=== PATIENT | female | born 1945 | race Caucasian/White ===

== ENCOUNTER → 2016-10-08 | Outpatient (CLI) | payer OTHER ==
[~2016-10-08] MED LIST: ACET-1311 PO; ALBU18002 INH; ASPCH81X PO; CALC500C70 PO; CETI10TA99 PO; CHOL1TAB42 PO; CYAN10004 PO; FOLI800T; HYDR25TA4 PO; HYOS1TAB PO; LOSA1TAB38 PO; MISCCAP80 PO; PSEU60TA80 PO; ROSU5TAB PO; TRAM-10 PO; ZNTT/150 PO
--- NOTE | 2016-10-11 13:32 | MAMMOGRAPHY REPORT ---
BILATERAL DIGITAL SCREENING MAMMOGRAM WITH CAD: 10/08/2016 CLINICAL HISTORY: Routine screening. Patient has no complaints. TECHNIQUE: Current study was also evaluated with a Computer Aided Detection (CAD) system. Bilatera l CC and MLO views were obtained. COMPARISON: Comparison is made to exams dated: 10/07/2015 mammogram, 07/15/2014 mammogram, 03/30/2012 mammogram - [facility], 10/14/2010 mammogram, and 09/17/2009 mammogram. BREAST COMPOSITION: The tissue of both breasts is heterogeneously dense, which may obscure small ma sses. FINDINGS: There is a questionable area of architectural distortion seen within the left superior br east middle depth on the MLO view, possibly projecting laterally on the cc view. Recommend spot com pression tomosynthesis views and possible breast ultrasound for further evaluation. The remainder of both breasts are stable compared to prior exams, without suspicious masses, calcifi cations, or areas of architectural distortion noted. Scattered bilateral benign-appearing calcifica tions are stable. IMPRESSION: ACR BI-RADS CATEGORY 0: INCOMPLETE EVALUATION: NEED ADDITIONAL IMAGING EVALUATION Possible left breast architectural distortion, for which additional imaging evaluation is recommende d. The patient will be called to schedule an appointment. Approximately 10% of breast cancers are not detected with mammography. A negative mammographic repor t should not delay biopsy if a clinically suggestive mass is present. Tosha Cannon M.D. /:10/08/2016 16:08:52 Religious Activities Director: Alka Hernandez, [facility] letter sent: Addl Imaging 0 BI-RADS Code: ACR BI-RADS Category 0: Incomplete Evaluation: Need Additional Imaging Evaluation
== END | disposition home or self-care (01) ==
LOC: C.MAMM 11:14
PROVIDERS: ATTEND Internal Medicine
DX: Z12.31 Encounter for screening mammogram for malignant neoplasm of breast (principal); N64.89 Other specified disorders of breast

== ENCOUNTER → 2016-10-26 | Outpatient (CLI) | payer OTHER ==
--- NOTE | 2016-10-26 13:02 | MAMMOGRAPHY REPORT ---
UNILATERAL LEFT DIGITAL DIAGNOSTIC MAMMOGRAM TOMOSYNTHESIS AND TARGETED LEFT ULTRASOUND: 10/26/2016 CLINICAL HISTORY: 71-year-old woman with no family history of breast cancer called back from screeni ng mammography for possible architectural distortion in the upper outer middle one third of the left breast. TECHNIQUE: Spot compression left CC and MLO 2-D digital and tomosynthesis images were obtained. COMPARISON: Comparison is made to exams dated: 10/08/2016 mammogram, 10/07/2015 mammogram, 03/30/2012 ma mmogram - [facility], 09/17/2009 mammogram, 10/14/2010 mammogram, and 07/15/2014 mamm ogram - [facility]. BREAST COMPOSITION: The tissue of the left breast is heterogeneously dense, which may obscure small masses. FINDINGS: The additional spot compression views including to this is images demonstrate complete eff acement of the possible distortion in the upper outer middle one third of the left breast. There is no focal area of architectural distortion, a suspicious mass or suspicious clustered microcalcifica tions. Real-time high-resolution ultrasound was performed throughout the left breast throughout the 4:00, 8 :00, retroareolar and superior breast. Normal fibroglandular tissue is seen without a discrete ruthie d or cystic mass. IMPRESSION: ACR BI-RADS CATEGORY 2: BENIGN, TARGETED ULTRASOUND ACR BI-RADS CATEGORY 2: BENIGN There is complete effacement of the possible architectural distortion in the upper outer middle one third of the left breast, and no suspicious sonographic correlate. This most likely represented nor mal overlapping fibroglandular tissue. There is no mammographic or targeted sonographic evidence of malignancy. Return to annual mammogram screening schedule is recommended. The patient and her husb and have been verbally notified of the results. Approximately 10% of breast cancers are not detected with mammography. A negative mammographic repor t should not delay biopsy if a clinically suggestive mass is present. Savita Marques M.D. ay/:10/26/2016 11:49:14 Veneer Drier Feeder: Gela SANTANA (R)(Mel), [facility] letter sent: Normal 1/2 BI-RADS Code: ACR BI-RADS Category 2: Benign Ultrasound BI-RADS: ACR BI-RADS Category 2: Benign
== END | disposition home or self-care (01) ==
LOC: C.MAMM 10:38
PROVIDERS: ATTEND Internal Medicine
DX: N64.89 Other specified disorders of breast (principal)

== ENCOUNTER → 2016-11-09 | Outpatient (CLI) | payer OTHER | END | disposition home or self-care (01) | LOC: C.LAB1850 14:05 | PROVIDERS: ATTEND Internal Medicine Rheumatology | DX: E55.9 Vitamin D deficiency, unspecified (principal); M81.0 Age-related osteoporosis without current pathological fracture ==

== ENCOUNTER → 2016-12-06 | Outpatient (CLI) | payer OTHER ==
[2016-12-06 14:59] LABS: BASO % 0.4 %; BASO ABS # 0.03 K/uL (0-0.2); COMPLETE YES; EOS % 2.8 %; HEMATOCRIT 39.4 % (37-47); IG% 0.1 %; LYMPH % 29.4 %; LYMPH ABS # 2.24 K/uL (1.2-3.4); MEAN CELL VOLUME 88.7 fL (80-100); MEAN CORPUSCULAR HEMOGLOBIN 29.5 pg (25-34); MEAN CORPUSCULAR HGB CONC 33.2 g/dl (32-36); MEAN PLATELET VOLUME 10.1 fL (7.4-10.4); MONO % 7.8 %; NEUT % 59.5 %; PLATELET COUNT 266 K/uL (130-400); RED BLOOD COUNT 4.44 M/uL (4.2-5.4); WHITE BLOOD COUNT 7.61 K/uL (4.8-10.8)
[2016-12-06 15:33] LABS: ALT/SGPT 21 U/L (12-78); AST/SGOT 12 U/L (15-37); BLOOD UREA NITROGEN 21 mg/dl (7-18); BUN/CREATININE RATIO 17.9 (10-20); CALCIUM 9.6 mg/dl (8.5-10.1); CARBON DIOXIDE 33 mmol/L (21-32); CHLORIDE 102 mmol/L (98-107); GLUCOSE 87 mg/dl (70-99); POTASSIUM 3.8 mmol/L (3.5-5.1); SODIUM 141 mmol/L (136-145)
[2016-12-06 15:43] LABS: ALB/GLOB RATIO 1.1 (0.9-2); ALKALINE PHOSPHATASE 66 U/L (45-117); THYROID STIMULATING HORMONE 0.927 uIu/ml (0.300-4.500)
== END | disposition home or self-care (01) ==
LOC: C.LAB 14:04
PROVIDERS: ATTEND Internal Medicine
DX: R11.0 Nausea (principal)

== ENCOUNTER → 2017-02-16 | Outpatient (CLI) | payer OTHER ==
[2017-02-16 10:42] LABS: BLOOD UREA NITROGEN 10 mg/dl (7-18); BUN/CREATININE RATIO 13.2 (10-20); CALCIUM 8.9 mg/dl (8.5-10.1); CARBON DIOXIDE 28 mmol/L (21-32); CHLORIDE 96 mmol/L (98-107); CHOLESTEROL 207 mg/dl (0-200); CREATININE 0.77 mg/dl (0.60-1.20); GLUCOSE 85 mg/dl (70-99); SODIUM 133 mmol/L (136-145); TRIGLYCERIDES 120 mg/dl (0-150); VERY LOW DENSITY LIPOPROT CALC 24 mg/dl
[2017-02-16 10:45] LABS: CHOLESTEROL/HDL RATIO 2.6; HDL CHOLESTEROL 79 mg/dl; LDL CHOLESTEROL CALCULATED 104 mg/dl
== END | disposition home or self-care (01) ==
LOC: C.LAB 09:34
PROVIDERS: ATTEND Internal Medicine
DX: E78.00 Pure hypercholesterolemia, unspecified (principal); I10 Essential (primary) hypertension

== ENCOUNTER → 2017-09-08 | Outpatient (CLI) | payer OTHER ==
[~2017-09-08] MED LIST changes: +ELDE1SYP PO; +GUAI1SOL5 PO; +PRED10PA3; +RANI150T85 PO; +UMEC1AER INH; -ZNTT/150 PO; +ZOLE5INJ3 IV; +[UNRECOGNIZED DRUG - OTHER] PO
--- NOTE | 2017-09-08 09:50 | DIAGNOSTIC IMAGING REPORT ---
CHEST 2 VIEWS ROUTINE CLINICAL HISTORY: R05 [id number] dyspnea COMPARISON STUDY: 325 2 and 16 FINDINGS: Mild stable emphysematous change. No acute infiltrate. Mild chronic apical fibrotic and pleural thickening-type change. No new or interval finding. Moderate degenerative changes thoracic spine. IMPRESSION: Chronic change. No acute process. The above report was generated using voice recognition software. It may contain grammatical, syntax or spelling errors. Electronically signed by: Rashad Garcia M.D. 09/08/2017 9:49 AM Dictated Date/Time: 09/08/2017 9:47 AM
== END | disposition home or self-care (01) ==
LOC: C.RAD1850 09:35
PROVIDERS: ATTEND Physician Assistant
DX: R05 Cough (principal)

== ENCOUNTER → 2017-10-11 | Outpatient (CLI) | payer OTHER ==
[~2017-10-11] MED LIST changes: -ELDE1SYP PO; -GUAI1SOL5 PO; -PRED10PA3; -UMEC1AER INH; -ZOLE5INJ3 IV; -[UNRECOGNIZED DRUG - OTHER] PO
--- NOTE | 2017-10-12 14:02 | MAMMOGRAPHY REPORT ---
BILATERAL DIGITAL SCREENING MAMMOGRAM TOMOSYNTHESIS WITH CAD: 10/11/2017 CLINICAL HISTORY: Routine screening. Patient has no complaints. TECHNIQUE: Breast tomosynthesis in addition to standard 2D mammography was performed. Current study was also evaluated with a Computer Aided Detection (CAD) system. COMPARISON: Comparison is made to exams dated: 10/26/2016 mammogram, 10/08/2016 mammogram, 10/07/2015 yue mogram, 07/15/2014 mammogram, 03/30/2012 mammogram - [facility], and 10/14/2010 mammog sarika. BREAST COMPOSITION: The tissue of both breasts is heterogeneously dense, which may obscure small mas ses. FINDINGS: There is a possible small grouping of microcalcifications in the upper outer middle one th ird of the right breast, for which additional spot magnification views are recommended. There are a few scattered benign rim calcifications bilaterally. No other suspicious mass, architectu ral distortion or cluster of microcalcifications is seen. IMPRESSION: ACR BI-RADS CATEGORY 0: INCOMPLETE EVALUATION: NEED ADDITIONAL IMAGING EVALUATION The possible small grouping of microcalcifications in the right upper outer breast needs additional e valuation. The patient will be called to schedule an appointment. Approximately 10% of breast cancers are not detected with mammography. A negative mammographic report should not delay biopsy if a clinically suggestive mass is present. Savita Marques M.D. ay/:10/11/2017 16:22:23 Parcel Wrapper: Katja SANTANA(Carlton)(Mel)(BD), [facility] letter sent: Addl Imaging 0 BI-RADS Code: ACR BI-RADS Category 0: Incomplete Evaluation: Need Additional Imaging Evaluation
== END | disposition home or self-care (01) ==
LOC: C.MAMM 10:36
PROVIDERS: ATTEND Internal Medicine
DX: Z12.31 Encounter for screening mammogram for malignant neoplasm of breast (principal); R92.8 Other abnormal and inconclusive findings on diagnostic imaging of breast

== ENCOUNTER → 2017-10-29 | Outpatient (CLI) | payer OTHER ==
[2017-10-29 11:15] LABS: HEMATOCRIT 41.8 % (37-47); HEMOGLOBIN 14.1 g/dL (12.0-16.0); MEAN CELL VOLUME 90.1 fL (80-100); MEAN CORPUSCULAR HEMOGLOBIN 30.4 pg (25-34); MEAN CORPUSCULAR HGB CONC 33.7 g/dl (32-36); MEAN PLATELET VOLUME 9.6 fL (7.4-10.4); PLATELET COUNT 278 K/uL (130-400); RED CELL DISTRIBUTION WIDTH SD 42.6 fL (36.4-46.3); WHITE BLOOD COUNT 6.92 K/uL (4.8-10.8)
[2017-10-29 11:51] LABS: BLOOD UREA NITROGEN 11 mg/dl (7-18); CREATININE 0.84 mg/dl (0.60-1.20); GLUCOSE 91 mg/dl (70-99)
[2017-10-29 11:52] LABS: ALT/SGPT 18 U/L (12-78); AST/SGOT 15 U/L (15-37); CALCIUM 8.9 mg/dl (8.5-10.1); CARBON DIOXIDE 30 mmol/L (21-32); POTASSIUM 3.8 mmol/L (3.5-5.1); SODIUM 135 mmol/L (136-145)
[2017-10-29 11:54] LABS: CHOLESTEROL 172 mg/dl (0-200); LDL CHOLESTEROL CALCULATED 81 mg/dl
== END | disposition home or self-care (01) ==
LOC: C.LAB 10:19
PROVIDERS: ATTEND Internal Medicine
DX: E78.00 Pure hypercholesterolemia, unspecified (principal); I10 Essential (primary) hypertension; E55.9 Vitamin D deficiency, unspecified; M81.0 Age-related osteoporosis without current pathological fracture

== ENCOUNTER → 2017-11-21 | Outpatient (CLI) | payer OTHER | END | disposition home or self-care (01) | LOC: C.MAMM 14:51 | PROVIDERS: ATTEND Internal Medicine Rheumatology | DX: M85.89 Other specified disorders of bone density and structure, multiple sites (principal); M81.0 Age-related osteoporosis without current pathological fracture; M84.469A Pathological fracture, unspecified tibia and fibula, initial encounter for fracture ==

== ENCOUNTER → 2017-12-12 | Outpatient (CLI) | payer OTHER ==
--- NOTE | 2017-12-13 07:42 | MAMMOGRAPHY REPORT ---
UNILATERAL RIGHT DIGITAL DIAGNOSTIC MAMMOGRAM: 12/12/2017 CLINICAL HISTORY: 72-year-old woman called back from screening mammography for right breast microcalc ifications. TECHNIQUE: Spot magnification right CC and ML views were obtained. COMPARISON: Comparison is made to exams dated: 10/11/2017 mammogram, 10/08/2016 mammogram, 10/07/2015 mamm ogram, 07/15/2014 mammogram, 03/30/2012 mammogram - [facility], and 10/14/2010 mammogr am. BREAST COMPOSITION: The tissue of the right breast is heterogeneously dense, which may obscure small masses. FINDINGS: There is a loose grouping of punctate microcalcifications in the upper outer middle one th ird of the right breast measuring 3.5 mm on the ML the spot magnification CC view. Demonstrates the micro calcifications may extend over 7 mm although it is difficult to differentiate between the punct ate microcalcifications and possible vascular calcification seen posterior. No obvious associated ar chitectural distortion, mass or asymmetry. These calcifications were not clearly seen on prior mammo grams and are therefore indeterminate. Definitive characterization with a right breast stereotactic guided biopsy is recommended. IMPRESSION: ACR BI-RADS CATEGORY 4: SUSPICIOUS Right breast stereotactic guided biopsy is recommended for newly visualized grouped punctate microcal cifications in the upper outer middle one third of the breast. These results and recommendations were discussed with the patient and her at the time of the exam. She tentatively scheduled the right breast biopsy prior to leaving the department. Approximately 10% of breast cancers are not detected with mammography. A negative mammographic report should not delay biopsy if a clinically suggestive mass is present. Savita Marques M.D. ay/:12/12/2017 12:04:11 Tare Worker: Whitney PHILLIPS)(Mel), [facility] letter sent: Abnormal 4/5 BI-RADS Code: ACR BI-RADS Category 4: Suspicious
== END | disposition home or self-care (01) ==
LOC: C.MAMM 10:51
PROVIDERS: ATTEND Internal Medicine
DX: R92.0 Mammographic microcalcification found on diagnostic imaging of breast (principal)

== ENCOUNTER → 2017-12-26 | Outpatient (CLI) | payer OTHER ==
--- NOTE | 2017-12-26 13:25 | Discharge Instructions ---
Discharge Instructions Procedure Procedure Date: Dec 26, 2017. Reason for visit: Right Calcifications. Discharge Discharge Date: Dec 26, 2017. Discharge Diagnosis: post right breast stereotactic guided biopsy Medications Restart Stopped Medication(s): May restart Aspirin tomorrow as long as not bleeding through the bandages. Instructions Activity Recommendations: Additional Limitations (see below) Return to School/Work: no limitations Recommended Home Diet: No Limitations Provider Instructions: ACTIVITY RECOMMENDATIONS: * No lifting, pushing, pulling or exercising the affected side for three days. RETURN TO SCHOOL/WORK: * You may return to work/school after the procedure, but do not perform any strenuous activities for 24 to 48 hours. MEDICATIONS: * Tylenol (two 325 mg) every four to six hours if needed for mild pain (if not allergic to Tylenol). DIET: * Resume previous diet. SPECIAL CARE INSTRUCTIONS: * Keep biopsy site dry for 24 hours. May shower after 24 hours, but do not soak (bathe) incision. * May remove Tegaderm (plastic patch) tomorrow AFTER showering. * Leave the steri-strips on for one week. Allow the steri-strips to fall off by themselves. If not off after one week, you may remove them. You may place a Bandaid crosswise over the strips, if desired. * Apply ice 10 minutes on and 10 minutes off as needed. * Wear a bra at bedtime to sleep more comfortably for 2-3 days. * Your referring physician should have the results after approximately 5 to 7 business days. * Call for unusual bleeding, fever, drainage, etc or if you have any questions call [phone] during normal business hours or after hours call Dr Marques, . FOLLOW UP VISIT: Follow-up with Referring Physician as scheduled. Allergies Coded Allergies: Penicillins (Verified Allergy, Unknown, Hives, 07/14/16) Sulfa Antibiotics (Verified Allergy, Unknown, SWELLING, 07/14/16) [place] Recommendations: Call your doctor if: * Temperature above 101 degrees * Pain not relieved by pain medicine ordered * There is increased drainage or redness from any incision * You have any unanswered questions or concerns. Your Doctors Instructions noted above were prepared by provider Savita Marques. Patient Signature Section: Patient Instructions Signature Page Nellie Mercedes Patient (or Guardian) Signature/Date: I have read and understand the instructions given to me by my caregivers. Caregiver/RN/Doctor Signature/Date: The above-named patient and/or guardian has received patient instructions on this date. + Original Patient Signature Page (only) stays with chart. Please make copy for patient.
--- NOTE | 2017-12-27 07:37 | MAMMOGRAPHY REPORT ---
STEREOTACTIC GUIDED BIOPSY RIGHT BREAST: 12/26/2017 CLINICAL HISTORY: Indeterminate grouping of punctate microcalcifications in the right upper outer luis ast. Patient presents for stereotactic guided biopsy. COMPARISON: Comparison is made to exams dated: 10/11/2017 mammogram, 12/12/2017 mammogram, 10/26/2016 yue mogram, 10/08/2016 mammogram, 10/07/2015 mammogram, and 07/15/2014 mammogram - [facility] [address]. PATIENT CONSENT: After explaining the risks, benefits and alternatives of the procedure to the patien t, informed consent was obtained both verbally and in writing. Specific risks include: Bleeding, inf ection, puncture of adjacent structure, pain, nontarget biopsy, sampling error, metal allergy and med ication reaction. PROCEDURE DESCRIPTION: A time-out was performed and the right breast was confirmed as the site of bio psy. The patient was placed prone on the stereotactic biopsy table and the breast was placed in later almedial compression. A psychological science professor tomosynthesis view was obtained that redemonstrates the clustered micr ocalcifications in question. They are amenable to sterotactic biopsy, and the calcifications were caballero bsequently targeted utilizing the coordinates obtained by the computer. The skin was prepped with Be tadine. 1% Lidocaine with and without epinipherine was administered as local anesthesia. A small skin incision was made. Through the incision, the needle was inserted to the depth determined by the com puter. 5 samples were obtained using a Kanocoiva 9-gauge vacuum-assisted biopsy device. The specime n radiograph demonstrated to larger and a few faint smaller inside sales account representative microcalcifications, there fore, 3 additional core biopsy samples were obtained. A T-shaped biopsy marker clip was placed at th e site of biopsy. There was no immediate complication. Hemostasis was achieved after several minutes of manual compression. The samples were sent to pathology in two appropriately labeled containers, "with calcifications" and "without calcifications". All of the samples were obtained from the same si ngle biopsy site. Postprocedure CC and ML views of the right breast were obtained. There is a new T-shaped biopsy rajni er clip, at least 2 residual microcalcifications and no significant hematoma in the upper outer quadr ant of the right breast, at the site of the biopsied calcifications seen mammographically. IMPRESSION: STEREOTACTIC GUIDED BIOPSY Status post stereotactic guided biopsy of a grouping of punctate microcalcifications in the right upp er outer breast, with T-shaped metallic biopsy marker placed at the site. The patient will receive notification of the pathology results from her referring physician. Savita Marques M.D. ay/:12/26/2017 15:05:16 School Director: Gela PHILLIPS)Kim), [facility]
--- NOTE | 2017-12-27 07:40 | MAMMOGRAPHY REPORT ---
UNILATERAL RIGHT DIGITAL DIAGNOSTIC MAMMOGRAM TOMOSYNTHESIS: 12/26/2017 CLINICAL HISTORY: Grouped punctate microcalcifications in the right upper outer quadrant. Patient pr esents for stereotactic biopsy. Please refer to the report from right breast stereotactic guided biopsy performed at the same time fo r full detail. IMPRESSION: POST PROCEDURE IMAGING FOR MARKER PLACEMENT Please refer to the report from right breast stereotactic guided biopsy performed at the same time fo r full detail. Approximately 10% of breast cancers are not detected with mammography. A negative mammographic report should not delay biopsy if a clinically suggestive mass is present. Savita Marques M.D. ay/:12/26/2017 13:23:58 Entry Level Recruiter: Gela SANTANA(Carlton)(Mel), [facility] BI-RADS Code: Post Procedure Imaging For Marker Placement
== END | disposition home or self-care (01) ==
LOC: C.MAMM 12:42
PROVIDERS: ATTEND Internal Medicine
DX: R92.0 Mammographic microcalcification found on diagnostic imaging of breast (principal)

== ENCOUNTER → 2017-12-28 | Outpatient (CLI) | payer OTHER ==
[~2017-12-28] MED LIST changes: +ELDE1SYP PO; +GUAI1SOL5 PO; +PRED10PA3; +UMEC1AER INH; +ZOLE5INJ3 IV; +[UNRECOGNIZED DRUG - OTHER] PO
--- NOTE | 2017-12-28 13:46 | DIAGNOSTIC IMAGING REPORT ---
CT LUNG SCREENING, LOW DOSE WITH COMPUTER-AIDED DETECTION (CAD) CLINICAL HISTORY: Tobacco use. Low dose screening study. COMPARISON STUDY: No previous studies for comparison. CT DOSE: 75.95 mGycm TECHNIQUE: Low-dose helical CT was acquired without intravenous contrast from lung apices to bases and reconstructed at 2.5 mm every 2 mm. CAD was utilized for this study. A dose lowering technique was utilized adhering to the principles of ALARA. FINDINGS: Thyroid: Imaged portions of the thyroid gland are normal in appearance. Thoracic aorta: The thoracic aorta is normal in course and caliber, noting standard 3 vessel arch anatomy. Heart: There are mild coronary artery calcifications present. Lungs and pleural spaces: There are no pleural effusions. There is an 8 mm groundglass left lower lobe pulmonary nodule as visualized on image #24/311. There is a 6.2 mm right upper lobe groundglass pulmonary nodule as visualized in image #99/311. There is a 4.3 mm solid left upper lobe pulmonary nodule as visualized in image #42/311. There is 3.5 mm solid left upper lobe pulmonary nodule as visualized in image #118/311. There is right upper lobe tree-in-bud nodularity best visualized in image #104/311. This is likely postinflammatory. Mediastinum: There is no mediastinal lymphadenopathy. Micik: There is no evidence of pathologic hilar adenopathy given the limitations of a noncontrast study Axilla: Clear. Upper abdomen: Partially visualized upper abdominal viscera is within normal limits. Skeletal structures: There are no lytic or blastic osseous lesions. IMPRESSION: 1. Bilateral pulmonary nodules, the largest of which is an 8 mm groundglass left lower lobe pulmonary nodule. 12 month follow-up is recommended. CAD FINDINGS: Nodule 1 Category: 2 Nodule 1 Status: Baseline Nodule 1 Description: Non-solid Nodule 1 Lesion ID: 6 Nodule 1 Slice Number: 55 Nodule 1 Volume (mm3): 273 Nodule 1 Major [place] mm: 11.3 Nodule 1 Minor [place] mm: 5.7 Nodule 2 Category: 2 Nodule 2 Status: Baseline Nodule 2 Description: Non-solid Nodule 2 Lesion ID: 5 Nodule 2 Slice Number: 106 Nodule 2 Volume (mm3): 123 Nodule 2 Major [place] mm: 9.7 Nodule 2 Minor [place] mm: 1.6 Nodule 3 Category: 2 Nodule 3 Status: Baseline Nodule 3 Description: Solid Nodule 3 Lesion ID: 2 Nodule 3 Slice Number: 136 Nodule 3 Volume (mm3): 43 Nodule 3 Major [place] mm: 6.5 Nodule 3 Minor [place] mm: 3.5 Nodule 4 Category: 2 Nodule 4 Status: Baseline Nodule 4 Description: Non-solid Nodule 4 Lesion ID: 6 Nodule 4 Slice Number: 55 Nodule 4 Volume (mm3): 273 Nodule 4 Major [place] mm: 11.3 Nodule 4 Minor [place]ar[place] mm: 5.7 Overall Lung RADS Category: 2 Lung RADS Management Recommendation: Continue annual lung cancer screening. Lung RADS Follow Up Date: 2018-12-28 Lung RADS Nodule ID: 6 Electronically signed by: Kentrell Luong M.D. 12/28/2017 1:45 PM Dictated Date/Time: 12/28/2017 1:31 PM
== END | disposition home or self-care (01) ==
LOC: C.CTS 12:47
PROVIDERS: ATTEND Internal Medicine
DX: Z87.891 Personal history of nicotine dependence (principal)

== ENCOUNTER 2021-11-11 09:25 | Inpatient (IN) ==
[2021-11-11] MEDS ORDERED: ACETAMINOPHEN 1,000 MG/100 ML VIAL IV STA (09:48)
--- NOTE | 2021-11-11 09:54 | Emergency Department Note ---
History of Present Illness General Chief complaint: Fall Stated complaint: R WRIST PAIN, RIB PAIN, FALL Time Seen by Provider: 11/11/21 09:35 Source: patient Mode of arrival: ambulatory Limitations: no limitations History of Present Illness Provider complaint: dizziness, fall Onset (ago): hour(s) 7 Maximum Pain Intensity: 8 Associated symptoms: no chest pain, no fever/chills, no headaches, no nausea/vomiting or no shortness of breath Treatments prior to arrival: none This is a 76-year-old female presents emergency department following a fall in the middle the night. Patient with a long history of dizziness, states it has been chronic and almost daily for about a year now. She states she did recently see her PCP as she felt that the 12.5 mg of meclizine she had previously been taking was no longer working and she was increased to 25 mg. Patient states she got up in the middle the night as she needed to urinate, did not wake up her to ask for help, and while attempting to walk to the bathroom became dizzy and off balance and fell landing on a carpeted floor. Patient states she did strike her head on a wooden chest on the way down. She believes she struck the posterior aspect of her head. Patient states she also felt pain in her right hand and wrist. Patient states her got up and helped her to the restroom and she did not wish to come in for evaluation at that time so she got back into bed. She took some Tylenol and was able to fall back to sleep. She states this morning when she awoke, her wrist and arm hurt worse. Denies any other recent illness or other medication changes. Pt seen during a time of high acuity and national emergency pandemic while wearing PPE. Home Medications Medication Instructions Recorded Confirmed Type calcium carb,cit ER 600 mg-vit D3 2 tab PO DAILY tab 04/17/19 11/11/21 History 12.5 mcg (500 unit) tablet,ext.rel (Citracal-D3 Slow Release) folic acid 1 mg tablet 1 mg PO DAILY #1 tab 04/17/19 11/11/21 History zoledronic acid 5 mg/100 mL in 5 mg IV YEARLY #0 04/17/19 11/11/21 History mannitol 5 %-water intravenous piggybck (Reclast) acetaminophen 650 mg 650 mg PO Q12H PRN 08/14/19 11/11/21 History tablet,extended release cholecalciferol (vitamin D3) 125 5,000 unit PO .COMPLEX #0 09/10/20 11/11/21 History mcg (5,000 unit) tablet (Vitamin D3) cetirizine 10 mg capsule (Zyrtec) 10 mg PO QAM PRN #0 09/15/20 11/11/21 History cyclobenzaprine 5 mg tablet 5 mg PO HS PRN #30 tab 05/29/21 11/11/21 Rx rosuvastatin 5 mg tablet (Crestor) 5 mg PO .COMPLEX 09/10/21 11/11/21 History fluticasone fur. 100 mcg-umeclid 1 inh INH Q24H #60 ea 09/14/21 11/11/21 Rx 62.5 mcg-vilant 25 mcg inhalat.powder (Trelegy Ellipta) albuterol sulfate 90 mcg/actuation 1 - 2 puff INHALATION Q4H PRN #18 10/30/21 11/11/21 Rx aerosol inhaler (Ventolin HFA) gm hydrochlorothiazide 25 mg tablet 25 mg PO QAM #90 tab 10/30/21 11/11/21 Rx losartan 100 mg tablet (Cozaar) 100 mg PO QAM #90 tab 10/30/21 11/11/21 Rx meclizine 25 mg tablet 25 mg PO QID #30 tab 11/09/21 11/11/21 Rx Allergies Allergy/AdvReac Type Severity Reaction Status Date / Time Penicillins Allergy Unknown Hives Verified 11/10/21 10:19 Sulfa (Sulfonamide Allergy Unknown SWELLING Verified 11/10/21 10:19 Antibiotics) Past Med/Surg History Medical History (Updated 11/11/21 @ 16:33 by Julio César Dunaway MD) 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 Chronic obstructive pulmonary disease Deviated nasal septum Family history of diabetes mellitus MATERNAL GRANDMOTHER Family history of reaction to anesthesia MOTHER HAD "A HARD TIME COMING OUT OF IT" GERD (gastroesophageal reflux disease) History of smoking for more than 10 years Hyperlipidemia Hypertension Multiple pulmonary nodules determined by computed tomography of lung Osteoarthritis Surgical History History of appendectomy History of cataract surgery RT/LT History of section History of colonoscopy History of esophagogastroduodenoscopy (EGD) History of hysterectomy R OOPHERECTOMY History of open reduction and internal fixation (ORIF) procedure L ANKLE/TIBIA History of tonsillectomy History of tooth extraction WISDOM TEETH S/p bilateral blepharoplasty Family History Mother Coronary heart disease Hypertension Father Coronary heart disease Hypertension Myocardial infarction Grandmother Diabetes Breast cancer Denies family history of Ovarian cancer Prostate cancer Colorectal cancer Social History Smoking Status: Current every day smoker Second Hand Exposure: No; Hx Alcohol Use: Yes Alcohol type: wine Hx Substance Use: No Preferred Language: Indonesian Communication Ability: Effective Visual Impairment: No Limitations Hearing Ability: Normal Perinatal Educator Required: No Beliefs That Will Affect Care: None marital status: Current Living Situation: Spouse current occupational status: retired Feels Safe at Home: Yes Childhood Exposure to Second-Hand Smoke: Yes Dental Care, Regularly: Yes Physical Activity Frequency: Daily Seatbelt Use: always Sunscreen Use: No Assistive Devices: Glasses Review of Systems A total of 10 systems reviewed and were otherwise negative All systems reviewed & are unremarkable except as noted in HPI & below Physical Exam Vital Signs Vital Signs - 24 hr 11/11/21 09:29 11/11/21 09:49 11/11/21 11:48 Temperature 36 C L Temperature Source Temporal Artery Scan Pulse Rate 73 Pulse Rate [Finger] 68 70 Pulse Rhythm [Finger] Regular Regular Pulse Strength [Finger] Normal Normal Respiratory Rate 18 20 18 Respiratory Effort / Characteristics Non-Labored Non-Labored Non-Labored Respiratory Depth Normal Normal Normal Blood Pressure 201/79 H Blood Pressure [Left Arm] 180/80 H 167/63 H Blood Pressure Mean 119 Blood Pressure Mean [Left Arm] 113 97 Blood Pressure Position [Left Arm] Lying Sitting Pulse Oximetry 97 98 96 Oxygen Delivery Method Room Air Room Air Room Air Sepsis Recent Fever Within 48 Hours No Sepsis New/Unexplained Change in Mental Status No Sepsis Action Taken by Nursing No Action Required GENERAL: alert, well appearing, well nourished, no distress, non-toxic HEAD: nc/at, signs, no raccoon eyes, no evidence of facial trauma EYE EXAM: normal conjunctiva, PERRL and EOM's grossly intact OROPHARYNX: no exudate, no erythema, lips, buccal mucosa, and tongue normal and mucous membranes are dry NECK: supple, no nuchal rigidity, no adenopathy, non-tender, FROM LUNGS: Clear to auscultation. Normal chest wall mechanics, no w/r/r HEART: no murmurs, S1 normal and S2 normal ABDOMEN: abdomen soft, non-tender, normo-active bowel sounds, no masses, no rebound or guarding. BACK: Back is symmetrical on inspection and there is no deformity, no midline tenderness, no CVA tenderness. SKIN: no rashes and no bruising UPPER EXTREMITIES: FROM upper extremity, right upper extremity with obvious edema and evolving ecchymosis noted to the distal forearm and wrist, wrist range of motion secondary to pain and pain with palpation along the right wrist, patient is able to wiggle fingers and oppose fingers and thumb, sensation intact, nml pulses b/l. LOWER EXTREMITIES: No pitting edema. FROM, nml pulses b/l. Evidence of trauma or deformity. No pain with palpation. NEURO EXAM: Normal sensorium, cranial nerves II-XII grossly intact, normal speech, no gross weakness of arms, no gross weakness of legs. Gross sensation intact. Course Course 1150: Time spent at bedside answering questions from both the patient and her regarding her care. I did discuss with them the significant hyponatremia, markedly worse compared to any prior levels. I also discussed the fracture in the right wrist and my concern for patient's ability to ambulate safely due to the new injury and history of dizziness with subsequent fall. 1240: Patient, , and daughter now discussing at bedside. 1305: Patient now agreeable with additional inpatient evaluation. Administered Medications Discontinued Medications Sodium Chloride (Nss) 500 mls @ 125 mls/hr IV .Q4H NAVA Stop: 12/11/21 09:59 Last Admin: 11/11/21 14:10 Dose: 125 mls/hr Documented by: [id number] Infusion: 11/11/21 14:10 Dose: 125 mls/hr Documented by: [id number] Infusion: 11/11/21 14:07 Dose: 125 mls/hr Documented by: [id number] Admin: 11/11/21 10:11 Dose: 125 mls/hr Documented by: [id number] Acetaminophen (Ofirmev) 1,000 mg in 100 mls @ 400 mls/hr IV NOW STA Stop: 11/11/21 10:02 Last Infusion: 11/11/21 10:26 Dose: 400 mls/hr Documented by: [id number] Admin: 11/11/21 10:11 Dose: 400 mls/hr Documented by: [id number] Medical Decision Making Differential Diagnosis Differential diagnoses include major intracranial, cervical, spinal, thoracic, abdominal, pelvic and neurologic injury. Fracture, contusion, sprain, strain, laceration, abrasions included as well. Medical Records Attestation: I reviewed the patient's medical records. Home Medications Current Medication List: was personally reviewed by me Laboratory Data Attestation: I reviewed the patient's lab results. Result diagrams: 11/11/21 10:00 11/11/21 10:00 Lab Results 11/11/21 11/11/21 11/11/21 Range/Units 10:00 10:00 10:00 WBC 11.46 H (4.8-10.8) K/uL RBC 4.63 (4.2-5.4) M/uL Hgb 14.0 (12.0-16.0) g/dL Hct 38.7 (37-47) % MCV 83.6 (80-100) fL MCH 30.2 (25-34) pg MCHC 36.2 H (32-36) g/dL RDW Std Deviation 39.3 (36.4-46.3) fL RDW Coeff of Edwin 13.0 (11.5-14.5) % Plt Count 415 H (130-400) K/uL MPV 8.9 (7.4-10.4) fL Sodium 120 L (136-145) mmol/L Potassium 3.4 L (3.5-5.1) mmol/L Chloride 85 L (98-107) mmol/L Carbon Dioxide 28 (21-32) mmol/L Anion Gap 7 (3-11) BUN 9 (6-23) mg/dl Creatinine 0.52 L (0.6-1.2) mg/dl Est Cr Clr Drug Dosing Not Reportable Est GFR ( Amer) 106.1 ml/min Est GFR (Non-Af Amer) 91.5 ml/min BUN/Creatinine Ratio 17.3 (10-20) Glucose 89 (70-99(Fasting)) mg/dl Calcium 9.5 (8.5-10.1) mg/dl Magnesium 1.9 (1.7-2.4) mg/dl Total Bilirubin 0.6 (0.2-1.0) mg/dl AST 17 (13-39) U/L ALT 13 (7-52) U/L Alkaline Phosphatase 60 (34-104) U/L Troponin I < 0.03 (0-0.04) ng/ml Total Protein 6.9 (6.0-8.3) gm/dl Albumin 4.3 (3.4-5.0) gm/dl Globulin 2.6 (2.5-4.0) gm/dl Albumin/Globulin Ratio 1.7 (0.9-2) TSH 1.169 (0.300-4.500) uIu/ml SARS-CoV-2, RNA, NAAT (NEGATIVE) 11/11/21 Range/Units 13:30 WBC (4.8-10.8) K/uL RBC (4.2-5.4) M/uL Hgb (12.0-16.0) g/dL Hct (37-47) % MCV (80-100) fL MCH (25-34) pg MCHC (32-36) g/dL RDW Std Deviation (36.4-46.3) fL RDW Coeff of Edwin (11.5-14.5) % Plt Count (130-400) K/uL MPV (7.4-10.4) fL Sodium (136-145) mmol/L Potassium (3.5-5.1) mmol/L Chloride (98-107) mmol/L Carbon Dioxide (21-32) mmol/L Anion Gap (3-11) BUN (6-23) mg/dl Creatinine (0.6-1.2) mg/dl Est Cr Clr Drug Dosing Est GFR ( Amer) ml/min Est GFR (Non-Af Amer) ml/min BUN/Creatinine Ratio (10-20) Glucose (70-99(Fasting)) mg/dl Calcium (8.5-10.1) mg/dl Magnesium (1.7-2.4) mg/dl Total Bilirubin (0.2-1.0) mg/dl AST (13-39) U/L ALT (7-52) U/L Alkaline Phosphatase (34-104) U/L Troponin I (0-0.04) ng/ml Total Protein (6.0-8.3) gm/dl Albumin (3.4-5.0) gm/dl Globulin (2.5-4.0) gm/dl Albumin/Globulin Ratio (0.9-2) TSH (0.300-4.500) uIu/ml SARS-CoV-2, RNA, NAAT NEGATIVE (NEGATIVE) Imaging Data Radiologist's Impression: Cervical Spine CT 11/11/21 09:48 CT cervical spine wo con CLINICAL HISTORY: Status post fall with trauma to the head. Neck pain. COMPARISON STUDY: No previous studies for comparison. CT DOSE: 1035.20 mGy.cm TECHNIQUE: Standard CT of the Cervical Spine was performed without IV contrast. A dose lowering technique was utilized adhering to the principles of ALARA. FINDINGS: Bones: The bones are osteopenic. There is no evidence for an acute fracture or malalignment. The heights of the vertebral bodies are maintained. The vertebral bodies are in anatomic alignment. The odontoid is intact and the atlantoaxial articulation is within normal limits. Disc spaces: There is marked disc space narrowing from C4 through C7 with endplate sclerosis and osteophyte formation. Apophyseal joints: Degenerative apophyseal joint disease is also seen throughout the cervical spine bilaterally. Soft tissues: The prevertebral soft tissues are within normal limits. There is carotid artery calcification bilaterally. Lung apices: There is asymmetric apical pleural thickening on the right. Centrilobular emphysematous changes are present as well. IMPRESSION: 1. Osteopenia with no acute osseous pathology. 2. Marked degenerative disc and degenerative joint disease. ACT 112: Negative or not required by law. Electronically signed by: Jamshid Gee M.D. 11/11/2021 10:38 AM Chest X-Ray 11/11/21 09:48 XR chest 1V portable CLINICAL HISTORY: Status post fall with right-sided pain. COMPARISON STUDY: 07/24/2019 TECHNIQUE: 1 view of the chest FINDINGS: Single frontal view of the chest demonstrates the cardiomediastinal silhouette to be within normal limits. The lungs are clear of alveolar opacities. There is no evidence for pleural effusion. There is no evidence for vascular congestion. There is no acute osseous pathology. IMPRESSION: 1. No acute cardiopulmonary disease. ACT 112: Negative or not required by law. Electronically signed by: Jamshid Gee M.D. 11/11/2021 11:[address] 11/11/21 09:[address] DOSE: HISTORY: trauma, fall TECHNIQUE: Multiaxial CT images of the head were performed without the use of intravenous contrast. Automated exposure control was utilized for this study. A dose lowering technique was utilized adhering to the principles of ALARA. Comparison: Head CT 02/26/2013. Findings: The paranasal sinuses and mastoid air cells are clear. The calvarium and skull base are intact. There is no mass, hematoma, midline shift, acute infarct. White matter hypodensity is nonspecific but suggestive of microvascular ischemic change. The ventricles and sulci demonstrate mild age-related involutional changes. Bilateral basal ganglia calcifications are again noted. Impression: No acute intracranial abnormality. ACT 112: Negative or not required by law. Electronically signed by: Robi Burns M.D. 11/11/2021 10:49 AM Humerus X-Ray 11/11/21 09:48 XR humerus RT 2V CLINICAL HISTORY: trauma, right humerus pain proximal COMPARISON STUDY: None. FINDINGS: No fracture or dislocation within the right humerus. Soft tissues are unremarkable. IMPRESSION: No fracture or dislocation within the right humerus. ACT 112: Negative or not required by law. Electronically signed by: Robi Burns M.D. 11/11/2021 11:11 AM Pelvis X-Ray 11/11/21 09:48 XR pelvis 1-2V routine CLINICAL HISTORY: Status post fall with right-sided hip and pelvis pain. COMPARISON STUDY: 07/05/2017 TECHNIQUE: [A single AP radiograph was obtained. FINDINGS: There is no evidence for an acute fracture. The bones are osteopenic. There is mild narrowing hip joint spaces superiorly, bilaterally with mild secondary degenerative changes present. The SI joints are intact bilaterally. The remaining visualized bones of the pelvis are intact. No focal soft tissue abnormalities identified. IMPRESSION: 1. No acute abnormality. 2. Osteopenia and osteoarthritis. ACT 112: Negative or not required by law. Electronically signed by: Jamshid Gee M.D. 11/11/2021 11:10 AM Wrist X-Ray 11/11/21 09:48 XR wrist RT min 3V routine HISTORY: 76 years-old Female trauma acute posttraumatic right wrist pain COMPARISON: None TECHNIQUE: 4 views of the right wrist FINDINGS: Demineralized appearance of the bones. Limited study secondary to positioning. The patient is rotated on the AP view. Chondrocalcinosis of the radiocarpal joint and TFCC. Vertically oriented lucency with cortical irregularity is noted involving the ulnar aspect radius extending into the distal radial ulnar joint. Mild cortical regularity is also noted involving the distal dorsal cortex of the radius. Mild to moderate circumferential soft tissue swelling of the wrist. Moderate multifocal osteoarthritis. IMPRESSION: 1. Limited exam secondary to positioning. 2. Suspected acute nondisplaced intra-articular distal radial fracture with soft tissue swelling. Correlate with point tenderness. 3. Moderate osteoarthritis with chondrocalcinosis. ACT 112: Negative or not required by law. The above report was generated using voice recognition software. It may contain grammatical, syntax or spelling errors. Electronically signed by: Aj Melgar M.D. 11/11/2021 11:10 AM MDM Narrative This is a 76-year-old female who presents following a fall at home from dizziness overnight. Patient concerned with right wrist pain in addition as well as head injury. Patient with longstanding history of dizziness and recent increased meclizine. Patient found to have significant hyponatremia at 120, worse than priors although she does have a history of mild hyponatremia. No evidence of renal etiology. I do not suspect other occult traumatic injury. Significant time spent at bedside answering questions from the patient, her , and additional family who eventually arrived. Patient initially wanted to leave and follow-up as an outpatient, or however family eventually convinced her to stay for additional evaluation and testing. Case discussed with the hospitalist. An order was placed for continuous cardiac monitoring. The monitor shows a rate of _76_ with _normal sinus_ rhythm. Impression & Plan Dizziness, Hyponatremia, Fall, CHI (closed head injury), Distal radius fracture Discharge Plan Visit Data Chief Complaint: Fall Stated Complaint: R WRIST PAIN, RIB PAIN, FALL ED Provider: Dora Mobley Discharge Problem: Dizziness, Hyponatremia, Fall, CHI (closed head injury), Distal radius fracture Patient Disposition: Admitted As Inpatient Discharge Instructions Interventions: ED Discharge Assessment Last Done: 11/11/21 15:58
[2021-11-11] MEDS: SODIUM CHLORIDE 0.9% 500 ML IV SCH ×2 (10:11→14:10)
[2021-11-11 10:32] LABS: Hematocrit (blood only) 38.7 % (37-47); Mean Corpuscular Hemoglobin 30.2 pg (25-34); Mean Corpuscular Hgb Conc 36.2 g/dL (32-36); Mean Corpuscular Volume 83.6 fL (80-100); Mean Platelet Volume 8.9 fL (7.4-10.4); Platelet Count 415 K/uL (130-400); RDW Standard Deviation 39.3 fL (36.4-46.3); Red Blood Count 4.63 M/uL (4.2-5.4); White Blood Count 11.46 K/uL (4.8-10.8)
--- NOTE | 2021-11-11 10:39 | CT Scan Report ---
CT cervical spine wo con CLINICAL HISTORY: Status post fall with trauma to the head. Neck pain. COMPARISON STUDY: No previous studies for comparison. CT DOSE: 1035.20 mGy.cm TECHNIQUE: Standard CT of the Cervical Spine was performed without IV contrast. A dose lowering brayan hnique was utilized adhering to the principles of ALARA. FINDINGS: Bones: The bones are osteopenic. There is no evidence for an acute fracture or malalignment. The heig hts of the vertebral bodies are maintained. The vertebral bodies are in anatomic alignment. The odont oid is intact and the atlantoaxial articulation is within normal limits. Disc spaces: There is marked disc space narrowing from C4 through C7 with endplate sclerosis and oste ophyte formation. Apophyseal joints: Degenerative apophyseal joint disease is also seen throughout the cervical spine b ilaterally. Soft tissues: The prevertebral soft tissues are within normal limits. There is carotid artery calcifi cation bilaterally. Lung apices: There is asymmetric apical pleural thickening on the right. Centrilobular emphysematous changes are present as well. IMPRESSION: 1. Osteopenia with no acute osseous pathology. 2. Marked degenerative disc and degenerative joint disease. ACT 112: Negative or not required by law. Electronically signed by: Jamshid Gee M.D. 11/11/2021 10:38 AM
--- NOTE | 2021-11-11 10:51 | CT Scan Report ---
HEAD CT NONCONTRAST CT DOSE: HISTORY: trauma, fall TECHNIQUE: Multiaxial CT images of the head were performed without the use of intravenous contrast. A utomated exposure control was utilized for this study. A dose lowering technique was utilized adheri ng to the principles of ALARA. Comparison: Head CT 02/26/2013. Findings: The paranasal sinuses and mastoid air cells are clear. The calvarium and skull base are int act. There is no mass, hematoma, midline shift, acute infarct. White matter hypodensity is nonspecifi c but suggestive of microvascular ischemic change. The ventricles and sulci demonstrate mild age-rela case involutional changes. Bilateral basal ganglia calcifications are again noted. Impression: No acute intracranial abnormality. ACT 112: Negative or not required by law. Electronically signed by: Robi Burns M.D. 11/11/2021 10:49 AM
[2021-11-11 10:52] LABS: Alanine Aminotransferase 13 U/L (7-52); Albumin Globulin Ratio 1.7 (0.9-2); Albumin Level 4.3 gm/dl (3.4-5.0); Alkaline Phosphatase 60 U/L (34-104); Anion Gap 7 (3-11); Aspartate Aminotransferase 17 U/L (13-39); BUN Creatinine Ratio 17.3 (10-20); Bilirubin,Total 0.6 mg/dl (0.2-1.0); Blood Urea Nitrogen 9 mg/dl (6-23); Calcium 9.5 mg/dl (8.5-10.1); Carbon Dioxide 28 mmol/L (21-32); Chloride 85 mmol/L (98-107); Est GFR (African American) 106.1 ml/min; Est GFR (Non-African American) 91.5 ml/min; Globulin 2.6 gm/dl (2.5-4.0); Glucose 89 mg/dl (70-99(Fasting)); Magnesium 1.9 mg/dl (1.7-2.4); Potassium 3.4 mmol/L (3.5-5.1); Sodium 120 mmol/L (136-145); Total Protein 6.9 gm/dl (6.0-8.3)
[2021-11-11 10:53] LABS: Troponin I < 0.03 ng/ml (0-0.04)
--- NOTE | 2021-11-11 11:11 | XRay Report ---
XR wrist RT min 3V routine HISTORY: 76 years-old Female trauma acute posttraumatic right wrist pain COMPARISON: None TECHNIQUE: 4 views of the right wrist FINDINGS: Demineralized appearance of the bones. Limited study secondary to positioning. The patient is rotated on the AP view. Chondrocalcinosis of the radiocarpal joint and TFCC. Vertically oriented lucency wit h cortical irregularity is noted involving the ulnar aspect radius extending into the distal radial u lnar joint. Mild cortical regularity is also noted involving the distal dorsal cortex of the radius. Mild to moderate circumferential soft tissue swelling of the wrist. Moderate multifocal osteoarthriti s. IMPRESSION: 1. Limited exam secondary to positioning. 2. Suspected acute nondisplaced intra-articular distal radial fracture with soft tissue swelling. Cor relate with point tenderness. 3. Moderate osteoarthritis with chondrocalcinosis. ACT 112: Negative or not required by law. The above report was generated using voice recognition software. It may contain grammatical, syntax o r spelling errors. Electronically signed by: Aj Melgar M.D. 11/11/2021 11:10 AM
--- NOTE | 2021-11-11 11:11 | XRay Report ---
XR pelvis 1-2V routine CLINICAL HISTORY: Status post fall with right-sided hip and pelvis pain. COMPARISON STUDY: 07/05/2017 TECHNIQUE: [A single AP radiograph was obtained. FINDINGS: There is no evidence for an acute fracture. The bones are osteopenic. There is mild narrowing hip violetta nt spaces superiorly, bilaterally with mild secondary degenerative changes present. The SI joints are intact bilaterally. The remaining visualized bones of the pelvis are intact. No focal soft tissue ab normalities identified. IMPRESSION: 1. No acute abnormality. 2. Osteopenia and osteoarthritis. ACT 112: Negative or not required by law. Electronically signed by: Jamshid Gee M.D. 11/11/2021 11:10 AM
--- NOTE | 2021-11-11 11:12 | XRay Report ---
XR humerus RT 2V CLINICAL HISTORY: trauma, right humerus pain proximal COMPARISON STUDY: None. FINDINGS: No fracture or dislocation within the right humerus. Soft tissues are unremarkable. IMPRESSION: No fracture or dislocation within the right humerus. ACT 112: Negative or not required by law. Electronically signed by: Robi Burns M.D. 11/11/2021 11:11 AM
--- NOTE | 2021-11-11 11:12 | XRay Report ---
XR chest 1V portable CLINICAL HISTORY: Status post fall with right-sided pain. COMPARISON STUDY: 07/24/2019 TECHNIQUE: 1 view of the chest FINDINGS: Single frontal view of the chest demonstrates the cardiomediastinal silhouette to be within normal li mits. The lungs are clear of alveolar opacities. There is no evidence for pleural effusion. There is no evidence for vascular congestion. There is no acute osseous pathology. IMPRESSION: 1. No acute cardiopulmonary disease. ACT 112: Negative or not required by law. Electronically signed by: Jamshid Gee M.D. 11/11/2021 11:10 AM
[2021-11-11] MEDS ORDERED: ALBUTEROL HFA 8 GM INHALER INH PRN (16:21)
[2021-11-11] MEDS ORDERED: ONDANSETRON INJ 2 MG/ML 2 ML VIAL IV PRN (16:21)
[2021-11-11] MEDS ORDERED: CYCLOBENZAPRINE HCL 5 MG TAB PO PRN (16:21)
--- NOTE | 2021-11-11 16:27 | History & Physical Report ---
Date of Service November 11, 2021 Assessment & Plan (1) Hyponatremia: Plan: Na down to 120. Usually in the high 120 to low 130 range. Likely from HCTZ and significant free water intake. - Urine osms pending - Hold HCTZ - Encouraged fluid restriction and exchanging Boost/Ensure for some free water - Monitor BMP tonight and tomorrow AM. -> Of note, patient is pretty adamant that she will not stay more than 1 night. (2) Vertigo: Plan: Long-standing issue with some worsening in the last few weeks. Possibly from BPPV (reports worst when looking [id number]) vs. symptomatic hyponatremia. - Hyponatremia as above - PT/OT for possible vestibular testing/training - Continue home meclizine standing (patient reports she never misses a dose) (3) Radial fracture: Plan: Wrist x-ray on admission showed suspected acute nondisplaced intra-articular distal radial fracture with soft tissue swelling. - Presently splinted with finger NV intact - Orthopedics consulted (4) Fall: Plan: Mechanical in nature from her vertigo. - PT/OT consulted (5) HTN (hypertension): Plan: BP presently 160/65. - Continue home losartan - Hold HCTZ - Will add agent as needed (6) Chronic obstructive pulmonary disease: Plan: No present shortness of breath or wheezing. - Continue home Trelegy or formulary equivalent (7) Hypercholesterolemia: Plan: - Continue home rosuvastatin (8) DVT prophylaxis: Plan: SCDs - Patient reports she will go home tomorrow, so will encourage SCDs and early ambulation. History of Present Illness Primary Care Provider: Ivan Castro MD 76yo F w/ hx of HTN who presents with hyponatremia, dizziness, and a right radial fracture after a fall at home. Per the patient, several weeks ago, she started to have vertigo at home. It predominantly occurs when she looks to the left or right (more right than left). PCP notes indicate it is much longer standing. I see notes as long ago as 01/2021 indicating it is a long-standing problem. In any event, the vertigo seems to have gotten worse over the last few weeks, and she was recently increased from meclizine 12.5 mg to 25 mg PO QID which she reports taking faithfully. Despite that, her vertigo has remained, though possibly some better on the higher dose of meclizine. However, overnight at 2am, she got up to use the restroom. She was walking to the restroom, when she looked to the right to look at her clock. This set off significant vertigo, and she became acutely wobbly, and ended up falling forward and to the right. She re ports she did strike her head, but did not lose consciousness. She had no other associated symptoms such as chest pain, shortness of breath, palpitations, or weakness. Allergies Allergy/AdvReac Type Severity Reaction Status Date / Time Penicillins Allergy Unknown Hives Verified 11/10/21 10:19 Sulfa (Sulfonamide Allergy Unknown SWELLING Verified 11/10/21 10:19 Antibiotics) Home Medications Medication Instructions Recorded Confirmed Type calcium carb,cit ER 600 mg-vit D3 2 tab PO DAILY tab 04/17/19 11/11/21 History 12.5 mcg (500 unit) tablet,ext.rel (Citracal-D3 Slow Release) folic acid 1 mg tablet 1 mg PO DAILY #1 tab 04/17/19 11/11/21 History zoledronic acid 5 mg/100 mL in 5 mg IV YEARLY #0 04/17/19 11/11/21 History mannitol 5 %-water intravenous piggybck (Reclast) acetaminophen 650 mg 650 mg PO Q12H PRN 08/14/19 11/11/21 History tablet,extended release cholecalciferol (vitamin D3) 125 5,000 unit PO .COMPLEX #0 09/10/20 11/11/21 History mcg (5,000 unit) tablet (Vitamin D3) cetirizine 10 mg capsule (Zyrtec) 10 mg PO QAM PRN #0 09/15/20 11/11/21 History cyclobenzaprine 5 mg tablet 5 mg PO HS PRN #30 tab 05/29/21 11/11/21 Rx rosuvastatin 5 mg tablet (Crestor) 5 mg PO .COMPLEX 09/10/21 11/11/21 History fluticasone fur. 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 Chronic obstructive pulmonary disease Deviated nasal septum Family history of diabetes mellitus MATERNAL GRANDMOTHER Family history of reaction to anesthesia MOTHER HAD "A HARD TIME COMING OUT OF IT" GERD (gastroesophageal reflux disease) History of smoking for more than 10 years Hyperlipidemia Hypertension Multiple pulmonary nodules determined by computed tomography of lung Osteoarthritis Surgical History History of appendectomy History of cataract surgery RT/LT History of section History of colonoscopy History of esophagogastroduodenoscopy (EGD) History of hysterectomy R OOPHERECTOMY History of open reduction and internal fixation (ORIF) procedure L ANKLE/TIBIA History of tonsillectomy History of tooth extraction WISDOM TEETH S/p bilateral blepharoplasty Family History Mother Coronary heart disease Hypertension Father Coronary heart disease Hypertension Myocardial infarction Grandmother Diabetes Breast cancer Denies family history of Ovarian cancer Prostate cancer Colorectal cancer Social History Smoking Status: Current every day smoker Second Hand Exposure: No; Hx Alcohol Use: Yes Alcohol type: wine Hx Substance Use: No Preferred Language: Vietnamese Communication Ability: Effective Visual Impairment: No Limitations Hearing Ability: Normal Store Custodian Required: No Beliefs That Will Affect Care: None marital status: Current Living Situation: Spouse current occupational status: retired Feels Safe at Home: Yes Childhood Exposure to Second-Hand Smoke: Yes Dental Care, Regularly: Yes Physical Activity Frequency: Daily Seatbelt Use: always Sunscreen Use: No Assistive Devices: Glasses Review of Systems Review of Systems: All systems reviewed & are unremarkable except as noted in HPI & below Physical Exam Constitutional: WD/WN, vitals as above Eyes: EOM intact bilaterally; no conjunctival abnormality ENMT: external ear and nose normal, oropharynx normal Neck: trachea midline, no thyromegaly normal visual inspection Respiratory: normal respiratory effort, lungs clear to auscultation no respiratory distress Cardiovascular: RRR, no murmur, no edema Gastrointestinal (Abdomen): Inspection/Auscultation: abdomen normal to inspection; abdomen not distended Musculoskeletal: Extremities: + hand abnormality Right (Right wrist in bandage. Fingers are neurovascularly intact.) Skin: no rashes, warm and dry Neurologic: moves all extremities and awake Psychiatric: Orientation: alert, oriented to person and cooperative Results & Data Results & Data ([facility]) Vital Signs (Past 12 Hours) Vital Signs Temp Pulse Pulse Resp BP BP Pulse Ox 11/11/21 15:00 74 18 162/64 H 11/11/21 11:48 70 18 167/63 H 96 11/11/21 09:49 68 20 180/80 H 98 11/11/21 09:29 36 C L 73 18 201/79 H 97 PG Care Time/CCT Total # of Minutes Spent Total Time Spent with Patient: Total time spent is greater than 50% in coordination of care (as documented) at patient's floor/unit and/or counseling patient: Coding Level of Care Code INT OBSERVATION CARE 70M LVL 3 Diagnoses Hyponatremia E87.1 Fall W19.XXXA Vertigo R42 Radial fracture S52.90XA HTN (hypertension) I10 Hypercholesterolemia E78.00 DVT prophylaxis Z29.9 Chronic obstructive pulmonary disease J44.9
[2021-11-11] MEDS ORDERED: CETIRIZINE HCL 10 MG TABLET PO PRN (16:28)
[2021-11-11] MEDS: ACETAMINOPHEN 325 MG TAB PO PRN (16:43)
[2021-11-11] MEDS: MECLIZINE HCL 25 MG TAB PO SCH ×2 (17:19→20:05)
[2021-11-11] MEDS: MoRPHine SULFATE 2 MG/ML CARP IV PRN ×2 (18:07→22:11)
--- NOTE | 2021-11-11 19:47 | Orthopedic Consultation ---
Date of Service November 11, 2021 Assessment & Plan (1) Closed fracture of distal end of radius: Chart reviewed and radiographs evaluated. Agree with provisional diagnosis. Please keep in the volar wrist splint. Full consult tomorrow. No surgical indications. Expect follow-up in 10-14 days for repeat x-rays and casting or bracing History of Present Illness Reason for Consultation: . Requesting Physician: . Attending Physician: Julio César Dunaway MD . Allergies Allergy/AdvReac Type Severity Reaction Status Date / Time Penicillins Allergy Unknown Hives Verified 11/10/21 10:19 Sulfa (Sulfonamide Allergy Unknown SWELLING Verified 11/10/21 10:19 Antibiotics) Home Medications Medication Instructions Recorded Confirmed Type calcium carb,cit ER 600 mg-vit D3 2 tab PO DAILY tab 04/17/19 11/11/21 History 12.5 mcg (500 unit) tablet,ext.rel (Citracal-D3 Slow Release) folic acid 1 mg tablet 1 mg PO DAILY #1 tab 04/17/19 11/11/21 History zoledronic acid 5 mg/100 mL in 5 mg IV YEARLY #0 04/17/19 11/11/21 History mannitol 5 %-water intravenous piggybck (Reclast) acetaminophen 650 mg 650 mg PO Q12H PRN 08/14/19 11/11/21 History tablet,extended release cholecalciferol (vitamin D3) 125 5,000 unit PO .COMPLEX #0 09/10/20 11/11/21 History mcg (5,000 unit) tablet (Vitamin D3) cetirizine 10 mg capsule (Zyrtec) 10 mg PO QAM PRN #0 09/15/20 11/11/21 History cyclobenzaprine 5 mg tablet 5 mg PO HS PRN #30 tab 05/29/21 11/11/21 Rx rosuvastatin 5 mg tablet (Crestor) 5 mg PO .COMPLEX 09/10/21 11/11/21 History fluticasone fur. 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 Chronic obstructive pulmonary disease Deviated nasal septum Family history of diabetes mellitus MATERNAL GRANDMOTHER Family history of reaction to anesthesia MOTHER HAD "A HARD TIME COMING OUT OF IT" GERD (gastroesophageal reflux disease) History of smoking for more than 10 years Hyperlipidemia Hypertension Multiple pulmonary nodules determined by computed tomography of lung Osteoarthritis Surgical History History of appendectomy History of cataract surgery RT/LT History of section History of colonoscopy History of esophagogastroduodenoscopy (EGD) History of hysterectomy R OOPHERECTOMY History of open reduction and internal fixation (ORIF) procedure L ANKLE/TIBIA History of tonsillectomy History of tooth extraction WISDOM TEETH S/p bilateral blepharoplasty Family History Mother Coronary heart disease Hypertension Father Coronary heart disease Hypertension Myocardial infarction Grandmother Diabetes Breast cancer Denies family history of Ovarian cancer Prostate cancer Colorectal cancer Social History Smoking Status: Current every day smoker Cigarettes Per Day: 15; Second Hand Exposure: No; Do You Dip or Chew Tobacco: No; Tobacco Cessation Education Requested by Patient: No Hx Alcohol Use: No Hx Substance Use: No Preferred Language: Malian Communication Ability: Effective Visual Impairment: No Limitations Hearing Ability: Normal Sample Prep Technician Required: No Beliefs That Will Affect Care: None marital status: Current Living Situation: Spouse Current Living Situation Comment: Lives at home with her current occupational status: retired Other Information That Helps Us Care for You: No Feels Safe at Home: Yes Safety Concerns: Feels Safe At This Time Childhood Exposure to Second-Hand Smoke: Yes Dental Care, Regularly: Yes Physical Activity Frequency: Daily Seatbelt Use: always Sunscreen Use: No Assistive Devices: Cane, Glasses and Walker Review of Systems All systems reviewed & are unremarkable except as noted in HPI & below. Physical Exam . Results & Data Results & Data Laboratory Results . Diagnostic Findings . PG Care Time/CCT Total # of Minutes Spent Total Time Spent with Patient: Total time spent is greater than 50% in coordination of care (as documented) at patient's floor/unit and/or counseling patient: Coding Level of Care Code 87557 Inpt Consult Level 4 Diagnoses Closed fracture of distal end of radius S52.509A Additional Codes Fx Wrist - Distal radius: Distal radius ([id number])
[2021-11-11 20:42] LABS: Calcium 8.9 mg/dl (8.5-10.1); Est GFR (African American) 109.7 ml/min; Est GFR (Non-African American) 94.6 ml/min; Potassium 3.4 mmol/L (3.5-5.1)
[2021-11-11] MEDS ORDERED: SODIUM CHLORIDE 0.9% 250 ML IV SCH (23:00)
[2021-11-12] MEDS: MoRPHine SULFATE 2 MG/ML CARP IV PRN (06:44)
[2021-11-12] MEDS: UMECLIDINIUM/VILANTEROL 62.5/25MCG 7 PUFFS/INHALER INH SCH (07:45)
[2021-11-12] MEDS: FLUTICASONE FUROATE 100MCG 14 PUFFS/INHALER INH SCH (07:45)
[2021-11-12] MEDS: FOLIC ACID 1 MG TAB PO SCH (07:47)
[2021-11-12] MEDS: CALCIUM 600MG + VIT D 400 IU TAB PO SCH (07:47)
[2021-11-12] MEDS: LOSARTAN POTASSIUM 50 MG TAB PO SCH (07:47)
[2021-11-12] MEDS: MECLIZINE HCL 25 MG TAB PO SCH ×3 (07:47→17:57)
[2021-11-12 08:12] LABS: Hematocrit (blood only) 36.1 % (37-47); Hemoglobin 12.7 g/dL (12.0-16.0); Mean Corpuscular Hgb Conc 35.2 g/dL (32-36); Mean Corpuscular Volume 85.1 fL (80-100); Platelet Count 389 K/uL (130-400); RDW Coefficient of Variation 13.4 % (11.5-14.5); RDW Standard Deviation 41.6 fL (36.4-46.3); Red Blood Count 4.24 M/uL (4.2-5.4)
[2021-11-12 08:47] LABS: BUN Creatinine Ratio 14.9 (10-20); Calcium 7.9 mg/dl (8.5-10.1); Est GFR (African American) 109.7 ml/min; Est GFR (Non-African American) 94.6 ml/min; Magnesium 1.8 mg/dl (1.7-2.4); Potassium 3.4 mmol/L (3.5-5.1)
[2021-11-12] MEDS: ACETAMINOPHEN 325 MG TAB PO PRN (08:48)
[2021-11-12] MEDS: CYANOCOBALAMIN (B-12) 500 MCG TABLET PO SCH (08:59)
[2021-11-12] MEDS ORDERED: CHOLECALCIFEROL 5,000 UNITS 125 MCG TAB PO SCH (09:00)
[2021-11-12] MEDS: POTASSIUM CHLORIDE CRTAB 20 MEQ TABCR PO SCH ×3 (09:47→20:17)
[2021-11-12] MEDS: ACETAMINOPHEN 500 MG TAB PO SCH ×2 (09:50→20:17)
--- NOTE | 2021-11-12 16:29 | Orthopedic Consultation ---
Date of Service November 12, 2021 Assessment & Plan (1) Closed fracture of distal end of radius: -No acute surgical intervention -Splint was taken down, placed in wrist extension brace, she should remain in brace until clinic follow up -NWB RUE -Pain control w/ tylenol or anti-inflammatories Disposition: Per medicine. She should follow up in Ortho clinic in 2 weeks for repeat wrist XRs. History of Present Illness Reason for Consultation: Possible R distal radius fracture . Requesting Physician: Leonard Capps . Attending Physician: Leonard Capps Pt is a 76 y/o/f with a history of vertigo as well as multiple other comorbidities who was admitted to [facility] after a mechanical fall after experiencing vertigo symptoms. She fell on an outstretched right hand and had immediate wrist pain afterwards. XRs in ED showed a possible nondisplaced R distal radius fracture. She was placed in a volar wrist splint while in ED. She was also found to be hyponatremic and admitted to Medicine. Orthopedics consulted for evaluation and treatment of possible fracture. Seen at bedside today. Feels a little sleepy but well otherwise. Wrist feels sore but pain has drastically improved. Splint feels tight/uncomfortable. Denies any numbness in RUE. Allergies Allergy/AdvReac Type Severity Reaction Status Date / Time Penicillins Allergy Unknown Hives Verified 11/10/21 10:19 Sulfa (Sulfonamide Allergy Unknown SWELLING Verified 11/10/21 10:19 Antibiotics) Home Medications Medication Instructions Recorded Confirmed Type calcium carb,cit ER 600 mg-vit D3 2 tab PO DAILY tab 04/17/19 11/11/21 History 12.5 mcg (500 unit) tablet,ext.rel (Citracal-D3 Slow Release) folic acid 1 mg tablet 1 mg PO DAILY #1 tab 04/17/19 11/11/21 History zoledronic acid 5 mg/100 mL in 5 mg IV YEARLY #0 04/17/19 11/11/21 History mannitol 5 %-water intravenous piggybck (Reclast) acetaminophen 650 mg 650 mg PO Q12H PRN 08/14/19 11/11/21 History tablet,extended release cholecalciferol (vitamin D3) 125 5,000 unit PO .COMPLEX #0 09/10/20 11/11/21 History mcg (5,000 unit) tablet (Vitamin D3) cetirizine 10 mg capsule (Zyrtec) 10 mg PO QAM PRN #0 09/15/20 11/11/21 History cyclobenzaprine 5 mg tablet 5 mg PO HS PRN #30 tab 05/29/21 11/11/21 Rx rosuvastatin 5 mg tablet (Crestor) 5 mg PO .COMPLEX 09/10/21 11/11/21 History fluticasone fur. 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 Chronic obstructive pulmonary disease Deviated nasal septum Family history of diabetes mellitus MATERNAL GRANDMOTHER Family history of reaction to anesthesia MOTHER HAD "A HARD TIME COMING OUT OF IT" GERD (gastroesophageal reflux disease) History of smoking for more than 10 years Hyperlipidemia Hypertension Multiple pulmonary nodules determined by computed tomography of lung Osteoarthritis Surgical History History of appendectomy History of cataract surgery RT/LT History of section History of colonoscopy History of esophagogastroduodenoscopy (EGD) History of hysterectomy R OOPHERECTOMY History of open reduction and internal fixation (ORIF) procedure L ANKLE/TIBIA History of tonsillectomy History of tooth extraction WISDOM TEETH S/p bilateral blepharoplasty Family History Mother Coronary heart disease Hypertension Father Coronary heart disease Hypertension Myocardial infarction Grandmother Diabetes Breast cancer Denies family history of Ovarian cancer Prostate cancer Colorectal cancer Social History Smoking Status: Current every day smoker Cigarettes Per Day: 15; Second Hand Exposure: No; Do You Dip or Chew Tobacco: No; Tobacco Cessation Education Requested by Patient: No Hx Alcohol Use: No Hx Substance Use: No Preferred Language: Romanian Communication Ability: Effective Visual Impairment: No Limitations Hearing Ability: Normal Tractor Trailer Technician Required: No Beliefs That Will Affect Care: None marital status: Current Living Situation: Spouse Current Living Situation Comment: Lives at home with her current occupational status: retired Other Information That Helps Us Care for You: No Feels Safe at Home: Yes Safety Concerns: Feels Safe At This Time Childhood Exposure to Second-Hand Smoke: Yes Dental Care, Regularly: Yes Physical Activity Frequency: Daily Seatbelt Use: always Sunscreen Use: No Assistive Devices: None Review of Systems All systems reviewed & are unremarkable except as noted in HPI & below. Physical Exam General: Pleasant 76 y/o/f resting in bed. Somnolent but answers questions appropriately RUE: Splint taken down for examination. There is minimal soft tissue swelling w/o ecchymosis on volar and dorsal aspects of right wrist. She has mild tenderness over the dorsal aspect of the distal radius. No pain with PROM of the wrist. She has some pain with active wrist flexion and extension. She can make a fist and raise her thumb without pain. Scow Hand strength weaker than left hand. . Results & Data Results & Data Laboratory Results Reviewed . Diagnostic Findings Reviewed, agree with radiologist interpretation. Possible non-displaced R distal radius fracture. . PG Care Time/CCT Total # of Minutes Spent Total Time Spent with Patient: Total time spent is greater than 50% in coordination of care (as documented) at patient's floor/unit and/or counseling patient: Supervising Physician Co-Signing Physician Notes Agree with above note. Will treat as nondisplaced fracture. Followup xray is needed in 10-14 days. Use the brace consistently until followup. Coding Level of Care Code 99234 Inpt Consult Level 3 Diagnoses Closed fracture of distal end of radius S52.509A
[2021-11-12] MEDS ORDERED: LORazepam 0.5 MG TAB PO PRN (17:37)
[2021-11-12] MEDS: SODIUM CHLORIDE 1 GM TABLET PO SCH ×2 (17:57→20:16)
[2021-11-12] MEDS ORDERED: LORazepam 0.5 MG TAB PO SCH (18:00)
--- NOTE | 2021-11-12 19:07 | Hospitalist Progress Note ---
Date of Service November 12, 2021 Assessment & Plan (1) Hyponatremia: Plan: 2nd HCTZ use. Improving s/p gentle hydration overnight. Now 124. Suspect much of her lethargy/fatigue is due to low Na. Urine Na 10 c/w solute deficiency - again likely from HCTZ use. HCTZ has been stopped. Place on NaCl 1gm BID. Repeat Na level tonight, then again in am. (2) Vertigo: Plan: To ensure no central cause will obtain MRI brain. However, this is a chronic issue with acute flare ups - thus, BPV most likely. Can't rule out Meniere's but she denies any tinnitus/hearing loss. PT eval for vestibular assessment. She is currently on 25mg QID of meclizine - this may be contributing to her sleepiness. Will cut back to 12.5mg TID scheduled. Could try prn ativan or scop patch if symptoms are refractory to the meclizine. (3) Acute metabolic encephalopathy: Plan: likely 2nd to #1 Rx the low Na serial exams can't rule out morphine and/or meclizine contributing to sleepiness/altered MS but less likely (4) Radial fracture: Plan: Right acute nondisplaced intra-articular distal radial fracture. Appreciate ortho consult and recs. Splint for now. 25-OH Vit D level in 09/2021 was wnl. Pain control - schedule tylenol 1gm BID. Stop morphine IV. [place] 5's prn. (5) Fall: Plan: Mechanical in nature from her vertigo. PT/OT evals (6) HTN (hypertension): Plan: Controlled with losartan Holding HCTZ (7) Chronic obstructive pulmonary disease: Plan: No flare at this time Continue home meds (8) Hypercholesterolemia: Plan: Statin (9) DVT prophylaxis: Plan: add chemical DVT proph tomorrow if she does not d/c home Plan: left message for on voicemail this evening Admission and Anticipated Discharge Date Admission Date: November 11, 2021 Subjective patient remains sleepy/tired denies pain in any location she remembers orthopedics coming to see her but thinks "there's no fracture" (?) she continues with intermittent vertigo brought on by head movements episodes last 30 seconds or thereabouts she has had episodic vertigo for several years denies hearing loss denies tinnitus Review of Systems Review of Systems: gen - appetite fair; no fever cv - no chest pain pulm - no cough or congestion GI - no nausea or emesis neuro - no headache, no visual changes or field cuts Physical Exam Physical Exam: gen - sleepy but able to answer questions; NAD eyes - mild nystagmus with gaze to right (2 beats); EOMI mouth - MMM neck - no JVD heart - RRR, s1 s2 lungs - CTA b/l abd - soft NT ND ext - right distal arm in splint (thumb-spica); pulses in feet 2+ b/l neuro - no ataxia finger/nose/finger maneuver; gait not tested Results & Data Results & Data ([facility]) Vital Signs (Past 12 Hours) Vital Signs Temp Pulse Pulse Resp BP Pulse Ox 11/12/21 16:00 36.6 C 91 H 18 116/74 92 11/12/21 15:36 68 11/12/21 12:00 36.6 C 81 18 120/76 91 11/12/21 07:57 36.7 C 77 16 128/77 93 Laboratory Results Laboratory Results - last 24 hr 11/11/21 11/11/21 11/12/21 18:13 20:01 07:25 WBC 9.00 RBC 4.24 Hgb 12.7 Hct 36.1 L MCV 85.1 MCH 30.0 MCHC 35.2 RDW Std Deviation 41.6 RDW Coeff of Edwin 13.4 Plt Count 389 MPV 9.0 Sodium 122 L Potassium 3.4 L Chloride 89 L Carbon Dioxide 27 Anion Gap 6 BUN 8 Creatinine 0.47 L Est Cr Clr Drug Dosing 76.0 Est GFR ( Amer) 109.7 Est GFR (Non-Af Amer) 94.6 BUN/Creatinine Ratio 17.0 Glucose 102 H Calcium 8.9 Magnesium Urine Osmolality 287 L Ur Random Sodium 11/12/21 11/12/21 07:28 13:16 WBC RBC Hgb Hct MCV MCH MCHC RDW Std Deviation RDW Coeff of Edwin Plt Count MPV Sodium 124 L Potassium 3.4 L Chloride 91 L Carbon Dioxide 25 Anion Gap 8 BUN 7 Creatinine 0.47 L Est Cr Clr Drug Dosing 76.0 Est GFR ( Amer) 109.7 Est GFR (Non-Af Amer) 94.6 BUN/Creatinine Ratio 14.9 Glucose 87 Calcium 7.9 L Magnesium 1.8 Urine Osmolality Ur Random Sodium 10 PG Care Time/CCT Total # of Minutes Spent Total Time Spent with Patient: Total time spent is greater than 50% in coordination of care (as documented) at patient's floor/unit and/or counseling patient: Coding Level of Care Code 38049 Subseq Hosp Care Lvl 3 Diagnoses Hyponatremia E87.1 Vertigo R42 Radial fracture S52.90XA Fall W19.XXXA HTN (hypertension) I10 Chronic obstructive pulmonary disease J44.9 Hypercholesterolemia E78.00 DVT prophylaxis Z29.9 Acute metabolic encephalopathy G93.41
--- NOTE | 2021-11-12 19:43 | Magnetic Resonance Report ---
Brain MRI WITHOUT CONTRAST HISTORY: severe, episodic vertigo; eval CVA, etc TECHNIQUE: Multiplanar multisequence MRI of the brain was performed without the use of contrast. COMPARISON STUDY: Head CT 11/11/2021. Brain MRI 12/29/2012. FINDINGS: There is no mass, hematoma, midline shift, or acute infarct. The paranasal sinuses are taylor r. The mastoid air cells are clear. The ventricles and sulci demonstrate mild age-related involutiona l changes. Mild periventricular T2 hyperintensity is nonspecific but suggestive of mild microvascular ischemic changes. The major vascular flow voids at the skull base are well-maintained. IMPRESSION: No acute intracranial abnormality. ACT 112: Negative or not required by law. Electronically signed by: Robi Burns M.D. 11/12/2021 7:42 PM
[2021-11-12] MEDS: MECLIZINE 12.5 MG TAB PO SCH (20:17)
[2021-11-13 07:41] LABS: BUN Creatinine Ratio 14.5 (10-20); Calcium 9.4 mg/dl (8.5-10.1); Creatinine Clr Calc Pharmacy 64.4 ml/min; Est GFR (African American) 104.1 ml/min; Est GFR (Non-African American) 89.8 ml/min; Potassium 4.6 mmol/L (3.5-5.1)
[2021-11-13] MEDS: LOSARTAN POTASSIUM 50 MG TAB PO SCH (08:33)
[2021-11-13] MEDS: POTASSIUM CHLORIDE CRTAB 20 MEQ TABCR PO SCH ×2 (08:33→13:38)
[2021-11-13] MEDS: MECLIZINE 12.5 MG TAB PO SCH ×2 (08:33→13:38)
[2021-11-13] MEDS: ACETAMINOPHEN 500 MG TAB PO SCH ×2 (08:33→20:03)
[2021-11-13] MEDS: CYANOCOBALAMIN (B-12) 500 MCG TABLET PO SCH (08:34)
[2021-11-13] MEDS: FLUTICASONE FUROATE 100MCG 14 PUFFS/INHALER INH SCH (08:34)
[2021-11-13] MEDS: UMECLIDINIUM/VILANTEROL 62.5/25MCG 7 PUFFS/INHALER INH SCH (08:34)
[2021-11-13] MEDS: FOLIC ACID 1 MG TAB PO SCH (08:34)
[2021-11-13] MEDS: CALCIUM 600MG + VIT D 400 IU TAB PO SCH (08:34)
[2021-11-13] MEDS: SODIUM CHLORIDE 1 GM TABLET PO SCH ×2 (08:34→20:04)
[2021-11-13] MEDS ORDERED: ROSUVASTATIN CALCIUM 5 MG TAB PO SCH (09:00)
[2021-11-13] MEDS ORDERED: NURSING DECISION MEDICATION ONE (18:05)
--- NOTE | 2021-11-13 18:06 | Hospitalist Progress Note ---
Date of Service November 13, 2021 Assessment & Plan (1) Hyponatremia: Plan: 2nd HCTZ use. Continues to correct nicely. 120 at admission; now 129 today. Cont salt tabs - NaCL 1gm BID. BMP am. Suspect much of her lethargy/fatigue and confusion was due to low Na. Urine Na 10 c/w solute deficiency - again likely from HCTZ use. HCTZ has been stopped. Would not resume at discharge. (2) Vertigo: Plan: No response to meclizine. MRI brain without pathology. Vestibular eval - [place]-Hallpike Maneuver, other provocative testing fully negative. I believe her "vertigo" was simply disequilibrium/dizziness from #1 above. She has NO orthostasis and NO complaints of dizziness today s/p correction of the hyponatremia. Continue to monitor. (3) Acute metabolic encephalopathy: Plan: likely 2nd to #1 IMPROVING can't rule out morphine and/or meclizine contributing to sleepiness/altered MS but less likely morphine and meclizine have both been stopped (4) Radial fracture: Plan: Right acute nondisplaced intra-articular distal radial fracture. Appreciate ortho consult and recs. Splint for now. 25-OH Vit D level in 09/2021 was wnl. Pain control - schedule tylenol 1gm BID. [place] 5's prn. Left message for orthopedics regarding her splint and complaints surrounding such. (5) Fall: Plan: Mechanical in nature - likely due to dizziness from #1. PT/OT evals (6) HTN (hypertension): Plan: Controlled with losartan STOPPED HCTZ Would not resume HCTZ moving forward (7) Chronic obstructive pulmonary disease: Plan: No flare at this time although has focal lung findings on exam today obtain cxr, 2 view; r/o developing pneumonia, etc Continue home meds (8) Hypercholesterolemia: Plan: Statin (9) DVT prophylaxis: Plan: add heparin SC Plan: updated pt's and daughter extensively at bedside today anticipate d/c home once Na is 135 or higher (Tuesday?) Admission and Anticipated Discharge Date Admission Date: November 11, 2021 Subjective patient feeling better today mentally more clear less fatigue eating better dizziness is resolved; no vertigo in fact, during PT session today/vestibular evaluation, she had NO vertigo denies lightheadedness main complaint is that of right hand/arm swelling and discomfort from her splint because "it is too tight" she took the splint off last evening and slept all night without it because of the pain from the splint telemetry wnl overnight Review of Systems Review of Systems: gen - less fatigue, better eating today cv - no cp, no orthopnea pulm - mild cough GI - no pain Physical Exam Physical Exam: gen - much more awake, alert today eyes - EOMI, no nystagmus today skin - normal turgor mouth - MMM neck - no JVD heart - RRR, s1 s2, no murmur lungs - mild b/l basilar rales/focal wheezes abd - soft NT ND BS+ ext - right distal arm in splint (thumb-spica); mild-moderate edema of right hand; scattered ecchymoses b/l arms; infiltrated IV site left arm without signs of phlebitis; pulses in feet 2+ b/l neuro - no ataxia finger/nose/finger maneuver b/l Results & Data Results & Data ([facility]) Vital Signs (Past 12 Hours) Vital Signs Temp Pulse Resp BP BP Pulse Ox 11/13/21 15:33 36.7 C 78 20 156/64 H 92 11/13/21 13:14 115/72 11/13/21 11:00 36.6 C 76 16 124/72 94 11/13/21 07:36 36.4 C L 72 16 130/68 92 Laboratory Results Laboratory Results - last 24 hr 11/12/21 11/13/21 19:38 06:49 Sodium 127 L 129 L Potassium 4.6 D Chloride 99 Carbon Dioxide 25 Anion Gap 5 BUN 8 Creatinine 0.55 L Est Cr Clr Drug Dosing 64.4 Est GFR ( Amer) 104.1 Est GFR (Non-Af Amer) 89.8 BUN/Creatinine Ratio 14.5 Glucose 83 Calcium 9.4 PG Care Time/CCT Total # of Minutes Spent Total Time Spent with Patient: Total time spent is greater than 50% in coordination of care (as documented) at patient's floor/unit and/or counseling patient: Coding Level of Care Code 82689 Subseq Hosp Care Lvl 3 Diagnoses Hyponatremia E87.1 Vertigo R42 Acute metabolic encephalopathy G93.41 Radial fracture S52.90XA Fall W19.XXXA HTN (hypertension) I10 Chronic obstructive pulmonary disease J44.9 Hypercholesterolemia E78.00 DVT prophylaxis Z29.9
[2021-11-13] MEDS ORDERED: SODIUM CHLORIDE 0.65% NA SOLN 45 ML (OCEAN) PRN (18:08)
[2021-11-13] MEDS: HYDROCODONE/ACETAMOPHEN 5/325MG TAB PO PRN (20:02)
[2021-11-13] MEDS ORDERED: DOCUSATE SODIUM 100 MG CAP PO ONE (20:17)
--- NOTE | 2021-11-13 21:52 | XRay Report ---
XR chest 2V PA/lateral HISTORY: 76 years-old Female b/l basilar rales acute shortness of breath COMPARISON: Chest radiograph 11/11/2021 TECHNIQUE: PA and lateral views of the chest FINDINGS: Mild blunting of the costophrenic angles is similar to prior. Lungs are hyperinflated. The cardiomedi astinal and hilar silhouettes are within normal limits. Atherosclerosis of the thoracic aorta. Unchan ged mild pleural thickening of the lung apices. No pneumothorax, large pleural effusion, overt pulmon scott edema or lobar airspace consolidation. Degenerative changes of the shoulders and spine. IMPRESSION: No acute process. ACT 112: Negative or not required by law. The above report was generated using voice recognition software. It may contain grammatical, syntax o r spelling errors. Electronically signed by: Aj Melgar M.D. 11/13/2021 9:51 PM
[2021-11-14 06:41] LABS: BUN Creatinine Ratio 14.6 (10-20); Calcium 9.1 mg/dl (8.5-10.1); Creatinine Clr Calc Pharmacy 73.7 ml/min; Est GFR (African American) 108.9 ml/min; Potassium 4.2 mmol/L (3.5-5.1)
[2021-11-14] MEDS: FLUTICASONE FUROATE 100MCG 14 PUFFS/INHALER INH SCH (08:17)
[2021-11-14] MEDS: UMECLIDINIUM/VILANTEROL 62.5/25MCG 7 PUFFS/INHALER INH SCH (08:17)
[2021-11-14] MEDS: ACETAMINOPHEN 500 MG TAB PO SCH ×2 (08:17→20:00)
[2021-11-14] MEDS: SODIUM CHLORIDE 1 GM TABLET PO SCH ×2 (08:17→20:00)
[2021-11-14] MEDS: FOLIC ACID 1 MG TAB PO SCH (08:18)
[2021-11-14] MEDS: CALCIUM 600MG + VIT D 400 IU TAB PO SCH (08:18)
[2021-11-14] MEDS: CYANOCOBALAMIN (B-12) 500 MCG TABLET PO SCH (08:19)
[2021-11-14] MEDS: LOSARTAN POTASSIUM 50 MG TAB PO SCH (08:19)
[2021-11-14] MEDS: HYDROCODONE/ACETAMOPHEN 5/325MG TAB PO PRN (10:06)
--- NOTE | 2021-11-14 12:02 | Orthopedic Progress Note ---
Date of Service November 14, 2021 Assessment & Plan (1) Closed fracture of distal end of radius: -Nonoperative treatment with removable brace, elevation, range of motion of her digits, and pain management. Ice recommended. -NWB RUE. May use as an assist for ADLs, as tolerated with brace in place. Disposition: Per medicine. She has a scheduled follow-up for knee injections with Dr. Andrade on November 18. She can maintain this appointment for follow-up. She should have x-rays in 10-14 days from her injury if she does not keep the November 18 appointment. Subjective Reports some continued discomfort around the wrist. The brace is uncomfortable at times and she needs help putting it on. Swelling improving. Review of Systems All systems reviewed & are unremarkable except as noted in HPI & below. Physical Exam Right upper extremity: There is mild diffuse swelling of the dorsal hand, digits, and dorsal wrist. She demonstrates active range of motion wrist flexion extension and finger flexion extension. 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 She is minimally tender over the dorsum of the wrists extensor compartments. No significant tenderness over the hand. No snuffbox tenderness. She has a wedding band on her finger that does not appear able to be removed at this time. I told her to consistently elevate or we may have to remove the ring. Demonstrated finger range of motion that she can perform multiple times per day. I repositioned her ice in her extremity in a better elevated position. Results & Data Results & Data Laboratory Results . Diagnostic Findings Questionable dorsal ulnar corner distal radial fracture. Stable pattern. PG Care Time/CCT Total # of Minutes Spent Total Time Spent with Patient: Total time spent is greater than 50% in coordination of care (as documented) at patient's floor/unit and/or counseling patient: Coding Level of Care Code 44828 Subseq Obs Care Lvl 3 Diagnoses Closed fracture of distal end of radius S52.509A
--- NOTE | 2021-11-14 18:15 | Hospitalist Progress Note ---
Date of Service November 14, 2021 Assessment & Plan (1) Hyponatremia: Plan: 2nd HCTZ use. Continues to correct nicely. 120 at admission; now 131 today. Cont salt tabs - NaCL 1gm BID. Repeat Na in am. Suspect she might need salt tabs for 2-3 days at discharge then stop such. Suspect much of her lethargy/fatigue and confusion was due to low Na. Urine Na 10 c/w solute deficiency - again likely from HCTZ use. HCTZ has been stopped. Would not resume at discharge. (2) Vertigo: Plan: ruled out. No response to meclizine. MRI brain without pathology. Vestibular eval - [place]-Hallpike Maneuver, other provocative testing fully negative. I believe her "vertigo" was simply disequilibrium/dizziness from #1 above. Dizziness is fully resolved. She has NO orthostasis and NO complaints of dizziness today s/p correction of the hyponatremia. Continue to monitor. (3) Acute metabolic encephalopathy: Plan: 2nd to #1 resolved can't rule out morphine and/or meclizine having contributed to sleepiness/altered MS morphine and meclizine have both been stopped (4) Radial fracture: Plan: Right acute nondisplaced intra-articular distal radial fracture. Appreciate ortho consult and recs. Splint for now. f/u ortho 1 week post-d/c. 25-OH Vit D level in 09/2021 was wnl. Pain control - scheduled tylenol 1gm BID. [place] 5's prn. (5) Fall: Plan: Mechanical in nature - likely due to dizziness from #1. PT/OT evals appreciated (6) HTN (hypertension): Plan: Controlled with losartan STOPPED HCTZ Would not resume HCTZ moving forward (7) Chronic obstructive pulmonary disease: Plan: No flare at this time cxr without pneumonia or other pathology Continue home meds (8) Hypercholesterolemia: Plan: Statin (9) DVT prophylaxis: Plan: heparin SC (10) Vitamin B12 deficiency: Plan: b12 level about 250 in 09/2021 this is low for an elderly female supplement 1000mcg daily x 1 year continue folate (was previously taking such at home) Plan: updated pt's by phone today anticipate d/c home on Tuesday if Na is stable Admission and Anticipated Discharge Date Admission Date: November 11, 2021 Subjective overnight no issues slept well eating well right hand swelling improved she reports orthopedics saw her today - they reassured her that the current splint is optimal no pain left forearm (had infiltrated IV yesterday) she is anxious to go home requests to go in hallway to take walks today no dizziness no vertigo no lightheadedness Review of Systems Review of Systems: gen - feels good, no fatigue, good appetite cv - no cp, no orthopnea pulm - no dyspnea GI - no pain, nausea, emesis Physical Exam Physical Exam: gen - sitting in chair, awake, alert, oriented x 3 eyes - EOMI, no nystagmus skin - normal turgor mouth - MMM neck - no JVD heart - RRR, s1 s2, no murmur lungs - scant dry rales bases, no wheeze, no increased work of breathing abd - soft NT ND BS+ ext - right distal arm in splint (thumb-spica); mild edema of right hand; scattered ecchymoses b/l arms; infiltrated IV site left arm without overlying cellulitis; <1 inch of firmness over vein c/w tiny amount of phlebitis Results & Data Results & Data ([facility]) Vital Signs (Past 12 Hours) Vital Signs Temp Pulse Resp BP Pulse Ox 11/14/21 14:55 36.8 C 69 20 154/77 H 94 11/14/21 06:45 36.6 C 71 18 159/77 H 93 Laboratory Results Laboratory Results - last 24 hr 11/14/21 05:40 Sodium 131 L Potassium 4.2 Chloride 100 Carbon Dioxide 27 Anion Gap 4 BUN 7 Creatinine 0.48 L Est Cr Clr Drug Dosing 73.7 Est GFR ( Amer) 108.9 Est GFR (Non-Af Amer) 94.0 BUN/Creatinine Ratio 14.6 Glucose 74 Calcium 9.1 PG Care Time/CCT Total # of Minutes Spent Total Time Spent with Patient: Total time spent is greater than 50% in coordination of care (as documented) at patient's floor/unit and/or counseling patient: Coding Level of Care Code 53649 Subseq Hosp Care Lvl 2 Diagnoses Hyponatremia E87.1 Vertigo R42 Acute metabolic encephalopathy G93.41 Radial fracture S52.90XA Fall W19.XXXA HTN (hypertension) I10 Chronic obstructive pulmonary disease J44.9 Hypercholesterolemia E78.00 DVT prophylaxis Z29.9 Vitamin B12 deficiency E53.8
[2021-11-15] MEDS: UMECLIDINIUM/VILANTEROL 62.5/25MCG 7 PUFFS/INHALER INH SCH (07:58)
[2021-11-15] MEDS: FLUTICASONE FUROATE 100MCG 14 PUFFS/INHALER INH SCH (07:59)
[2021-11-15] MEDS: ACETAMINOPHEN 500 MG TAB PO SCH (08:00)
[2021-11-15] MEDS: CALCIUM 600MG + VIT D 400 IU TAB PO SCH (08:00)
[2021-11-15] MEDS: LOSARTAN POTASSIUM 50 MG TAB PO SCH (08:01)
[2021-11-15] MEDS: SODIUM CHLORIDE 1 GM TABLET PO SCH (08:01)
[2021-11-15] MEDS: FOLIC ACID 1 MG TAB PO SCH (08:01)
[2021-11-15] MEDS: CYANOCOBALAMIN (B-12) 500 MCG TABLET PO SCH (08:01)
[2021-11-15] MEDS ORDERED: HEPARIN SOD 5,000 UNIT/0.5 ML VIAL SQ SCH (09:00)
--- NOTE | 2021-11-16 16:52 | Discharge Summary ---
Date of Service November 15, 2021 Admission HPI Per Admitting Provider 76yo F w/ hx of HTN who presents with hyponatremia, dizziness, and a right radial fracture after a fall at home. Per the patient, several weeks ago, she started to have vertigo at home. It predominantly occurs when she looks to the left or right (more right than left). PCP notes indicate it is much longer standing. I see notes as long ago as 01/2021 indicating it is a long-standing problem. In any event, the vertigo seems to have gotten worse over the last few weeks, and she was recently increased from meclizine 12.5 mg to 25 mg PO QID which she reports taking faithfully. Despite that, her vertigo has remained, though possibly some better on the higher dose of meclizine. However, overnight at 2am, she got up to use the restroom. She was walking to the restroom, when she looked to the right to look at her clock. This set off significant vertigo, and she became acutely wobbly, and ended up falling forward and to the right. She reports she did strike her head, but did not lose consciousness. She had no ot her associated symptoms such as chest pain, shortness of breath, palpitations, or weakness. Principal Diagnosis hyponatremia from medication right radial fracture Discharge Exam The patient appeared well Vital signs as documented. Lungs are clear to auscultation and appear unlabored Cardiac exam, Rhythm is regular.. No murmurs, rubs or gallops. Abdominal exam reveals normal bowel sounds, soft non tender, no masses Extremities right wrist has a removable brace Neurologic exam is alert and oriented, no focal loss of strength or sensation Skin is without bruises or rashes Psychologically is without concerns for anxiety or depression. 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 Continues to correct nicely. 120 at admission; now 131 today. Cont salt tabs - NaCL 1gm BID. Repeat Na as an outpatient Follow-up with Dr. Castro will get labs before he sees her Suspect much of her encephalopathy was due to low Na. Urine Na 10 c/w solute deficiency - again likely from HCTZ use. HCTZ has been stopped. (2) Vertigo: ruled out. No response to meclizine. MRI brain without pathology. Vestibular eval - [place]-Hallpike Maneuver, other provocative testing fully negative. I believe her "vertigo" was simply disequilibrium/dizziness from #1 above. Dizziness is fully resolved. She has NO orthostasis and NO complaints of dizziness today s/p correction of the hyponatremia. Continue to monitor. (3) Acute metabolic encephalopathy: 2nd to #1 resolved can't rule out morphine and/or meclizine having contributed to sleepiness/altered MS morphine and meclizine have both been stopped (4) Radial fracture: Right acute nondisplaced intra-articular distal radial fracture. Appreciate ortho consult and recs. Splint for now. f/u ortho 1 week post-d/c. 25-OH Vit D level in 09/2021 was wnl. Pain control - scheduled tylenol 1gm BID. [place] 5's prn. (5) Fall: Mechanical in nature - likely due to dizziness from #1. PT/OT evals appreciated (6) HTN (hypertension): Controlled with losartan STOPPED HCTZ Would not resume HCTZ moving forward (7) Chronic obstructive pulmonary disease: No flare at this time cxr without pneumonia or other pathology Continue home meds (8) Hypercholesterolemia: Statin Total Time Total Time Spent Total Time Spent (In Minutes): It required greater than 30 minutes to prepare this patient for discharge Discharge Plan Discharge Items Patient Disposition: Home - Self-Care Reason For Visit: HYPONATREMIA Discharge Diagnosis: low sodium fracture of right radius weakness Activity: Per Instructions section Activity Comment: wear removable wrist splint until you are cleared by orthopedics Non-emergency contact: Primary Care Provider and Specialist Call non-emergency contact if: you have any medication questions and your pain is concerning for you Follow-up/Referrals: ,Ivan Carlos MD [Primary Care Provider] - Héctor Andrade MD [Physician] - Diet: Regular Ambulatory Orders: Basic Metabolic Panel (Routine) Timeframe: 1 Week Location: Determined by Patient Ordered By: Shaq Luna Attending Provider Instructions: please take a salt tablet as directed and follow up with Dr Castro this week, please have some blood work checked the day before your appointment so that Dr Castro can review your sodium level with you at the time of the appointment. Please avoid drinking water unless you are thirsty, we are stoppping your Hydrochlorothiazide at the time of discharge as this likely had an affect on your low Sodium Pleae continue to follow-up for knee injections with Dr. Andrade on November 18. This will also serve as the follow up for your wrist fracture. rest and elevate you wrist as much as possible, you may remove the splint to wash up or bath but wear it at all times otherwise and especially to sleep Kenya Dunaway in Case management will be contacted to help make your Dr Castro follow up appointment, if you do not hear from her by tuesday please call the case management office [phone] extension [phone] Pending Studies at Discharge: No Stand-Alone Forms: My [facility] [employer], Smoking Cessation Medications and DC Order Prescriptions: New hydrocodone-acetaminophen 5-325 mg Tablet 1 tab PO Q6H PRN (Reason: pain) Qty: 10 RF: 0 sodium chloride 1 gram Tablet 1 g PO BID Qty: 30 RF: 0 Continued zoledronic nxlm-lpdxlkvg-scwab [Reclast] 5 mg/100 mL piggyback 5 mg IV YEARLY Qty: 0 RF: 0 cholecalciferol (vitamin D3) [Vitamin D3] 125 mcg (5,000 unit) tablet 5,000 unit PO .COMPLEX Qty: 0 RF: 0 Zyrtec 10 mg capsule 10 mg PO QAM PRN (Reason: Allergy Symptoms) Qty: 0 RF: 0 cyclobenzaprine 5 mg tablet 5 mg PO HS PRN (Reason: muscle spasm) Qty: 30 RF: 0 Trelegy Ellipta 100-62.5-25 mcg blister with device 1 inh INH Q24H Qty: 60 RF: 5 albuterol sulfate [Ventolin HFA] 90 mcg/actuation HFA aerosol inhaler 1 - 2 puff inhalation Q4H PRN (Reason: shortness of breath or wheezing) Qty: 18 RF: 5 losartan [Cozaar] 100 mg tablet 100 mg PO QAM Qty: 90 RF: 3 meclizine 25 mg tablet 25 mg PO QID Qty: 30 RF: 1 acetaminophen 650 mg tablet extended release 650 mg PO Q12H PRN (Reason: Pain) RF: 0 calcium carb and citrate-vitD3 [Citracal-D3 Slow Release] 600 mg calcium- 500 unit tablet extended release 2 tab PO DAILY RF: 0 folic acid 1 mg tablet 1 mg PO DAILY Qty: 1 RF: 0 rosuvastatin [Crestor] 5 mg tablet 5 mg PO .COMPLEX RF: 0 Discontinued hydrochlorothiazide 25 mg tablet 25 mg PO QAM Qty: 90 RF: 3 Discharge Orders: Discharge Order (Routine); Ordered 11/15/21 Ordered By: Shaq Mcdonald Admission Data Admit Date/Time: 11/11/21 13:40 Attending Provider: Shaq Mcdonald Admit Provider: Julio César Dunaway Primary Care Provider: Ivan Castro Other Providers: Julio César Dunaway ; Héctor Andrade Other Interventions: Discharge Summary Assessment (RN) Last Done: 11/15/21 11:04 Coding Level of Care Code D/C DAY MANAGEMENT >30 MINS Diagnoses Hyponatremia E87.1 Vertigo R42 Acute metabolic encephalopathy G93.41 Radial fracture S52.90XA Fall W19.XXXA HTN (hypertension) I10 Chronic obstructive pulmonary disease J44.9 Hypercholesterolemia E78.00
== END 2021-11-15 14:11 | disposition home or self-care (01) | DRG 640 ==
LOC: ED 09:25 → 2N 13:40 → SUATTDRO 13:40 → 2N 15:58

== ENCOUNTER 2023-02-06 13:51 | Inpatient (IN) ==
--- NOTE | 2023-02-06 14:15 | ED Triage Note ---
Date of Service February 06, 2023 History of Present Illness This patient was briefly evaluated while in triage. An abbreviated physical exam was performed. This patient is a 77-year-old Female who presents to the ED for evaluation of "I kylah lost my balance and fell and hit my head and have a big bump." Fall occurred 30 minutes CONTINUOUS [employer]. No LOC. Pt. does not take blood thinners. Pt. reports has been sleepy for a few days. Reports history of falls and sleepiness with low sodium last year. Is on ABX due to leg injury last week. Physical Exam VITALS: Vitals are noted on the nurse's note and reviewed by myself. GENERAL: This is a 77 year old female, in no acute distress, nondiaphoretic, well-developed well-nourished. SKIN: No obvious rashes, edema, erythema HEAD: Normocephalic atraumatic. EYES: Conjunctivae without injection, sclerae without icterus. NECK: No JVD. LUNGS: No retractions or accessory muscle use. MUSCULOSKELETAL: Pt. presents in a wheelchair. NEURO: Patient was alert and oriented to person place and time. No focal neurological deficits. Initial orders for labs and / or imaging were placed and patient was placed in the waiting area until a bed is available. Please see further documentation for the full ED course.
[2023-02-06 15:56] LABS: Basophils # (auto) 0.06 K/uL (0-0.2); Basophils % (auto) 0.7 %; Eosinophils # (auto) 0.13 K/uL (0-0.50); Eosinophils % (auto) 1.4 %; Hemoglobin 12.8 g/dl (12.0-16.0); Immature Granulocytes # (auto) 0.06 K/uL (0.01-0.20); Immature Granulocytes % (auto) 0.7 %; Lymphocytes # (auto) 1.35 K/uL (1.2-3.4); Lymphocytes % (auto) 14.9 %; Mean Corpuscular Hgb Conc 33.7 g/dL (32.0-36.0); Mean Platelet Volume 9.3 fL (9.4-12.4); Monocytes # (auto) 0.98 K/uL (0.11-0.59); Monocytes % (auto) 10.8 %; Neutrophils # (auto) 6.49 K/uL (1.40-6.50); Neutrophils % (auto) 71.5 %; Platelet Count 369 K/uL (130-400); RDW Coefficient of Variation 13.3 % (11.5-14.5); Red Blood Count 4.42 M/uL (4.20-5.40); White Blood Count 9.07 K/ul (4.8-10.8)
--- NOTE | 2023-02-06 15:57 | Emergency Department Note ---
Impression & Plan Weakness, Fall, Acute hyponatremia, Acute head trauma, Scalp hematoma ED Provider Note NAME: SAM DOE AGE: 77 SEX: F : 1945 ARRIVES VIA: Walk-In INFORMANT: [Patient][family] ED PROVIDER(S): [Keyur Bernabe MD] CHIEF COMPLAINT: Fall, head injury HISTORY OF PRESENT ILLNESS: The patient is a 77-year-old female who states for the last few months, she has just been slower and not quite as able to do her normal daily activity. She saw her doctor 3 days ago for some pedal edema. She had an ultrasound that did not show any clot. She was placed on antibiotics for the possibility of cellulitis. Today, she stood and felt dizzy and lightheaded, lost her balance and fell backwards striking the posterior head on the tile floor. No loss of consciousness. There is a hematoma to the back of the head where she struck the head. She is not on blood thinning agents. She denies any chest pain. She is short of breath but this is baseline because of COPD. She has not had urinary burning. No vomiting or diarrhea. No fever or respiratory complaints. PMHx/PSHx: See Below SOCIAL HISTORY: See Below. PHYSICAL EXAM: GENERAL: Patient is in no acute distress. HEENT: There is a 5 to 6 cm hematoma to the right posterior scalp. No laceration requiring repair. This area is tender. Mucous membranes seems slightly dry. NECK: No stridor, no adenopathy, nontender cervical spine, trachea is midline. LUNGS: Clear to auscultation bilaterally, no wheeze, no rhonchi, breath sounds equal. Breath sounds somewhat diminished bilaterally. HEART: Without murmurs gallops or rubs, regular rate and rhythm. Heart tones are distant. ABDOMEN: Soft, nontender, bowel sounds positive, no peritonitis. EXTREMITIES: No cyanosis. Mild bilateral pedal edema with some erythema to both lower extremities, no warmth or drainage. NEUROLOGIC: Oriented x 3, no acute motor or sensory deficits, no focal weakness. SKIN: No rash, no jaundice, no diaphoresis. DIFFERENTIAL DIAGNOSIS: Dehydration, electrolyte imbalance, anemia, UTI, cardiac injury or dysrhythmia, intracranial bleeding or skull fracture, cervical spine injury, among others. EMERGENCY DEPARTMENT COURSE/PROCEDURES: Prior/Outside records reviewed: Recent family doctor outpatient note. ECG per my interpretation: Indication was weakness and fall. The ECG shows a normal sinus rhythm with a rate of 68. There is no ST elevation, no PVCs. The QTc is 457. Continuous Cardiac Monitoring per my interpretation: An order was placed for continuous cardiac monitoring. The monitor shows a rate of 85 with normal sinus rhythm. MEDICAL DECISION MAKING: There is no leukocytosis or worrisome anemia. There is a normal platelet count. No coagulopathy. Sodium is low at 127. No renal failure. No concerning liver enzyme elevation. Patient appeared to be in a euthyroid state. ECG showed a normal sinus rhythm, no ischemia or dysrhythmia. Cardiac enzyme testing x2 is slightly elevated but appears stable. This elevation could be secondary to potentially mismatch, cardiac ischemia seems unlikely. Urinalysis does not show infection. COVID test returned negative. Chest x-ray per my review did not show mediastinal widening, pneumonia or pneumothorax. Brain CT showed no skull fracture or acute intracranial bleeding. A scalp hematoma was seen. Cervical spine CT did not show any acute fracture. The patient received IV saline, 1 L. The patient presents with increasing weakness, lightheadedness and a fall today. She has a large scalp hematoma. She was found to be hyponatremic. Given her low sodium, given the weakness, given the fall and head trauma, I do think a hospital stay is warranted. I did speak with the patient and case management, the on-call hospitalist was consulted. DISPOSITION: Patient's presentation and findings warrant a hospital stay. 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 Chronic obstructive pulmonary disease Deviated nasal septum Encounter for pre-operative examination Encounter for screening colonoscopy Family history of diabetes mellitus MATERNAL GRANDMOTHER Family history of reaction to anesthesia MOTHER HAD "A HARD TIME COMING OUT OF IT" GERD (gastroesophageal reflux disease) History of smoking for more than 10 years Hyperlipidemia Hypertension Multiple pulmonary nodules determined by computed tomography of lung Osteoarthritis Surgical History History of appendectomy History of cataract surgery History of section History of colonoscopy History of esophagogastroduodenoscopy (EGD) History of hysterectomy History of open reduction and internal fixation (ORIF) procedure History of tonsillectomy History of tooth extraction S/p bilateral blepharoplasty Family History Mother Coronary heart disease Hypertension Father Coronary heart disease Hypertension Myocardial infarction Grandmother Diabetes Breast cancer Grandmother (Maternal) Stroke Denies family history of Ovarian cancer Prostate cancer Lung cancer Colorectal cancer Social History Smoking Status: Current every day smoker Tobacco Type: Cigarettes Cigarettes Per Day: 15; Second Hand Exposure: No; Do You Dip or Chew Tobacco: No; Hx Alcohol Use: No Hx Substance Use: No Preferred Language: [place] Communication Ability: Effective Visual Impairment: Limited Hearing Ability: Normal Underwater Trapper Required: No Beliefs That Will Affect Care: None marital status: Current Living Situation: Spouse Current Living Situation Comment: Lives at home with her current occupational status: retired How many Children do You have: 3 Feels Safe at Home: Yes Childhood Exposure to Second-Hand Smoke: Yes caffeine: Yes Dental Care, Regularly: Yes Physical Activity Frequency: Daily Seatbelt Use: always Sunscreen Use: No Assistive Devices: Glasses Allergies Allergies Allergy/AdvReac Type Severity Reaction Status Date / Time Penicillins Allergy Unknown Hives Verified 02/02/23 14:43 Sulfa (Sulfonamide Allergy Unknown SWELLING Verified 02/02/23 14:43 Antibiotics) Home Meds Home Medications Medication Instructions Recorded Confirmed calcium carb,cit ER 600 mg-vit D3 2 tab PO DAILY 04/17/19 02/06/23 12.5 mcg (500 unit) tablet,ext.rel (Citracal-D3 Slow Release) folic acid 1 mg tablet 1 mg PO DAILY #1 tab 04/17/19 02/06/23 zoledronic acid 5 mg/100 mL in 5 mg IV YEARLY ##0 04/17/19 02/06/23 mannitol 5 %-water intravenous piggybck (Reclast) acetaminophen 650 mg 650 mg PO Q12H PRN Pain 08/14/19 02/06/23 tablet,extended release cholecalciferol (vitamin D3) 125 5,000 unit PO .COMPLEX ##0 09/10/20 02/06/23 mcg (5,000 unit) tablet (Vitamin D3) ascorbic acid (vitamin C) 500 mg 500 mg PO DAILY 02/02/23 02/06/23 capsule mecobalamin (vitamin B12) 1,000 1,000 mcg PO DAILY 02/02/23 02/06/23 mcg chewable tablet metoprolol succinate 25 mg 25 mg PO BID 02/02/23 02/06/23 tablet,extended release 24 hr zinc acetate 1 dose PO UD 02/02/23 02/06/23 fluticasone fur. 100 mcg-umeclid 1 inh inhalation DAILY 02/06/23 02/06/23 62.5 mcg-vilant 25 mcg inhalat.powder (Trelegy Ellipta) latanoprost 0.005 % eye drops 1 drp OPB HS 02/06/23 02/06/23 meclizine 25 mg tablet 25 mg PO QID PRN Dizziness 02/06/23 02/06/23 Previous Rx's Medication Instructions Recorded cyclobenzaprine 5 mg tablet 5 mg PO HS PRN muscle spasm #30 05/29/21 tabs rosuvastatin 5 mg tablet (Crestor) 5 mg PO DAILY #90 tabs 02/10/22 losartan 100 mg tablet (Cozaar) 100 mg PO QAM #90 tabs 08/03/22 fluticasone fur. 100 mcg-umeclid 1 inh inhalation Q24H #60 ea 12/27/22 62.5 mcg-vilant 25 mcg inhalat.powder (Trelegy Ellipta) albuterol sulfate 90 mcg/actuation 1 - 2 puff inhalation Q4H PRN 01/11/23 aerosol inhaler (Ventolin HFA) shortness of breath or wheezing #18 grams clindamycin HCl 150 mg capsule 150 mg PO TID 7 days #21 caps 02/02/23 clindamycin HCl 300 mg capsule 300 mg PO TID 7 days #21 caps 02/02/23 Results & Data (ED) Vital Signs Vital Signs - 24 hr 02/06/23 14:13 02/06/23 15:34 02/06/23 17:39 Temperature 36.0 C L Temperature Source Temporal Artery Scan Pulse Rate 72 67 Pulse Rate [Left Finger] 85 Respiratory Rate 20 24 Respiratory Effort / Characteristics Non-Labored Respiratory Depth Normal Blood Pressure 172/72 H Blood Pressure [Right Arm] 197/96 H Blood Pressure Mean 105 Blood Pressure Mean [Right Arm] 129 Pulse Oximetry 99 94 Oxygen Delivery Method Room Air Room Air Sepsis Recent Fever Within 48 Hours No Sepsis New/Unexplained Change in Mental Status N/A Sepsis Action Taken by Nursing No Action Required Home Medications Current Medication List: was personally reviewed by me Laboratory Data Attestation: I reviewed the patient's lab results. 02/06/23 15:22 02/06/23 15:22 Lab Results 02/06/23 02/06/23 02/06/23 Range/Units 15:22 15:22 15:22 WBC 9.07 (4.8-10.8) K/ul RBC 4.42 (4.20-5.40) M/uL Hgb 12.8 (12.0-16.0) g/dl Hct 38.0 (37.0-47.0) % MCV 86.0 (80.0-100.0) fL MCH 29.0 (25.0-34.0) pg MCHC 33.7 (32.0-36.0) g/dL RDW Std Deviation 42.0 (36.4-46.3) fL RDW Coeff of Edwin 13.3 (11.5-14.5) % Plt Count 369 (130-400) K/uL MPV 9.3 L (9.4-12.4) fL Immature Gran % (Auto) 0.7 % Neut % (Auto) 71.5 % Lymph % (Auto) 14.9 % [place] % (Auto) 10.8 % Eos % (Auto) 1.4 % Baso % (Auto) 0.7 % Neut # (Auto) 6.49 (1.40-6.50) K/uL Lymph # (Auto) 1.35 (1.2-3.4) K/uL [place] # (Auto) 0.98 H (0.11-0.59) K/uL Eos # (Auto) 0.13 (0-0.50) K/uL Baso # (Auto) 0.06 (0-0.2) K/uL Immature Gran # (Auto) 0.06 (0.01-0.20) K/uL PT 10.7 (9.0-12.0) Seconds INR 1.0 (0.9-1.1) APTT 30.4 (21.0-31.0) Seconds PTT Ratio 1.1 Sodium 127 L (136-145) mmol/L Potassium 3.9 (3.5-5.1) mmol/L Chloride 92 L (98-107) mmol/L Carbon Dioxide 29 (21-32) mmol/L Anion Gap 6 (3-11) BUN 11 (6-23) mg/dl Creatinine 0.64 (0.6-1.2) mg/dl Est Cr Clr Drug Dosing Not Reportable Est GFR ( Amer) 98.4 ml/min Est GFR (Non-Af Amer) 84.9 ml/min BUN/Creatinine Ratio 17.2 (10-20) Glucose 100 H (70-99(Fasting)) mg/dl Calcium 9.5 (8.6-10.3) mg/dl Magnesium 1.9 (1.7-2.4) mg/dl Total Bilirubin 0.7 (0.2-1.0) mg/dl AST 15 (13-39) U/L ALT 11 (7-52) U/L Alkaline Phosphatase 66 (34-104) U/L Troponin I High Sens 15.5 H (0-14) pg/ml Total Protein 7.1 (6.0-8.3) gm/dl Albumin 4.3 (3.4-5.0) gm/dl Globulin 2.8 (2.5-4.0) gm/dl Albumin/Globulin Ratio 1.5 (0.9-2) TSH (0.300-4.500) uIu/ml Urine Color Urine Appearance (Clear) Urine pH (4.5-7.5) Ur Specific [place] (1.000-1.030) Urine Protein (Negative) Urine Glucose (UA) (Negative) Urine Ketones (Negative) Urine Blood (Negative) Urine Nitrite (Negative) Urine Bilirubin (Negative) Urine Urobilinogen (Negative) Ur Leukocyte Esterase (Negative) Urine WBC (Auto) (0-5) /hpf Urine RBC (Auto) (0-4) /hpf U Hyaline Cast (Auto) (0-5) /lpf U Epithel Cells (Auto) (0-5) /lpf Urine Bacteria (Auto) (Negative) Urine Osmolality (500-800) mOsm/kg Ur Random Sodium mmol/L SARS-CoV-2, RNA, NAAT (NEGATIVE) 02/06/23 02/06/23 02/06/23 Range/Units 15:22 16:55 17:15 WBC (4.8-10.8) K/ul RBC (4.20-5.40) M/uL Hgb (12.0-16.0) g/dl Hct (37.0-47.0) % MCV (80.0-100.0) fL MCH (25.0-34.0) pg MCHC (32.0-36.0) g/dL RDW Std Deviation (36.4-46.3) fL RDW Coeff of Edwin (11.5-14.5) % Plt Count (130-400) K/uL MPV (9.4-12.4) fL Immature Gran % (Auto) % Neut % (Auto) % Lymph % (Auto) % [place] % (Auto) % Eos % (Auto) % Baso % (Auto) % Neut # (Auto) (1.40-6.50) K/uL Lymph # (Auto) (1.2-3.4) K/uL [place] # (Auto) (0.11-0.59) K/uL Eos # (Auto) (0-0.50) K/uL Baso # (Auto) (0-0.2) K/uL Immature Gran # (Auto) (0.01-0.20) K/uL PT (9.0-12.0) Seconds INR (0.9-1.1) APTT (21.0-31.0) Seconds PTT Ratio Sodium (136-145) mmol/L Potassium (3.5-5.1) mmol/L Chloride (98-107) mmol/L Carbon Dioxide (21-32) mmol/L Anion Gap (3-11) BUN (6-23) mg/dl Creatinine (0.6-1.2) mg/dl Est Cr Clr Drug Dosing Est GFR ( Amer) ml/min Est GFR (Non-Af Amer) ml/min BUN/Creatinine Ratio (10-20) Glucose (70-99(Fasting)) mg/dl Calcium (8.6-10.3) mg/dl Magnesium (1.7-2.4) mg/dl Total Bilirubin (0.2-1.0) mg/dl AST (13-39) U/L ALT (7-52) U/L Alkaline Phosphatase (34-104) U/L Troponin I High Sens 16.8 H (0-14) pg/ml Total Protein (6.0-8.3) gm/dl Albumin (3.4-5.0) gm/dl Globulin (2.5-4.0) gm/dl Albumin/Globulin Ratio (0.9-2) TSH 0.880 (0.300-4.500) uIu/ml Urine Color Urine Appearance (Clear) Urine pH (4.5-7.5) Ur Specific [place] (1.000-1.030) Urine Protein (Negative) Urine Glucose (UA) (Negative) Urine Ketones (Negative) Urine Blood (Negative) Urine Nitrite (Negative) Urine Bilirubin (Negative) Urine Urobilinogen (Negative) Ur Leukocyte Esterase (Negative) Urine WBC (Auto) (0-5) /hpf Urine RBC (Auto) (0-4) /hpf U Hyaline Cast (Auto) (0-5) /lpf U Epithel Cells (Auto) (0-5) /lpf Urine Bacteria (Auto) (Negative) Urine Osmolality (500-800) mOsm/kg Ur Random Sodium mmol/L SARS-CoV-2, RNA, NAAT NEGATIVE (NEGATIVE) 02/06/23 02/06/23 02/06/23 Range/Units 17:15 17:20 17:20 WBC (4.8-10.8) K/ul RBC (4.20-5.40) M/uL Hgb (12.0-16.0) g/dl Hct (37.0-47.0) % MCV (80.0-100.0) fL MCH (25.0-34.0) pg MCHC (32.0-36.0) g/dL RDW Std Deviation (36.4-46.3) fL RDW Coeff of Edwin (11.5-14.5) % Plt Count (130-400) K/uL MPV (9.4-12.4) fL Immature Gran % (Auto) % Neut % (Auto) % Lymph % (Auto) % [place] % (Auto) % Eos % (Auto) % Baso % (Auto) % Neut # (Auto) (1.40-6.50) K/uL Lymph # (Auto) (1.2-3.4) K/uL [place] # (Auto) (0.11-0.59) K/uL Eos # (Auto) (0-0.50) K/uL Baso # (Auto) (0-0.2) K/uL Immature Gran # (Auto) (0.01-0.20) K/uL PT (9.0-12.0) Seconds INR (0.9-1.1) APTT (21.0-31.0) Seconds PTT Ratio Sodium (136-145) mmol/L Potassium (3.5-5.1) mmol/L Chloride (98-107) mmol/L Carbon Dioxide (21-32) mmol/L Anion Gap (3-11) BUN (6-23) mg/dl Creatinine (0.6-1.2) mg/dl Est Cr Clr Drug Dosing Est GFR ( Amer) ml/min Est GFR (Non-Af Amer) ml/min BUN/Creatinine Ratio (10-20) Glucose (70-99(Fasting)) mg/dl Calcium (8.6-10.3) mg/dl Magnesium (1.7-2.4) mg/dl Total Bilirubin (0.2-1.0) mg/dl AST (13-39) U/L ALT (7-52) U/L Alkaline Phosphatase (34-104) U/L Troponin I High Sens (0-14) pg/ml Total Protein (6.0-8.3) gm/dl Albumin (3.4-5.0) gm/dl Globulin (2.5-4.0) gm/dl Albumin/Globulin Ratio (0.9-2) TSH (0.300-4.500) uIu/ml Urine Color Yellow Urine Appearance Cloudy A (Clear) Urine pH 7.5 (4.5-7.5) Ur Specific [place] 1.011 (1.000-1.030) Urine Protein Negative (Negative) Urine Glucose (UA) Negative (Negative) Urine Ketones Negative (Negative) Urine Blood Negative (Negative) Urine Nitrite Negative (Negative) Urine Bilirubin Negative (Negative) Urine Urobilinogen Negative (Negative) Ur Leukocyte Esterase Negative (Negative) Urine WBC (Auto) 0 (0-5) /hpf Urine RBC (Auto) 0-4 (0-4) /hpf U Hyaline Cast (Auto) 0 (0-5) /lpf U Epithel Cells (Auto) 10-20 H (0-5) /lpf Urine Bacteria (Auto) Negative (Negative) Urine Osmolality 381 L (500-800) mOsm/kg Ur Random Sodium 100 mmol/L SARS-CoV-2, RNA, NAAT (NEGATIVE) Administered Medications Albuterol (Albut/Ipratrop 3mg/0.5mg Neb 3 Ml Vial) 3 ml NEB QIDR PRN; Protocol PRN Reason: Wheezing Stop: 03/08/23 20:42 Last Admin: 02/06/23 21:03 Dose: 3 ml Documented By: CHAUNCEY Discontinued Medications Acetaminophen (Acetaminophen 325 Mg Tab) 650 mg PO NOW STA Stop: 02/06/23 18:59 Last Admin: 02/06/23 19:14 Dose: Not Given Documented By: SEKOU Acetaminophen (Acetaminophen 325 Mg Tab) Confirm Administered Dose 650 mg .ROUTE .STK-MED ONE Stop: 02/06/23 19:00 Last Admin: 02/06/23 19:01 Dose: 650 mg Documented By: SEKOU Sodium Chloride (Nss 1000ml) 500 mls @ 999 mls/hr IV .Q31M ONE Stop: 02/06/23 16:34 Last Infusion: 02/06/23 17:28 Dose: 0 mls/hr Documented By: Admin: 02/06/23 16:04 Dose: 999 mls/hr Documented By: SEKOU Sodium Chloride (Nss 1000ml) 500 mls @ 999 mls/hr IV .Q31M ONE Stop: 02/06/23 17:22 Last Infusion: 02/06/23 19:33 Dose: 0 mls/hr Documented By: Admin: 02/06/23 17:28 Dose: 999 mls/hr Documented By: SEKOU Lactobacillus Acidophilus (Advanced Probiotic 1250 Mg Capsule) 2 cap PO NOW STA Stop: 02/06/23 18:33 Last Admin: 02/06/23 18:52 Dose: 2 cap Documented By: SEKOU Imaging Data Radiologist's Impression: Cervical Spine CT 02/06/23 14:16 CT cervical spine wo con CLINICAL HISTORY: 77 years-old Female with Fall, head injury. Acute head and neck injury status post fall COMPARISON: CT cervical spine 11/11/2021, chest CT 09/09/2020. TECHNIQUE: Multiple axial CT images of the cervical spine were obtained without contrast. A dose lowering technique was utilized adhering to the principles of ALARA. FINDINGS: Multilevel degenerative changes. No acute fracture or subluxation identified. The cervical soft tissues appear unremarkable. Emphysema without pneumothorax. Mild pleural parenchymal scarring in the lingula apices. 10 mm nodular density of the apical posterior segment left upper lobe on image 59, new from 11/11/2021 IMPRESSION: 1. No acute cervical spine fracture or subluxation identified. 2. Emphysema with biapical pleural-parenchymal scarring. There is a new 10 mm irregular nodule within the apical posterior segment of the left upper lobe. Three-month follow-up chest CT recommended. ACT 112: Negative or not required by law. The above report was generated using voice recognition software. It may contain grammatical, syntax or spelling errors. Electronically signed by: Aj Melgar M.D. 02/06/2023 4:48 PM Chest X-Ray 02/06/23 14:16 XR chest 1V portable HISTORY: 77 years-old Female Frequent falls, fatigue acute chest trauma status post fall COMPARISON: 11/13/2021 TECHNIQUE: AP view of the chest FINDINGS: Cardiomediastinal and hilar silhouettes are within normal limits. Emphysema with chronic interstitial coarsening. Mild chronic biapical pleural-parenchymal scarring. The thorax, pleural effusion or overt pulmonary edema. Degenerative changes of the shoulders and spine. IMPRESSION: Emphysema without acute process. ACT 112: Negative or not required by law. The above report was generated using voice recognition software. It may contain grammatical, syntax or spelling errors. Electronically signed by: Aj Melgar M.D. 02/06/2023 4:[address] 02/06/23 14:16 CT head/brain wo con CLINICAL HISTORY: 77 years-old Female with Fall, head injury. Acute head injury status post fall TECHNIQUE: Multiple axial CT images of the head were obtained without contrast. A dose lowering technique was utilized adhering to the principles of ALARA. CT DOSE: 929.30 mGy.cm COMPARISON: 11/11/2021. FINDINGS: No acute intracranial hemorrhage, midline shift, intracranial mass, hydrocephalus, territorial ischemia or abnormal extra-axial collection. Involutional changes with chronic microvascular ischemic disease. Cerebral vascular and senescent basal ganglia calcifications. The calvarium is intact. Prior bilateral lens repair. Moderate size right parietal scalp trauma. The paranasal sinuses, mastoid air cells, and middle ear cavities are clear. IMPRESSION: 1. No acute intracranial abnormality or calvarial fracture. 2. Right parietal scalp hematoma. ACT 112: Negative or not required by law. The above report was generated using voice recognition software. It may contain grammatical, syntax or spelling errors. Electronically signed by: Aj Melgar M.D. 02/06/2023 4:44 PM Discharge Plan Visit Data Chief Complaint: Head Injury, Minor Stated Complaint: FALL, HEAD INJURY ED Provider: Keyur Bernabe Discharge Problem: Weakness, Fall, Acute hyponatremia, Acute head trauma, Scalp hematoma Patient Disposition: Admitted As Inpatient Condition: Fair Discharge Instructions Interventions: ED Discharge Assessment Last Done: 02/06/23 20:01
[2023-02-06] MEDS ORDERED: SODIUM CHLORIDE 0.9% 1000ML 500 ML IV ONE ×2 (16:04→16:52)
[2023-02-06 16:13] LABS: Alanine Aminotransferase 11 U/L (7-52); Albumin Globulin Ratio 1.5 (0.9-2); Albumin Level 4.3 gm/dl (3.4-5.0); Alkaline Phosphatase 66 U/L (34-104); Anion Gap 6 (3-11); Aspartate Aminotransferase 15 U/L (13-39); BUN Creatinine Ratio 17.2 (10-20); Bilirubin,Total 0.7 mg/dl (0.2-1.0); Blood Urea Nitrogen 11 mg/dl (6-23); Calcium 9.5 mg/dl (8.6-10.3); Carbon Dioxide 29 mmol/L (21-32); Chloride 92 mmol/L (98-107); Est GFR (African American) 98.4 ml/min; Est GFR (Non-African American) 84.9 ml/min; Globulin 2.8 gm/dl (2.5-4.0); Glucose 100 mg/dl (70-99(Fasting)); Magnesium 1.9 mg/dl (1.7-2.4); Potassium 3.9 mmol/L (3.5-5.1); Sodium 127 mmol/L (136-145); Total Protein 7.1 gm/dl (6.0-8.3)
[2023-02-06 16:19] LABS: Troponin I High Sensitivity 15.5 pg/ml (0-14)
--- NOTE | 2023-02-06 16:22 | XRay Report ---
XR chest 1V portable HISTORY: 77 years-old Female Frequent falls, fatigue acute chest trauma status post fall COMPARISON: 11/13/2021 TECHNIQUE: AP view of the chest FINDINGS: Cardiomediastinal and hilar silhouettes are within normal limits. Emphysema with chronic interstitial coarsening. Mild chronic biapical pleural-parenchymal scarring. The thorax, pleural effusion or over t pulmonary edema. Degenerative changes of the shoulders and spine. IMPRESSION: Emphysema without acute process. ACT 112: Negative or not required by law. The above report was generated using voice recognition software. It may contain grammatical, syntax o r spelling errors. Electronically signed by: Aj Melgar M.D. 02/06/2023 4:19 PM
[2023-02-06 16:28] LABS: Partial Thromboplastin Ratio 1.1; Partial Thromboplastin Time 30.4 Seconds (21.0-31.0); Prothrombin Time 10.7 Seconds (9.0-12.0)
--- NOTE | 2023-02-06 16:45 | CT Scan Report ---
CT head/brain wo con CLINICAL HISTORY: 77 years-old Female with Fall, head injury. Acute head injury status post fall TECHNIQUE: Multiple axial CT images of the head were obtained without contrast. A dose lowering tech nique was utilized adhering to the principles of ALARA. CT DOSE: 929.30 mGy.cm COMPARISON: 11/11/2021. FINDINGS: No acute intracranial hemorrhage, midline shift, intracranial mass, hydrocephalus, territorial ischem ia or abnormal extra-axial collection. Involutional changes with chronic microvascular ischemic disea se. Cerebral vascular and senescent basal ganglia calcifications. The calvarium is intact. Prior bilateral lens repair. Moderate size right parietal scalp trauma. The paranasal sinuses, mastoid air cells, and middle ear cavities are clear. IMPRESSION: 1. No acute intracranial abnormality or calvarial fracture. 2. Right parietal scalp hematoma. ACT 112: Negative or not required by law. The above report was generated using voice recognition software. It may contain grammatical, syntax o r spelling errors. Electronically signed by: Aj Melgar M.D. 02/06/2023 4:44 PM
--- NOTE | 2023-02-06 16:50 | CT Scan Report ---
CT cervical spine wo con CLINICAL HISTORY: 77 years-old Female with Fall, head injury. Acute head and neck injury status post fall COMPARISON: CT cervical spine 11/11/2021, chest CT 09/09/2020. TECHNIQUE: Multiple axial CT images of the cervical spine were obtained without contrast. A dose low ering technique was utilized adhering to the principles of ALARA. FINDINGS: Multilevel degenerative changes. No acute fracture or subluxation identified. The cervical soft tissues appear unremarkable. Emphysema without pneumothorax. Mild pleural parenchy mal scarring in the lingula apices. 10 mm nodular density of the apical posterior segment left upper lobe on image 59, new from 11/11/2021 IMPRESSION: 1. No acute cervical spine fracture or subluxation identified. 2. Emphysema with biapical pleural-parenchymal scarring. There is a new 10 mm irregular nodule within the apical posterior segment of the left upper lobe. Three-month follow-up chest CT recommended. ACT 112: Negative or not required by law. The above report was generated using voice recognition software. It may contain grammatical, syntax o r spelling errors. Electronically signed by: Aj Melgar M.D. 02/06/2023 4:48 PM
[2023-02-06 17:28] LABS: Appearance Urine Cloudy (Clear); Bacteria Urine Automated Negative (Negative); Bilirubin Urine Negative (Negative); Blood Urine Negative (Negative); Cast Urine Automated 0 /lpf (0-5); Color Urine Yellow; Glucose Urine UA Negative (Negative); Ketones Urine Negative (Negative); Leukocyte Esterase Urine Negative (Negative); Nitrite Urine Negative (Negative); Protein Urine Negative (Negative); RBC Urine Automated 0-4 /hpf (0-4); Specific Gravity Urine 1.011 (1.000-1.030); Urobilinogen Urine Negative (Negative); WBC Urine Automated 0 /hpf (0-5); pH Urine 7.5 (4.5-7.5)
--- NOTE | 2023-02-06 17:52 | History & Physical Report ---
Date of Service February 06, 2023 Assessment & Plan (1) Generalized weakness: Plan: -Admit to med/tele -Currently stable -Likely due to acute hyponatremia and poor oral intake -Lost her balance this am while standing, denies lightheadedness/dizziness/vertigo, no pulmonary or cardiac symptoms -Sodium at 129 -Alert and oriented, no focal neruo defects -CT head negative for acute intracranial findings -ECG WNL -No sings of infection -Fall precautions, monitor sodium level, PT/OT tomorrow -BL MG stockings for DVT PPX, hold chemical PPX overnight with recent trauma -AM CBC, BMP, mag (2) Hyponatremia: Plan: -Noted to be 127 today, recent baseline has been WNL -Was admitted to [facility] last year for hyponatremia, her HCTZ was discontinued on admission -Not on a diuretic at this time, glucose WNL -Will obtain serum osmolality, urine osmolality, and urine sodium for further evaluation -S/P 1L NSS in the ED, hold further IV fluids at this time -Repeat BMP in process, will follow -Cannot rule out SIADH, especially with her smoking history and enlarging left upper lobe pulmonary nodule >Will obtain CT of the chest with con for further evaluation -Free water restriction ordered -Monitor am renal function and electrolytes (3) Lower extremity edema: Plan: -Appears consistent with venous stasis with symmetrical pitting edema and mild BL erythema -No signs of cellulitis, patient does not notice a difference since starting clindamycin -Likely has progressive venous stasis since stopping her HCTZ on last admission -Outpatient LLE venous doppler on 02/02 was negative -Will place BL MG stockings -Continue to monitor (4) Nodule of left lung: Plan: -Left upper lobe nodule noted on CT of the cervical spine today -Follow CT of the chest ordered on admission -Continue to stress smoking cessation (5) Current smoker: Plan: -Smoking 1/2 PPD -Willing to start nicotine patches to try and quit -Nicotine patches ordered (6) Chronic obstructive pulmonary disease: Plan: -Stable on RA -Without significant wheezing today -Continue home breathing treatments (7) HTN (hypertension): Plan: -Stable -Continue losartan Plan The patient was discussed with Dr. Cunha at the time of the admisssion History of Present Illness Chief Complaint: Generalized weakness, fall Primary Care Provider: Ivan Castro MD Nellie is a 77 year old female with a PMH significant for COPD, HTN, PAD, and GERD who presented to the [facility] ED on 02/06/23 with a chief complaint of generalized weakness and fall at home today. In the ED vitals were stable. Labs were significant for a sodium of 127 and initial high sen trop of 15. CT of the head was read as "1. No acute intracranial abnormality or calvarial fracture. 2. Right parietal scalp hematoma.". CT of the cervical spine was read as "1. No acute cervical spine fracture or subluxation identified. 2. Emphysema with biapical pleural-parenchymal scarring. There is a new 10 mm irregular nodule within the apical posterior segment of the left upper lobe. Three-month follow- up chest CT recommended.". Chest xray was read as "Emphysema without acute process.". Prior to admission the patient was given 1L NSS. At the time of the exam the patient was sitting in the bedside chair in no acute distress with her and son sitting bedside, history was obtained from all. The patient started to feel generally weak approximately 4 days ago. She was started on clindamycin on 02/02 due to concerns of possible LLE cellulitis. She has been having some nausea but no vomiting or diarrhea. This am she was sitting at the kitchen table when she stood up to go to the bathroom. She lost her balance and fell backwards, hitting the back of her head on the floor. She denies losing consciousness and is not on anticoagulation. She denies feeling SOB, having chest pain, or heart palpitations before or after the fall. She also denies the room spinning. She states that she has had swelling in the BL LE's, worsening over the past month. Approximately one week ago she hit the left ibrahim on furniture in her home. She was seen at her PCP's office and was ordered a LLE xray and venous doppler of the LLE, both were negative. She does not believe that the BL erythema in the LE's has changed since starting the clin damycin. I discussed the left upper lobe pulmonary nodule finding and the need for follow up CT within 3 months. She is still smoking approximately 1/2 PPD. I stressed the importance of cessation with her COPD and pulmonary nodule, she would like to try and quit with the assistance of nicotine patches. I had a long discussion with the patient and her family regarding code status and my concern for a poor quality of life if we were to do CPR in the event of cardiac arrest. She would like more time to think about her choice, for now she would like to be a full code. Please refer to Dr. Cunha's attestation for any changes to the treatment plan Allergies Allergy/AdvReac Type Severity Reaction Status Date / Time Penicillins Allergy Unknown Hives Verified 02/02/23 14:43 Sulfa (Sulfonamide Allergy Unknown SWELLING Verified 02/02/23 14:43 Antibiotics) Home Medications Medication Instructions Recorded Confirmed Type calcium carb,cit ER 600 mg-vit D3 2 tab PO DAILY 04/17/19 02/06/23 History 12.5 mcg (500 unit) tablet,ext.rel (Citracal-D3 Slow Release) folic acid 1 mg tablet 1 mg PO DAILY #1 tab 04/17/19 02/06/23 History zoledronic acid 5 mg/100 mL in 5 mg IV YEARLY ##0 04/17/19 02/06/23 History mannitol 5 %-water intravenous piggybck (Reclast) acetaminophen 650 mg 650 mg PO Q12H PRN Pain 08/14/19 02/06/23 History tablet,extended release cholecalciferol (vitamin D3) 125 5,000 unit PO .COMPLEX ##0 09/10/20 02/06/23 History mcg (5,000 unit) tablet (Vitamin D3) cyclobenzaprine 5 mg tablet 5 mg PO HS PRN muscle spasm #30 05/29/21 02/06/23 Rx tabs rosuvastatin 5 mg tablet (Crestor) 5 mg PO DAILY #90 tabs 02/10/22 02/06/23 Rx losartan 100 mg tablet (Cozaar) 100 mg PO QAM #90 tabs 08/03/22 02/06/23 Rx fluticasone fur. 100 mcg-umeclid 1 inh inhalation Q24H #60 ea 12/27/22 02/06/23 Rx 62.5 mcg-vilant 25 mcg inhalat.powder (Trelegy Ellipta) albuterol sulfate 90 mcg/actuation 1 - 2 puff inhalation Q4H PRN 01/11/23 02/06/23 Rx aerosol inhaler (Ventolin HFA) shortness of breath or wheezing #18 grams ascorbic acid (vitamin C) 500 mg 500 mg PO DAILY 02/02/23 02/06/23 History capsule clindamycin HCl 150 mg capsule 150 mg PO TID 7 days #21 caps 02/02/23 02/06/23 Rx clindamycin HCl 300 mg capsule 300 mg PO TID 7 days #21 caps 02/02/23 02/06/23 Rx mecobalamin (vitamin B12) 1,000 1,000 mcg PO DAILY 02/02/23 02/06/23 History mcg chewable tablet metoprolol succinate 25 mg 25 mg PO BID 02/02/23 02/06/23 History tablet,extended release 24 hr zinc acetate 1 dose PO UD 02/02/23 02/06/23 History fluticasone fur. 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 Chronic obstructive pulmonary disease Deviated nasal septum Encounter for pre-operative examination Encounter for screening colonoscopy Family history of diabetes mellitus MATERNAL GRANDMOTHER Family history of reaction to anesthesia MOTHER HAD "A HARD TIME COMING OUT OF IT" GERD (gastroesophageal reflux disease) History of smoking for more than 10 years Hyperlipidemia Hypertension Multiple pulmonary nodules determined by computed tomography of lung Osteoarthritis Surgical History History of appendectomy History of cataract surgery History of section History of colonoscopy History of esophagogastroduodenoscopy (EGD) History of hysterectomy History of open reduction and internal fixation (ORIF) procedure History of tonsillectomy History of tooth extraction S/p bilateral blepharoplasty Family History Mother Coronary heart disease Hypertension Father Coronary heart disease Hypertension Myocardial infarction Grandmother Diabetes Breast cancer Grandmother (Maternal) Stroke Denies family history of Ovarian cancer Prostate cancer Lung cancer Colorectal cancer Social History Smoking Status: Current every day smoker Tobacco Type: Cigarettes Cigarettes Per Day: 10; Second Hand Exposure: Yes; Do You Dip or Chew Tobacco: No; Tobacco Cessation Education Requested by Patient: Yes Hx Alcohol Use: No Hx Substance Use: No Preferred Language: Upper Sorbian Communication Ability: Effective Visual Impairment: Limited Hearing Ability: Normal Manager [employer] Planning Required: No Beliefs That Will Affect Care: None marital status: Current Living Situation: Spouse Current Living Situation Comment: Lives at home with her current occupational status: retired How many Children do You have: 3 Feels Safe at Home: Yes Safety Concerns: Feels Safe At This Time Childhood Exposure to Second-Hand Smoke: Yes caffeine: Yes Dental Care, Regularly: Yes Physical Activity Frequency: Daily Seatbelt Use: always Sunscreen Use: No Assistive Devices: Glasses Physical Exam Physical Exam: Physical Exam: General: In no acute distress, stated age, chronically ill appearing HEENT: Normocephalic, large hematoma on the right posterior scalp which is tender to palpation, no scleral icterus, pupils around round, symmetrical, and reactive to light, moist mucus membranes, trachea midline, no thyromegaly Chest/Pulm: No respiratory distress, symmetrical chest expansion, expiratory wheezing Cardiac: RRR, no murmurs noted Abdomen: Negative for ascites and bruising, normoactive bowel sounds, soft, non-tender to palpation throughout Musculoskeletal: Head exam as above, no trauma or tenderness to palpation of the cervical, thoracic, or lumbar spine, upper and lower extremities with full ROM, no atrophy, spasticity, or flaccidity Extremities: Radial, dorsalis pedis, and posterior tibial pulses are intact and symmetrical, 2+ edema noted in the BL LE's Skin: Old hematomas noted on the BL hands and forearms, erythema on the BL LE's consistent with venous stasis, no sign of cellulitis or infection Neuro: Alert and oriented to person, place, month, year, and president, no focal defects, CN II-XII tested and intact, finger to nose test negative, no tremors noted Psych: No acute distress, calm and cooperative during the exam Results & Data Results & Data Vital Signs (Past 12 Hours) Vital Signs Temp Pulse Pulse Resp BP BP Pulse Ox 02/06/23 17:39 67 02/06/23 15:34 85 24 197/96 H 94 02/06/23 14:13 36.0 C L 72 20 172/72 H 99 O2 Del Method 02/06/23 17:39 02/06/23 15:34 Room Air 02/06/23 14:13 Room Air Laboratory Results Abnormal lab results 02/06/23 02/06/23 02/06/23 Range/Units 15:22 15:22 17:15 MPV 9.3 L (9.4-12.4) fL [place] # (Auto) 0.98 H (0.11-0.59) K/uL Sodium 127 L (136-145) mmol/L Chloride 92 L (98-107) mmol/L Glucose 100 H (70-99(Fasting)) mg/dl Troponin I High Sens 15.5 H 16.8 H (0-14) pg/ml Urine Appearance (Clear) U Epithel Cells (Auto) (0-5) /lpf 02/06/23 Range/Units 17:15 MPV (9.4-12.4) fL [place] # (Auto) (0.11-0.59) K/uL Sodium (136-145) mmol/L Chloride (98-107) mmol/L Glucose (70-99(Fasting)) mg/dl Troponin I High Sens (0-14) pg/ml Urine Appearance Cloudy A (Clear) U Epithel Cells (Auto) 10-20 H (0-5) /lpf Diagnostic Findings Cervical Spine CT 02/06/23 14:16 CT cervical spine wo con CLINICAL HISTORY: 77 years-old Female with Fall, head injury. Acute head and neck injury status post fall COMPARISON: CT cervical spine 11/11/2021, chest CT 09/09/2020. TECHNIQUE: Multiple axial CT images of the cervical spine were obtained without contrast. A dose lowering technique was utilized adhering to the principles of ALARA. FINDINGS: Multilevel degenerative changes. No acute fracture or subluxation identified. The cervical soft tissues appear unremarkable. Emphysema without pneumothorax. Mild pleural parenchymal scarring in the lingula apices. 10 mm nodular density of the apical posterior segment left upper lobe on image 59, new from 11/11/2021 IMPRESSION: 1. No acute cervical spine fracture or subluxation identified. 2. Emphysema with biapical pleural-parenchymal scarring. There is a new 10 mm i rregular nodule within the apical posterior segment of the left upper lobe. Three-month follow-up chest CT recommended. ACT 112: Negative or not required by law. The above report was generated using voice recognition software. It may contain grammatical, syntax or spelling errors. Electronically signed by: Aj Melgar M.D. 02/06/2023 4:48 PM Chest X-Ray 02/06/23 14:16 XR chest 1V portable HISTORY: 77 years-old Female Frequent falls, fatigue acute chest trauma status post fall COMPARISON: 11/13/2021 TECHNIQUE: AP view of the chest FINDINGS: Cardiomediastinal and hilar silhouettes are within normal limits. Emphysema with chronic interstitial coarsening. Mild chronic biapical pleural-parenchymal scarring. The thorax, pleural effusion or overt pulmonary edema. Degenerative changes of the shoulders and spine. IMPRESSION: Emphysema without acute process. ACT 112: Negative or not required by law. The above report was generated using voice recognition software. It may contain grammatical, syntax or spelling errors. Electronically signed by: Aj Melgar M.D. 02/06/2023 4:[address] 02/06/23 14:16 CT head/brain wo con CLINICAL HISTORY: 77 years-old Female with Fall, head injury. Acute head injury status post fall TECHNIQUE: Multiple axial CT images of the head were obtained without contrast. A dose lowering technique was utilized adhering to the principles of ALARA. CT DOSE: 929.30 mGy.cm COMPARISON: 11/11/2021. FINDINGS: No acute intracranial hemorrhage, midline shift, intracranial mass, hydrocephalus, territorial ischemia or abnormal extra-axial collection. Involutional changes with chronic microvascular ischemic disease. Cerebral vascular and senescent basal ganglia calcifications. The calvarium is intact. Prior bilateral lens repair. Moderate size right parietal scalp trauma. The paranasal sinuses, mastoid air cells, and middle ear cavities are clear. IMPRESSION: 1. No acute intracranial abnormality or calvarial fracture. 2. Right parietal scalp hematoma. ACT 112: Negative or not required by law. The above report was generated using voice recognition software. It may contain grammatical, syntax or spelling errors. Electronically signed by: Aj Melgar M.D. 02/06/2023 4:44 PM ECG Additional Comments: Normal sinus rhythm Normal ECG When compared with ECG of 27-FEB-2013 07:01, Nonspecific T wave abnormality, improved in Anterolateral leads QT has shortened Code Status & VTE Plan Code Status Full code Supervising Physician Co-Signing Physician Notes I personally saw and examined the patient. I verified all pimentel points and agree with Dieter Bearden PA-C with the following exceptions and/or additions: 77 year old female presents to the ER with generalized weakness and pedal edema. No improvement with clindamycin for possible cellulitis as outpatient. Lung nodules seen on CT in November - larger one seen on CT cervical spine today. O/E A&Ox3, HS RRR, no murmurs, Chest mild expiratory wheezing, no crackles, Abdo SNT, 2+ pitting edema to knees equal b/l, no areas of cellulitis noted, abdo SNT A/P Hyponatremia - appears euvolemic/hypervolemic on exam, suspect SIADH given high Na in urine, free fluid restrict, start NaCl tabs 1g BID, Lasix to start in AM, lung nodules and SIADH concerning for lung cancer and will get CT chest with IV contrast in AM. Bilateral leg swelling - no cellulitic appearing area, concerning for right sided heart failure (?due to COPD), Lasix should help with this. No proteinuria or elevated LFTs. TTE in AM. PG Care Time/CCT Total # of Minutes Spent Total Time Spent with Patient: Total time spent is greater than 50% in coordination of care (as documented) at patient's floor/unit and/or counseling patient: Coding [place] [address] INT INP/OBS CARE 3/75MIN Patient Type Established Medical Decision Making High Complexity Diagnoses Generalized weakness R53.1 Hyponatremia E87.1 Lower extremity edema R60.0 Nodule of left lung R91.1 Current smoker F17.200 Chronic obstructive pulmonary disease J44.9 HTN (hypertension) I10
[2023-02-06] MEDS ORDERED: ADVANCED PROBIOTIC 1250 MG CAPSULE PO STA (18:32)
[2023-02-06] MEDS ORDERED: ACETAMINOPHEN 325 MG TAB PO STA (18:58)
[2023-02-06] MEDS ORDERED: ACETAMINOPHEN 325 MG TAB ONE (18:59)
[2023-02-06 19:04] LABS: Anion Gap 6 (3-11); BUN Creatinine Ratio 19.6 (10-20); Blood Urea Nitrogen 10 mg/dl (6-23); Calcium 8.5 mg/dl (8.6-10.3); Carbon Dioxide 26 mmol/L (21-32); Chloride 95 mmol/L (98-107); Est GFR (Non-African American) 91.5 ml/min; Glucose 92 mg/dl (70-99(Fasting)); Potassium 3.9 mmol/L (3.5-5.1); Sodium 127 mmol/L (136-145)
[2023-02-06] MEDS: ALBUT/IPRATROP 3MG/0.5MG NEB 3 ML VIAL NEB PRN (21:03)
[2023-02-06] MEDS: METOPROLOL SUCC 25MG EXT REL TAB PO SCH (22:19)
[2023-02-06] MEDS: SODIUM CHLORIDE 1 GM TABLET PO SCH (22:19)
[2023-02-07] MEDS: ALBUT/IPRATROP 3MG/0.5MG NEB 3 ML VIAL NEB PRN (02:01)
[2023-02-07] MEDS: ACETAMINOPHEN 325 MG TAB PO PRN ×2 (04:17→21:02)
[2023-02-07 05:55] LABS: Hematocrit (blood only) 34.5 % (37.0-47.0); Hemoglobin 11.8 g/dl (12.0-16.0); Mean Corpuscular Hemoglobin 28.9 pg (25.0-34.0); Mean Corpuscular Hgb Conc 34.2 g/dL (32.0-36.0); Mean Corpuscular Volume 84.6 fL (80.0-100.0); Mean Platelet Volume 8.8 fL (9.4-12.4); Platelet Count 329 K/uL (130-400); Red Blood Count 4.08 M/uL (4.20-5.40); White Blood Count 15.46 K/ul (4.8-10.8)
[2023-02-07 06:07] LABS: BUN Creatinine Ratio 15.2 (10-20); Calcium 8.6 mg/dl (8.6-10.3); Creatinine Clr Calc Pharmacy 73.3 ml/min; Est GFR (African American) 109.7 ml/min; Est GFR (Non-African American) 94.6 ml/min; Magnesium 1.7 mg/dl (1.7-2.4); Potassium 3.5 mmol/L (3.5-5.1)
[2023-02-07] MEDS ORDERED: NON-FORMULARY MEDICATION (Fluticasone-Umeclidin-Vilanter [Trelegy Ellipta] 100-62.5-25 mcg INH SCH (09:00)
[2023-02-07] MEDS: SODIUM CHLORIDE 1 GM TABLET PO SCH ×2 (09:20→21:03)
[2023-02-07] MEDS: FUROSEMIDE INJ 20 MG/2 ML VIAL IV SCH (09:20)
[2023-02-07] MEDS: METOPROLOL SUCC 25MG EXT REL TAB PO SCH ×2 (09:20→21:03)
[2023-02-07] MEDS: ADVANCED PROBIOTIC 1250 MG CAPSULE PO SCH (09:22)
[2023-02-07] MEDS: LOSARTAN POTASSIUM 50 MG TAB PO SCH (09:23)
[2023-02-07] MEDS: ROSUVASTATIN CALCIUM 5 MG TAB PO SCH (09:23)
[2023-02-07] MEDS: FLUTICASONE FUROATE 100MCG 14 PUFFS/INHALER INH SCH (09:24)
[2023-02-07] MEDS: NICOTINE 14 MG/24 HR PATCH TD SCH (09:24)
[2023-02-07] MEDS: UMECLIDINIUM/VILANTEROL 62.5/25MCG 7 PUFFS/INHALER INH SCH (09:24)
[2023-02-07] MEDS ORDERED: OPTIRAY 320 100ml IV ONE (10:23)
--- NOTE | 2023-02-07 11:07 | CT Scan Report ---
CHEST CT WITH CONTRAST CT DOSE: 437.47 mGy.cm HISTORY: Follow-up study in a patient with history of lung nodules lung nodule, new onset SIADH TECHNIQUE: Multiaxial CT images of the chest were performed following the IV administration of 94 cc of Optiray. A dose lowering technique was utilized adhering to the principles of ALARA. COMPARISON: 11/18/2022. FINDINGS: Unremarkable thyroid. Subcentimeter mediastinal and hilar lymph nodes. Heart is normal in s ize with extensive coronary artery calcifications. No pericardial effusion. Atherosclerosis of the th oracic aorta and great vessels. Calcified plaque results in high-grade stenosis at the origin of the right subclavian artery, image 65. Definitive left vertebral artery. Unremarkable pulmonary artery. Trace right pleural effusion. Moderate pulmonary emphysema. Mild biapical pleural parenchymal scarrin g. Bronchial wall thickening with mild mucous plugging. Mild dependent subsegmental bibasilar atelect asis.r 7 mm irregular nodular focus of the basal left lower lobe, on image 162 is stable. 4 mm nodule in the superior segment left lower lobe, previously 5 mm. The remainder of the scattered bilateral s olid pulmonary nodules are generally stable. There is a new 4 mm nodule left upper lobe on image 115. A few new nodules within the right middle lobe measure up to 5 mm on image 104. Several new ill-defi tonya subcentimeter nodular foci within the lung bases measure up to proximally 4-5 mm. No acute process of the imaged upper abdomen. No acute fracture. Changes of the shoulders and spine. IMPRESSION: 1. Emphysema with numerous subcentimeter pulmonary nodules measuring up to 7 mm. There are several ne w nodules measuring up to approximately 4-5 mm which are favored to be infectious or inflammatory how ever an additional 3 month follow-up chest CT is recommended. 2. No lymphadenopathy. 3. Trace right pleural effusion. ACT 112: Negative or not required by law. Electronically signed by: Aj Melgar M.D. 02/07/2023 11:06 AM
--- NOTE | 2023-02-07 13:36 | Hospitalist Progress Note ---
Date of Service February 07, 2023 Assessment & Plan (1) Generalized weakness: Plan: Suspect due to hyponatremia,? Underlying atypical pneumonia Follow on med/telemetry Sodium treatment as below -CT head negative for acute intracranial findings -ECG WNL -Fall precautions -AM CBC, BMP, mag (2) Hyponatremia: Plan: Patient has with history of intermittent episodes of hyponatremia in the past CT-C: 1. Emphysema with numerous subcentimeter pulmonary nodules measuring up to 7 mm. There are several new nodules measuring up to approximately 4-5 mm which are favored to be infectious or inflammatory however an additional 3 month follow-up chest CT is recommended. 2. No lymphadenopathy. 3. Trace right pleural effusion. Sodium down trended from 1 27-1 44 following 1 L of fluid in the ER, subsequently placed on fluid restriction and salt tablets Urine sodium 100, urine osmolality 381. Continue Lasix/salt tablet, tube promote net free water loss Fluid restrict, 1300 cc daily Unclear cause, No SSRIs/tramadol. Prior HCTZ discontinued. CT nodules suspected infectious/infla but differential does include malignant lung disease. Patient will need repeat CT in 3 months. Biofire/Legionella pending. -Monitor am renal function and electrolytes (3) Lower extremity edema: Plan: -Appears consistent with venous stasis with symmetrical pitting edema and mild BL erythema -No signs of cellulitis, patient does not notice a difference since starting clindamycin -Likely has progressive venous stasis since stopping her HCTZ on last admission -Outpatient LLE venous doppler on 02/02 was negative -Will place BL MG stockings -Continue to monitor Continued on Lasix (4) Nodule of left lung: Plan: -Infectious/inflammatory noted, will need additional repeat in 3 months as noted -Continue to stress smoking cessation (5) Current smoker: Plan: -Smoking 1/2 PPD -Willing to start nicotine patches to try and quit -Nicotine patches available (6) Chronic obstructive pulmonary disease: Plan: -Stable on RA -No wheezing on exam -Continue home breathing treatments (7) HTN (hypertension): Plan: -Stable -Continue losartan Admission and Anticipated Discharge Date Admission Date: February 06, 2023 Kate Ballard is seen at the bedside with her and son present. She reports she is felt weak for several days, and she feels about the same today as when she came in. She reports she has been voiding much more than normal after taking the Lasix. She reports she does not have any shortness of breath when laying flat, but does fatigue easily and in general just feels more weak and tired. She has had chronic leg swelling which continues to be present, this has not changed recently. She denies fever, chills, chest pain, chest pressure. She does endorse some lightheadedness or dizziness. No nausea/vomit. Denies abdominal pain Review of Systems Review of Systems: All systems reviewed & are unremarkable except as noted in HPI & below Physical Exam Physical Exam: General: A&Ox3. NAD. Cooperative. HEENT: Atraumatic, normocephalic. Pulm: diminished, Crackles in the right base. No wheezing at time of assessment.symmetrical chest rise. No increased work of breathing. No respiratory distress. Cardiac: RRR, -mrg. Radial pulses intact and symmetrical. Abdominal: Nontender, nondistended, soft. BS present. Results & Data Results & Data Vital Signs (Past 12 Hours) Vital Signs Temp Pulse Pulse Resp BP BP Pulse Ox 02/07/23 13:10 36.6 C 66 18 151/68 H 93 02/07/23 07:51 36.4 C L 73 18 170/90 H 91 02/07/23 07:50 68 02/07/23 04:56 154/77 H 02/07/23 04:00 37.0 C 78 22 185/70 H 94 02/07/23 02:44 90 26 H 97 02/07/23 02:01 74 20 90 O2 Del Method O2 Flow Rate 02/07/23 13:10 Room Air 02/07/23 07:51 Room Air 02/07/23 07:50 02/07/23 04:56 02/07/23 04:00 Room Air 02/07/23 02:44 2 02/07/23 02:01 Room Air PG Care Time/CCT Total # of Minutes Spent Total Time Spent with Patient: Total time spent is greater than 50% in coordination of care (as documented) at patient's floor/unit and/or counseling patient: Coding Level of Care Code 56984 SUB INP/OBS CARE 3/50MIN Diagnoses Generalized weakness R53.1 Hyponatremia E87.1 Lower extremity edema R60.0 Nodule of left lung R91.1 Current smoker F17.200 Chronic obstructive pulmonary disease J44.9 HTN (hypertension) I10
[2023-02-07] MEDS ORDERED: AZITHROMYCIN 500 MG in DEXTROSE 5% 250 ML IV ONE (13:45)
[2023-02-07 15:18] LABS: BUN Creatinine Ratio 16.7 (10-20); Calcium 9.3 mg/dl (8.6-10.3); Creatinine Clr Calc Pharmacy 70.5 ml/min; Est GFR (African American) 108.1 ml/min; Est GFR (Non-African American) 93.3 ml/min; Potassium 3.3 mmol/L (3.5-5.1)
[2023-02-07 15:37] LABS: Adenovirus PCR Not Detected (NotDetected); Bordetella parapertussis PCR Not Detected (NotDetected); Bordetella pertussis PCR Not Detected (NotDetected); Chlamydia pneumoniae PCR Not Detected (NotDetected); Coronavirus 229E PCR Not Detected (NotDetected); Coronavirus CoV-2 (COVID19)PCR Not Detected (NotDetected); Coronavirus HKU1 PCR Not Detected (NotDetected); Coronavirus NL63 PCR Not Detected (NotDetected); Coronavirus OC43PCR Not Detected (NotDetected); Human Metapneumovirus PCR Not Detected (NotDetected); Influenza A PCR Not Detected (NotDetected); Influenza B PCR Not Detected (NotDetected); Mycoplasma pneumoniae PCR Not Detected (NotDetected); Parainfluenza Virus 1 PCR Not Detected (NotDetected); Parainfluenza Virus 2 PCR Not Detected (NotDetected); Parainfluenza Virus 3 PCR Not Detected (NotDetected); Parainfluenza Virus 4 PCR Not Detected (NotDetected); Respiratory Syncytial VirusPCR Not Detected (NotDetected); Rhinovirus/Enterovirus PCR Not Detected (NotDetected)
[2023-02-07] MEDS ORDERED: ONDANSETRON INJ 2 MG/ML 2 ML VIAL IV PRN (15:58)
--- NOTE | 2023-02-07 16:49 | XCELERA ---
[id number]
[2023-02-07 18:39] LABS: Calcium 9.2 mg/dl (8.6-10.3); Potassium 3.8 mmol/L (3.5-5.1)
[2023-02-07 18:45] LABS: Creatinine Clr Calc Pharmacy 67.6 ml/min; Est GFR (African American) 106.7 ml/min; Est GFR (Non-African American) 92.1 ml/min
[2023-02-07 23:24] LABS: BUN Creatinine Ratio 16.3 (10-20); Calcium 8.7 mg/dl (8.6-10.3); Est GFR (African American) 107.4 ml/min; Est GFR (Non-African American) 92.7 ml/min; Potassium 3.1 mmol/L (3.5-5.1)
--- NOTE | 2023-02-08 06:17 | Electrocardiogram Report ---
Test Reason : Blood Pressure : / mmHG Vent. Rate : 068 BPM Atrial Rate : 068 BPM P-R Int : 156 ms QRS Dur : 076 ms QT Int : 430 ms P-R-T Axes : 069 016 013 degrees QTc Int : 457 ms Normal sinus rhythm Normal ECG When compared with ECG of 27-FEB-2013 07:01, Nonspecific T wave abnormality, improved in Anterolateral leads QT has shortened Confirmed by Ritchie Rosenthal ([id number]) on 02/08/2023 6:17:19 AM Referred By: REFERRED SELF Confirmed By:Ritchie Rosenthal
[2023-02-08 07:31] LABS: Hematocrit (blood only) 35.1 % (37.0-47.0); Hemoglobin 12.2 g/dl (12.0-16.0); Mean Corpuscular Hemoglobin 29.3 pg (25.0-34.0); Mean Corpuscular Hgb Conc 34.8 g/dL (32.0-36.0); Mean Corpuscular Volume 84.2 fL (80.0-100.0); Mean Platelet Volume 9.1 fL (9.4-12.4); Platelet Count 352 K/uL (130-400); RDW Standard Deviation 39.6 fL (36.4-46.3); Red Blood Count 4.17 M/uL (4.20-5.40); White Blood Count 8.17 K/ul (4.8-10.8)
[2023-02-08 07:44] LABS: BUN Creatinine Ratio 16.3 (10-20); Calcium 8.9 mg/dl (8.6-10.3); Creatinine Clr Calc Pharmacy 63.5 ml/min; Est GFR (African American) 107.4 ml/min; Est GFR (Non-African American) 92.7 ml/min; Magnesium 1.9 mg/dl (1.7-2.4); Potassium 3.3 mmol/L (3.5-5.1)
[2023-02-08] MEDS: SODIUM CHLORIDE 1 GM TABLET PO SCH ×2 (08:04→20:13)
[2023-02-08] MEDS: ROSUVASTATIN CALCIUM 5 MG TAB PO SCH (08:04)
[2023-02-08] MEDS: METOPROLOL SUCC 25MG EXT REL TAB PO SCH ×2 (08:04→20:14)
[2023-02-08] MEDS: FUROSEMIDE INJ 20 MG/2 ML VIAL IV SCH (08:04)
[2023-02-08] MEDS: ADVANCED PROBIOTIC 1250 MG CAPSULE PO SCH (08:05)
[2023-02-08] MEDS: UMECLIDINIUM/VILANTEROL 62.5/25MCG 7 PUFFS/INHALER INH SCH (08:12)
[2023-02-08] MEDS: FLUTICASONE FUROATE 100MCG 14 PUFFS/INHALER INH SCH (08:12)
[2023-02-08] MEDS: NICOTINE 14 MG/24 HR PATCH TD SCH (08:13)
[2023-02-08] MEDS: LOSARTAN POTASSIUM 50 MG TAB PO SCH (08:13)
[2023-02-08] MEDS: POTASSIUM CHLORIDE CRTAB 20 MEQ TABCR PO SCH ×3 (08:16→20:12)
[2023-02-08] MEDS ORDERED: AZITHROMYCIN 250 MG in DEXTROSE 5% 250 ML IV SCH (09:00)
[2023-02-08] MEDS: HEPARIN SOD 5,000 UNIT/0.5 ML VIAL SQ SCH ×2 (09:53→20:12)
--- NOTE | 2023-02-08 12:47 | Hospitalist Progress Note ---
Date of Service February 08, 2023 Assessment & Plan (1) Generalized weakness: Plan: ongoing suspect 2nd to #2 Na this afternoon without improvement CT chest indeed has pulmonary nodules and sed rate/crp are high - is on zithromax to cover for atypical pneumonia change zithromax to doxy see #2 for additional work-up (2) Hyponatremia: Plan: has had severe hyponatremia in the past urine osm today 248 urine Na 34 low urine osm would suggest "ADH" has been turned off; previous urine osm 381 remains on NaCl 1gm BID did receive lasix this am but examines euvolemic today recent cortisol level was <5 need to r/o adrenal insufficiency as cause of hyponatremia plan cosyntropin stim test in am tomorrow recent TSH 0.880 BMP in am (3) Lower extremity edema: Plan: Outpatient LLE venous doppler on 02/02 was negative edema improved with TEDS and lasix IV hold further lasix cont TEDS no evidence of CHF as cause of edema echo findings noted (4) Nodule of left lung: Plan: numerous nodules on CT etiology? infectious? sed rate/crp elevated cont abx for now (5) Current smoker: Plan: nicoderm (6) Chronic obstructive pulmonary disease: Plan: cont chronic inhalers no flare at this time (7) HTN (hypertension): Plan: Continue losartan Continue metoprolol succinate (8) Hypokalemia: Plan: replace repeat BMP am mag level noted to be wnl (9) Cellulitis of leg: Plan: by report had b/l ibrahim cellulitis started Rx w/ clindamycin on 02/02 has completed 7 days of Rx - stop all abx cellulitis resolved Plan DVT proph - heparin BID left message for Geo, her , on his voicemail this evening Admission and Anticipated Discharge Date Admission Date: February 06, 2023 Subjective main complaint is that of weakness she feels weak in both legs - points to the thighs as the site of her weakness she has chronic rotator cuff issues of the right shoulder denies left arm weakness denies achiness of shoulders but does have such with hip regions this is worst when she wakes in the morning denies arthralgias appetite is fair tele overnight wnl continues with cough but it is very mild and intermittent denies dyspnea at rest Review of Systems Review of Systems: gen - weak, fatigue; no fevers cv - no chest pain or orthopnea pulm - no wheezing GI - no abd pain, no nausea/emesis Physical Exam Physical Exam: gen - thin, NAD, looks tired; sitting in chair neck - no JVD mouth - MMM heart - RRR, s1 s2 lungs - CTA b/l, no rales, no wheeze abd - soft NT ND BS+ ext - no edema, pulses 2+ b/l skin - normal turgor; NO evidence of cellulitis of either ibrahim of b/l LEs Results & Data Results & Data Vital Signs (Past 12 Hours) Vital Signs Temp Pulse Pulse Resp BP BP Pulse Ox 02/08/23 11:22 95 H 18 133/69 95 02/08/23 08:00 02/08/23 07:30 73 02/08/23 08:07 36.9 C 70 17 162/66 H 91 02/08/23 04:09 36.8 C 71 18 148/73 H 92 O2 Del Method 02/08/23 11:22 Room Air 02/08/23 08:00 Room Air 02/08/23 07:30 02/08/23 08:07 Room Air 02/08/23 04:09 Room Air Laboratory Results Laboratory Results - last 24 hr 02/08/23 02/08/23 02/08/23 07:05 07:05 12:51 WBC 8.17 RBC 4.17 L Hgb 12.2 Hct 35.1 L MCV 84.2 MCH 29.3 MCHC 34.8 RDW Std Deviation 39.6 RDW Coeff of Edwin 13.0 Plt Count 352 MPV 9.1 L ESR 53 H Sodium 127 L Potassium 3.3 L Chloride 93 L Carbon Dioxide 28 Anion Gap 6 BUN 8 Creatinine 0.49 L Est Cr Clr Drug Dosing 63.5 Est GFR ( Amer) 107.4 Est GFR (Non-Af Amer) 92.7 BUN/Creatinine Ratio 16.3 Glucose 91 Calcium 8.9 Magnesium 1.9 Total Creatine Kinase C-Reactive Protein Vitamin B12 Urine Osmolality Ur Random Sodium Urine Legionella Ag 02/08/23 02/08/23 02/08/23 12:51 12:51 16:45 WBC RBC Hgb Hct MCV MCH MCHC RDW Std Deviation RDW Coeff of Edwin Plt Count MPV ESR Sodium 126 L Potassium Chloride Carbon Dioxide Anion Gap BUN Creatinine Est Cr Clr Drug Dosing Est GFR ( Amer) Est GFR (Non-Af Amer) BUN/Creatinine Ratio Glucose Calcium Magnesium Total Creatine Kinase 90 C-Reactive Protein 10.61 H Vitamin B12 427 Urine Osmolality 248 L Ur Random Sodium Urine Legionella Ag 02/08/23 02/08/23 16:45 16:45 WBC RBC Hgb Hct MCV MCH MCHC RDW Std Deviation RDW Coeff of Edwin Plt Count MPV ESR Sodium Potassium Chloride Carbon Dioxide Anion Gap BUN Creatinine Est Cr Clr Drug Dosing Est GFR ( Amer) Est GFR (Non-Af Amer) BUN/Creatinine Ratio Glucose Calcium Magnesium Total Creatine Kinase C-Reactive Protein Vitamin B12 Urine Osmolality Ur Random Sodium 34 Urine Legionella Ag Pending PG Care Time/CCT Total # of Minutes Spent Total Time Spent with Patient: Total time spent is greater than 50% in coordination of care (as documented) at patient's floor/unit and/or counseling patient: Coding Level of Care Code 03926 SUB INP/OBS CARE 3/50MIN Diagnoses Generalized weakness R53.1 Hyponatremia E87.1 Lower extremity edema R60.0 Nodule of left lung R91.1 Current smoker F17.200 Chronic obstructive pulmonary disease J44.9 HTN (hypertension) I10 Hypokalemia E87.6 Cellulitis of leg L03.119
[2023-02-08 13:36] LABS: C Reactive Protein 10.61 mg/dl (0-0.5)
[2023-02-08] MEDS: ALBUT/IPRATROP 3MG/0.5MG NEB 3 ML VIAL NEB PRN (17:16)
[2023-02-09] MEDS ORDERED: COSYNTROPIN 250 MCG in SYRINGE 4 ML IV ONE (08:00)
[2023-02-09] MEDS ORDERED: Cosyntropin 250mcg IVP **Standard-Dose Cortrosyn Stim Test IV ONE (08:00)
[2023-02-09 08:44] LABS: BUN Creatinine Ratio 19.6 (10-20); Calcium 9.3 mg/dl (8.6-10.3); Creatinine Clr Calc Pharmacy 55.6 ml/min; Est GFR (African American) 102.8 ml/min; Est GFR (Non-African American) 88.7 ml/min; Magnesium 2.1 mg/dl (1.7-2.4); Potassium 4.2 mmol/L (3.5-5.1)
[2023-02-09] MEDS: ACETAMINOPHEN 325 MG TAB PO PRN (08:46)
[2023-02-09] MEDS: ADVANCED PROBIOTIC 1250 MG CAPSULE PO SCH (08:47)
[2023-02-09] MEDS: LOSARTAN POTASSIUM 50 MG TAB PO SCH (08:47)
[2023-02-09] MEDS: SODIUM CHLORIDE 1 GM TABLET PO SCH ×2 (08:47→20:02)
[2023-02-09] MEDS: ROSUVASTATIN CALCIUM 5 MG TAB PO SCH (08:47)
[2023-02-09] MEDS: HEPARIN SOD 5,000 UNIT/0.5 ML VIAL SQ SCH ×2 (08:47→20:03)
[2023-02-09] MEDS: METOPROLOL SUCC 25MG EXT REL TAB PO SCH ×2 (08:47→20:03)
[2023-02-09] MEDS: FLUTICASONE FUROATE 100MCG 14 PUFFS/INHALER INH SCH (08:47)
[2023-02-09] MEDS: POTASSIUM CHLORIDE CRTAB 20 MEQ TABCR PO SCH ×3 (08:47→20:02)
[2023-02-09] MEDS: UMECLIDINIUM/VILANTEROL 62.5/25MCG 7 PUFFS/INHALER INH SCH (08:48)
[2023-02-09] MEDS: NICOTINE 14 MG/24 HR PATCH TD SCH (08:48)
[2023-02-09] MEDS ORDERED: DOXYCYCLINE HYCLATE 100 MG CAP PO STA (10:54)
[2023-02-09] MEDS: DOXYCYCLINE HYCLATE 100 MG CAP PO SCH (20:02)
--- NOTE | 2023-02-09 21:34 | Hospitalist Progress Note ---
Date of Service February 09, 2023 Assessment & Plan (1) Generalized weakness: Plan: IMPROVED likely 2nd to #2 Na today > 130 CT chest indeed has pulmonary nodules and sed rate/crp are high - had received zithromax to cover for atypical pneumonia changed zithromax to doxy finish abx course see #2 for additional work-up (2) Hyponatremia: Plan: has had severe hyponatremia in the past (2021, 2nd to HCTZ) Na levels much improved -- today 132-135 remains on NaCl 1gm BID did receive lasix earlier in admission but examines euvolemic today and defer on additional doses suspected SIADH .... cause? perhaps 2nd to pulmonary nodules? recent cortisol level was <5 cosyntropin stim test normal today recent TSH 0.880 BMP in am repeat urine osm, urine Na in am check uric acid - should be low if this is SIADH (3) Lower extremity edema: Plan: Outpatient LLE venous doppler on 02/02 was negative edema improved with TEDS and lasix IV hold further lasix no evidence of CHF as cause of edema echo findings noted (4) Nodule of left lung: Plan: numerous nodules on CT chest this admission etiology? infectious? inflammatory? 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 (6) Chronic obstructive pulmonary disease: Plan: cont chronic inhalers no flare at this time (7) HTN (hypertension): Plan: Continue losartan Continue metoprolol succinate Mildly elevated BPs but follow for now (8) Hypokalemia: Plan: replaced resolved mag level noted to be wnl (9) Cellulitis of leg: Plan: by report had b/l ibrahim cellulitis as outpatient started Rx w/ clindamycin on 02/02 completed 7 days of Rx - stop all abx cellulitis resolved Plan DVT proph - heparin BID spoke with Goe - her - this evening along with her son by phone extensive update given if Na level is stable in am can likely d/c home on with home PT/OT will need close f/u for Na levels & pulmonary nodules Admission and Anticipated Discharge Date Admission Date: February 06, 2023 Subjective patient feeling well energy & weakness improved able to ambulate better today mild cough but no dyspnea or NOWAK no new complaints tele overnight wnl Review of Systems Review of Systems: gen - no fevers or chills cv - no chest pain pulm - no sputum GI - no abd pain/nausea/emesis Physical Exam Physical Exam: gen - thin, NAD, looks better today mouth - MMM neck - no JVD heart - RRR, s1 s2 lungs - CTA b/l, no rales, no wheeze abd - soft NT ND BS+ ext - no edema, pulses 2+ b/l skin - normal turgor; no cellulitis either ibrahim psych - a/o x 3 - at times stumbles on her words Results & Data Results & Data Vital Signs (Past 12 Hours) Vital Signs Temp Pulse Pulse Resp BP BP Pulse Ox 02/09/23 20:00 02/09/23 19:50 36.4 C L 77 20 156/72 H 95 02/09/23 16:07 71 02/09/23 15:38 36.4 C L 72 16 140/76 96 02/09/23 11:26 37.5 C 72 16 146/79 H 93 O2 Del Method 02/09/23 20:00 Room Air 02/09/23 19:50 Room Air 02/09/23 16:07 02/09/23 15:38 Room Air 02/09/23 11:26 Room Air Laboratory Results Laboratory Results - last 24 hr 02/09/23 02/09/23 02/09/23 08:05 08:05 16:44 Sodium 135 L D 132 L Potassium 4.2 D Chloride 101 Carbon Dioxide 28 Anion Gap 6 BUN 11 Creatinine 0.56 L Est Cr Clr Drug Dosing 55.6 Est GFR ( Amer) 102.8 Est GFR (Non-Af Amer) 88.7 BUN/Creatinine Ratio 19.6 Glucose 94 Calcium 9.3 Magnesium 2.1 Cortisol Response PG Care Time/CCT Total # of Minutes Spent Total Time Spent with Patient: Total time spent is greater than 50% in coordination of care (as documented) at patient's floor/unit and/or counseling patient: Coding Level of Care Code 07535 SUB INP/OBS CARE 2/35MIN Diagnoses Generalized weakness R53.1 Hyponatremia E87.1 Lower extremity edema R60.0 Nodule of left lung R91.1 Current smoker F17.200 Chronic obstructive pulmonary disease J44.9 HTN (hypertension) I10 Hypokalemia E87.6 Cellulitis of leg L03.119
[2023-02-10] MEDS: METOPROLOL SUCC 25MG EXT REL TAB PO SCH (09:15)
[2023-02-10] MEDS: HEPARIN SOD 5,000 UNIT/0.5 ML VIAL SQ SCH (09:15)
[2023-02-10] MEDS: ROSUVASTATIN CALCIUM 5 MG TAB PO SCH (09:15)
[2023-02-10] MEDS: SODIUM CHLORIDE 1 GM TABLET PO SCH (09:16)
[2023-02-10] MEDS: UMECLIDINIUM/VILANTEROL 62.5/25MCG 7 PUFFS/INHALER INH SCH (09:16)
[2023-02-10] MEDS: LOSARTAN POTASSIUM 50 MG TAB PO SCH (09:16)
[2023-02-10] MEDS: FLUTICASONE FUROATE 100MCG 14 PUFFS/INHALER INH SCH (09:16)
[2023-02-10] MEDS: DOXYCYCLINE HYCLATE 100 MG CAP PO SCH (09:16)
[2023-02-10] MEDS: ADVANCED PROBIOTIC 1250 MG CAPSULE PO SCH (09:16)
[2023-02-10] MEDS: NICOTINE 14 MG/24 HR PATCH TD SCH (09:17)
[2023-02-10 16:29] LABS: Calcium 9.2 mg/dl (8.6-10.3); Potassium 4.6 mmol/L (3.5-5.1)
[2023-02-10 16:35] LABS: BUN Creatinine Ratio 22.2 (10-20); Creatinine Clr Calc Pharmacy 49.4 ml/min; Est GFR (African American) 98.9 ml/min; Est GFR (Non-African American) 85.3 ml/min; Uric Acid 2.8 mg/dl (2.6-7.2)
--- NOTE | 2023-02-10 17:47 | Discharge Summary ---
Date of Service February 10, 2023 Admission HPI Per Admitting Provider Nellie is a 77 year old female with a PMH significant for COPD, HTN, PAD, and GERD who presented to the [facility] on 02/06/23 with a chief complaint of generalized weakness and fall at home today. In the ED vitals were stable. Labs were significant for a sodium of 127 and initial high sen trop of 15. CT of the head was read as "1. No acute intracranial abnormality or calvarial fracture. 2. Right parietal scalp hematoma.". CT of the cervical spine was read as "1. No acute cervical spine fracture or subluxation identified. 2. Emphysema with biapical pleural-parenchymal scarring. There is a new 10 mm irregular nodule wit hin the apical posterior segment of the left upper lobe. Three-month follow-up chest CT recommended.". Chest xray was read as "Emphysema without acute process.". Prior to admission the patient was given 1L NSS. At the time of the exam the patient was sitting in the bedside chair in no acute distress with her and son sitting bedside, history was obtained from all. The patient started to feel generally weak approximately 4 days ago. She was started on clindamycin on 02/02 due to concerns of possible LLE cellulitis. She has been having some nausea but no vomiting or diarrhea. This am she was sitting at the kitchen table when she stood up to go to the bathroom. She lost her balance and fell backwards, hitting the back of her head on the floor. She denies losing consciousness and is not on anticoagulation. She denies feeling SOB, having chest pain, or heart palpitations before or after the fall. She also denies the room spinning. She states that she has had swelling in the BL LE's, worsening over the past month. Approximately one week ago she hit the left ibrahim on furniture in her home. She was seen at her PCP's office and was ordered a LLE xray and venous doppler of the LLE, both were negative. She does not believe that the BL erythema in the LE's has changed since starting the clindamycin. I discussed the left upper lobe pulmonary nodule finding and the need for follow up CT within 3 months. She is still smoking approximately 1/2 PPD. I stressed the importance of cessation with her COPD and pulmonary nodule, she would like to try and quit with the assistance of nicotine patches. I had a long discussion with the patient and her family regarding code status and my concern for a poor quality of life if we were to do CPR in the event of cardiac arrest. She would like more time to think about her choice, for now she would like to be a full code. Please refer to Dr. Cunha's attestation for any changes to the treatment plan Discharge Exam gen - thin, NAD, looks better today mouth - MMM neck - no JVD heart - RRR, s1 s2 lungs - CTA b/l, no rales, no wheeze abd - soft NT ND BS+ ext - no edema, pulses 2+ b/l skin - normal turgor; no cellulitis either ibrahim psych - a/o x 3 - at times stumbles on her words Discharge Data Allergies Allergy/AdvReac Type Severity Reaction Status Date / Time Penicillins Allergy Unknown Hives Verified 02/02/23 14:43 Sulfa (Sulfonamide Allergy Unknown SWELLING Verified 02/02/23 14:43 Antibiotics) Consultations 02/06/23 17:30 ED Decision to Admit Stat Ordered Studies 02/06/23 14:16 CT cervical spine wo con Stat CT head/brain wo con Stat 02/07/23 07:00 CT chest diagnostic w con Routine Hospital Course (1) Generalized weakness: IMPROVED likely 2nd to #2 Na today > 130 CT chest indeed has pulmonary nodules and sed rate/crp are high - had received zithromax to cover for atypical pneumonia changed zithromax to doxy finish abx course see #2 for additional work-up (2) Hyponatremia: has had severe hyponatremia in the past (2021, 2nd to HCTZ) Na levels much improved -- today 132-135 remains on NaCl 1gm BID did receive lasix earlier in admission but examines euvolemic today and defer on additional doses suspected SIADH .... cause? perhaps 2nd to pulmonary nodules? recent cortisol level was <5 cosyntropin stim test normal today recent TSH 0.880 BMP in am repeat urine osm, urine Na in am check uric acid - should be low if this is SIADH (3) Lower extremity edema: Outpatient LLE venous doppler on 02/02 was negative edema improved with TEDS and lasix IV hold further lasix no evidence of CHF as cause of edema echo findings noted (4) Nodule of left lung: numerous nodules on CT chest this admission etiology? infectious? inflammatory? 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 (6) Chronic obstructive pulmonary disease: cont chronic inhalers no flare at this time (7) HTN (hypertension): Continue losartan Continue metoprolol succinate Mildly elevated BPs but follow for now (8) Hypokalemia: replaced resolved mag level noted to be wnl (9) Cellulitis of leg: by report had b/l ibrahim cellulitis as outpatient started Rx w/ clindamycin on 02/02 completed 7 days of Rx - stop all abx cellulitis resolved Plan DVT proph - heparin BID spoke with Geo - her - this evening along with her son by phone extensive update given if Na level is stable in am can likely d/c home on with home PT/OT will need close f/u for Na levels & pulmonary nodules Home Health Attestation I certify that this patient is under my care and that I, or a physicians marketing communications assistant working with me, had a face to-face encounter that meets the home health [id number] encounter requirements with this patient. The encounter with the patient was in whole, or in part, for the following medical condition, which is the primary reason for home health care (list medical condition): Hyponatremia, COPD I certify that, based on my findings, the following services are medically necessary home health services: My clinical findings support the need for the above services because: Caregiver Instruct Med Mgmt, Safety, Disease Process, Signs to Report Home Safety Assessment OT Assess ADL Status and Restore Function w ADLs PT Assessment for Endurance / Balance / Strength PT Eval for Safety and Mobility PT Eval for Safety, Gait Training, Assistive Devices PT Gait and Balance Training, Strengthening and Safety Skilled Nsg Assess Pt Illness, Disease and Sx Monitoring Teach on Disease Management and Interventions Further, I certify that my clinical findings support that this patient is homebound (i.e. absences from home require considerable and taxing effort and are for medical reasons or yarsani services or infrequently or of short duration when for other reasons) because: Transportation Assistance/Unable to Leave Home Unassisted Certification for Home Health Services: Based on the above findings, I certify that this patient is confined to the home and needs intermittent long term care, physical therapy and/or speech therapy or continues to need occupational therapy. The patient is under my care, and I have initiated the establishment of the plan of care. This patient will be followed by a physician who will periodically review the plan of care. Discharge Plan Discharge Items Patient Disposition: Home - Home Health Services Reason For Visit: GENERALIZED WEAKNESS, FALL Discharge Diagnosis: 1. generalized weakness likely due to low sodium levels ("Hyponatremia") 2. 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 fall with resulting head injury with small hematoma on scalp 4. numerous pulmonary nodules - exact etiology uncertain - pulmonary follow-up needed 5. tobacco use 6. COPD 7. recent cellulitis (skin infection) of left leg - resolved Activity: Resume your previous activity Non-emergency contact: Primary Care Provider and Computer Aided Design Technician Call non-emergency contact if: you have any medication questions, your symptoms worsen and you have a fever Follow-up/Referrals: PFTs, [facility] [Other] - 02/17/23 1:00 pm (this is your appointment for a breathing test called "PFTs" that had been previously scheduled ) Ivan Castro MD [Primary Care Provider] - 02/16/23 2:00 pm (APPT. WITH Pao BUENROSTRO PA-C) Gayatri Joshi MD, [facility] [Physician] - 03/15/23 9:40 am Diet: Heart Healthy Fluids: 1500ml (6 cups) Ambulatory Orders: Basic Metabolic Panel (Routine) Timeframe: [id number] Location: Determined by Patient Ordered By: Leonard Mercado Attending Provider Instructions: Mrs Mercedes, Pipo were hospitalized due to weakness and a fall. At time of admission we found that your sodium level was low. This is called "hyponatremia." Your sodium level at time of presentation was 127. It fell to as low as 123, and ultimately it normalized later in the stay. In the 24 hours leading up to discharge your sodium level was 132 or higher (normal is 135-145 for most individuals). It is suspected that a hormonal problem called "SIADH" (syndrome of inappropriate ADH secretion) may have contributed to the low sodium. In this condition the hormone ADH gets "activated" (levels are turned up) which in turn causes water to be retained and hence the sodium level to drop. There are numerous causes of SIADH including medications, infections, recent surgery, etc. Your sodium level improved with fluid restriction, salt tablets, and use of furosemide (water pill/diuretic) on 2 occasions. Your weakness and fatigue improved as your sodium level normalized. Your mild confusion also resolved. During the stay we performed a CT scan of your chest. This showed numerous pulmonary "nodules" throughout both lungs. You have had nodules in the past, but you now have larger numbers of them. Most of the nodules are small (<10mm in size). These nodules may represent an old infection, a new infection, an inflammatory condition, or something else. In some cases nodules can represent an early form of lung cancer. You will need close follow-up with Rony Piper for these nodules. It is possible that whatever has caused the nodules may have triggered the SIADH condition. Recommendations - 1. In the event that the nodules represent some form of atypical infection of the lungs please take - * doxycycline 100mg twice daily x 6 days, first dose TONIGHT; this is an antibiotic * this medication can cause heartburn * on rare occasions it can cause a rash if you go out in the sun while you are taking it * thus, cover up well over the next week if going outside and use sunscreen 2. Recent skin infection of leg - ok to DISCONTINUE any left over clindamycin you may have at home. 3. For the low sodium - * sodium chloride tablet 1gm once daily each morning, first dose tomorrow on 02/11/23 * limit total fluid intake to no more than 1500ml in a 24-hour period * this fluid amount is ALL fluids consumed including coffee, soda, juice, water, etc * please restrict your coffee intake to no more than 3 cups daily * have a blood draw on 02/16/23 IN THE MORNING before you have your follow-up appointment with Dr Castro 4. If you have swelling/edema in your feet/ankles you can take on an as needed basis - * furosemide 20mg daily NEEDED * when you take furosemide please take a potassium supplement with it * thus, on days when you don't take the furosemide you will skip the potassium as well 5. For the bump on the back of your head you can use a warm compress multiple times each day to soothe the area. This will also help hasten its resolution. It will take several weeks for it to go down in size. Follow-up - see separate section Return to [facility] if - * you have fevers over 100 degrees * you develop severe diarrhea * you have worsening shortness of breath * you develop extreme fatigue, lightheadedness, confusion, etc * any other concerns It was our pleasure to care for you! - Dr Capps Pending Studies at Discharge: No Stand-Alone Forms: My [facility], Smoking Cessation Medications and DC Order Prescriptions: New doxycycline hyclate 100 mg Capsule 100 mg PO BID 6 Days Qty: 12 0RF sodium chloride 1,000 mg Tablet,Soluble 1 g PO DAILY Qty: 14 0RF furosemide [Lasix] 20 mg tablet 20 mg PO DAILY PRN (Reason: edema/swelling of feet ) Qty: 14 0RF potassium chloride 10 mEq tablet extended release 10 meq PO DAILY PRN (Reason: for when you take furosemide) Qty: 14 0RF Continued zoledronic dglq-dwgvrevu-mlozr [Reclast] 5 mg/100 mL piggyback 5 mg IV YEARLY Qty: 0 cholecalciferol (vitamin D3) [Vitamin D3] 125 mcg (5,000 unit) tablet 5,000 unit PO .COMPLEX Qty: 0 Rx Instructions: 5,000 units PO Tuesday thru ; cyclobenzaprine 5 mg tablet 5 mg PO HS PRN (Reason: muscle spasm) Qty: 30 0RF losartan [Cozaar] 100 mg tablet 100 mg PO QAM Qty: 90 3RF Trelegy Ellipta 100-62.5-25 mcg blister with device 1 inh INH Q24H Qty: 60 1RF albuterol sulfate [Ventolin HFA] 90 mcg/actuation HFA aerosol inhaler 1 - 2 puff inhalation Q4H PRN (Reason: shortness of breath or wheezing) Qty: 18 5RF rosuvastatin [Crestor] 5 mg tablet 5 mg PO DAILY Qty: 90 3RF acetaminophen 650 mg tablet extended release 650 mg PO Q12H PRN (Reason: Pain) metoprolol succinate 25 mg tablet extended release 24 hr 25 mg PO BID ascorbic acid (vitamin C) 500 mg capsule 500 mg PO DAILY mecobalamin (vitamin B12) 1,000 mcg tablet,chewable 1,000 mcg PO DAILY zinc acetate 1 dose PO UD calcium carb and citrate-vitD3 [Citracal-D3 Slow Release] 600 mg calcium- 500 unit tablet extended release 2 tab PO DAILY folic acid 1 mg tablet 1 mg PO DAILY Qty: 1 latanoprost 0.005 % drops 1 drp OPB HS Trelegy Ellipta 100-62.5-25 mcg blister with device 1 inh INHALATION DAILY meclizine 25 mg tablet 25 mg PO QID PRN (Reason: Dizziness) Rx Instructions: TAKE 1 TABLET BY MOUTH 4 TIMES A DAY prn Discontinued clindamycin HCl 300 mg capsule 300 mg PO TID 7 Days Qty: 21 0RF Rx Instructions: with 150 mg cap clindamycin HCl 150 mg capsule 150 mg PO TID 7 Days Qty: 21 0RF Rx Instructions: with 300 mg cap Discharge Orders: Discharge Order (Routine); Ordered 02/10/23 Ordered By: Leonard Estrada/Other Patient Handouts: ED Pulmonary Nodule, Solitary Admission Data Admit Date/Time: 02/06/23 17:52 Attending Provider: Leonard Capps Admit Provider: Leonard Cunha Primary Care Provider: Ivan Castro Other Providers: Leonard Cunha ; [facility],Home Health Coding Diagnoses Generalized weakness R53.1 Hyponatremia E87.1 Lower extremity edema R60.0 Nodule of left lung R91.1 Current smoker F17.200 Chronic obstructive pulmonary disease J44.9 HTN (hypertension) I10 Hypokalemia E87.6 Cellulitis of leg L03.119
== END 2023-02-10 18:16 | disposition home health service (06) | DRG 643 ==
LOC: ED 13:51 → SUATTDRO 17:52 → 2N 17:52

== ENCOUNTER 2024-02-25 03:55 | Inpatient (IN) ==
[2024-02-25] MEDS: MoRPHine SULFATE 2 MG/ML CARP IV STA ×2 (04:28→06:07)
[2024-02-25] MEDS: ONDANSETRON INJ 2 MG/ML 2 ML VIAL IV STA (04:28)
[2024-02-25 04:53] LABS: Albumin Globulin Ratio 1.5 (0.9-2); Albumin Level 4.1 gm/dl (3.4-5.0); BUN Creatinine Ratio 17.3 (10-20); Bilirubin,Total 0.6 mg/dl (0.2-1.0); Calcium 9.2 mg/dl (8.6-10.3); Est GFR (African American) 104.6 ml/min; Est GFR (Non-African American) 90.2 ml/min; Globulin 2.8 gm/dl (2.5-4.0); Potassium 4.4 mmol/L (3.5-5.1); Total Protein 6.9 gm/dl (6.0-8.3)
[2024-02-25 05:05] LABS: Basophils # (auto) 0.06 K/uL (0.00-0.20); Basophils % (auto) 0.6 %; Eosinophils % (auto) 1.1 %; Hematocrit (blood only) 40.7 % (37.0-47.0); Hemoglobin 13.9 g/dl (12.0-16.0); Immature Granulocytes # (auto) 0.04 K/uL (0.01-0.20); Immature Granulocytes % (auto) 0.4 %; Lymphocytes # (auto) 1.45 K/uL (1.20-3.40); Lymphocytes % (auto) 15.5 %; Mean Corpuscular Hemoglobin 29.1 pg (25.0-34.0); Mean Corpuscular Hgb Conc 34.2 g/dL (32.0-36.0); Mean Corpuscular Volume 85.3 fL (80.0-100.0); Mean Platelet Volume 9.5 fL (9.4-12.4); Monocytes # (auto) 0.92 K/uL (0.11-0.59); Monocytes % (auto) 9.9 %; Neutrophils # (auto) 6.77 K/uL (1.40-6.50); Neutrophils % (auto) 72.5 %; Platelet Count 370 K/uL (130-400); RDW Coefficient of Variation 12.5 % (11.5-14.5); RDW Standard Deviation 38.5 fL (36.4-46.3); Red Blood Count 4.77 M/uL (4.20-5.40); White Blood Count 9.34 K/ul (4.8-10.8)
--- NOTE | 2024-02-25 05:06 | Emergency Department Note ---
Impression & Plan Acute hyponatremia, Fall, Closed fracture distal radius and ulna, Chest wall contusion Admit to the [facility] ED Provider Note NAME: SAM DOE AGE: 78 SEX: Female INFORMANT: Patient ED PROVIDER(S): Alea Ledezma DO CHIEF COMPLAINT: fall PLAN: Disposition: Admit to the [facility] MEDICAL DECISION MAKING: this is an 78-year-old female patient who stood up from her couch to go to her bedroom when she tripped and fell on an outstretched left hand. She immediately had pain to the left wrist and left rib cage. She denies striking her head or losing consciousness. She sat there for some time until she was unable to get her cell phone. Laboratory studies showed no leukocytosis or anemia but there was evidence of significant hyponatremia and hypochloremia. Renal function was normal. X-ray showed evidence of obvious comminuted distal impacted radius and ulna fracture. This was reduced and better aligned by Agueda Mendoza PA-C. Please see her procedure note dictation for more details. It was then placed in Ortho-Glass splinting material. Patient went for CT scan of the chest to rule out intrathoracic trauma. This was negative. The patient did not strike her head or lose consciousness. She denies any neck pain. She is not on any blood thinners. Patient began to receive IV normal saline solution but the case was discussed with the [facility] and they will admit to the hospital for treatment of the hyponatremia and orthopedic consultation. Care/management discussed with: I discussed the case with the patient, the assistant professor in family studies and the [facility]. Triage Nursing notes: reviewed and agree With them. Vital Signs: reviewed and remarkable for hypertension Differential Diagnosis: rib fractures, dehydration, wrist fracture, forearm fracture Diagnostics, independently interpreted by me: ECG: normal sinus rhythm [place] [address] segment elevation or signs of ischemia. There is no ectopy. Cardiac Monitoring: normal sinus rhythm at 60 Imaging studies: left wrist x-ray: As per my independent interpretation: Comminuted impacted distal radius/ ulna Postreduction wrist x-ray: As per my independent interpretation: Improved alignment HPI: 78 year old Female arrives for evaluation of Fall. patient got up from her couch to go to bed when unfortunately she tripped and fell on her outstretched left hand. She also landed on her left side and immediately had pain in her left rib cage. She did not strike her head or lose consciousness and denies injuring any other part of her body. PAST MEDICAL HISTORY: See Below, PAST SURGICAL HISTORY: See Below, SOCIAL HISTORY: See Below, HOME MEDICATIONS: See list ALLERGIES: see list VITALS: See Below PHYSICAL EXAMINATION: HEENT: Head - normocephalic and atraumatic. Pupils are equal, round, and reactive to light. Extraocular eye muscles are intact and sclera are anicteric. Ears - bilaterally patent canals with no evidence of hemotympanum. Nose - moist nasal mucosa without evidence of trauma or discharge. Mouth - moist buccal mucosa with no trauma to the teeth or signs of malocclusion. Neck: The neck is supple and there is no pain to palpation over the posterior cervical spine and no obvious step-offs or deformities. There is no JVD or tracheal deviation. Chest: There are no signs of deformities, contusions or abrasions to the chest wall. There is no obvious crepitus or paradoxical chest rise. with palpation. Patient does have pain to palpation just beneath the left breast over the anterior chest wall Heart: Regular, rate, and rhythm. There is a normal S1 and S2 with no murmurs, clicks, or gallops appreciated. Lungs: Clear to auscultation bilaterally with no wheezes, rales, or rhonchi. Abdomen: Soft, completely nontender, nondistended, with good bowel sounds. There is no sign of trauma such as contusions, abrasions or penetrations. There are no palpable pulsatile masses or hepatosplenomegaly. There is no guarding, rigidity, or rebound noted. Pelvis: Stable to rock and compression. Extremities: Obvious deformity of the left wrist with significant contusion and edema. Patient has other areas of ecchymosis to the right upper extremity but the patient describes these as chronic. Neuro: The patient is awake and alert and easily able to follow commands. Muscle strength is 5 out of 5 in all 4 extremities. Otherwise, neuro exam is unremarkable. Emergency department treatment: monitoring tech, IV Zofran, IV morphine, IV normal saline bolus emergency department course: The patient was evaluated in room A-11. A complete history and physical was performed. IV lock was initiated and twelve- lead EKG was obtained. An order was placed for continuous cardiac monitoring. The patient was in a normal sinus rhythm at a rate of 60. She was medicated with IV morphine and my IV Zofran. She had plain films of the left wrist. She went for CT scan of the chest. Patient was bolused with IV normal saline solution for hyponatremia. Upon return from radiology, the patient was evaluated by Agueda Mendoza PA-C. She performed a hematoma block at the injury site with reduction in Ortho-Glass splinting. Postreduction films were performed and better alignment was noted. I discussed the case with the assistant professor in family studies along with the [facility] Past Med/Surg History Problem List (Updated 02/25/24 @ 16:22 by Alea Ledezma DO) Chest wall contusion (Acute) Closed fracture distal radius and ulna (Acute) Fall (Acute) Acute hyponatremia (Acute) HTN (hypertension) Chronic obstructive pulmonary disease Closed fracture of left wrist Balance disorder Lower extremity weakness History of radius fracture (11/11/21) nondisplaced intra-articular distal radial fracture Anemia, mild Hyponatremia Rotator cuff arthropathy of right shoulder Redness and swelling of lower leg Pain of left calf Left ankle pain Left leg injury Osteoarthritis of right hip Ankle swelling Tendinitis of right rotator cuff Greater trochanteric bursitis of left hip Acute metabolic encephalopathy Fall Bruising Greater trochanteric bursitis of right hip Vertigo Allergic rhinitis with postnasal drip Pulmonary nodule DDD (degenerative disc disease), cervical Tendinitis of both rotator cuffs Multiple pulmonary nodules determined by computed tomography of lung PAD (peripheral artery disease) (Chronic) Buerger disease Retinal vein occlusion (Acute) Osteoporosis (Acute) Hypercholesterolemia (Acute) Esophageal reflux (Acute) COPD exacerbation (Acute) Medical History Hypokalemia Scalp hematoma Acute head trauma Acute hyponatremia Fall Lower extremity edema Current smoker Acute bronchitis HTN (hypertension) Chronic obstructive pulmonary disease Encounter for screening colonoscopy Encounter for pre-operative examination Family history of reaction to anesthesia Osteoarthritis GERD (gastroesophageal reflux disease) Family history of diabetes mellitus Deviated nasal septum 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 Hyperlipidemia Hypertension Chronic obstructive pulmonary disease Surgical History S/p bilateral blepharoplasty History of hysterectomy History of section History of open reduction and internal fixation (ORIF) procedure History of appendectomy History of esophagogastroduodenoscopy (EGD) History of colonoscopy History of tonsillectomy History of tooth extraction History of cataract surgery Family History Mother Coronary heart disease Hypertension Father Coronary heart disease Hypertension Myocardial infarction Grandmother Diabetes Breast cancer Grandmother (Maternal) Stroke Denies family history of Ovarian cancer Prostate cancer Lung cancer Colorectal cancer Social History Smoking Status: Current every day smoker Tobacco Type: Cigarettes Cigarettes Per Day: 1 PPD; Second Hand Exposure: Yes; Do You Dip or Chew Tobacco: No; Hx Alcohol Use: No Hx Substance Use: No Preferred Language: Urdu Communication Ability: Effective Visual Impairment: Limited Hearing Ability: Normal 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 Required: No Beliefs That Will Affect Care: None marital status: Current Living Situation: Spouse Current Living Situation Comment: At home with spouse who is currently at [employer] current occupational status: retired How many Children do You have: 3 Feels Safe at Home: Yes Childhood Exposure to Second-Hand Smoke: Yes caffeine: Yes Dental Care, Regularly: Yes Physical Activity Frequency: Daily Seatbelt Use: always Sunscreen Use: No Assistive Devices: Glasses and Walker Allergies Allergies Allergy/AdvReac Type Severity Reaction Status Date / Time Penicillins Allergy Unknown Hives Verified 02/21/24 15:21 Sulfa (Sulfonamide Allergy Unknown SWELLING Verified 02/21/24 15:21 Antibiotics) ciprofloxacin [From Cipro] AdvReac Severe Dizziness Verified 02/21/24 15:21 Home Meds Home Medications Medication Instructions Recorded Confirmed folic acid 1 mg tablet 1 mg PO DAILY #1 tab 04/17/19 02/25/24 acetaminophen 650 mg 650 mg PO Q12H PRN Pain 08/14/19 02/25/24 tablet,extended release cholecalciferol (vitamin D3) 125 5,000 unit PO .COMPLEX ##0 09/10/20 02/25/24 mcg (5,000 unit) tablet (Vitamin D3) latanoprost 0.005 % eye drops 1 drp OPB HS 02/06/23 02/25/24 Previous Rx's Medication Instructions Recorded cyclobenzaprine 5 mg tablet 5 mg PO HS PRN muscle spasm #30 05/29/21 tabs rosuvastatin 5 mg tablet (Crestor) 5 mg PO DAILY #90 tabs 02/10/23 sodium chloride 1,000 mg soluble 1,000 mg PO DAILY #30 tabs 09/12/23 tablet losartan 100 mg tablet (Cozaar) 100 mg PO QAM #90 tabs 09/30/23 albuterol sulfate 90 mcg/actuation 2 puff inhalation Q4H PRN 11/21/23 aerosol inhaler (Ventolin HFA) shortness of breath or wheezing #18 grams fluticasone fur. 200 mcg-umeclid 1 inh inhalation DAILY #60 ea 11/21/23 62.5 mcg-vilant 25 mcg inhalat.powder (Trelegy Ellipta) metoprolol succinate 25 mg 50 mg (2 x 25 mg) PO DAILY #180 01/18/24 tablet,extended release 24 hr tabs meclizine 12.5 mg tablet 12.5 mg PO Q8H PRN dizziness #20 01/27/24 tabs Results & Data (ED) Vital Signs Vital Signs - 24 hr 02/25/24 04:02 02/25/24 04:03 02/25/24 04:12 Temperature 36.8 C Temperature Source Oral Pulse Rate 60 56 L Pulse Rate [Apical] Pulse Rhythm Regular Pulse Rhythm [Apical] Pulse Strength Normal Pulse Strength [Apical] Respiratory Rate 17 Respiratory Effort / Characteristics Non-Labored Respiratory Depth Normal Respiratory Pattern Regular Blood Pressure 182/89 H Blood Pressure [Right Arm] Blood Pressure Mean 120 Blood Pressure Mean [Right Arm] Blood Pressure Position Lying Blood Pressure Position [Right Arm] Pulse Oximetry 97 97 Oxygen Delivery Method Room Air Room Air Oxygen Flow Rate Sepsis Recent Fever Within 48 Hours No Sepsis New/Unexplained Change in Mental Status No Sepsis Action Taken by Nursing No Action Required 02/25/24 05:00 02/25/24 06:00 Temperature Temperature Source Pulse Rate Pulse Rate [Apical] 62 68 Pulse Rhythm Pulse Rhythm [Apical] Regular Regular Pulse Strength Pulse Strength [Apical] Normal Normal Respiratory Rate 17 16 Respiratory Effort / Characteristics Non-Labored Non-Labored Respiratory Depth Normal Normal Respiratory Pattern Regular Regular Blood Pressure Blood Pressure [Right Arm] 191/77 H 162/91 H Blood Pressure Mean Blood Pressure Mean [Right Arm] 115 114 Blood Pressure Position Blood Pressure Position [Right Arm] Lying Lying Pulse Oximetry 99 99 Oxygen Delivery Method Nasal Cannula Oxygen Flow Rate 2 2 Sepsis Recent Fever Within 48 Hours Sepsis New/Unexplained Change in Mental Status Sepsis Action Taken by Nursing Laboratory Data 02/25/24 04:20 02/25/24 14:47 Lab Results 02/25/24 Range/Units 04:20 WBC 9.34 (4.8-10.8) K/ul RBC 4.77 (4.20-5.40) M/uL Hgb 13.9 (12.0-16.0) g/dl Hct 40.7 (37.0-47.0) % MCV 85.3 (80.0-100.0) fL MCH 29.1 (25.0-34.0) pg MCHC 34.2 (32.0-36.0) g/dL RDW Std Deviation 38.5 (36.4-46.3) fL RDW Coeff of Edwin 12.5 (11.5-14.5) % Plt Count 370 (130-400) K/uL MPV 9.5 (9.4-12.4) fL Immature Gran % (Auto) 0.4 % Neut % (Auto) 72.5 % Lymph % (Auto) 15.5 % [place] % (Auto) 9.9 % Eos % (Auto) 1.1 % Baso % (Auto) 0.6 % Neut # (Auto) 6.77 H (1.40-6.50) K/uL Lymph # (Auto) 1.45 (1.20-3.40) K/uL [place] # (Auto) 0.92 H (0.11-0.59) K/uL Eos # (Auto) 0.10 (0.00-0.50) K/uL Baso # (Auto) 0.06 (0.00-0.20) K/uL Immature Gran # (Auto) 0.04 (0.01-0.20) K/uL Sodium 124 L (136-145) mmol/L Potassium 4.4 (3.5-5.1) mmol/L Chloride 91 L (98-107) mmol/L Carbon Dioxide 28 (21-32) mmol/L Anion Gap 5 (3-11) BUN 9 (6-23) mg/dl Creatinine 0.52 L (0.6-1.2) mg/dl Est Cr Clr Drug Dosing 64.0 ml/min Est GFR ( Amer) 104.6 ml/min Est GFR (Non-Af Amer) 90.2 ml/min BUN/Creatinine Ratio 17.3 (10-20) Glucose 105 H (70-99(Fasting)) mg/dl Osmolality 261 L (280-300) mOsm/kg Calcium 9.2 (8.6-10.3) mg/dl Total Bilirubin 0.6 (0.2-1.0) mg/dl AST 22 (13-39) U/L ALT 12 (7-52) U/L Alkaline Phosphatase 57 (34-104) U/L Total Protein 6.9 (6.0-8.3) gm/dl Albumin 4.1 (3.4-5.0) gm/dl Globulin 2.8 (2.5-4.0) gm/dl Albumin/Globulin Ratio 1.5 (0.9-2) Administered Medications Fluticasone Furoate (Fluticasone Furoate 200mcg 14 Puffs/Inhaler) 1 puffs INH DAILY NAVA Stop: 03/26/24 09:29 Last Admin: 02/25/24 10:39 Dose: Not Given Documented By: BRYAN Sodium Chloride (Nss) 1,000 mls @ 100 mls/hr IV .Q10H NAVA Stop: 02/26/24 05:08 Last Admin: 02/25/24 10:39 Dose: 100 mls/hr Documented By: BRYAN Pantoprazole Sodium 40 mg/ (Syringe) 10 mls @ 5 mls/min IV DAILY@1100 NAVA Stop: 03/26/24 10:59 Last Admin: 02/25/24 10:40 Dose: 5 mls/min Documented By: BRYAN Morphine Sulfate (Morphine Sulfate 4 Mg/Ml 1 Ml Carp\Vial) 4 mg IV Q3H PRN PRN Reason: Severe Pain (Scale 7, 8, 9,10) Stop: 03/10/24 07:02 Last Admin: 02/25/24 07:58 Dose: 4 mg Documented By: SEKOU Umeclidinium/Vilanterol (Umeclidinium/Vilanterol 62.5/25mcg 7 Puffs/Inhaler) 1 puffs INH DAILY NAVA Stop: 03/26/24 09:29 Last Admin: 02/25/24 10:40 Dose: Not Given Documented By: BRYAN Discontinued Medications Sodium Chloride (Nss) 500 mls @ 999 mls/hr IV .Q31M ONE Stop: 02/25/24 06:39 Last Infusion: 02/25/24 07:00 Dose: Infused Documented By: Admin: 02/25/24 06:25 Dose: 999 mls/hr Documented By: ALEX Ioversol (Optiray 320 100ml) 94 ml IV ONCE ONE Stop: 02/25/24 05:28 Last Admin: 02/25/24 05:28 Dose: 94 ml Documented By: NATHALIA Lidocaine HCl (Lidocaine 2% Local 50 Ml Vial) Confirm Administered Dose 50 ml .ROUTE .STK-MED ONE Stop: 02/25/24 04:41 Last Admin: 02/25/24 05:51 Dose: 50 ml Documented By: ALEX Morphine Sulfate (Morphine Sulfate 2 Mg/Ml Carp) 2 mg IV NOW STA Stop: 02/25/24 04:14 Last Admin: 02/25/24 04:28 Dose: 2 mg Documented By: ALEX Morphine Sulfate (Morphine Sulfate 2 Mg/Ml Carp) 2 mg IV NOW STA Stop: 02/25/24 05:59 Last Admin: 02/25/24 06:07 Dose: 2 mg Documented By: ALEX Ondansetron HCl (Ondansetron Inj 2 Mg/Ml 2 Ml Vial) 4 mg IV NOW STA Stop: 02/25/24 04:14 Last Admin: 02/25/24 04:28 Dose: 4 mg Documented By: ALEX Imaging Data Radiologist's Impression: Chest CT 02/25/24 04:12 Exam(s): CT CHEST With Contrast IV Amt: 94 ml opti 320 EXAM: CT Chest With Intravenous Contrast CLINICAL HISTORY: Reason for exam: Trauma. TECHNIQUE: Axial computed tomography images of the chest with intravenous contrast. CTDI is 8.6 mGy and DLP is 273.41 mGy-cm. Automated exposure control was utilized for the study. A dose lowering technique was utilized adhering to the principles of ALARA. CONTRAST: Patient received 94 ml opti 320 of IV contrast COMPARISON: No relevant prior studies available. FINDINGS: Lungs: On image #22 of 58 1.2 cm spiculated nodular region is demonstrated within the right lung. There is some right apical pleural scarring. No consolidation. Pleural space: Unremarkable. No pneumothorax. No significant effusion. Heart: Unremarkable. No cardiomegaly. No significant pericardial effusion. No significant coronary artery calcifications. Bones/joints: There is some degenerative changes to the osseous structures. No acute fracture. No dislocation. Soft tissues: Unremarkable. Vasculature: Unremarkable. No thoracic aortic aneurysm. Lymph nodes: Unremarkable. No enlarged lymph nodes. IMPRESSION: No pulmonary emboli, suspicious nodular region demonstrated right side. Additional chronic change. Electronically signed by: Eric Pagan MD 02/25/24 06:03 AM Wrist X-Ray 02/25/24 04:12 LEFT WRIST 2 VIEWS CLINICAL HISTORY: Fall. Left wrist injury. FINDINGS: 2 views of the left wrist are compared to study dated 08/26/2015. The skeletal structures are osteopenic. There is an impacted and comminuted intra- articular fracture of the distal radial metaphysis with apex volar angulation. There are dorsally displaced and overriding fragments. There is also a comminuted and mildly displaced fracture of the distal ulnar metaphysis. Overlying soft tissue edema is noted. Arthritic change is seen throughout the wrist. A ring is present on the fourth digit. IMPRESSION: Distal radial and ulnar fractures as above. Electronically signed by: Keyur Mcarthur M.D. 02/25/2024 7:17 AM Wrist X-Ray 02/25/24 05:51 LEFT WRIST 2 VIEWS CLINICAL HISTORY: Postreduction examination. FINDINGS: Portable AP and crosstable lateral views of the left wrist are compared to the study performed earlier the same day, 02/25/2024. The examination is performed for a cast, obscuring fine bony detail. Again seen is an impacted and comminuted intra-articular fracture of the distal radius. There is mild persistent apex volar angulation. There are dorsal displaced fragments by up to 8 mm as well as mild overriding of fragments. There is also an oblique fracture of the distal ulnar metadiaphysis. Widening of the scaphoid and lunate suggests age-indeterminate ligamentous injury. Arthritic change is seen throughout the wrist. Overlying soft tissue edema is observed. IMPRESSION: 1. Improved alignment of distal radial and ulnar fractures as above status post casting with persistent displacement/angulation of fragments. 2. Widening between the scaphoid and lunate suggests age-indeterminate ligamentous injury. Dictated: 02/25/2024 7:08 AM Transcribed: 02/25/2024 7:49 AM [id number] [email or web address] Electronically signed by: Keyur Mcarthur M.D. 02/25/2024 10:00 AM Discharge Plan Visit Data Chief Complaint: Fall Stated Complaint: WRIST PAIN, FALL ED Provider: Alea Ledezma Discharge Problem: Acute hyponatremia, Fall, Closed fracture distal radius and ulna, Chest wall contusion Patient Disposition: Admitted As Inpatient Discharge Instructions Interventions: ED Discharge Assessment Last Done: 02/25/24 08:30 Discharge Problem: Closed fracture distal radius and ulna Qualifiers: Encounter type: initial encounter Laterality: left Qualified Code(s): S52.502A - Unspecified fracture of the lower end of left radius, initial encounter for closed fracture; S52.602A - Unspecified fracture of lower end of left ulna, initial encounter for closed fracture Chest wall contusion Qualifiers: Encounter type: initial encounter Laterality: left Qualified Code(s): S20.212A - Contusion of left front wall of thorax, initial encounter
[2024-02-25] MEDS: OPTIRAY 320 100ml IV ONE (05:28)
[2024-02-25] MEDS: LIDOCAINE 2% LOCAL 50 ML VIAL ONE (05:51)
--- NOTE | 2024-02-25 05:55 | Emergency Department Note ---
ED Visit Note Procedure: Wrist fracture with malalignment with attempt of reduction Patient gave verbal consent and patient was anesthetized with 20 cc of lidocaine Under antiseptic technique. With gentle traction the wrist was attempted to be realigned. It does appear to feel like there are multiple comminuted fractures in the wrist. Patient tolerated procedure well. It was splinted in a sugar- tong Ortho-Glass and the skin tear was dressed with bacitracin and bandage. Postreduction films show improved alignment of the wrist per my independent in terpretation. Patient tolerated procedure well. Splinting Indication: Wrist fracture Location: Left wrist Type of fx: Displaced, closed, comminuted Verbal consent obtained. Risks and benefits were explained with the usual customary discussion. The injured extremity was identified. The patient was prepped and measured for the placement of a sugar-tong ortho-glass splint. Splint applied in the standard fashion over a layer of webril and secured using an elastic bandage. Set into a position of function. Normal neurovascular status after placement verified by me. The patient tolerated the procedure well and the care of the splint was discussed with the patient/family. No complications. .
--- NOTE | 2024-02-25 06:04 | CT Scan Report ---
Exam(s): CT CHEST With Contrast IV Amt: 94 ml opti 320 EXAM: CT Chest With Intravenous Contrast CLINICAL HISTORY: Reason for exam: Trauma. TECHNIQUE: Axial computed tomography images of the chest with intravenous contrast. CTDI is 8.6 mGy and DLP is 273.41 mGy-cm. Automated exposure control was utilized for the study. A dose lowering technique was utilized adhering to the principles of ALARA. CONTRAST: Patient received 94 ml opti 320 of IV contrast COMPARISON: No relevant prior studies available. FINDINGS: Lungs: On image #22 of 58 1.2 cm spiculated nodular region is demonstrated within the right lung. There is some right apical pleural scarring. No consolidation. Pleural space: Unremarkable. No pneumothorax. No significant effusion. Heart: Unremarkable. No cardiomegaly. No significant pericardial effusion. No significant coronary artery calcifications. Bones/joints: There is some degenerative changes to the osseous structures. No acute fracture. No dislocation. Soft tissues: Unremarkable. Vasculature: Unremarkable. No thoracic aortic aneurysm. Lymph nodes: Unremarkable. No enlarged lymph nodes. IMPRESSION: No pulmonary emboli, suspicious nodular region demonstrated right side. Additional chronic change. Electronically signed by: Eric Pagan MD 02/25/24 06:03 AM
[2024-02-25] MEDS: SODIUM CHLORIDE 0.9% 500 ML IV ONE (06:25)
--- NOTE | 2024-02-25 06:42 | History & Physical Report ---
Date of Service February 25, 2024 Assessment & Plan (1) Closed fracture of left wrist: (2) Balance disorder: (3) Hyponatremia: (4) Fall: (5) Vertigo: (6) PAD (peripheral artery disease): (7) Buerger disease: (8) Chronic obstructive pulmonary disease: (9) HTN (hypertension): Plan Closed left wrist fracture- NPO Acetaminophen 1 g IV every 8 hours as needed for mild pain or fever Morphine sulfate 2 mg IV every 3 hours as needed for moderate pain Morphine sulfate 4 mg IV every 3 hours as needed for severe pain Zofran 4 mg IV every 6 hours as needed Pantoprazole 40 mg IV daily Consult orthopedic surgery Dr. Lucy Ramirez on chronic hyponatremia- Sodium 124 on admission Add serum osmolality and osmolality Patient looks very dehydrated Placed on normal saline at 100 mL/h x 1 L until results are back Hold sodium chloride tablets Hypertension- Unable to take oral medications at this time due to dehydration, and may have an orthopedic procedure Hold losartan and metoprolol succinate Hydralazine 10 mg IV every 4 hours as needed for systolic blood pressure greater than 160 COPD- Albuterol HFA and Trelegy Ellipta DuoNebs every 2 hours as needed History of Present Illness Chief Complaint: The patient presents to the emergency department after a fall getting off of herself at home, developing immediate left wrist pain, and unable to grasp. She is confused and unable to relate her story Primary Care Provider: Ivan Castro MD The patient is an 78-year-old female with a past medical history including chronic hyponatremia, history of acute metabolic encephalopathy, cervical degenerative disc disease, PAD, retinal vein occlusion, Buerger's disease, GERD patient's tobacco use disorder. The patient is confused, and has difficulty telling her history. She was trying to get up from her couch, lost her balance, and fell on her left wrist. X-rays in the emergency department fracture. She also complained of left rib cage pain, however, CT chest does not reveal any fractures.. She also complains that her mouth is very dry. Allergies Allergy/AdvReac Type Severity Reaction Status Date / Time Penicillins Allergy Unknown Hives Verified 02/21/24 15:21 Sulfa (Sulfonamide Allergy Unknown SWELLING Verified 02/21/24 15:21 Antibiotics) ciprofloxacin [From Cipro] AdvReac Severe Dizziness Verified 02/21/24 15:21 Home Medications Medication Instructions Recorded Confirmed Type folic acid 1 mg tablet 1 mg PO DAILY #1 tab 04/17/19 02/21/24 History acetaminophen 650 mg 650 mg PO Q12H PRN Pain 08/14/19 02/21/24 History tablet,extended release cholecalciferol (vitamin D3) 125 5,000 unit PO .COMPLEX ##0 09/10/20 02/21/24 History mcg (5,000 unit) tablet (Vitamin D3) cyclobenzaprine 5 mg tablet 5 mg PO HS PRN muscle spasm #30 05/29/21 02/21/24 Rx tabs latanoprost 0.005 % eye drops 1 drp OPB HS 02/06/23 02/21/24 History rosuvastatin 5 mg tablet (Crestor) 5 mg PO DAILY #90 tabs 02/10/23 02/21/24 Rx sodium chloride 1,000 mg soluble 1,000 mg PO DAILY #30 tabs 09/12/23 02/21/24 Rx tablet losartan 100 mg tablet (Cozaar) 100 mg PO QAM #90 tabs 09/30/23 02/21/24 Rx albuterol sulfate 90 mcg/actuation 2 puff inhalation Q4H PRN 11/21/23 02/21/24 Rx aerosol inhaler (Ventolin HFA) shortness of breath or wheezing #18 grams fluticasone fur. 200 mcg-umeclid 1 inh inhalation DAILY #60 ea 11/21/23 02/21/24 Rx 62.5 mcg-vilant 25 mcg inhalat.powder (Trelegy Ellipta) metoprolol succinate 25 mg 50 mg (2 x 25 mg) PO DAILY #180 01/18/24 02/21/24 Rx tablet,extended release 24 hr tabs meclizine 12.5 mg tablet 12.5 mg PO Q8H PRN dizziness #20 01/27/24 02/21/24 Rx tabs Past Med/Surg History Problem List (Updated 02/25/24 @ 07:03 by Rocky Booker MD) HTN (hypertension) Chronic obstructive pulmonary disease Closed fracture of left wrist Balance disorder Lower extremity weakness History of radius fracture (11/11/21) nondisplaced intra-articular distal radial fracture Anemia, mild Hyponatremia Rotator cuff arthropathy of right shoulder Redness and swelling of lower leg Pain of left calf Left ankle pain Left leg injury Osteoarthritis of right hip Ankle swelling Tendinitis of right rotator cuff Greater trochanteric bursitis of left hip Acute metabolic encephalopathy Fall Bruising Greater trochanteric bursitis of right hip Vertigo Allergic rhinitis with postnasal drip Pulmonary nodule DDD (degenerative disc disease), cervical Tendinitis of both rotator cuffs Multiple pulmonary nodules determined by computed tomography of lung PAD (peripheral artery disease) (Chronic) Buerger disease Retinal vein occlusion (Acute) Osteoporosis (Acute) Hypercholesterolemia (Acute) Esophageal reflux (Acute) COPD exacerbation (Acute) Medical History Hypokalemia Scalp hematoma Acute head trauma Acute hyponatremia Fall Lower extremity edema Current smoker Acute bronchitis HTN (hypertension) Chronic obstructive pulmonary disease Encounter for screening colonoscopy Encounter for pre-operative examination Family history of reaction to anesthesia Osteoarthritis GERD (gastroesophageal reflux disease) Family history of diabetes mellitus Deviated nasal septum 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 Hyperlipidemia Hypertension Chronic obstructive pulmonary disease Surgical History S/p bilateral blepharoplasty History of hysterectomy History of section History of open reduction and internal fixation (ORIF) procedure History of appendectomy History of esophagogastroduodenoscopy (EGD) History of colonoscopy History of tonsillectomy History of tooth extraction History of cataract surgery Family History Mother Coronary heart disease Hypertension Father Coronary heart disease Hypertension Myocardial infarction Grandmother Diabetes Breast cancer Grandmother (Maternal) Stroke Denies family history of Ovarian cancer Prostate cancer Lung cancer Colorectal cancer Social History Smoking Status: Never smoker Tobacco Type: Cigarettes Cigarettes Per Day: 10; Second Hand Exposure: Yes; Do You Dip or Chew Tobacco: No; Hx Alcohol Use: No Hx Substance Use: No Preferred Language: Montenegrin Communication Ability: Effective Visual Impairment: Limited Hearing Ability: Normal 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 Required: No Beliefs That Will Affect Care: None marital status: Current Living Situation: Spouse Current Living Situation Comment: Lives at home with her current occupational status: retired How many Children do You have: 3 Feels Safe at Home: Yes Childhood Exposure to Second-Hand Smoke: Yes caffeine: Yes Dental Care, Regularly: Yes Physical Activity Frequency: Daily Seatbelt Use: always Sunscreen Use: No Assistive Devices: Walker Review of Systems Review of Systems: The patient denies chest pain, palpitations, shortness of breath, dyspnea on exertion, cough, lower extremity swelling, fevers, chills, sweats, weight change, fatigue, nausea, vomiting, diarrhea , constipation, abdominal pain, pelvic pain, blood in urine or stool, dysuria, urinary frequency or urgency, headache, memory loss, loss of consciousness, rash, abnormal bruising or bleeding, focal or generalized weakness, numbness or tingling in right arm or legs, generalized arthralgias or myalgias, back or neck pain, or night sweats. The review of systems is otherwise negative other than for that already noted above, and at least 10 systems have been reviewed. Physical Exam Physical Exam: The patient is awake, alert and oriented 3, well developed and well nourished, normocephalic and atraumatic, lying in bed and in no acute distress. HEENT--PERRL, EOMI, mucous membranes and oropharynx moderately dry. Neck--supple. No JVD. No bruits. Thyroid normal, trachea midline, no adenopathy. Heart--normal S1 and S2. No murmurs, rubs or gallops. Lungs--clear bilaterally, no respiratory distress, no accessory muscle use. Abdomen--normal bowel sounds and soft. Nontender. Nondistended, no hernias or masses, no organomegaly. Extremities--No edema. Left wrist and arm in immobilizer Dermatologic--normal skin turgor, normal color, no abnormal lymph nodes, no rash. Neurologic--cranial nerves II through XII grossly intact. Rheumatologic--normal range of motion except for left arm Psychiatric--mildly confused and lethargic Results & Data Results & Data Vital Signs (Past 12 Hours) Vital Signs Temp Pulse Pulse Resp BP BP Pulse Ox 02/25/24 06:00 68 16 162/91 H 99 02/25/24 05:00 62 17 191/77 H 99 02/25/24 04:12 97 02/25/24 04:03 36.8 C 56 L 17 182/89 H 97 02/25/24 04:02 60 O2 Del Method O2 Flow Rate 02/25/24 06:00 Nasal Cannula 2 02/25/24 05:00 2 02/25/24 04:12 Room Air 02/25/24 04:03 Room Air 02/25/24 04:02 Laboratory Results Laboratory Results WBC 9.34 K/ul (4.8-10.8) 02/25/24 04:20 RBC 4.77 M/uL (4.20-5.40) 02/25/24 04:20 Hgb 13.9 g/dl (12.0-16.0) 02/25/24 04:20 Hct 40.7 % (37.0-47.0) 02/25/24 04:20 MCV 85.3 fL (80.0-100.0) 02/25/24 04:20 MCH 29.1 pg (25.0-34.0) 02/25/24 04:20 MCHC 34.2 g/dL (32.0-36.0) 02/25/24 04:20 RDW Std Deviation 38.5 fL (36.4-46.3) 02/25/24 04:20 RDW Coeff of Edwin 12.5 % (11.5-14.5) 02/25/24 04:20 Plt Count 370 K/uL (130-400) 02/25/24 04:20 MPV 9.5 fL (9.4-12.4) 02/25/24 04:20 Immature Gran % (Auto) 0.4 % 02/25/24 04:20 Neut % (Auto) 72.5 % 02/25/24 04:20 Lymph % (Auto) 15.5 % 02/25/24 04:20 [place] % (Auto) 9.9 % 02/25/24 04:20 Eos % (Auto) 1.1 % 02/25/24 04:20 Baso % (Auto) 0.6 % 02/25/24 04:20 Neut # (Auto) 6.77 K/uL (1.40-6.50) H 02/25/24 04:20 Lymph # (Auto) 1.45 K/uL (1.20-3.40) 02/25/24 04:20 [place] # (Auto) 0.92 K/uL (0.11-0.59) H 02/25/24 04:20 Eos # (Auto) 0.10 K/uL (0.00-0.50) 02/25/24 04:20 Baso # (Auto) 0.06 K/uL (0.00-0.20) 02/25/24 04:20 Immature Gran # (Auto) 0.04 K/uL (0.01-0.20) 02/25/24 04:20 Sodium 124 mmol/L (136-145) L 02/25/24 04:20 Potassium 4.4 mmol/L (3.5-5.1) 02/25/24 04:20 Chloride 91 mmol/L (98-107) L 02/25/24 04:20 Carbon Dioxide 28 mmol/L (21-32) 02/25/24 04:20 Anion Gap 5 (3-11) 02/25/24 04:20 BUN 9 mg/dl (6-23) 02/25/24 04:20 Creatinine 0.52 mg/dl (0.6-1.2) L 02/25/24 04:20 Est Cr Clr Drug Dosing 64.0 ml/min 02/25/24 04:20 Est GFR ( Amer) 104.6 ml/min 02/25/24 04:20 Est GFR (Non-Af Amer) 90.2 ml/min 02/25/24 04:20 BUN/Creatinine Ratio 17.3 (10-20) 02/25/24 04:20 Glucose 105 mg/dl (70-99(Fasting)) H 02/25/24 04:20 Calcium 9.2 mg/dl (8.6-10.3) 02/25/24 04:20 Total Bilirubin 0.6 mg/dl (0.2-1.0) 02/25/24 04:20 AST 22 U/L (13-39) 02/25/24 04:20 ALT 12 U/L (7-52) 02/25/24 04:20 Alkaline Phosphatase 57 U/L (34-104) 02/25/24 04:20 Total Protein 6.9 gm/dl (6.0-8.3) 02/25/24 04:20 Albumin 4.1 gm/dl (3.4-5.0) 02/25/24 04:20 Globulin 2.8 gm/dl (2.5-4.0) 02/25/24 04:20 Albumin/Globulin Ratio 1.5 (0.9-2) 02/25/24 04:[address] 02/25/24 04:12 Exam(s): CT CHEST With Contrast IV Amt: 94 ml opti 320 EXAM: CT Chest With Intravenous Contrast CLINICAL HISTORY: Reason for exam: Trauma. TECHNIQUE: Axial computed tomography images of the chest with intravenous contrast. CTDI is 8.6 mGy and DLP is 273.41 mGy-cm. Automated exposure control was utilized for the study. A dose lowering technique was utilized adhering to the principles of ALARA. CONTRAST: Patient received 94 ml opti 320 of IV contrast COMPARISON: No relevant prior studies available. FINDINGS: Lungs: On image #22 of 58 1.2 cm spiculated nodular region is demonstrated within the right lung. There is some right apical pleural scarring. No consolidation. Pleural space: Unremarkable. No pneumothorax. No significant effusion. Heart: Unremarkable. No cardiomegaly. No significant pericardial effusion. No significant coronary artery calcifications. Bones/joints: There is some degenerative changes to the osseous structures. No acute fracture. No dislocation. Soft tissues: Unremarkable. Vasculature: Unremarkable. No thoracic aortic aneurysm. Lymph nodes: Unremarkable. No enlarged lymph nodes. IMPRESSION: No pulmonary emboli, suspicious nodular region demonstrated right side. Additional chronic change. Electronically signed by: Eric Pagan MD 02/25/24 06:03 AM Code Status & VTE Plan Code Status Full code VTE Prophylaxis Plan VTE Prophylaxis will be ordered: Yes PG Care Time/CCT Total # of Minutes Spent Total Time Spent with Patient: Total time spent is greater than 50% in coordination of care (as documented) at patient's floor/unit and/or counseling patient: Coding Level of Care Code 20520 INT INP/OBS CARE 3/75MIN Diagnoses Closed fracture of left wrist S62.102A Balance disorder R26.89 Hyponatremia E87.1 Fall W19.XXXA Vertigo R42 PAD (peripheral artery disease) I73.9 Buerger disease I73.1 Chronic obstructive pulmonary disease J44.9 HTN (hypertension) I10
[2024-02-25] MEDS ORDERED: hydrALAZINE HCL 20 MG/ML VIAL IV PRN ×2 (07:07→09:30)
[2024-02-25] MEDS ORDERED: ALBUT/IPRATROP 3MG/0.5MG NEB 3 ML VIAL NEB PRN (07:07)
--- NOTE | 2024-02-25 07:18 | XRay Report ---
LEFT WRIST 2 VIEWS CLINICAL HISTORY: Fall. Left wrist injury. FINDINGS: 2 views of the left wrist are compared to study dated 08/26/2015. The skeletal structures a re osteopenic. There is an impacted and comminuted intra-articular fracture of the distal radial meta physis with apex volar angulation. There are dorsally displaced and overriding fragments. There is al so a comminuted and mildly displaced fracture of the distal ulnar metaphysis. Overlying soft tissue e susana is noted. Arthritic change is seen throughout the wrist. A ring is present on the fourth digit. IMPRESSION: Distal radial and ulnar fractures as above. Electronically signed by: Keyur Mcarthur M.D. 02/25/2024 7:17 AM
[2024-02-25 07:47] LABS: Appearance Urine Clear (Clear); Bilirubin Urine Negative (Negative); Blood Urine Negative (Negative); Color Urine Yellow; Glucose Urine UA Negative (Negative); Ketones Urine Negative (Negative); Leukocyte Esterase Urine Negative (Negative); Nitrite Urine Negative (Negative); Protein Urine Negative (Negative); Urobilinogen Urine Negative (Negative)
[2024-02-25] MEDS: MoRPHine SULFATE 4 MG/ML 1 ML CARP\\VIAL IV PRN (07:58)
[2024-02-25] MEDS ORDERED: NON-FORMULARY MEDICATION (Fluticasone-Umeclidin-Vilanter [Trelegy Ellipta] 200-62.5-25 mcg INH SCH (09:09)
[2024-02-25] MEDS ORDERED: ALBUTEROL HFA 8 GM INHALER INH PRN (09:09)
--- NOTE | 2024-02-25 10:01 | XRay Report ---
LEFT WRIST 2 VIEWS CLINICAL HISTORY: Postreduction examination. FINDINGS: Portable AP and crosstable lateral views of the left wrist are compared to the study perfor med earlier the same day, 02/25/2024. The examination is performed for a cast, obscuring fine bony det ail. Again seen is an impacted and comminuted intra-articular fracture of the distal radius. There is mild persistent apex volar angulation. There are dorsal displaced fragments by up to 8 mm as well as mild overriding of fragments. There is also an oblique fracture of the distal ulnar metadiaphysis. W idening of the scaphoid and lunate suggests age-indeterminate ligamentous injury. Arthritic change is seen throughout the wrist. Overlying soft tissue edema is observed. IMPRESSION: 1. Improved alignment of distal radial and ulnar fractures as above status post casting with persiste nt displacement/angulation of fragments. 2. Widening between the scaphoid and lunate suggests age-indeterminate ligamentous injury. Dictated: 02/25/2024 7:08 AM Transcribed: 02/25/2024 7:49 AM Kvng [id number] [email or web address] Electronically signed by: Keyur Mcarthur M.D. 02/25/2024 10:00 AM
[2024-02-25] MEDS: SODIUM CHLORIDE 0.9% 1,000 ML IV SCH (10:39)
[2024-02-25] MEDS: FLUTICASONE FUROATE 200MCG 14 PUFFS/INHALER INH SCH (10:39)
[2024-02-25] MEDS: UMECLIDINIUM/VILANTEROL 62.5/25MCG 7 PUFFS/INHALER INH SCH (10:40)
[2024-02-25] MEDS: PANTOprazole 40 MG in SYRINGE 0 ML IV SCH (10:40)
[2024-02-25 11:02] LABS: BUN Creatinine Ratio 17.4 (10-20); Calcium 8.9 mg/dl (8.6-10.3); Creatinine Clr Calc Pharmacy 72.3 ml/min; Est GFR (African American) 108.9 ml/min; Potassium 4.2 mmol/L (3.5-5.1)
--- NOTE | 2024-02-25 11:47 | Orthopedic Consultation ---
Date of Consultation February 25, 2024 Assessment & Plan (1) Closed fracture of left wrist: IMPRESSION: Left distal radius fracture, intra-articular, displaced & non- displaced distal ulna metaphyseal fracture, closed PLAN: Will obtain CT scan L wrist to further evaluate the extent of the fractures & determine if Scaphoid is involved and determine best treatment option. Treatment options include Closed reduction versus ORIF, versus leaving as is. Placed on the add-on list for tomorrow if medically cleared Continue in splint, EVERETTE MAZARIEGOS Continue pain control per Hospitalist service. Will continue to follow. Present on Admission?: Yes History of Present Illness Reason for Consultation: Left wrist fracture Requesting Physician: Dr. Ayala Attending Physician: Rocky Booker MD History of Present Illness 78 yo RHD female who lost her balance falling injuring her left wrist and ribs. Went to ED where x-rays were obtained, splinted, admitted to hospitalist service and I was consulted for evaluation and treatment of her left wrist fracture. Allergies Allergy/AdvReac Type Severity Reaction Status Date / Time Penicillins Allergy Unknown Hives Verified 02/21/24 15:21 Sulfa (Sulfonamide Allergy Unknown SWELLING Verified 02/21/24 15:21 Antibiotics) ciprofloxacin [From Cipro] AdvReac Severe Dizziness Verified 02/21/24 15:21 Home Medications Medication Instructions Recorded Confirmed Type folic acid 1 mg tablet 1 mg PO DAILY #1 tab 04/17/19 02/25/24 History acetaminophen 650 mg 650 mg PO Q12H PRN Pain 08/14/19 02/25/24 History tablet,extended release cholecalciferol (vitamin D3) 125 5,000 unit PO .COMPLEX ##0 09/10/20 02/25/24 History mcg (5,000 unit) tablet (Vitamin D3) cyclobenzaprine 5 mg tablet 5 mg PO HS PRN muscle spasm #30 05/29/21 02/25/24 Rx tabs latanoprost 0.005 % eye drops 1 drp OPB HS 02/06/23 02/25/24 History rosuvastatin 5 mg tablet (Crestor) 5 mg PO DAILY #90 tabs 02/10/23 02/25/24 Rx sodium chloride 1,000 mg soluble 1,000 mg PO DAILY #30 tabs 09/12/23 02/25/24 Rx tablet losartan 100 mg tablet (Cozaar) 100 mg PO QAM #90 tabs 09/30/23 02/25/24 Rx albuterol sulfate 90 mcg/actuation 2 puff inhalation Q4H PRN 11/21/23 02/25/24 Rx aerosol inhaler (Ventolin HFA) shortness of breath or wheezing #18 grams fluticasone fur. 200 mcg-umeclid 1 inh inhalation DAILY #60 ea 11/21/23 02/25/24 Rx 62.5 mcg-vilant 25 mcg inhalat.powder (Trelegy Ellipta) metoprolol succinate 25 mg 50 mg (2 x 25 mg) PO DAILY #180 01/18/24 02/25/24 Rx tablet,extended release 24 hr tabs meclizine 12.5 mg tablet 12.5 mg PO Q8H PRN dizziness #20 01/27/24 02/25/24 Rx tabs Patient History Medical History Hypokalemia Scalp hematoma Acute head trauma Acute hyponatremia Fall Lower extremity edema Current smoker Acute bronchitis HTN (hypertension) Chronic obstructive pulmonary disease Encounter for screening colonoscopy Encounter for pre-operative examination Family history of reaction to anesthesia Osteoarthritis GERD (gastroesophageal reflux disease) Family history of diabetes mellitus Deviated nasal septum 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 Hyperlipidemia Hypertension Chronic obstructive pulmonary disease Surgical History S/p bilateral blepharoplasty History of hysterectomy History of section History of open reduction and internal fixation (ORIF) procedure History of appendectomy History of esophagogastroduodenoscopy (EGD) History of colonoscopy History of tonsillectomy History of tooth extraction History of cataract surgery Family History Mother Coronary heart disease Hypertension Father Coronary heart disease Hypertension Myocardial infarction Grandmother Diabetes Breast cancer Grandmother (Maternal) Stroke Denies family history of Ovarian cancer Prostate cancer Lung cancer Colorectal cancer Social History Smoking Status: Current every day smoker Tobacco Type: Cigarettes Cigarettes Per Day: 1 PPD; Second Hand Exposure: Yes; Do You Dip or Chew Tobacco: No; Hx Alcohol Use: No Hx Substance Use: No Preferred Language: Indonesian Communication Ability: Effective Visual Impairment: Limited Hearing Ability: Normal Change Management Coordinator Required: No Beliefs That Will Affect Care: None marital status: Current Living Situation: Spouse Current Living Situation Comment: At home with spouse who is currently at [employer] current occupational status: retired How many Children do You have: 3 Feels Safe at Home: Yes Childhood Exposure to Second-Hand Smoke: Yes caffeine: Yes Dental Care, Regularly: Yes Physical Activity Frequency: Daily Seatbelt Use: always Sunscreen Use: No Assistive Devices: Glasses and Walker Review of Systems Review of Systems: Unobtainable due to cognitive status Physical Exam Physical Exam: Very tired, continued to fall asleep during the exam LUE: BCR < 2 seconds. Sensation to light touch intact. Difficulty moving fingers secondarily cognitive status and splint. Diffuse tenderness to palpation about the wrist and anatomic snuff box. Results & Data Vital Signs (Past 12 Hours) Vital Signs Temp Pulse Pulse Pulse Resp BP BP 02/25/24 11:40 36.0 C L 71 18 153/80 H 02/25/24 11:15 02/25/24 11:15 36.6 C 69 14 176/80 H 02/25/24 09:59 73 02/25/24 09:09 36.6 C 69 16 176/80 H 02/25/24 08:23 64 16 161/74 H 02/25/24 06:51 67 14 149/77 H 02/25/24 06:00 68 16 162/91 H 02/25/24 05:00 62 17 191/77 H 02/25/24 04:12 02/25/24 04:03 36.8 C 56 L 17 182/89 H 02/25/24 04:02 60 Pulse Ox O2 Del Method O2 Flow Rate 02/25/24 11:40 95 Room Air 02/25/24 11:15 Nasal Cannula 2 02/25/24 11:15 97 Nasal Cannula 2 02/25/24 09:59 02/25/24 09:09 96 Nasal Cannula 2 02/25/24 08:23 94 Nasal Cannula 2 02/25/24 06:51 99 Nasal Cannula 2 02/25/24 06:00 99 Nasal Cannula 2 02/25/24 05:00 99 2 02/25/24 04:12 97 Room Air 02/25/24 04:03 97 Room Air 02/25/24 04:02 Laboratory Results Laboratory Results WBC 9.34 K/ul (4.8-10.8) 02/25/24 04:20 RBC 4.77 M/uL (4.20-5.40) 02/25/24 04:20 Hgb 13.9 g/dl (12.0-16.0) 02/25/24 04:20 Hct 40.7 % (37.0-47.0) 02/25/24 04:20 MCV 85.3 fL (80.0-100.0) 02/25/24 04:20 MCH 29.1 pg (25.0-34.0) 02/25/24 04:20 MCHC 34.2 g/dL (32.0-36.0) 02/25/24 04:20 RDW Std Deviation 38.5 fL (36.4-46.3) 02/25/24 04:20 RDW Coeff of Edwin 12.5 % (11.5-14.5) 02/25/24 04:20 Plt Count 370 K/uL (130-400) 02/25/24 04:20 MPV 9.5 fL (9.4-12.4) 02/25/24 04:20 Immature Gran % (Auto) 0.4 % 02/25/24 04:20 Neut % (Auto) 72.5 % 02/25/24 04:20 Lymph % (Auto) 15.5 % 02/25/24 04:20 [place] % (Auto) 9.9 % 02/25/24 04:20 Eos % (Auto) 1.1 % 02/25/24 04:20 Baso % (Auto) 0.6 % 02/25/24 04:20 Neut # (Auto) 6.77 K/uL (1.40-6.50) H 02/25/24 04:20 Lymph # (Auto) 1.45 K/uL (1.20-3.40) 02/25/24 04:20 [place] # (Auto) 0.92 K/uL (0.11-0.59) H 02/25/24 04:20 Eos # (Auto) 0.10 K/uL (0.00-0.50) 02/25/24 04:20 Baso # (Auto) 0.06 K/uL (0.00-0.20) 02/25/24 04:20 Immature Gran # (Auto) 0.04 K/uL (0.01-0.20) 02/25/24 04:20 Sodium 127 mmol/L (136-145) L 02/25/24 10:32 Potassium 4.2 mmol/L (3.5-5.1) 02/25/24 10:32 Chloride 94 mmol/L (98-107) L 02/25/24 10:32 Carbon Dioxide 26 mmol/L (21-32) 02/25/24 10:32 Anion Gap 7 (3-11) 02/25/24 10:32 BUN 8 mg/dl (6-23) 02/25/24 10:32 Creatinine 0.46 mg/dl (0.6-1.2) L 02/25/24 10:32 Est Cr Clr Drug Dosing 72.3 ml/min 02/25/24 10:32 Est GFR ( Amer) 108.9 ml/min 02/25/24 10:32 Est GFR (Non-Af Amer) 94.0 ml/min 02/25/24 10:32 BUN/Creatinine Ratio 17.4 (10-20) 02/25/24 10:32 Glucose 93 mg/dl (70-99(Fasting)) 02/25/24 10:32 Osmolality 261 mOsm/kg (280-300) L 02/25/24 04:20 Calcium 8.9 mg/dl (8.6-10.3) 02/25/24 10:32 Total Bilirubin 0.6 mg/dl (0.2-1.0) 02/25/24 04:20 AST 22 U/L (13-39) 02/25/24 04:20 ALT 12 U/L (7-52) 02/25/24 04:20 Alkaline Phosphatase 57 U/L (34-104) 02/25/24 04:20 Total Protein 6.9 gm/dl (6.0-8.3) 02/25/24 04:20 Albumin 4.1 gm/dl (3.4-5.0) 02/25/24 04:20 Globulin 2.8 gm/dl (2.5-4.0) 02/25/24 04:20 Albumin/Globulin Ratio 1.5 (0.9-2) 02/25/24 04:20 Urine Color Yellow 02/25/24 06:54 Urine Appearance Clear (Clear) 02/25/24 06:54 Urine pH 8.0 (4.5-7.5) H 02/25/24 06:54 Ur Specific [place] 1.030 (1.000-1.030) 02/25/24 06:54 Urine Protein Negative (Negative) 02/25/24 06:54 Urine Glucose (UA) Negative (Negative) 02/25/24 06:54 Urine Ketones Negative (Negative) 02/25/24 06:54 Urine Blood Negative (Negative) 02/25/24 06:54 Urine Nitrite Negative (Negative) 02/25/24 06:54 Urine Bilirubin Negative (Negative) 02/25/24 06:54 Urine Urobilinogen Negative (Negative) 02/25/24 06:54 Ur Leukocyte Esterase Negative (Negative) 02/25/24 06:54 Urine Osmolality 340 mOsm/kg (500-800) L 02/25/24 06:54 Ur Random Sodium 67 mmol/L 02/25/24 06:[address] 02/25/24 04:12 Exam(s): CT CHEST With Contrast IV Amt: 94 ml opti 320 EXAM: CT Chest With Intravenous Contrast CLINICAL HISTORY: Reason for exam: Trauma. TECHNIQUE: Axial computed tomography images of the chest with intravenous contrast. CTDI is 8.6 mGy and DLP is 273.41 mGy-cm. Automated exposure control was utilized for the study. A dose lowering technique was utilized adhering to the principles of ALARA. CONTRAST: Patient received 94 ml opti 320 of IV contrast COMPARISON: No relevant prior studies available. FINDINGS: Lungs: On image #22 of 58 1.2 cm spiculated nodular region is demonstrated within the right lung. There is some right apical pleural scarring. No consolidation. Pleural space: Unremarkable. No pneumothorax. No significant effusion. Heart: Unremarkable. No cardiomegaly. No significant pericardial effusion. No significant coronary artery calcifications. Bones/joints: There is some degenerative changes to the osseous structures. No acute fracture. No dislocation. Soft tissues: Unremarkable. Vasculature: Unremarkable. No thoracic aortic aneurysm. Lymph nodes: Unremarkable. No enlarged lymph nodes. IMPRESSION: No pulmonary emboli, suspicious nodular region demonstrated right side. Additional chronic change. Electronically signed by: Eric Pagan MD 02/25/24 06:03 AM Wrist X-Ray 02/25/24 05:51 LEFT WRIST 2 VIEWS CLINICAL HISTORY: Postreduction examination. FINDINGS: Portable AP and crosstable lateral views of the left wrist are compared to the study performed earlier the same day, 02/25/2024. The examination is performed for a cast, obscuring fine bony detail. Again seen is an impacted and comminuted intra-articular fracture of the distal radius. There is mild persistent apex volar angulation. There are dorsal displaced fragments by up to 8 mm as well as mild overriding of fragments. There is also an oblique fracture of the distal ulnar metadiaphysis. Widening of the scaphoid and lunate suggests age-indeterminate ligamentous injury. Arthritic change is seen throughout the wrist. Overlying soft tissue edema is observed. IMPRESSION: 1. Improved alignment of distal radial and ulnar fractures as above status post casting with persistent displacement/angulation of fragments. 2. Widening between the scaphoid and lunate suggests age-indeterminate ligamentous injury. Dictated: 02/25/2024 7:08 AM Transcribed: 02/25/2024 7:49 AM Kvng [id number] [email or web address] Electronically signed by: Keyur Mcarthur M.D. 02/25/2024 10:00 AM
--- NOTE | 2024-02-25 12:23 | History & Physical Bridge Note ---
Date of Service February 25, 2024 History & Physical Bridge Note I have examined the patient, reviewed the History & Physical and in the interval since the performance of the History & Physical I have noted the following changes of clinical significance: Pt remains very drowsy from morphine but does wake up and is oriented x 3, c/o ongoing pain in left wrist. I discussed her care with Ortho. Plan for CT wrist to assess for scaphoid involvement and if no scaphoid involvement, plan for ORIF tomorrow. Can advance diet and then NPO after midnight Na+ improved to 127. Will add 1 more L of NS for a total of 2L and follow serial BMP
--- NOTE | 2024-02-25 13:14 | Electrocardiogram Report ---
Test Reason : Blood Pressure : / mmHG Vent. Rate : 064 BPM Atrial Rate : 064 BPM P-R Int : 182 ms QRS Dur : 084 ms QT Int : 450 ms P-R-T Axes : 072 014 039 degrees QTc Int : 464 ms Normal sinus rhythm Normal ECG When compared with ECG of 08-FEB-2024 09:30, Nonspecific T wave abnormality no longer evident in Inferior leads Confirmed by Ivan Fernandes ([id number]) on 02/25/2024 1:14:28 PM Referred By: REFERRED SELF Confirmed By:Ivan Fernandes
[2024-02-25 15:17] LABS: BUN Creatinine Ratio 15.2 (10-20); Creatinine Clr Calc Pharmacy 72.3 ml/min; Est GFR (African American) 108.9 ml/min; Potassium 4.1 mmol/L (3.5-5.1)
[2024-02-25] MEDS: ACETAMINOPHEN 1000 MG/100 ML IV IV PRN (17:54)
[2024-02-25 19:44] LABS: Calcium 8.3 mg/dl (8.6-10.3); Creatinine Clr Calc Pharmacy 83.2 ml/min; Est GFR (Non-African American) 98.4 ml/min; Potassium 3.7 mmol/L (3.5-5.1)
--- NOTE | 2024-02-25 20:22 | CT Scan Report ---
CT SCAN OF THE LEFT WRIST WITHOUT IV CONTRAST CLINICAL HISTORY: Distal radial and ulnar fractures. COMPARISON STUDY: Radiographs of the left wrist dated 02/25/2024. TECHNIQUE: CT scan of the left wrist is performed from the radial and ulnar shafts to the hand. Image s are reviewed in the axial, sagittal, and coronal planes. IV contrast was not administered for this examination. 3-D reformats are created and assessed. A dose lowering technique was utilized adhering to the principles of ALARA. The examination is degraded by suboptimal positioning within the CT gantr y. CT DOSE: 589.11 mGy.cm FINDINGS: The skeletal structures are osteopenic. There is an impacted and comminuted intra-articular fracture of the distal radial metaphysis with dorsal displacement and mild overriding of fragments. Fragments are displaced posteriorly by up to 1.5 cm. There is apex volar angulation. There is also a comminuted fracture of the distal ulnar metaphysis with minimal displacement of fragments. Hemorrhage and soft tissue edema is seen around the fractures. No additional fracture is clearly seen in the wr ist. Widening between the scaphoid and lunate suggests age-indeterminate ligamentous injury. IMPRESSION: Distal radial and ulnar fractures as above. ACT 112: Negative or not required by law. Dictated: 02/25/2024 5:17 PM Transcribed: 02/25/2024 7:16 PM Kvng [id number] [email or web address] Electronically signed by: Keyur Mcarthur M.D. 02/25/2024 8:21 PM
[2024-02-25] MEDS: LATANOPROST 0.005% OP SOLN 2.5 ML BTL OPB SCH (21:25)
[2024-02-26 02:00] LABS: Basophils # (auto) 0.05 K/uL (0.00-0.20); Basophils % (auto) 0.4 %; Eosinophils # (auto) 0.01 K/uL (0.00-0.50); Eosinophils % (auto) 0.1 %; Hematocrit (blood only) 37.4 % (37.0-47.0); Hemoglobin 12.4 g/dl (12.0-16.0); Immature Granulocytes # (auto) 0.07 K/uL (0.01-0.20); Immature Granulocytes % (auto) 0.5 %; Lymphocytes # (auto) 0.81 K/uL (1.20-3.40); Lymphocytes % (auto) 6.2 %; Mean Corpuscular Hemoglobin 28.7 pg (25.0-34.0); Mean Corpuscular Hgb Conc 33.2 g/dL (32.0-36.0); Mean Corpuscular Volume 86.6 fL (80.0-100.0); Monocytes # (auto) 1.55 K/uL (0.11-0.59); Monocytes % (auto) 11.9 %; Neutrophils # (auto) 10.49 K/uL (1.40-6.50); Neutrophils % (auto) 80.9 %; Platelet Count 288 K/uL (130-400); RDW Coefficient of Variation 12.5 % (11.5-14.5); RDW Standard Deviation 39.9 fL (36.4-46.3); Red Blood Count 4.32 M/uL (4.20-5.40); White Blood Count 12.98 K/ul (4.8-10.8)
[2024-02-26 02:14] LABS: Albumin Globulin Ratio 1.4 (0.9-2); Albumin Level 3.4 gm/dl (3.4-5.0); BUN Creatinine Ratio 14.6 (10-20); Bilirubin,Total 0.7 mg/dl (0.2-1.0); Calcium 8.2 mg/dl (8.6-10.3); Creatinine Clr Calc Pharmacy 81.1 ml/min; Est GFR (African American) 113.1 ml/min; Est GFR (Non-African American) 97.6 ml/min; Globulin 2.4 gm/dl (2.5-4.0); Magnesium 1.7 mg/dl (1.7-2.4); Potassium 3.6 mmol/L (3.5-5.1); Total Protein 5.8 gm/dl (6.0-8.3)
[2024-02-26] MEDS: MoRPHine SULFATE 2 MG/ML CARP IV PRN (04:14)
--- NOTE | 2024-02-26 07:13 | Anesthesiology Consultation ---
Date of Service February 26, 2024 Assessment & Plan (1) Encounter for pre-operative examination: Chart Review Chart Review: Pending: Refer to Additional Notes / Consult section (awaiting todays lab work) History Surgery Operation Date: 02/26/24 09:00 Proposed Procedures p Open Reduction Internal Fixation Arm(Left) - Preston Arnol Ayala MD Height/Weight Height: 4 ft 11 in Weight: 53.4 kg Allergies Allergy/AdvReac Type Severity Reaction Status Date / Time Penicillins Allergy Unknown Hives Verified 02/21/24 15:21 Sulfa (Sulfonamide Allergy Unknown SWELLING Verified 02/21/24 15:21 Antibiotics) ciprofloxacin [From Cipro] AdvReac Severe Dizziness Verified 02/21/24 15:21 Medications Home Medications Medication Instructions Recorded Confirmed Last Taken folic acid 1 mg tablet 1 mg PO DAILY #1 tab 04/17/19 02/25/24 11/08/21 acetaminophen 650 mg 650 mg PO Q12H PRN Pain 08/14/19 02/25/24 Unknown tablet,extended release cholecalciferol (vitamin D3) 125 5,000 unit PO .COMPLEX ##0 09/10/20 02/25/24 Unknown mcg (5,000 unit) tablet (Vitamin D3) cyclobenzaprine 5 mg tablet 5 mg PO HS PRN muscle spasm #30 05/29/21 02/25/24 Unknown tabs latanoprost 0.005 % eye drops 1 drp OPB HS 02/06/23 02/25/24 Unknown rosuvastatin 5 mg tablet (Crestor) 5 mg PO DAILY #90 tabs 02/10/23 02/25/24 Unknown sodium chloride 1,000 mg soluble 1,000 mg PO DAILY #30 tabs 09/12/23 02/25/24 Unknown tablet losartan 100 mg tablet (Cozaar) 100 mg PO QAM #90 tabs 09/30/23 02/25/24 Unknown albuterol sulfate 90 mcg/actuation 2 puff inhalation Q4H PRN 11/21/23 02/25/24 Unknown aerosol inhaler (Ventolin HFA) shortness of breath or wheezing #18 grams fluticasone fur. 200 mcg-umeclid 1 inh inhalation DAILY #60 ea 11/21/23 02/25/24 Unknown 62.5 mcg-vilant 25 mcg inhalat.powder (Trelegy Ellipta) metoprolol succinate 25 mg 50 mg (2 x 25 mg) PO DAILY #180 01/18/24 02/25/24 Unknown tablet,extended release 24 hr tabs meclizine 12.5 mg tablet 12.5 mg PO Q8H PRN dizziness #20 01/27/24 02/25/24 Unknown tabs Active Medications Generic Name Dose Route Start Last Admin Trade Name Freq PRN Reason Stop Dose Admin Acetaminophen 1,000 mg 02/25/24 09:09 02/25/24 17:54 Acetaminophen 1000 Mg/100 Ml Iv IV 02/28/24 09:08 1,000 mg Q8H PRN Administration Pain or Fever Fluticasone Furoate 1 puffs 02/25/24 09:30 02/25/24 10:39 Fluticasone Furoate 200mcg 14 Puffs/Inhaler INH 03/26/24 09:29 Not Given DAILY NAVA Pantoprazole Sodium 40 mg/ 10 mls @ 5 mls/min 02/25/24 11:00 02/25/24 10:40 Syringe IV 03/26/24 10:59 5 mls/min DAILY@1100 NAVA Administration Latanoprost 1 drops 02/25/24 21:00 02/25/24 21:29 Latanoprost 0.005% Op Soln 2.5 Ml Btl OPB 03/26/24 20:59 Not Given HS NAVA Morphine Sulfate 4 mg 02/25/24 07:03 02/25/24 07:58 Morphine Sulfate 4 Mg/Ml 1 Ml Carp\Vial IV 03/10/24 07:02 4 mg Q3H PRN Administration Severe Pain (Scale 7, 8, 9,10) Morphine Sulfate 2 mg 02/25/24 07:03 02/26/24 04:14 Morphine Sulfate 2 Mg/Ml Carp IV 03/10/24 07:02 2 mg Q3H PRN Administration Moderate Pain (Scale 4, 5, 6) Umeclidinium/Vilanterol 1 puffs 02/25/24 09:30 02/25/24 10:40 Umeclidinium/Vilanterol 62.5/25mcg 7 Puffs/Inhaler INH 03/26/24 09:29 Not Given DAILY NAVA Past Medical History Medical History (Updated 02/26/24 @ 07:17 by Herrera Syed MD) Anemia, mild Hypokalemia Scalp hematoma Acute head trauma Acute hyponatremia Fall Lower extremity edema Current smoker Acute bronchitis Osteoarthritis GERD (gastroesophageal reflux disease) Family history of diabetes mellitus MATERNAL GRANDMOTHER Deviated nasal septum 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 Hyperlipidemia Hypertension Chronic obstructive pulmonary disease Past Family History Family History Mother Coronary heart disease Hypertension Father Coronary heart disease Hypertension Myocardial infarction Grandmother Diabetes Breast cancer Grandmother (Maternal) Stroke Other Family history of reaction to anesthesia Denies family history of Ovarian cancer Prostate cancer Lung cancer Colorectal cancer Past Surgical History Surgical History S/p bilateral blepharoplasty History of hysterectomy R OOPHERECTOMY History of section History of open reduction and internal fixation (ORIF) procedure L ANKLE/TIBIA History of appendectomy History of esophagogastroduodenoscopy (EGD) History of colonoscopy History of tonsillectomy History of tooth extraction WISDOM TEETH History of cataract surgery RT/LT Social History Smoking Status: Current every day smoker tobacco type: cigarettes Smoking cigarettes per day: 1 PPD Do You Dip or Chew Tobacco: No Hx Alcohol Use: No Alcohol type: wine alcohol intake frequency: 0-2 drinks per day Hx Substance Use: No substance use type: does not use Physical Exam Vital Signs Last Vital Signs Temp 36.5 C 02/26/24 03:08 Pulse 72 02/26/24 03:08 Resp 18 02/26/24 03:08 BP 178/71 H 02/26/24 03:08 Pulse Ox 96 02/26/24 03:08 O2 Del Method Nasal Cannula 02/26/24 03:08 O2 Flow Rate 2 02/26/24 03:08 Testing Laboratory Results 02/26/24 01:45 02/26/24 01:45 Urine Color Yellow 02/25/24 06:54 Urine Appearance Clear (Clear) 02/25/24 06:54 Urine pH 8.0 (4.5-7.5) H 02/25/24 06:54 Ur Specific [place] 1.030 (1.000-1.030) 02/25/24 06:54 Urine Protein Negative (Negative) 02/25/24 06:54 Urine Glucose (UA) Negative (Negative) 02/25/24 06:54 Urine Ketones Negative (Negative) 02/25/24 06:54 Urine Nitrite Negative (Negative) 02/25/24 06:54 Ur Leukocyte Esterase Negative (Negative) 02/25/24 06:54 Electrocardiogram Date: 02/25/24 Findings: + NSR @ (64) Echocardiogram Date: 12/20/23 EF: 55-60% LV Function: normal Valvular Disease: + MR (mild to moderate)
--- NOTE | 2024-02-26 07:22 | Orthopedic Progress Note ---
Date of Service February 26, 2024 Assessment & Plan (1) Closed fracture of left wrist: Plan: IMPRESSION: Left distal radius fracture, intra-articular, displaced & non- displaced distal ulna metaphyseal fracture, closed PLAN: Plan OR today for Closed reduction versus ORIF, if medically cleared Continue in splint, NWB LUE RICE Continue pain control per Hospitalist service. Will continue to follow. Admission and Anticipated Discharge Date Admission Date: February 25, 2024 Subjective Left wrist pain Physical Exam Physical Exam: More alert today LUE: BCR < 2 seconds. Sensation to light touch intact. Difficulty moving fingers secondarily cognitive status and splint. Diffuse tenderness to palpation about the wrist and anatomic snuff box. Results & Data Vital Signs (Past 12 Hours) Vital Signs Temp Pulse Pulse Resp BP Pulse Ox O2 Del Method 02/26/24 07:18 73 02/26/24 03:08 36.5 C 72 18 178/71 H 96 Nasal Cannula 02/26/24 00:41 72 02/25/24 23:05 36.8 C 75 18 147/70 H 95 Nasal Cannula 02/25/24 22:15 Nasal Cannula 02/25/24 19:28 37.1 C 74 18 138/71 94 Nasal Cannula O2 Flow Rate 02/26/24 07:18 02/26/24 03:08 2 02/26/24 00:41 02/25/24 23:05 2 02/25/24 22:15 2 02/25/24 19:28 2 Laboratory Results 02/26/24 02/25/24 02/25/24 Range/Units 01:45 19:13 14:47 WBC 12.98 H (4.8-10.8) K/ul RBC 4.32 (4.20-5.40) M/uL Hgb 12.4 (12.0-16.0) g/dl Hct 37.4 (37.0-47.0) % MCV 86.6 (80.0-100.0) fL MCH 28.7 (25.0-34.0) pg MCHC 33.2 (32.0-36.0) g/dL RDW Std Deviation 39.9 (36.4-46.3) fL RDW Coeff of Edwin 12.5 (11.5-14.5) % Plt Count 288 (130-400) K/uL MPV 9.0 L (9.4-12.4) fL Immature Gran % (Auto) 0.5 % Neut % (Auto) 80.9 % Lymph % (Auto) 6.2 % [place] % (Auto) 11.9 % Eos % (Auto) 0.1 % Baso % (Auto) 0.4 % Neut # (Auto) 10.49 H (1.40-6.50) K/uL Lymph # (Auto) 0.81 L (1.20-3.40) K/uL [place] # (Auto) 1.55 H (0.11-0.59) K/uL Eos # (Auto) 0.01 (0.00-0.50) K/uL Baso # (Auto) 0.05 (0.00-0.20) K/uL Immature Gran # (Auto) 0.07 (0.01-0.20) K/uL Sodium 127 L 125 L 128 L (136-145) mmol/L Potassium 3.6 3.7 4.1 (3.5-5.1) mmol/L Chloride 96 L 94 L 94 L (98-107) mmol/L Carbon Dioxide 24 24 26 (21-32) mmol/L Anion Gap 7 7 8 (3-11) BUN 6 6 7 (6-23) mg/dl Creatinine 0.41 L 0.40 L 0.46 L (0.6-1.2) mg/dl Est Cr Clr Drug Dosing 81.1 83.2 72.3 ml/min Est GFR ( Amer) 113.1 114.0 108.9 ml/min Est GFR (Non-Af Amer) 97.6 98.4 94.0 ml/min BUN/Creatinine Ratio 14.6 15.0 15.2 (10-20) Glucose 123 H 125 H 98 (70-99(Fasting)) mg/dl Calcium 8.2 L 8.3 L 9.0 (8.6-10.3) mg/dl Magnesium 1.7 (1.7-2.4) mg/dl Total Bilirubin 0.7 (0.2-1.0) mg/dl AST 15 (13-39) U/L ALT 9 (7-52) U/L Alkaline Phosphatase 50 (34-104) U/L Total Protein 5.8 L (6.0-8.3) gm/dl Albumin 3.4 (3.4-5.0) gm/dl Globulin 2.4 L (2.5-4.0) gm/dl Albumin/Globulin Ratio 1.4 (0.9-2) Urine Color Urine Appearance (Clear) Urine pH (4.5-7.5) Ur Specific [place] (1.000-1.030) Urine Protein (Negative) Urine Glucose (UA) (Negative) Urine Ketones (Negative) Urine Blood (Negative) Urine Nitrite (Negative) Urine Bilirubin (Negative) Urine Urobilinogen (Negative) Ur Leukocyte Esterase (Negative) Urine Osmolality (500-800) mOsm/kg Ur Random Sodium mmol/L 02/25/24 02/25/24 Range/Units 10:32 06:54 WBC (4.8-10.8) K/ul RBC (4.20-5.40) M/uL Hgb (12.0-16.0) g/dl Hct (37.0-47.0) % MCV (80.0-100.0) fL MCH (25.0-34.0) pg MCHC (32.0-36.0) g/dL RDW Std Deviation (36.4-46.3) fL RDW Coeff of Edwin (11.5-14.5) % Plt Count (130-400) K/uL MPV (9.4-12.4) fL Immature Gran % (Auto) % Neut % (Auto) % Lymph % (Auto) % [place] % (Auto) % Eos % (Auto) % Baso % (Auto) % Neut # (Auto) (1.40-6.50) K/uL Lymph # (Auto) (1.20-3.40) K/uL [place] # (Auto) (0.11-0.59) K/uL Eos # (Auto) (0.00-0.50) K/uL Baso # (Auto) (0.00-0.20) K/uL Immature Gran # (Auto) (0.01-0.20) K/uL Sodium 127 L (136-145) mmol/L Potassium 4.2 (3.5-5.1) mmol/L Chloride 94 L (98-107) mmol/L Carbon Dioxide 26 (21-32) mmol/L Anion Gap 7 (3-11) BUN 8 (6-23) mg/dl Creatinine 0.46 L (0.6-1.2) mg/dl Est Cr Clr Drug Dosing 72.3 ml/min Est GFR ( Amer) 108.9 ml/min Est GFR (Non-Af Amer) 94.0 ml/min BUN/Creatinine Ratio 17.4 (10-20) Glucose 93 (70-99(Fasting)) mg/dl Calcium 8.9 (8.6-10.3) mg/dl Magnesium (1.7-2.4) mg/dl Total Bilirubin (0.2-1.0) mg/dl AST (13-39) U/L ALT (7-52) U/L Alkaline Phosphatase (34-104) U/L Total Protein (6.0-8.3) gm/dl Albumin (3.4-5.0) gm/dl Globulin (2.5-4.0) gm/dl Albumin/Globulin Ratio (0.9-2) Urine Color Yellow Urine Appearance Clear (Clear) Urine pH 8.0 H (4.5-7.5) Ur Specific [place] 1.030 (1.000-1.030) Urine Protein Negative (Negative) Urine Glucose (UA) Negative (Negative) Urine Ketones Negative (Negative) Urine Blood Negative (Negative) Urine Nitrite Negative (Negative) Urine Bilirubin Negative (Negative) Urine Urobilinogen Negative (Negative) Ur Leukocyte Esterase Negative (Negative) Urine Osmolality 340 L (500-800) mOsm/kg Ur Random Sodium 67 mmol/L
[2024-02-26] MEDS: SODIUM CHLORIDE 1 GM TABLET PO ONE (08:14)
[2024-02-26 08:28] LABS: BUN Creatinine Ratio 12.2 (10-20); Calcium 8.4 mg/dl (8.6-10.3); Creatinine Clr Calc Pharmacy 81.7 ml/min; Est GFR (African American) 113.1 ml/min; Est GFR (Non-African American) 97.6 ml/min; Potassium 3.8 mmol/L (3.5-5.1)
[2024-02-26] MEDS: ONDANSETRON INJ 2 MG/ML 2 ML VIAL IV PRN (09:14)
[2024-02-26] MEDS ORDERED: ONDANSETRON INJ 2 MG/ML 2 ML VIAL IV PRN ×2 (09:57→12:31)
[2024-02-26] MEDS ORDERED: ATROPINE SULFATE 0.1 MG/ML 10ML SYR IV PRN (09:57)
[2024-02-26] MEDS ORDERED: KETOROLAC 30 MG/ML VIAL IV PRN (09:57)
[2024-02-26] MEDS ORDERED: LIDOCAINE 2% 2 ML VIAL/AMP(20MG/ML) INFIL ONE (10:01)
[2024-02-26] MEDS ORDERED: fentaNYL citrate PF 100 MCG/2 ML VIAL ONE (10:01)
[2024-02-26] MEDS ORDERED: PROPOFOL IV EMULSION 10 MG/ML 20 ML VIAL IV ONE (10:01)
[2024-02-26] MEDS ORDERED: KETAMINE HCL 10MG/ML SYR ONE (10:14)
[2024-02-26] MEDS ORDERED: ceFAZolin 330 MG/ML 1 GM VIAL ONE (10:25)
[2024-02-26] MEDS: ceFAZolin 2000MG 2,000 MG/15 ML SYR IV SCH (10:26)
--- NOTE | 2024-02-26 10:53 | Operative Report ---
Post Operative Report Pre & Post Diagnosis Operation Date: 02/26/24 09:00 Pre-Op Diagnosis: Closed fracture of left wrist. Post-Op Diagnosis: Closed fracture of left wrist. I identified the patient and participated in the time-out.: Yes Procedure Operation Date: 02/26/24 09:00 Actual Procedures p Closed reduction of left wrist. (Left) - Preston Ayala MD Surgeon Preston Ayala MD Accounts Payable Representative Lucille Cooper MD Estimated Blood Loss 4 Findings Consistent with Post-Op Diagnosis Same as postoperative diagnosis. Specimens None Description of Procedure Please see detailed operative note. I attest to the content of the Intraoperative Record and any orders documented therein. Any exceptions are noted below.
--- NOTE | 2024-02-26 10:54 | Post Operative Brief Note ---
Immediate Post Op Note Date of Surgery February 26, 2024 Pre & Post Diagnosis Operation Date: 02/26/24 09:00 Pre-Op Diagnosis: Closed fracture of left wrist. Post-Op Diagnosis: Closed fracture of left wrist. I identified the patient and participated in the time-out.: Yes Procedure Operation Date: 02/26/24 09:00 Actual Procedures p Closed reduction of left wrist. (Left) - Preston Ayala MD Surgeon Preston Ayala MD Senior Quality Control Technician A MD Allison Estimated Blood Loss 4 Findings Consistent with Post-Op Diagnosis Fluids 400 cc Complications Worsened skin tear dorsum wrist & Middle finger
--- NOTE | 2024-02-26 10:55 | Operative Report ---
Post Operative Report Pre & Post Diagnosis Operation Date: 02/26/24 09:00 Pre-Op Diagnosis: Closed fracture of left wrist, distal radius, comminuted intra-articular fracture, and ulna fracture. Post-Op Diagnosis: Closed fracture of left wrist, distal radius, comminuted intra-articular fracture, and ulna fracture, dorsal skin tear. I identified the patient and participated in the time-out.: Yes Procedure Operation Date: 02/26/24 09:00 Actual Procedures p Closed reduction of left wrist, distal radius and ulna. (Left) - Preston Ayala MD Surgeon Preston Ayala MD Sport Intern Arnol Cooper MD Estimated Blood Loss 4 Findings See Below Displaced comminuted distal radius fracture, intra-articular, and non-displaced distal ulna fractures. Skin tear dorsum wrist and over P1 middle finger. Thin skin dorsum wrist, hand and digits along with swelling. Fluids 400 cc Specimens n/a Complications Worsened skin tear dorsum left wrist & middle finger Indications The patient is a 78 year old female with a displaced, comminuted left intra- articular distal radius fracture and ulna fracture, that I recommended closed reduction vs ORIF. The patient understands the risks of surgery, which include but are not limited to: bleeding, infection, re-operation, damage to nerves and arteries, continued pain, progression of arthritis, mal-union, non-union, and stiffness. The patient understands all of these instructions and explanations, all of their questions have been satisfactorily addressed. The patient has elected to proceed with surgery and the informed consent was signed. Description of Procedure The patient was taken to the Operating Room and placed in the supine position on the operating table. After adequate sedation was administered a multidisciplinary time-out was performed identifying the correct patient and my initials on the left upper limb as the correct and operative limb. Ancef 1g IV was given. The previous splint was removed. A closed reduction was attempted in the standard fashion by re-creating the injury and reducing the fragments with reduction maneuver. There was improved alignment. There was significant improvement and acceptable alignment of the reduced distal radius and ulna fractures that was maintained while applying the sugar tong splint. The sugar tongue splint was well padded and given a 3-point mold. Prior to applying the splint the skin tears were cleaned with Hibiclens scrub, dried and covered with Optifoam. The patient tolerated the procedure well and was taken to the recovery room in stable condition. POST-OP INSTRUCTIONS. The patient will continue with the splint until their follow-up for minimum 2 weeks. The patient will follow up in my office in 5-7 days with repeat x-rays AP and lateral of the left wrist in plaster. Pain medication was given to be used as needed. Ice and elevate the affected hand above the heart. They will be given cast care and compartment syndrome warning signs. No lifting with affected hand. Patient was re-admitted to the hospitalist service I attest to the content of the Intraoperative Record and any orders documented therein. Any exceptions are noted below.
--- NOTE | 2024-02-26 11:00 | Fluoroscopy Report ---
INTRAOPERATIVE RADIOGRAPHS CLINICAL HISTORY: Closed reduction of the left wrist. Fluoro time: 9 seconds Ka,r: 0.36 mGy FINDINGS: 2 spot fluoroscopic views of the left wrist are presented. Correlation is made with radiogr aphs dated 02/25/2024. Casting material is in place. Again seen are fractures of the distal radial and ulna. Alignment is significantly improved following casting. There is persistent widening between th e scaphoid and lunate. IMPRESSION: Intraoperative images from casting of distal radial and ulnar fractures as above. Electronically signed by: Keyur Mcarthur M.D. 02/26/2024 10:59 AM
[2024-02-26] MEDS: fentaNYL citrate PF 100 MCG/2 ML VIAL IV PRN (11:44)
--- NOTE | 2024-02-26 12:15 | Anesthesiology Progress Note ---
Date of Service February 26, 2024 Anesthesia Post Procedure Vital Signs Vital Signs: Temp Pulse Pulse Pulse Resp BP Pulse Ox 02/26/24 11:45 85 19 163/71 H 95 02/26/24 11:35 88 17 135/88 94 02/26/24 11:25 85 16 169/97 H 94 02/26/24 11:15 85 16 170/63 H 92 02/26/24 11:05 86 18 171/72 H 92 02/26/24 10:58 37.0 C 94 H 20 168/77 H 92 02/26/24 09:40 02/26/24 07:42 36.7 C 58 L 16 161/83 H 94 02/26/24 07:18 73 02/26/24 03:08 36.5 C 72 18 178/71 H 96 02/26/24 00:41 72 02/25/24 23:05 36.8 C 75 18 147/70 H 95 02/25/24 22:15 02/25/24 19:28 37.1 C 74 18 138/71 94 02/25/24 15:45 37.3 C 82 16 160/79 H 94 02/25/24 14:44 75 O2 Del Method O2 Flow Rate 02/26/24 11:45 Nasal Cannula 2 02/26/24 11:35 Nasal Cannula 2 02/26/24 11:25 Nasal Cannula 2 02/26/24 11:15 Nasal Cannula 3 02/26/24 11:05 Nasal Cannula 3 02/26/24 10:58 Nasal Cannula 3 02/26/24 09:40 Nasal Cannula 2 02/26/24 07:42 Nasal Cannula 1 02/26/24 07:18 02/26/24 03:08 Nasal Cannula 2 02/26/24 00:41 02/25/24 23:05 Nasal Cannula 2 02/25/24 22:15 Nasal Cannula 2 02/25/24 19:28 Nasal Cannula 2 02/25/24 15:45 Nasal Cannula 2 02/25/24 14:44 Pain Intensity Left Arm: Pain Intensity: 2 Transfer of Care Handoff Completed per policy Notes Mental Status: alert / awake / arousable Patient Amnestic to Procedure: Yes Nausea / Vomiting: adequately controlled Pain: adequately controlled Airway Patency, RR, SpO2: stable & adequate BP & HR: stable & adequate Hydration State: stable & adequate Anesthetic Complications: no major complications apparent
[2024-02-26] MEDS ORDERED: CYCLOBENZAPRINE HCL 5 MG TAB PO PRN (12:31)
[2024-02-26] MEDS ORDERED: bisacodyL 10 MG SUPP PR PRN (12:31)
[2024-02-26] MEDS ORDERED: METOCLOPRAMIDE HCL INJ 5 MG/ML 2 ML VIAL IV PRN (12:31)
[2024-02-26] MEDS ORDERED: MECLIZINE 12.5 MG TAB PO PRN (12:31)
[2024-02-26] MEDS ORDERED: MAGNESIUM HYDROXIDE SUSP 30 ML UDC PO PRN (12:31)
[2024-02-26] MEDS ORDERED: HYDROmorphone INJ 0.5 MG/0.5 ML SYR IV PRN (12:31)
[2024-02-26] MEDS ORDERED: NALOXONE HCL 0.4 MG/1 ML VIAL/CARP IV PRN (12:31)
[2024-02-26] MEDS ORDERED: traMADol HCL 50 MG TABLET PO PRN (12:31)
[2024-02-26] MEDS: BUPIVACAINE 0.5 % 5 MG/1 ML MPF 30ML VIAL ONE (12:32)
[2024-02-26] MEDS: LIDOCAINE 1%/EPINEPHRINE 1:100,000 50 ML VIAL ONE (12:32)
[2024-02-26] MEDS ORDERED: ACETAMINOPHEN 325 MG TAB PO PRN (12:47)
[2024-02-26] MEDS: SODIUM CHLORIDE 0.9% 1,000 ML IV SCH (12:56)
[2024-02-26] MEDS: KETOROLAC TROMETHAMINE 15 MG/ML VIAL IV SCH (12:56)
[2024-02-26 16:10] LABS: BUN Creatinine Ratio 9.7 (10-20); Calcium 7.9 mg/dl (8.6-10.3); Est GFR (African American) 98.7 ml/min; Est GFR (Non-African American) 85.2 ml/min; Potassium 3.6 mmol/L (3.5-5.1)
--- NOTE | 2024-02-26 16:47 | Hospitalist Progress Note ---
Date of Service February 26, 2024 Assessment & Plan (1) Hyponatremia: Plan: Sodium 124 on admission has a history of chronic hyponatremia and is on daily salt tablets She had recently completed a 10-day course of cefdinir and doxycycline for pneumonia on 02/17. She reports since taking doxycycline she was feeling very nauseated and had great difficulty eating much Most likely acute on chronic hyponatremia secondary to very poor p.o. intake Improving with IV fluids and salt tablets restarted today Sodium up to 128-129 Increase salt tablet to 1000 mg p.o. twice daily, continues on normal saline through the evening Follow BMP in the morning Avoid agents that can cause SIADH such as tramadol-discontinued (2) Closed fracture of left wrist: Plan: Fractured distal radius and ulna with reduction under anesthesia performed by Dr. Ayala on 02/25 Continue pain control with Toradol, hydrocodone as needed, IV Dilaudid for severe breakthrough pain, and Tylenol Follow-up with orthopedics as directed Follow CBC given bleeding from wound (3) Fall: Plan: Likely secondary to weakness from hyponatremia Now with left wrist in a splint and a right torn rotator cuff, she will have difficulty with ambulation and holding a walker PT/OT consults placed and may need rehab placement (4) PAD (peripheral artery disease): Plan: Has known PAD in lower extremities-right SFA occlusion, left EIA stenosis, previously followed with vascular medicine-last visit 2021-no additional intervention was recommended at that time She is on a statin but not on aspirin She is also noted to have heavily calcified coronary arteries on CT of the chest Will discuss with starting baby aspirin for her (5) Chronic obstructive pulmonary disease: Plan: No acute issues Continue maintenance inhalers (6) HTN (hypertension): Plan: Blood pressures are controlled Continue losartan and metoprolol succinate (7) Abnormal chest CT: Plan: Right upper lobe spiculated 1.2 cm nodule however was just treated for right upper lobe pneumonia [address] and had [address] of the chest in 11/2023 which was reviewed by pulmonology and thought to be multiple 4 mm pulmonary nodules in that same area She does have a long history of smoking Recommend follow-up with pulmonology and repeat CT imaging in 3 months or sooner if pulmonology recommends (8) Buerger disease: Plan: Noted, 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 She suffered a skin tear which tore further during the reduction and had some bleeding which is now bandaged and has stopped. I discussed her care with orthopedic surgery. Patient reports that she had very poor p.o. intake after taking doxycycline for pneumonia for 10 days a couple of weeks ago. She wonders if the low sodium is what caused her to fall. Telemetry with normal sinus rhythm and sinus tachycardia with rates in the 70s to 120s. She is still having quite a bit of pain in the left wrist but is improved from previous. Physical Exam Constitutional: WD/WN, vitals as above Respiratory: normal respiratory effort, lungs clear to auscultation Cardiovascular: RRR, no murmur, no edema Gastrointestinal (Abdomen): normal bowel sounds, soft, nontender, no hepatosplenomegaly Musculoskeletal: Extremities: + extremities abnormal to inspection (Left wrist in splint, extensive edema and ecchymosis through left hand) Skin: Trauma: + evidence of skin trauma (Left index finger and hand with laceration dressed) Psychiatric: A+Ox3, euthymic affect Results & Data Results & Data Vital Signs (Past 12 Hours) Vital Signs Temp Pulse Pulse Pulse Resp BP Pulse Ox 02/26/24 14:05 83 02/26/24 13:56 36.4 C L 88 16 140/64 96 02/26/24 12:56 36.8 C 85 16 141/62 H 95 02/26/24 11:56 36.4 C L 16 148/77 H 95 02/26/24 11:45 85 19 163/71 H 95 02/26/24 11:35 88 17 135/88 94 02/26/24 11:26 36.8 C 88 16 145/75 H 94 02/26/24 11:25 85 16 169/97 H 94 02/26/24 11:15 85 16 170/63 H 92 02/26/24 11:05 86 18 171/72 H 92 02/26/24 10:58 37.0 C 94 H 20 168/77 H 92 02/26/24 09:40 02/26/24 07:42 36.7 C 58 L 16 161/83 H 94 02/26/24 07:18 73 O2 Del Method O2 Flow Rate 02/26/24 14:05 02/26/24 13:56 Nasal Cannula 3 02/26/24 12:56 Nasal Cannula 3 02/26/24 11:56 Nasal Cannula 2 02/26/24 11:45 Nasal Cannula 2 02/26/24 11:35 Nasal Cannula 2 02/26/24 11:26 Nasal Cannula 3 02/26/24 11:25 Nasal Cannula 2 02/26/24 11:15 Nasal Cannula 3 02/26/24 11:05 Nasal Cannula 3 02/26/24 10:58 Nasal Cannula 3 02/26/24 09:40 Nasal Cannula 2 02/26/24 07:42 Nasal Cannula 1 02/26/24 07:18 Laboratory Results CBC, BMP x 3, LFTs, magnesium reviewed PG Care Time/CCT Total # of Minutes Spent Total Time Spent with Patient: Total time spent is greater than 50% in coordination of care (as documented) at patient's floor/unit and/or counseling patient: Coding Level of Care Code 08644 SUB INP/OBS CARE 235MIN Diagnoses Hyponatremia E87.1 Closed fracture of left wrist S62.102A Fall W19.XXXA PAD (peripheral artery disease) I73.9 Chronic obstructive pulmonary disease J44.9 HTN (hypertension) I10 Ab[address] chest [address] R93.89 Buerger disease I73.1
--- NOTE | 2024-02-26 17:44 | Orthopedic Progress Note ---
Date of Service February 26, 2024 Assessment & Plan (1) Closed fracture of left wrist: Plan: IMPRESSION: POD #0 s/p closed reduction Left distal radius fracture, comminuted, intra-articular, fracture & non-displaced distal ulna metaphyseal fracture PLAN: RICE Elevate hand above heart Sling when ambulating Continue in splint, NWB LUE Continue pain control Continue pain control per Hospitalist service. Will continue to follow. Pt will f/u in Dr. Ayala's office in 1 week with x-rays in plaster. Admission and Anticipated Discharge Date Admission Date: February 25, 2024 Subjective Left wrist pain Physical Exam Physical Exam: More alert today LUE: BCR < 2 seconds. Sensation to light touch intact. Improved motion of the digits. + Swelling and bruising digits. Splint in good repair. Dressing L MF replaced with Kerlix. Results & Data Vital Signs (Past 12 Hours) Vital Signs Temp Pulse Pulse Pulse Resp BP Pulse Ox 02/26/24 14:05 83 02/26/24 13:56 36.4 C L 88 16 140/64 96 02/26/24 12:56 36.8 C 85 16 141/62 H 95 02/26/24 11:56 36.4 C L 16 148/77 H 95 02/26/24 11:45 85 19 163/71 H 95 02/26/24 11:35 88 17 135/88 94 02/26/24 11:26 36.8 C 88 16 145/75 H 94 02/26/24 11:25 85 16 169/97 H 94 02/26/24 11:15 85 16 170/63 H 92 02/26/24 11:05 86 18 171/72 H 92 02/26/24 10:58 37.0 C 94 H 20 168/77 H 92 02/26/24 09:40 02/26/24 07:42 36.7 C 58 L 16 161/83 H 94 02/26/24 07:18 73 O2 Del Method O2 Flow Rate 02/26/24 14:05 02/26/24 13:56 Nasal Cannula 3 02/26/24 12:56 Nasal Cannula 3 02/26/24 11:56 Nasal Cannula 2 02/26/24 11:45 Nasal Cannula 2 02/26/24 11:35 Nasal Cannula 2 02/26/24 11:26 Nasal Cannula 3 02/26/24 11:25 Nasal Cannula 2 02/26/24 11:15 Nasal Cannula 3 02/26/24 11:05 Nasal Cannula 3 02/26/24 10:58 Nasal Cannula 3 02/26/24 09:40 Nasal Cannula 2 02/26/24 07:42 Nasal Cannula 1 02/26/24 07:18
[2024-02-26] MEDS: ASCORBIC ACID 500 MG TAB PO SCH (18:19)
[2024-02-26] MEDS: SENNA 8.6 MG TAB PO SCH (20:41)
[2024-02-26] MEDS: ENOXAPARIN INJ 40 MG/0.4 ML SYR SQ SCH (20:41)
[2024-02-26] MEDS: DOCUSATE SODIUM 100 MG CAP PO SCH (20:41)
[2024-02-26] MEDS: SODIUM CHLORIDE 1 GM TABLET PO SCH (20:41)
[2024-02-27 06:37] LABS: Basophils # (auto) 0.04 K/uL (0.00-0.20); Basophils % (auto) 0.5 %; Eosinophils # (auto) 0.13 K/uL (0.00-0.50); Eosinophils % (auto) 1.5 %; Hematocrit (blood only) 34.5 % (37.0-47.0); Hemoglobin 11.5 g/dl (12.0-16.0); Immature Granulocytes # (auto) 0.04 K/uL (0.01-0.20); Immature Granulocytes % (auto) 0.5 %; Lymphocytes # (auto) 1.06 K/uL (1.20-3.40); Lymphocytes % (auto) 12.6 %; Mean Corpuscular Hgb Conc 33.3 g/dL (32.0-36.0); Mean Corpuscular Volume 86.9 fL (80.0-100.0); Mean Platelet Volume 9.7 fL (9.4-12.4); Monocytes # (auto) 1.19 K/uL (0.11-0.59); Monocytes % (auto) 14.1 %; Neutrophils # (auto) 5.96 K/uL (1.40-6.50); Neutrophils % (auto) 70.8 %; Platelet Count 320 K/uL (130-400); RDW Coefficient of Variation 12.4 % (11.5-14.5); RDW Standard Deviation 39.8 fL (36.4-46.3); Red Blood Count 3.97 M/uL (4.20-5.40); White Blood Count 8.42 K/ul (4.8-10.8)
[2024-02-27 07:22] LABS: BUN Creatinine Ratio 12.2 (10-20); Calcium 7.8 mg/dl (8.6-10.3); Creatinine Clr Calc Pharmacy 68.1 ml/min; Est GFR (African American) 106.6 ml/min; Magnesium 1.7 mg/dl (1.7-2.4); Potassium 3.3 mmol/L (3.5-5.1)
--- NOTE | 2024-02-27 08:36 | Orthopedic Progress Note ---
Date of Service February 27, 2024 Assessment & Plan (1) Closed fracture of left wrist: Plan: IMPRESSION: POD #1 s/p closed reduction Left distal radius fracture, comminuted, intra-articular, fracture & non-displaced distal ulna metaphyseal fracture PLAN: RICE Elevate hand above heart Change finger dressing as needed. Sling when ambulating Continue in splint, NWB LUE Continue pain control Continue care per Hospitalist service. Will continue to follow. Pt will f/u in Dr. Ayala's office in 1 week with x-rays in plaster. Admission and Anticipated Discharge Date Admission Date: February 25, 2024 Subjective Still having left wrist pain, but improved Physical Exam Physical Exam: More alert today LUE: BCR < 2 seconds. Sensation to light touch intact. Much improved motion of the digits. + Swelling and bruising digits. Splint in good repair. Dressing L MF with serosanguineous drainage. Results & Data Vital Signs (Past 12 Hours) Vital Signs Temp Pulse Pulse Resp BP Pulse Ox O2 Del Method 02/27/24 07:46 36.5 C 81 20 153/82 H 98 Nasal Cannula 02/27/24 03:11 36.9 C 81 16 146/71 H 93 Nasal Cannula 02/26/24 23:40 78 02/26/24 23:09 36.5 C 75 16 137/78 92 Room Air 02/26/24 21:55 Room Air O2 Flow Rate 02/27/24 07:46 2 02/27/24 03:11 2 02/26/24 23:40 02/26/24 23:09 02/26/24 21:55 Laboratory Results 02/27/24 02/26/24 Range/Units 05:45 14:59 WBC 8.42 (4.8-10.8) K/ul RBC 3.97 L (4.20-5.40) M/uL Hgb 11.5 L (12.0-16.0) g/dl Hct 34.5 L (37.0-47.0) % MCV 86.9 (80.0-100.0) fL MCH 29.0 (25.0-34.0) pg MCHC 33.3 (32.0-36.0) g/dL RDW Std Deviation 39.8 (36.4-46.3) fL RDW Coeff of Edwin 12.4 (11.5-14.5) % Plt Count 320 (130-400) K/uL MPV 9.7 (9.4-12.4) fL Immature Gran % (Auto) 0.5 % Neut % (Auto) 70.8 % Lymph % (Auto) 12.6 % [place] % (Auto) 14.1 % Eos % (Auto) 1.5 % Baso % (Auto) 0.5 % Neut # (Auto) 5.96 (1.40-6.50) K/uL Lymph # (Auto) 1.06 L (1.20-3.40) K/uL [place] # (Auto) 1.19 H (0.11-0.59) K/uL Eos # (Auto) 0.13 (0.00-0.50) K/uL Baso # (Auto) 0.04 (0.00-0.20) K/uL Immature Gran # (Auto) 0.04 (0.01-0.20) K/uL Sodium 134 L 128 L (136-145) mmol/L Potassium 3.3 L 3.6 (3.5-5.1) mmol/L Chloride 102 96 L (98-107) mmol/L Carbon Dioxide 27 26 (21-32) mmol/L Anion Gap 5 6 (3-11) BUN 6 6 (6-23) mg/dl Creatinine 0.49 L 0.62 (0.6-1.2) mg/dl Est Cr Clr Drug Dosing 68.1 54.0 ml/min Est GFR ( Amer) 106.6 98.7 ml/min Est GFR (Non-Af Amer) 92.0 85.2 ml/min BUN/Creatinine Ratio 12.2 9.7 L (10-20) Glucose 74 119 H (70-99(Fasting)) mg/dl Calcium 7.8 L 7.9 L (8.6-10.3) mg/dl Magnesium 1.7 (1.7-2.4) mg/dl Diagnostic Findings INTRAOPERATIVE RADIOGRAPHS CLINICAL HISTORY: Closed reduction of the left wrist. Fluoro time: 9 seconds Ka,r: 0.36 mGy FINDINGS: 2 spot fluoroscopic views of the left wrist are presented. Correlation is made with radiographs dated 02/25/2024. Casting material is in place. Again seen are fractures of the distal radial and ulna. Alignment is significantly improved following casting. There is persistent widening between the scaphoid and lunate. IMPRESSION: Intraoperative images from casting of distal radial and ulnar fractures as above. Electronically signed by: Keyur Mcarthur M.D. 02/26/2024 10:59 AM
[2024-02-27] MEDS ORDERED: SODIUM CHLORIDE 1 GM TABLET PO SCH (09:00)
[2024-02-27] MEDS: POTASSIUM CHLORIDE CRTAB 20 MEQ TABCR PO STA (09:46)
[2024-02-27] MEDS: METOPROLOL SUCC 50MG EXT REL TAB PO SCH (09:46)
[2024-02-27] MEDS: LOSARTAN POTASSIUM 50 MG TAB PO SCH (09:46)
[2024-02-27] MEDS: ROSUVASTATIN CALCIUM 5 MG TAB PO SCH (09:47)
[2024-02-27] MEDS: CHOLECALCIFEROL 125 MCG (5,000 UNITS) TAB PO SCH (09:47)
[2024-02-27] MEDS: FOLIC ACID 1 MG TAB PO SCH (09:47)
[2024-02-27] MEDS: MULTIVITAMIN TAB PO SCH (09:47)
[2024-02-27] MEDS: MAGNESIUM SULFATE / D5W 1 GM/100 ML BAG IV ONE (09:57)
[2024-02-27] MEDS: HYDROCODONE/ACETAMOPHEN 5/325MG TAB PO PRN (13:11)
--- NOTE | 2024-02-27 14:48 | Hospitalist Progress Note ---
Date of Service February 27, 2024 Assessment & Plan (1) Hyponatremia: Plan: Sodium 124 on admission has a history of chronic hyponatremia and is on daily salt tablets She had recently completed a 10-day course of cefdinir and doxycycline for pneumonia on 02/17. She reports since taking doxycycline she was feeling very nauseated and had great difficulty eating much Most likely acute on chronic hyponatremia secondary to very poor p.o. intake Improving now up to 134 with IV fluids and salt tablets increased to 1000mg po bid, improved appetite Continue NaCl 1000mg po bid and if Na+ back to normal tomorrow, can decrease back to home dosing 1000mg daily Follow BMP in the morning Avoid agents that can cause SIADH such as tramadol-discontinued Hypokalemia-mild, replace today with KCl po (2) Closed fracture of left wrist: Plan: Fractured distal radius and ulna with reduction under anesthesia performed by Dr. Ayala on 02/25 Continue pain control with Toradol, hydrocodone as needed, IV Dilaudid for severe breakthrough pain, and Tylenol Follow-up with orthopedics as directed in 1 week with repeat xray at that time Continue wound care for laceration of hand/finger on left (3) Fall: Plan: Likely secondary to weakness from hyponatremia Now with left wrist in a splint and a right torn rotator cuff, she will have difficulty with ambulation and holding a walker PT/OT consults placed and needs rehab placement-no bed available at [facility] today (4) PAD (peripheral artery disease): Plan: Has known PAD in lower extremities-right SFA occlusion, left EIA stenosis, previously followed with vascular medicine-last visit 2021-no additional intervention was recommended at that time She is on a statin but not on aspirin She is also noted to have heavily calcified coronary arteries on CT of the chest Defer discussion of starting baby aspirin to PCP/Cardiology/vascular Med (5) Chronic obstructive pulmonary disease: Plan: No acute issues, on room air Continue maintenance inhalers (6) HTN (hypertension): Plan: Blood pressures are controlled Continue losartan and metoprolol succinate (7) Abnormal chest CT: Plan: Right upper lobe spiculated 1.2 cm nodule however was just treated for right upper lobe pneumonia [address] and had [address] of the chest in 11/2023 which was reviewed by pulmonology and thought to be multiple 4 mm pulmonary nodules in that same area She does have a long history of smoking Recommend follow-up with pulmonology and repeat CT imaging in 3 months or sooner if pulmonology recommends I reached out to her PULM, Dr. 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 Hopeful for discharge to [facility] tomorrow. No auth needed as she has Medicare. Of note, her is also currently at [facility]. Downgrade to med/surg now that sodium has normalized Discussed care with daughter, Olga, at bedside Admission and Anticipated Discharge Date Admission Date: February 25, 2024 Subjective Pt having pain in left arm, improved somewhat now with hydrocodone. No other complaints. No BM since admission Tele with NSR rates 70s Physical Exam Constitutional: WD/WN, vitals as above Respiratory: normal respiratory effort, lungs clear to auscultation Cardiovascular: RRR, no murmur, no edema Gastrointestinal (Abdomen): normal bowel sounds, soft, nontender, no hepatosplenomegaly Musculoskeletal: Extremities: + extremities abnormal to inspection (Left wrist in splint, extensive edema and ecchymosis through left hand) Skin: Trauma: + evidence of skin trauma (Left index finger and hand with laceration dressed) Psychiatric: A+Ox3, euthymic affect Results & Data Results & Data Vital Signs (Past 12 Hours) Vital Signs Temp Pulse Resp BP Pulse Ox O2 Del Method O2 Flow Rate 02/27/24 11:47 36.4 C L 72 20 136/77 95 Room Air 02/27/24 10:49 Room Air 02/27/24 07:46 36.5 C 81 20 153/82 H 98 Nasal Cannula 2 02/27/24 03:11 36.9 C 81 16 146/71 H 93 Nasal Cannula 2 Laboratory Results CBC, BMP, magnesium reviewed PG Care Time/CCT Total # of Minutes Spent Total Time Spent with Patient: Total time spent is greater than 50% in coordination of care (as documented) at patient's floor/unit and/or counseling patient: Coding Level of Care Code 54391 SUB INP/OBS CARE 2/35MIN Diagnoses Hyponatremia E87.1 Closed fracture of left wrist S62.102A Fall W19.XXXA PAD (peripheral artery disease) I73.9 Chronic obstructive pulmonary disease J44.9 HTN (hypertension) I10 Abnormal chest CT R93.89 Buerger disease I73.1
[2024-02-28 07:21] LABS: Basophils # (auto) 0.06 K/uL (0.00-0.20); Basophils % (auto) 0.9 %; Eosinophils # (auto) 0.29 K/uL (0.00-0.50); Eosinophils % (auto) 4.2 %; Hematocrit (blood only) 35.2 % (37.0-47.0); Hemoglobin 11.3 g/dl (12.0-16.0); Immature Granulocytes # (auto) 0.02 K/uL (0.01-0.20); Immature Granulocytes % (auto) 0.3 %; Lymphocytes # (auto) 1.24 K/uL (1.20-3.40); Lymphocytes % (auto) 17.9 %; Mean Corpuscular Hemoglobin 28.5 pg (25.0-34.0); Mean Corpuscular Hgb Conc 32.1 g/dL (32.0-36.0); Mean Corpuscular Volume 88.7 fL (80.0-100.0); Mean Platelet Volume 9.4 fL (9.4-12.4); Monocytes # (auto) 0.78 K/uL (0.11-0.59); Monocytes % (auto) 11.3 %; Neutrophils # (auto) 4.52 K/uL (1.40-6.50); Neutrophils % (auto) 65.4 %; Platelet Count 350 K/uL (130-400); RDW Coefficient of Variation 12.7 % (11.5-14.5); RDW Standard Deviation 41.5 fL (36.4-46.3); Red Blood Count 3.97 M/uL (4.20-5.40); White Blood Count 6.91 K/ul (4.8-10.8)
[2024-02-28 07:36] LABS: BUN Creatinine Ratio 17.8 (10-20); Calcium 8.2 mg/dl (8.6-10.3); Creatinine Clr Calc Pharmacy 74.2 ml/min; Est GFR (African American) 109.7 ml/min; Est GFR (Non-African American) 94.6 ml/min; Magnesium 1.9 mg/dl (1.7-2.4); Potassium 4.1 mmol/L (3.5-5.1)
--- NOTE | 2024-02-28 08:18 | Hospitalist Progress Note ---
Date of Service February 28, 2024 Assessment & Plan (1) Hyponatremia: Plan: Sodium 124 on admission has a history of chronic hyponatremia and is on daily salt tablets She had recently completed a 10-day course of cefdinir and doxycycline for pneumonia on 02/17. She reports since taking doxycycline she was feeling very nauseated and had great difficulty eating much Most likely acute on chronic hyponatremia secondary to very poor p.o. intake Improving now up to 134 with IV fluids and salt tablets increased to 1000mg po bid, improved appetite Continue NaCl 1000mg po bid and if Na+ back to normal tomorrow, can decrease back to home dosing 1000mg daily but will continue for now, Na decreased to 133. could have some uncontrolled pain, lidocaine patch for rib discomfort ordered, incentive spirometer given recent PNA Hypokalemia- replaced w/ PO and normal 4.1 on AM labs. Mag 1.9 Avoid agents that can cause SIADH such as tramadol-discontinued BMP in AM [facility] planned, messaged CM for update on bed availability (2) Closed fracture of left wrist: Plan: Fractured distal radius and ulna with reduction under anesthesia performed by Dr. Ayala on 02/25 Continue pain control with Toradol, hydrocodone as needed, IV Dilaudid for severe breakthrough pain, and Tylenol Follow-up with orthopedics as directed in 1 week with repeat xray at that time Continue wound care for laceration of hand/finger on left (3) Fall: Plan: Likely secondary to weakness from hyponatremia Now with left wrist in a splint and a right torn rotator cuff, she will have difficulty with ambulation and holding a walker PT/OT consults placed and needs rehab placement-no bed available at [facility] today, CM messaged (4) PAD (peripheral artery disease): Plan: Has known PAD in lower extremities-right SFA occlusion, left EIA stenosis, previously followed with vascular medicine-last visit 2021-no additional intervention was recommended at that time She is on a statin but not on aspirin She is also noted to have heavily calcified coronary arteries on CT of the chest Defer discussion of starting baby aspirin to PCP/Cardiology/vascular Med (5) Chronic obstructive pulmonary disease: Plan: No acute issues, on room air Continue maintenance inhalers Saline nasal spray added as takes at home, incentive spirometer as well as lidocaine patch for rib discomfort (6) HTN (hypertension): Plan: Blood pressures are controlled 133/63 Continue losartan and metoprolol succinate (7) Abnormal chest CT: Plan: Right upper lobe spiculated 1.2 cm nodule however was just treated for right upper lobe pneumonia [address] weeks [address] and had [address] of the chest in 11/2023 which was reviewed by pulmonology and thought to be multiple 4 mm pulmonary nodules in that same area She does have a long history of smoking Recommend follow-up with pulmonology and repeat CT imaging in 3 months or sooner if pulmonology recommends I reached out to her PULM, Dr. 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 Hopeful for discharge to [facility] today vs tomorrow, CM to alert when bed available as no auth needed (medicare) also at [facility] currently Discussed care with daughter, Olga, at bedside day prior Admission and Anticipated Discharge Date Admission Date: February 25, 2024 Supervising Physician Co-Signing Physician Notes The patient was not seen by me. The chart was reviewed. Case discussed with BEHZAD Hicks. Agree with assessment and plan Subjective Eval this morning, ortho changing dressing. No CP, SOB, does have some dry nose, uses saline spray at home and will order. Good appetite but trouble moving her bowels and will increase regimen. Painful this morning but provided with medication which she reports is helping. She does have some L sided rib pain, will order lidocaine patch to see if assists with pain as well, patient agreeable. She is just gotten over a pneumonia and will have RN provide incentive spirometer as well to prevent any issues. Planning for [facility] for rehab once bed/insurance auth received. Questions/concerns addressed at this time. 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 Physical Exam Physical Exam: General: 78yo female sitting up at side of bed, orthopedics in room, NAD, changing dressing to hand HEENT: head atraumatic, normocephalic, mmm, trachea midline Chest: tenderness L ribs Resp: even/unlabored, slightly diminished in the bases, no w/c/r, on room air CV: RRR, no significant m/r/g, no calf edema/tenderness GI: +BS, soft/slight distension, nontender : no joy MSK/Neuro: LEFT hand in splint, dressing to fingers being changed by orthopedics, serous drainage from laceration Psych: AOx3, cooperative with exam Results & Data Results & Data Vital Signs (Past 12 Hours) Vital Signs Temp Pulse Resp BP Pulse Ox O2 Del Method 02/28/24 07:40 36.6 C 65 16 133/63 94 Room Air Laboratory Results 02/28/24 Range/Units 06:18 WBC 6.91 (4.8-10.8) K/ul RBC 3.97 L (4.20-5.40) M/uL Hgb 11.3 L (12.0-16.0) g/dl Hct 35.2 L (37.0-47.0) % MCV 88.7 (80.0-100.0) fL MCH 28.5 (25.0-34.0) pg MCHC 32.1 (32.0-36.0) g/dL RDW Std Deviation 41.5 (36.4-46.3) fL RDW Coeff of Edwin 12.7 (11.5-14.5) % Plt Count 350 (130-400) K/uL MPV 9.4 (9.4-12.4) fL Immature Gran % (Auto) 0.3 % Neut % (Auto) 65.4 % Lymph % (Auto) 17.9 % Morton % (Auto) 11.3 % Eos % (Auto) 4.2 % Baso % (Auto) 0.9 % Neut # (Auto) 4.52 (1.40-6.50) K/uL Lymph # (Auto) 1.24 (1.20-3.40) K/uL Morton # (Auto) 0.78 H (0.11-0.59) K/uL Eos # (Auto) 0.29 (0.00-0.50) K/uL Baso # (Auto) 0.06 (0.00-0.20) K/uL Immature Gran # (Auto) 0.02 (0.01-0.20) K/uL Sodium 133 L (136-145) mmol/L Potassium 4.1 D (3.5-5.1) mmol/L Chloride 101 (98-107) mmol/L Carbon Dioxide 26 (21-32) mmol/L Anion Gap 6 (3-11) BUN 8 (6-23) mg/dl Creatinine 0.45 L (0.6-1.2) mg/dl Est Cr Clr Drug Dosing 74.2 ml/min Est GFR ( Amer) 109.7 ml/min Est GFR (Non-Af Amer) 94.6 ml/min BUN/Creatinine Ratio 17.8 (10-20) Glucose 78 (70-99(Fasting)) mg/dl Calcium 8.2 L (8.6-10.3) mg/dl Magnesium 1.9 (1.7-2.4) mg/dl PG Care Time/CCT Total # of Minutes Spent Total Time Spent with Patient: Total time spent is greater than 50% in coordination of care (as documented) at patient's floor/unit and/or counseling patient: Coding Level of Care Code 50611 SUB INP/OBS CARE 2/35MIN Diagnoses Hyponatremia E87.1 Closed fracture of left wrist S62.102A Fall W19.XXXA PAD (peripheral artery disease) I73.9 Chronic obstructive pulmonary disease J44.9 HTN (hypertension) I10 [address] R93.89 Buerger disease I73.1
[2024-02-28] MEDS: POLYETHYLENE (MIRALAX) 17 GM PACK PO SCH (10:15)
[2024-02-28] MEDS: LIDOCAINE 5% 1 PATCH TD SCH (10:19)
[2024-02-28] MEDS: SODIUM CHLORIDE 0.65% NA SOLN 45 ML (OCEAN) PRN (10:27)
[2024-02-28] MEDS: PANTOprazole 40 MG TAB PO SCH (10:43)
[2024-02-28] MEDS: ACETAMINOPHEN 325 MG TAB PO PRN (10:43)
--- NOTE | 2024-02-28 11:47 | Orthopedic Progress Note ---
Date of Service February 28, 2024 Assessment & Plan (1) Closed fracture of left wrist: Plan: IMPRESSION: POD #2 s/p closed reduction Left distal radius fracture, comminuted, intra-articular, fracture & non-displaced distal ulna metaphyseal fracture, with skin tears PLAN: RICE Elevate hand above heart, re-adjusted Change finger dressing as needed. Sling when ambulating Continue in splint, NWB LUE, loosened slightly at the ulnar distal aspect Continue pain control Continue care per Hospitalist service. Will continue to follow. Pt will f/u in Dr. Ayala's office in 1 week with x-rays in plaster. Admission and Anticipated Discharge Date Admission Date: February 25, 2024 Subjective Throbbing left wrist pain, controlled with oral pain medicine Physical Exam Physical Exam: More alert today LUE: BCR < 2 seconds. Sensation to light touch intact. Much improved motion of the digits. + Swelling and bruising digits. Splint in good repair. Dressing L MF & IF with serosanguineous drainage from skin tears. Results & Data Vital Signs (Past 12 Hours) Vital Signs Temp Pulse Resp BP Pulse Ox O2 Del Method 02/28/24 07:40 36.6 C 65 16 133/63 94 Room Air Laboratory Results 02/28/24 Range/Units 06:18 WBC 6.91 (4.8-10.8) K/ul RBC 3.97 L (4.20-5.40) M/uL Hgb 11.3 L (12.0-16.0) g/dl Hct 35.2 L (37.0-47.0) % MCV 88.7 (80.0-100.0) fL MCH 28.5 (25.0-34.0) pg MCHC 32.1 (32.0-36.0) g/dL RDW Std Deviation 41.5 (36.4-46.3) fL RDW Coeff of Edwin 12.7 (11.5-14.5) % Plt Count 350 (130-400) K/uL MPV 9.4 (9.4-12.4) fL Immature Gran % (Auto) 0.3 % Neut % (Auto) 65.4 % Lymph % (Auto) 17.9 % Vigo % (Auto) 11.3 % Eos % (Auto) 4.2 % Baso % (Auto) 0.9 % Neut # (Auto) 4.52 (1.40-6.50) K/uL Lymph # (Auto) 1.24 (1.20-3.40) K/uL Vigo # (Auto) 0.78 H (0.11-0.59) K/uL Eos # (Auto) 0.29 (0.00-0.50) K/uL Baso # (Auto) 0.06 (0.00-0.20) K/uL Immature Gran # (Auto) 0.02 (0.01-0.20) K/uL Sodium 133 L (136-145) mmol/L Potassium 4.1 D (3.5-5.1) mmol/L Chloride 101 (98-107) mmol/L Carbon Dioxide 26 (21-32) mmol/L Anion Gap 6 (3-11) BUN 8 (6-23) mg/dl Creatinine 0.45 L (0.6-1.2) mg/dl Est Cr Clr Drug Dosing 74.2 ml/min Est GFR ( Amer) 109.7 ml/min Est GFR (Non-Af Amer) 94.6 ml/min BUN/Creatinine Ratio 17.8 (10-20) Glucose 78 (70-99(Fasting)) mg/dl Calcium 8.2 L (8.6-10.3) mg/dl Magnesium 1.9 (1.7-2.4) mg/dl
--- NOTE | 2024-02-28 11:54 | Discharge Summary ---
Date of Service February 28, 2024 Admission HPI Per Admitting Provider The patient is an 78-year-old female with a past medical history including chronic hyponatremia, history of acute metabolic encephalopathy, cervical degenerative disc disease, PAD, retinal vein occlusion, Buerger's disease, GERD patient's tobacco use disorder. The patient is confused, and has difficulty telling her history. She was trying to get up from her couch, lost her balance, and fell on her left wrist. X-rays in the emergency department fracture. She also complained of left rib cage pain, however, CT chest does not reveal any fractures.. She also complains that her mouth is very dry. Admission Exam Per Admitting Provider The patient is awake, alert and oriented 3, well developed and well nourished, normocephalic and atraumatic, lying in bed and in no acute distress. HEENT--PERRL, EOMI, mucous membranes and oropharynx moderately dry. Neck--supple. No JVD. No bruits. Thyroid normal, trachea midline, no ad enopathy. Heart--normal S1 and S2. No murmurs, rubs or gallops. Lungs--clear bilaterally, no respiratory distress, no accessory muscle use. Abdomen--normal bowel sounds and soft. Nontender. Nondistended, no hernias or masses, no organomegaly. Extremities--No edema. Left wrist and arm in immobilizer Dermatologic--normal skin turgor, normal color, no abnormal lymph nodes, no rash. Neurologic--cranial nerves II through XII grossly intact. Rheumatologic--normal range of motion except for left arm Psychiatric--mildly confused and lethargic Principal Diagnosis Closed LEFT wrist fracture, Hyponatremia Discharge Exam General: 78yo female sitting up at side of bed, orthopedics in room, NAD, ch anging dressing to hand HEENT: head atraumatic, normocephalic, mmm, trachea midline Chest: tenderness L ribs Resp: even/unlabored, slightly diminished in the bases, no w/c/r, on room air CV: RRR, no significant m/r/g, no calf edema/tenderness GI: +BS, soft/slight distension, nontender : no hamilton MSK/Neuro: LEFT hand in splint, dressing to fingers being changed by orthopedics, serous drainage from laceration Psych: AOx3, cooperative with exam Discharge Data Allergies Allergy/AdvReac Type Severity Reaction Status Date / Time Penicillins Allergy Unknown Hives Verified 02/21/24 15:21 Sulfa (Sulfonamide Allergy Unknown SWELLING Verified 02/21/24 15:21 Antibiotics) ciprofloxacin [From Cipro] AdvReac Severe Dizziness Verified 02/21/24 15:21 Consultations 02/25/24 06:10 ED Decision to Admit Stat 02/25/24 06:42 Consult Orthopedic Surgery Routine Procedures Performed Operation Date: 02/26/24 09:00 Actual Procedures p Closed reduction of left wrist. (Left) - Preston Ayala MD Ordered Studies Chest CT 02/25/24 04:12 Exam(s): CT CHEST With Contrast IV Amt: 94 ml opti 320 EXAM: CT Chest With Intravenous Contrast CLINICAL HISTORY: Reason for exam: Trauma. TECHNIQUE: Axial computed tomography images of the chest with intravenous contrast. CTDI is 8.6 mGy and DLP is 273.41 mGy-cm. Automated exposure control was utilized for the study. A dose lowering technique was utilized adhering to the principles of ALARA. CONTRAST: Patient received 94 ml opti 320 of IV contrast COMPARISON: No relevant prior studies available. FINDINGS: Lungs: On image #22 of 58 1.2 cm spiculated nodular region is demonstrated within the right lung. There is some right apical pleural scarring. No consolidation. Pleural space: Unremarkable. No pneumothorax. No significant effusion. Heart: Unremarkable. No cardiomegaly. No significant pericardial effusion. No significant coronary artery calcifications. Bones/joints: There is some degenerative changes to the osseous structures. No acute fracture. No dislocation. Soft tissues: Unremarkable. Vasculature: Unremarkable. No thoracic aortic aneurysm. Lymph nodes: Unremarkable. No enlarged lymph nodes. IMPRESSION: No pulmonary emboli, suspicious nodular region demonstrated right side. Additional chronic change. Electronically signed by: Eric Pagan MD 02/25/24 06:03 AM Wrist X-Ray 02/25/24 04:12 LEFT WRIST 2 VIEWS CLINICAL HISTORY: Fall. Left wrist injury. FINDINGS: 2 views of the left wrist are compared to study dated 08/26/2015. The skeletal structures are osteopenic. There is an impacted and comminuted intra- articular fracture of the distal radial metaphysis with apex volar angulation. There are dorsally displaced and overriding fragments. There is also a comminuted and mildly displaced fracture of the distal ulnar metaphysis. Overlying soft tissue edema is noted. Arthritic change is seen throughout the wrist. A ring is present on the fourth digit. IMPRESSION: Distal radial and ulnar fractures as above. Electronically signed by: Keyur Mcarthur M.D. 02/25/2024 7:17 AM Wrist X-Ray 02/25/24 05:51 LEFT WRIST 2 VIEWS CLINICAL HISTORY: Postreduction examination. FINDINGS: Portable AP and crosstable lateral views of the left wrist are compared to the study performed earlier the same day, 02/25/2024. The examination is performed for a cast, obscuring fine bony detail. Again seen is an impacted and comminuted intra-articular fracture of the distal radius. There is mild persistent apex volar angulation. There are dorsal displaced fragments by up to 8 mm as well as mild overriding of fragments. There is also an oblique fracture of the distal ulnar metadiaphysis. Widening of the scaphoid and lunate suggests age-indeterminate ligamentous injury. Arthritic change is seen throughout the wrist. Overlying soft tissue edema is observed. IMPRESSION: 1. Improved alignment of distal radial and ulnar fractures as above status post casting with persistent displacement/angulation of fragments. 2. Widening between the scaphoid and lunate suggests age-indeterminate ligamentous injury. Dictated: 02/25/2024 7:08 AM Transcribed: 02/25/2024 7:49 AM Kvng [id number] [email or web address] Electronically signed by: Keyur Mcarthur M.D. 02/25/2024 10:[address] 02/25/24 11:47 CT SCAN OF THE LEFT WRIST WITHOUT IV CONTRAST CLINICAL HISTORY: Distal radial and ulnar fractures. COMPARISON STUDY: Radiographs of the left wrist dated 02/25/2024. TECHNIQUE: CT scan of the left wrist is performed from the radial and ulnar shafts to the hand. Images are reviewed in the axial, sagittal, and coronal planes. IV contrast was not administered for this examination. 3-D reformats are created and assessed. A dose lowering technique was utilized adhering to the principles of ALARA. The examination is degraded by suboptimal positioning within the CT gantry. CT DOSE: 589.11 mGy.cm FINDINGS: The skeletal structures are osteopenic. There is an impacted and comminuted intra-articular fracture of the distal radial metaphysis with dorsal displacement and mild overriding of fragments. Fragments are displaced poste riorly by up to 1.5 cm. There is apex volar angulation. There is also a comminuted fracture of the distal ulnar metaphysis with minimal displacement of fragments. Hemorrhage and soft tissue edema is seen around the fractures. No additional fracture is clearly seen in the wrist. Widening between the scaphoid and lunate suggests age-indeterminate ligamentous injury. IMPRESSION: Distal radial and ulnar fractures as above. ACT 112: Negative or not required by law. Dictated: 02/25/2024 5:17 PM Transcribed: 02/25/2024 7:16 PM Kvng [id number] [email or web address] Electronically signed by: Keyur Mcarthur M.D. 02/25/2024 8:21 PM Wrist X-Ray 02/26/24 00:00 INTRAOPERATIVE RADIOGRAPHS CLINICAL HISTORY: Closed reduction of the left wrist. Fluoro time: 9 seconds Ka,r: 0.36 mGy FINDINGS: 2 spot fluoroscopic views of the left wrist are presented. Correlation is made with radiographs dated 02/25/2024. Casting material is in place. Again seen are fractures of the distal radial and ulna. Alignment is significantly improved following casting. There is persistent widening between the scaphoid and lunate. IMPRESSION: Intraoperative images from casting of distal radial and ulnar fractures as above. Electronically signed by: Keyur Mcarthur M.D. 02/26/2024 10:59 AM Hospital Course (1) Closed fracture of left wrist: 78yo female presented after mechanical fall in her living room between coffee table and couch and attempted to brace her fall with her LEFT forearm and fell on outstretched arm Imaging notable for distal radius/ulna fracture Orthopedics consulted, Dr Ayala s/p reduction under anesthesia performed by Dr. Ayala on 02/25 Pain control as needed, bowel regimen Orthopedics f/u 1 week for repeat imaging and cast, dressings changed 02/[address] Ayala and can change as needed for skin laceration countinued local wound care PT/OT recs for rehab, [facility] arranged (her also there) (2) Hyponatremia: Sodium 124 on admission has a history of chronic hyponatremia and is on daily salt tablets She had recently completed a 10-day course of cefdinir and doxycycline for pneumonia on 02/17. She reports since taking doxycycline she was feeling very nauseated and had great difficulty eating much Most likely acute on chronic hyponatremia secondary to very poor p.o. intake Improving now up to 134 with IV fluids and salt tablets increased to 1000mg po bid, improved appetite Continued on 1gm BID, Na 133 on AM labs but suspect from aspect of uncontrolled pain and added lidocaine patch to ribs as well. Tramadol discontinued and avoiding agents that can cause SIADH. Continued 1gm NaCL BID at ut and rec repeating labs in next 24-48 hours and can transition back to ONCE daily if normalized on repeat Also needs f/u CT Chest w/ pulm outpt, ?contributing SIADH (3) Fall: Likely secondary to weakness from hyponatremia Now with left wrist in a splint and a right torn rotator cuff, she will have difficulty with ambulation and holding a walker PT/OT consults placed and needs rehab placement-[facility] as above (4) PAD (peripheral artery disease): Has known PAD in lower extremities-right SFA occlusion, left EIA stenosis, previously followed with vascular medicine-last visit 2021-no additional intervention was recommended at that time She is on a statin but not on aspirin She is also noted to have heavily calcified coronary arteries on CT of the ches t-->Defer discussion of starting baby aspirin to PCP/Cardiology/vascular Med (5) Chronic obstructive pulmonary disease: No acute issues, on room air Continue maintenance inhalers Saline nasal spray added as takes at home, incentive spirometer as well as lidocaine patch for rib discomfort 94% on RA, lung clear on exam, no SOB/sputum production (6) HTN (hypertension): Blood pressures are controlled 133/63 Continue losartan and metoprolol succinate (7) Abnormal chest CT: Right upper lobe spiculated 1.2 cm nodule however was just treated for right upper lobe pneumonia 2 weeks ago and had [address] of the chest in 11/2023 which was reviewed by pulmonology and thought to be multiple 4 mm pulmonary nodules in that same area She does have a long history of smoking Recommend follow-up with pulmonology and repeat CT imaging in 3 months or sooner if pulmonology recommends Dr Burgos previously reached out to her PULM, Dr. Joshi, to make him aware (8) Buerger disease: Noted, continues to smoke-smoking cessation recommended Plan DVT prophylaxis-continued Lovenox SQ while inpatient Discharge to [facility] planned this afternoon for ongoing rehab, outpt f/u Orthopedics in 1 week. Continue 1gm NaCl BID and rec repeating labs in next 24- 48 hours and can switch back to once daily once normalized Total Time Total Time Spent Total Time Spent (In Minutes): 45 Discharge Plan Discharge Items Patient Disposition: Transfer Inpatient Rehab Fac Reason For Visit: LEFT WRIST FRACTURE, HYPONATREMIA Discharge Diagnosis: left wrist fracture Goals: You have been hospitalized for an urgent problem which required surgery. During your stay at [facility], we have made an effort to correct the problem that brought you to the hospital while keeping you as comfortable as possible. Surgery and medications were used to bring your condition under control and your discharge instructions will include directions for any medications you should take after leaving the hospital. Please make sure to follow the advice of your surgeon regarding follow up with the surgeon and with your primary care provider. Activity: Per Instructions section Weightbearing: Left non-weightbearing Weightbearing Comment: left upper extremity Non-emergency contact: Surgeon Call non-emergency contact if: you have any medication questions, your symptoms worsen, your pain is not controlled, your temperature is above 101, your wound has increased redness and your wound has increased drainage Follow-up/Referrals: ProIvan MD [Primary Care Provider] - Preston Ayala MD [Physician] - 03/06/24 3:15 pm Diet: Regular Addtl Attending Provider Instructions: You have been hospitalized after a fall and found to have fracture in your wrist. Orthopedics was consulted and you underwent reduction and placed in a splint Continue pain control and local wound care, gentle range of motion.No heavy lifting. Your sodium level was low and your tablet have been increased to TWICE daily and you should have repeat labs in the next 24-48 hours and can transition back to ONCE daily if normalized on repeat testing. Therapy evaluations were undertaken and arrangements have been made for [facility] for ongoing rehab at discharge. You should have follow up in 1 week for repeat imaging/change out for cast. You should have follow up with primary care in the next 7-10 days to monitor your progress after discharge. You will also need follow up with Dr Joshi for repeat CT imaging of your chest in 3 months for follow up on nodules/prior pneumonia. Dr Burgos already spoke/made Dr Joshi aware of need for follow up. Please return to the ER with any uncontrolled pain, fever, or for any other symptoms concerning for you. It has been a pleasure being a part of the medical team providing for you while you have been in the hospital. Take care! Addtl [employer] Account Assistant Provider Instructions: Orthopedic Instructions: -Ice to the left wrist as needed for pain and swelling. -Elevate your hand above your heart to relieve pain and swelling. -Change your finger dressing as needed. -Keep splint on at all times. -Sling on left upper extremity when up moving around. May remove when in bed or at rest. -Do not bear any weight through your left wrist or upper extremity. -May do finger range of motion and shoulder range of motion as tolerated. -Keep the splint clean and dry. -Follow-up with Dr. Ayala as scheduled. -Call [phone] with any increased pain, fevers, chills, issues with the splint, questions or concerns or need to confirm or reschedule appointment.YAIR Pending Studies at Discharge: No Stand-Alone Forms: My [facility] Skilled Items Patient informed of condition?: Yes DNR: No Discharge Level of Care: Acute rehab Communicable Disease: No Discharge Prognosis: Stable Lines: None Urinary Catheter: No Medications and DC Order Prescriptions: New hydrocodone-acetaminophen 5-325 mg Tablet 1 - 2 tab PO Q4H PRN (Reason: pain) Qty: 14 0RF sennosides [Senokot] 8.6 mg Tablet 17.2 mg PO HS Qty: 14 0RF polyethylene glycol 3350 [Miralax] 17 gram Powder In Packet 17 g PO DAILY Qty: 30 0RF docusate sodium 100 mg Capsule 100 mg PO BID Qty: 30 0RF lidocaine 5 % Adhesive Patch,Medicated 1 patch transdermal QAM Qty: 15 0RF sodium chloride 1,000 mg Tablet,Soluble 1,000 mg PO BID Qty: 14 0RF ascorbic acid (vitamin C) [Vitamin C] 500 mg Tablet 500 mg PO BIDM Qty: 30 0RF multivitamin with folic acid [Daily-Johnny (with folic acid)] 400 mcg Tablet 1 tab PO QAM Qty: 30 0RF Continued cholecalciferol (vitamin D3) [Vitamin D3] 125 mcg (5,000 unit) tablet 5,000 unit PO .COMPLEX Qty: 0 Rx Instructions: 5,000 units PO Tuesday thru ; cyclobenzaprine 5 mg tablet 5 mg PO HS PRN (Reason: muscle spasm) Qty: 30 0RF rosuvastatin [Crestor] 5 mg tablet 5 mg PO DAILY Qty: 90 3RF losartan [Cozaar] 100 mg tablet 100 mg PO QAM Qty: 90 3RF metoprolol succinate 25 mg tablet extended release 24 hr 50 mg PO DAILY Qty: 180 1RF meclizine 12.5 mg tablet 12.5 mg PO Q8H PRN (Reason: dizziness) Qty: 20 0RF acetaminophen 650 mg tablet extended release 650 mg PO Q12H PRN (Reason: Pain) albuterol sulfate [Ventolin HFA] 90 mcg/actuation HFA aerosol inhaler 2 puff inhalation Q4H PRN (Reason: shortness of breath or wheezing) Qty: 18 5RF Trelegy Ellipta 200-62.5-25 mcg blister with device 1 inh inhalation DAILY Qty: 60 12RF folic acid 1 mg tablet 1 mg PO DAILY Qty: 1 latanoprost 0.005 % drops 1 drp OPB HS Discontinued sodium chloride 1,000 mg tablet,soluble 1,000 mg PO DAILY Qty: 30 5RF Admission Data Admit Date/Time: 02/25/24 06:42 Attending Provider: Herman Chacon Admit Provider: Rocky Booker Primary Care Provider: Ivan Castro Other Providers: [facility]; Rocky Booker; Preston Ayala A Supervising Physician Co-Signing Physician Notes The patient was not seen by me. The chart was reviewed. Case discussed with BEHZAD Hicks. Agree with assessment and plan Coding Level of Care Code 50445 INP/OBS DISCH >30 MIN Diagnoses Closed fracture of left wrist S62.102A Hyponatremia E87.1 Fall W19.XXXA PAD (peripheral artery disease) I73.9 Chronic obstructive pulmonary disease J44.9 HTN (hypertension) I10 Abnormal chest CT R93.89 Buerger disease I73.1
== END 2024-02-28 16:29 | DRG 563 ==
LOC: SUATTDRO → ED 03:55 → SUATTDRO 06:42 → 2W 06:42 → 3N 02-27 20:14

== ENCOUNTER 2024-03-14 20:03 | Inpatient (IN) ==
--- NOTE | 2024-03-14 20:59 | Emergency Department Note ---
Impression & Plan Acute hyponatremia, Abdominal pain, LUQ ED Provider Note Diagnosis: Hyponatremia, left upper quadrant abdominal pain Disposition: Admission CHIEF COMPLAINT: Generalized weakness abdominal pain HPI: Patient is an 79-year-old female presenting with nausea and intermittent abdominal pain for the past 1 month's time. Patient states she saw her primary care physician approximate 1 month ago was started on Pepcid. Patient states symptoms have become worse over the past 1 to 2 days time. Patient points midepigastric when asked about where her pain is located currently. PAST MEDICAL HISTORY: See Below PAST SURGICAL HISTORY: See Below SOCIAL HISTORY: See Below HOME MEDICATIONS: See Below ALLERGIES: See Below VITALS: See Below PHYSICAL EXAMINATION: GENERAL: Well appearing, well nourished, NAD, non-toxic. EYE EXAM: Normal conjunctiva. OROPHARYNX: Moist mucus membranes. Grossly normal dentition. NECK: Supple, LUNGS: Clear to auscultation. Normal chest wall mechanics. HEART: NSR ABDOMEN: Abdomen soft, tenderness midepigastric BACK: No CVA TTP. SKIN: No rashes and no bruising. UPPER EXTREMITIES: Upper extremities are grossly normal LOWER EXTREMITIES: Grossly normal, no edema. NEURO EXAM: A&O x3,, normal speech, moves all 4 extremities PSYCH: Cooperative MEDICAL DECISION MAKING: History obtained from: Patient ER Course: Patient is an 79-year-old female presenting with complaint of generalized weakness left upper quadrant abdominal pain. Patient states she has been having symptoms for over 1 month's time. Patient placed on Pepcid recently. Patient states that she has been having issues with her sodium level. Upon review of prior records her last sodium was 132 approximately 1-1/2 weeks ago and today it is 116. Patient has not had any seizure activity. Patient's main symptom of the hyponatremia is generalized weakness. Patient's case discussed with hospital service who accepts patient further treatment and evaluation Labs (independently interpreted) are significant for: Hyponatremia Imaging results (independently interpreted): Chest x-ray clear EKG interpretation (independently interpreted): Normal sinus rhythm no ST segment elevation or depression Medications given: Consultants: Hospitalist service Triage Nursing notes reviewed and agree them. Vital Signs: reviewed and remarkable for: no significant abnormalities Critical care 45 minutes, this time does not include time for procedures Past Med/Surg History Problem List (Updated 03/15/24 @ 00:47 by Dieter Worthington DO) Abdominal pain, LUQ (Acute) Acute hyponatremia (Acute) Abnormal chest CT Encounter for pre-operative examination Family history of reaction to anesthesia MOTHER HAD "A HARD TIME COMING OUT OF IT" Chest wall contusion (Acute) Closed fracture distal radius and ulna (Acute 02/25/24) from a fall. Orthopedic surgery 02/26/24-Closed reduction of left wrist, distal radius and ulna Fall (Acute) Acute hyponatremia (Acute) HTN (hypertension) Chronic obstructive pulmonary disease Closed fracture of left wrist (02/25/24) Distal radial and ulnar fractures from a fall. Orthopedic surgery 02/26/24- Closed reduction of left wrist, distal radius and ulna Balance disorder Lower extremity weakness History of radius fracture (11/11/21) nondisplaced intra-articular distal radial fracture Hyponatremia Rotator cuff arthropathy of right shoulder Redness and swelling of lower leg Pain of left calf Left ankle pain Left leg injury Osteoarthritis of right hip Ankle swelling Tendinitis of right rotator cuff Greater trochanteric bursitis of left hip Acute metabolic encephalopathy Fall Bruising Greater trochanteric bursitis of right hip Vertigo Allergic rhinitis with postnasal drip Pulmonary nodule DDD (degenerative disc disease), cervical Tendinitis of both rotator cuffs Multiple pulmonary nodules determined by computed tomography of lung PAD (peripheral artery disease) (Chronic) Buerger disease Retinal vein occlusion (Acute) Osteoporosis (Acute) Hypercholesterolemia (Acute) Esophageal reflux (Acute) COPD exacerbation (Acute) Medical History (Updated 03/15/24 @ 00:47 by Dieter Worthington DO) Anemia, mild Hypokalemia Scalp hematoma Acute head trauma Acute hyponatremia Fall Lower extremity edema Current smoker Acute bronchitis Osteoarthritis GERD (gastroesophageal reflux disease) Family history of diabetes mellitus MATERNAL GRANDMOTHER Deviated nasal septum 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 Hyperlipidemia Hypertension Chronic obstructive pulmonary disease Surgical History S/p bilateral blepharoplasty History of hysterectomy R OOPHERECTOMY History of section History of open reduction and internal fixation (ORIF) procedure L ANKLE/TIBIA History of appendectomy History of esophagogastroduodenoscopy (EGD) History of colonoscopy History of tonsillectomy History of tooth extraction WISDOM TEETH History of cataract surgery RT/LT Family History Mother Coronary heart disease Hypertension Father Coronary heart disease Hypertension Myocardial infarction Grandmother Diabetes Breast cancer Grandmother (Maternal) Stroke Other Family history of reaction to anesthesia Denies family history of Ovarian cancer Prostate cancer Lung cancer Colorectal cancer Social History Smoking Status: Current every day smoker Tobacco Type: Cigarettes Cigarettes Per Day: 1 PPD; Second Hand Exposure: Yes; Do You Dip or Chew Tobacco: No; Hx Alcohol Use: No Hx Substance Use: No Preferred Language: Mozamb[place] Communication Ability: Effective Visual Impairment: Limited Hearing Ability: Normal 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: No Beliefs That Will Affect Care: None marital status: Current Living Situation: Spouse Current Living Situation Comment: At home with spouse who is currently at [employer] current occupational status: retired How many Children do You have: 3 Feels Safe at Home: Yes Childhood Exposure to Second-Hand Smoke: Yes caffeine: Yes Dental Care, Regularly: Yes Physical Activity Frequency: Daily Seatbelt Use: always Sunscreen Use: No Assistive Devices: Cane and Walker Allergies Allergies Allergy/AdvReac Type Severity Reaction Status Date / Time Penicillins Allergy Unknown Hives Verified 03/14/24 21:43 Sulfa (Sulfonamide Allergy Unknown SWELLING Verified 03/14/24 21:43 Antibiotics) ciprofloxacin [From Cipro] AdvReac Severe Dizziness Verified 03/14/24 21:43 Home Meds Home Medications Medication Instructions Recorded Confirmed folic acid 1 mg tablet 1 mg PO DAILY #1 tab 04/17/19 03/14/24 acetaminophen 650 mg 650 mg PO Q12H PRN Pain 08/14/19 03/14/24 tablet,extended release cholecalciferol (vitamin D3) 125 5,000 unit PO .COMPLEX ##0 09/10/20 03/14/24 mcg (5,000 unit) tablet (Vitamin D3) latanoprost 0.005 % eye drops 1 drp OPB HS 02/06/23 03/14/24 hydrocodone 10 mg-acetaminophen 0.5 tab PO .q3hrs PRN PAIN SCALE 03/13/24 03/14/24 325 mg tablet 4-10 fluticasone fur. 200 mcg-umeclid 1 inh inhalation DAILY 03/14/24 03/14/24 62.5 mcg-vilant 25 mcg inhalat.powder (Trelegy Ellipta) rosuvastatin 5 mg tablet 5 mg PO DAILY 03/14/24 03/14/24 Previous Rx's Medication Instructions Recorded cyclobenzaprine 5 mg tablet 5 mg PO HS PRN muscle spasm #30 05/29/21 tabs losartan 100 mg tablet (Cozaar) 100 mg PO QAM #90 tabs 09/30/23 albuterol sulfate 90 mcg/actuation 2 puff inhalation Q4H PRN 11/21/23 aerosol inhaler (Ventolin HFA) shortness of breath or wheezing #18 grams metoprolol succinate 25 mg 50 mg (2 x 25 mg) PO DAILY #180 01/18/24 tablet,extended release 24 hr tabs meclizine 12.5 mg tablet 12.5 mg PO Q8H PRN dizziness #20 01/27/24 tabs ascorbic acid (vitamin C) 500 mg 500 mg PO BIDM #30 tabs 02/28/24 tablet (Vitamin C) docusate sodium 100 mg capsule 100 mg PO BID #30 caps 02/28/24 lidocaine 5 % topical patch 1 patch transdermal QAM #15 ea 02/28/24 multivitamin with folic acid 400 1 tab PO QAM #30 tabs 02/28/24 mcg tablet (Daily-Johnny (with folic acid)) polyethylene glycol 3350 17 gram 17 g PO DAILY #30 ea 02/28/24 oral powder packet (Miralax) sennosides 8.6 mg tablet (Senokot) 17.2 mg (2 x 8.6 mg) PO HS #14 tabs 02/28/24 sodium chloride 1,000 mg soluble 1,000 mg PO BID #14 tabs 02/28/24 tablet famotidine 20 mg tablet (Pepcid) 20 mg PO DAILY #30 tabs 03/12/24 Results & Data (ED) Vital Signs Vital Signs - 24 hr 03/14/24 20:05 03/14/24 20:22 03/14/24 21:08 Temperature 36.8 C Temperature Source Temporal Artery Scan Pulse Rate 77 71 Pulse Rate [Apical] Respiratory Rate 16 Blood Pressure 99/67 L Blood Pressure [Right Arm] Blood Pressure Mean 77 Blood Pressure Mean [Right Arm] Pulse Oximetry 95 Oxygen Delivery Method Room Air Room Air Sepsis Recent Fever Within 48 Hours No Sepsis New/Unexplained Change in Mental Status No Sepsis Action Taken by Nursing No Action Required 03/14/24 21:49 03/14/24 23:44 Temperature Temperature Source Pulse Rate Pulse Rate [Apical] 78 77 Respiratory Rate 16 16 Blood Pressure Blood Pressure [Right Arm] 141/110 H 107/63 Blood Pressure Mean Blood Pressure Mean [Right Arm] 120 77 Pulse Oximetry 95 92 Oxygen Delivery Method Room Air Room Air Sepsis Recent Fever Within 48 Hours Sepsis New/Unexplained Change in Mental Status Sepsis Action Taken by Nursing Laboratory Data 03/14/24 20:23 03/14/24 20:23 Lab Results 03/14/24 03/14/24 03/14/24 Range/Units 20:23 21:00 21:20 WBC 10.13 (4.8-10.8) K/ul RBC 4.11 L (4.20-5.40) M/uL Hgb 11.9 L (12.0-16.0) g/dl Hct 34.3 L (37.0-47.0) % MCV 83.5 (80.0-100.0) fL MCH 29.0 (25.0-34.0) pg MCHC 34.7 (32.0-36.0) g/dL RDW Std Deviation 37.6 (36.4-46.3) fL RDW Coeff of Edwin 12.3 (11.5-14.5) % Plt Count 538 H (130-400) K/uL MPV 9.0 L (9.4-12.4) fL Immature Gran % (Auto) 0.9 % Neut % (Auto) 74.3 % Lymph % (Auto) 12.6 % Young % (Auto) 10.2 % Eos % (Auto) 1.3 % Baso % (Auto) 0.7 % Neut # (Auto) 7.53 H (1.40-6.50) K/uL Lymph # (Auto) 1.28 (1.20-3.40) K/uL Young # (Auto) 1.03 H (0.11-0.59) K/uL Eos # (Auto) 0.13 (0.00-0.50) K/uL Baso # (Auto) 0.07 (0.00-0.20) K/uL Immature Gran # (Auto) 0.09 (0.01-0.20) K/uL PT 11.1 (9.0-12.0) Seconds INR 1.0 (0.9-1.1) Sodium 116 L* (136-145) mmol/L Potassium 4.1 (3.5-5.1) mmol/L Chloride 84 L (98-107) mmol/L Carbon Dioxide 24 (21-32) mmol/L Anion Gap 8 (3-11) BUN 9 (6-23) mg/dl Creatinine 0.47 L (0.6-1.2) mg/dl Est Cr Clr Drug Dosing 72.7 ml/min Est GFR ( Amer) 107.4 ml/min Est GFR (Non-Af Amer) 92.6 ml/min BUN/Creatinine Ratio 19.1 (10-20) Glucose 82 (70-99(Fasting)) mg/dl Lactate 1.0 (0.4-2.0) mmol/L Calcium 8.9 (8.6-10.3) mg/dl Magnesium 1.8 (1.7-2.4) mg/dl Total Bilirubin 0.9 (0.2-1.0) mg/dl AST 20 (13-39) U/L ALT 11 (7-52) U/L Alkaline Phosphatase 70 (34-104) U/L Troponin I High Sens 8.9 (0-14) pg/ml B-Natriuretic Peptide 115 H (0-100) pg/ml Total Protein 6.7 (6.0-8.3) gm/dl Albumin 3.9 (3.4-5.0) gm/dl Globulin 2.8 (2.5-4.0) gm/dl Albumin/Globulin Ratio 1.4 (0.9-2) Lipase 23 (11-82) U/L Urine Color Yellow Urine Appearance Clear (Clear) Urine pH 6.5 (4.5-7.5) Ur Specific [place] 1.015 (1.000-1.030) Urine Protein Negative (Negative) Urine Glucose (UA) Negative (Negative) Urine Ketones 2+ H (Negative) Urine Blood Negative (Negative) Urine Nitrite Negative (Negative) Urine Bilirubin Negative (Negative) Urine Urobilinogen Negative (Negative) Ur Leukocyte Esterase 2+ H (Negative) Urine WBC (Auto) 21-50 H (0-5) /hpf Urine RBC (Auto) 0-2 (0-2) /hpf U Hyaline Cast (Auto) 0-2 (0-2) /lpf U Epithel Cells (Auto) 6-10 H (0-2) /hpf Urine Bacteria (Auto) None Seen (None Seen) Adenovirus (PCR) Not Detected (NotDetected) B. pertussis DNA (PCR) Not Detected (NotDetected) B.parapertussis DNA PCR Not Detected (NotDetected) C. pneumoniae DNA (PCR) Not Detected (NotDetected) Coronavirus OC43 (PCR) Not Detected (NotDetected) Coronavirus HKU1 (PCR) Not Detected (NotDetected) Coronavirus 229E (PCR) Not Detected (NotDetected) SARS-CoV-2 (PCR) Not Detected (NotDetected) Coronavirus NL63 (PCR) Not Detected (NotDetected) Human Metapneumovir PCR Not Detected (NotDetected) Influenza Type A (PCR) Not Detected (NotDetected) Influenza Type B (PCR) Not Detected (NotDetected) M. pneumoniae (PCR) Not Detected (NotDetected) Parainfluenza 1 (PCR) Not Detected (NotDetected) Parainfluenza 2 (PCR) Not Detected (NotDetected) Parainfluenza 3 (PCR) Not Detected (NotDetected) Parainfluenza 4 (PCR) Not Detected (NotDetected) RSV (PCR) Not Detected (NotDetected) Entero/Rhino (PCR) Not Detected (NotDetected) Administered Medications Discontinued Medications Sodium Chloride (Nss) 500 mls @ 999 mls/hr IV .Q31M ONE Stop: 03/14/24 21:20 Last Infusion: 03/14/24 23:25 Dose: Infused Documented By: Admin: 03/14/24 21:43 Dose: 999 mls/hr Documented By: REJI Pantoprazole Sodium 40 mg/ (Syringe) 10 mls @ 5 mls/min IV NOW ONE Stop: 03/14/24 20:51 Last Admin: 03/14/24 21:44 Dose: 5 mls/min Documented By: REJI Ioversol (Optiray 320 100ml) 93 ml IV ONCE ONE Stop: 03/14/24 22:50 Last Admin: 03/14/24 22:50 Dose: 93 ml Documented By: NATHALIA Ondansetron HCl (Ondansetron Inj 2 Mg/Ml 2 Ml Vial) 4 mg IV NOW STA Stop: 03/14/24 20:51 Last Admin: 03/14/24 21:45 Dose: 4 mg Documented By: REJI Discharge Plan Visit Data Chief Complaint: Illness Stated Complaint: N/V, UNABLE TO EAT, LOWER EXTREMITY PAIN/SWELLING ED Provider: Dieter Worthington Discharge Problem: Acute hyponatremia, Abdominal pain, LUQ Forms Stand Alone Forms: [facility] Prescriptions Prescriptions: No Action cholecalciferol (vitamin D3) [Vitamin D3] 125 mcg (5,000 unit) tablet 5,000 unit PO .COMPLEX Qty: 0 Rx Instructions: 5,000 units PO Tuesday thru ; cyclobenzaprine 5 mg tablet 5 mg PO HS PRN (Reason: muscle spasm) Qty: 30 0RF losartan [Cozaar] 100 mg tablet 100 mg PO QAM Qty: 90 3RF metoprolol succinate 25 mg tablet extended release 24 hr 50 mg PO DAILY Qty: 180 1RF meclizine 12.5 mg tablet 12.5 mg PO Q8H PRN (Reason: dizziness) Qty: 20 0RF famotidine [Pepcid] 20 mg tablet 20 mg PO DAILY Qty: 30 2RF acetaminophen 650 mg tablet extended release 650 mg PO Q12H PRN (Reason: Pain) albuterol sulfate [Ventolin HFA] 90 mcg/actuation HFA aerosol inhaler 2 puff inhalation Q4H PRN (Reason: shortness of breath or wheezing) Qty: 18 5RF folic acid 1 mg tablet 1 mg PO DAILY Qty: 1 hydrocodone-acetaminophen 10-325 mg tablet 0.5 tab PO .q3hrs PRN (Reason: PAIN SCALE 4-10) latanoprost 0.005 % drops 1 drp OPB HS sennosides [Senokot] 8.6 mg Tablet 17.2 mg PO HS Qty: 14 0RF polyethylene glycol 3350 [Miralax] 17 gram Powder In Packet 17 g PO DAILY Qty: 30 0RF docusate sodium 100 mg Capsule 100 mg PO BID Qty: 30 0RF lidocaine 5 % Adhesive Patch,Medicated 1 patch transdermal QAM Qty: 15 0RF sodium chloride 1,000 mg Tablet,Soluble 1,000 mg PO BID Qty: 14 0RF ascorbic acid (vitamin C) [Vitamin C] 500 mg Tablet 500 mg PO BIDM Qty: 30 0RF multivitamin with folic acid [Daily-Johnny (with folic acid)] 400 mcg Tablet 1 tab PO QAM Qty: 30 0RF Trelegy Ellipta 200-62.5-25 mcg blister with device 1 inh INHALATION DAILY rosuvastatin 5 mg tablet 5 mg PO DAILY Referrals Referrals: Pro,Ivan Carlos MD [Primary Care Provider] -
[2024-03-14 21:27] LABS: Appearance Urine Clear (Clear); Bacteria Urine Automated None Seen (None Seen); Bilirubin Urine Negative (Negative); Blood Urine Negative (Negative); Cast Urine Automated 0-2 /lpf (0-2); Color Urine Yellow; Glucose Urine UA Negative (Negative); Ketones Urine 2+ (Negative); Leukocyte Esterase Urine 2+ (Negative); Nitrite Urine Negative (Negative); Protein Urine Negative (Negative); RBC Urine Automated 0-2 /hpf (0-2); Specific Gravity Urine 1.015 (1.000-1.030); Urobilinogen Urine Negative (Negative); WBC Urine Automated 21-50 /hpf (0-5); pH Urine 6.5 (4.5-7.5)
[2024-03-14] MEDS: SODIUM CHLORIDE 0.9% 500 ML IV ONE (21:43)
[2024-03-14] MEDS: PANTOprazole 40 MG in SYRINGE 0 ML IV ONE (21:44)
[2024-03-14] MEDS: ONDANSETRON INJ 2 MG/ML 2 ML VIAL IV STA (21:45)
[2024-03-14 21:48] LABS: Basophils # (auto) 0.07 K/uL (0.00-0.20); Basophils % (auto) 0.7 %; Eosinophils # (auto) 0.13 K/uL (0.00-0.50); Eosinophils % (auto) 1.3 %; Hematocrit (blood only) 34.3 % (37.0-47.0); Hemoglobin 11.9 g/dl (12.0-16.0); Immature Granulocytes # (auto) 0.09 K/uL (0.01-0.20); Immature Granulocytes % (auto) 0.9 %; Lymphocytes # (auto) 1.28 K/uL (1.20-3.40); Lymphocytes % (auto) 12.6 %; Mean Corpuscular Hgb Conc 34.7 g/dL (32.0-36.0); Mean Corpuscular Volume 83.5 fL (80.0-100.0); Monocytes # (auto) 1.03 K/uL (0.11-0.59); Monocytes % (auto) 10.2 %; Neutrophils # (auto) 7.53 K/uL (1.40-6.50); Neutrophils % (auto) 74.3 %; Platelet Count 538 K/uL (130-400); RDW Coefficient of Variation 12.3 % (11.5-14.5); RDW Standard Deviation 37.6 fL (36.4-46.3); Red Blood Count 4.11 M/uL (4.20-5.40); White Blood Count 10.13 K/ul (4.8-10.8)
[2024-03-14 21:58] LABS: Albumin Globulin Ratio 1.4 (0.9-2); Albumin Level 3.9 gm/dl (3.4-5.0); BUN Creatinine Ratio 19.1 (10-20); Bilirubin,Total 0.9 mg/dl (0.2-1.0); Calcium 8.9 mg/dl (8.6-10.3); Creatinine Clr Calc Pharmacy 72.7 ml/min; Est GFR (African American) 107.4 ml/min; Est GFR (Non-African American) 92.6 ml/min; Globulin 2.8 gm/dl (2.5-4.0); Magnesium 1.8 mg/dl (1.7-2.4); Potassium 4.1 mmol/L (3.5-5.1); Total Protein 6.7 gm/dl (6.0-8.3)
[2024-03-14 22:03] LABS: Troponin I High Sensitivity 8.9 pg/ml (0-14)
[2024-03-14 22:07] LABS: Prothrombin Time 11.1 Seconds (9.0-12.0)
[2024-03-14 22:25] LABS: Adenovirus PCR Not Detected (NotDetected); Bordetella parapertussis PCR Not Detected (NotDetected); Bordetella pertussis PCR Not Detected (NotDetected); Chlamydia pneumoniae PCR Not Detected (NotDetected); Coronavirus 229E PCR Not Detected (NotDetected); Coronavirus CoV-2 (COVID19)PCR Not Detected (NotDetected); Coronavirus HKU1 PCR Not Detected (NotDetected); Coronavirus NL63 PCR Not Detected (NotDetected); Coronavirus OC43PCR Not Detected (NotDetected); Human Metapneumovirus PCR Not Detected (NotDetected); Influenza A PCR Not Detected (NotDetected); Influenza B PCR Not Detected (NotDetected); Mycoplasma pneumoniae PCR Not Detected (NotDetected); Parainfluenza Virus 1 PCR Not Detected (NotDetected); Parainfluenza Virus 2 PCR Not Detected (NotDetected); Parainfluenza Virus 3 PCR Not Detected (NotDetected); Parainfluenza Virus 4 PCR Not Detected (NotDetected); Respiratory Syncytial VirusPCR Not Detected (NotDetected); Rhinovirus/Enterovirus PCR Not Detected (NotDetected)
[2024-03-14] MEDS: OPTIRAY 320 100ml IV ONE (22:50)
--- NOTE | 2024-03-15 01:17 | History & Physical Report ---
Date of Service March 15, 2024 Assessment & Plan (1) Acute hyponatremia: (2) Chronic hyponatremia: (3) Hypotensive episode: (4) Acute metabolic encephalopathy: (5) Abdominal pain, LUQ: (6) Closed fracture distal radius and ulna: (7) HTN (hypertension): (8) Chronic obstructive pulmonary disease: (9) Buerger disease: (10) PAD (peripheral artery disease): (11) Esophageal reflux: Plan Acute on chronic hyponatremia/hypotensive episode/moderately severe dehydration- Causing acute metabolic encephalopathy with confusion and lethargy Sodium 116 today. Sodium upon last admission on 02/24 was 122, and upon discharge at 134/133 on 02/27 Patient had been discharged on sodium chloride 1 g twice daily. Daughter reports that her mother had decreased oral intake in general since being at [facility] and then at [facility] Serum and urine osmolalities are pending Patient had received normal saline 500 mill bolus from the ED, however, blood pressure dropped to 83/60, and is being given another 1 L bolus of normal saline now Maintenance fluids of NSS + KCl 20 mill equivalents at 100 mL/h x 1 L BMP every 6 hours Zofran 4 mg IV every 6 hours as needed Acetaminophen 1 g IV every 8 hours as needed for pain or fever Pantoprazole 40 mg IV daily GERD/abdominal pain/nausea- Pantoprazole 40 mg IV daily Zofran 4 mg IV every [address] scan abdomen pelvis pending at this time If CT scan is negative, would consult gastroenterology when patient is more alert, as she should be considered for EGD. Patient has had multiple admissions now for low sodium secondary to decreased oral intake, due to abdominal discomfort and nausea Hypomagnesemia- Magnesium 1.8 Give magnesium sulfate 1 g IV recheck in the a.m. COPD- Continue usual inhalers DuoNebs every 2 hours as needed Hypertension- Holding metoprolol succinate, losartan due to relative hypotension - History of Present Illness Chief Complaint: The patient presents to the emergency department with worsening of nausea and intermittent epigastric and upper quadrant pain in particular over the past 2 days. Primary Care Provider: Ivan Castro MD The patient is an 79-year-old female with a past medical history including chronic hyponatremia, acute on chronic hyponatremia, COPD, GERD, hypercholesterolemia, Buerger's disease, PVD, acute metabolic encephalopathy, right shoulder rotator cuff arthropathy and hypertension. She was admitted to [facility] from 02/24-02/28/2024 for left wrist fracture repair, and acute on chronic hyponatremia. She was then discharged to [facility], and from there she has been at [facility] due to slowly recovering strength and conditioning. Due to symptoms of nausea and persistent progressive fatigue, she is brought to the emergency department for evaluation this evening. She was found to have a sodium of 116, and a blood pressure at its lowest 83/60, and referred for evaluation for admission Allergies Allergy/AdvReac Type Severity Reaction Status Date / Time Penicillins Allergy Unknown Hives Verified 03/14/24 21:43 Sulfa (Sulfonamide Allergy Unknown SWELLING Verified 03/14/24 21:43 Antibiotics) ciprofloxacin [From Cipro] AdvReac Severe Dizziness Verified 03/14/24 21:43 Home Medications Medication Instructions Recorded Confirmed Type folic acid 1 mg tablet 1 mg PO DAILY #1 tab 04/17/19 03/14/24 History acetaminophen 650 mg 650 mg PO Q12H PRN Pain 08/14/19 03/14/24 History tablet,extended release cholecalciferol (vitamin D3) 125 5,000 unit PO .COMPLEX ##0 09/10/20 03/14/24 History mcg (5,000 unit) tablet (Vitamin D3) cyclobenzaprine 5 mg tablet 5 mg PO HS PRN muscle spasm #30 05/29/21 03/14/24 Rx tabs latanoprost 0.005 % eye drops 1 drp OPB HS 02/06/23 03/14/24 History losartan 100 mg tablet (Cozaar) 100 mg PO QAM #90 tabs 09/30/23 03/14/24 Rx albuterol sulfate 90 mcg/actuation 2 puff inhalation Q4H PRN 11/21/23 03/14/24 Rx aerosol inhaler (Ventolin HFA) shortness of breath or wheezing #18 grams metoprolol succinate 25 mg 50 mg (2 x 25 mg) PO DAILY #180 01/18/24 03/14/24 Rx tablet,extended release 24 hr tabs meclizine 12.5 mg tablet 12.5 mg PO Q8H PRN dizziness #20 01/27/24 03/14/24 Rx tabs ascorbic acid (vitamin C) 500 mg 500 mg PO BIDM #30 tabs 02/28/24 03/14/24 Rx tablet (Vitamin C) docusate sodium 100 mg capsule 100 mg PO BID #30 caps 02/28/24 03/14/24 Rx lidocaine 5 % topical patch 1 patch transdermal QAM #15 ea 02/28/24 03/14/24 Rx multivitamin with folic acid 400 1 tab PO QAM #30 tabs 02/28/24 03/14/24 Rx mcg tablet (Daily-Johnny (with folic acid)) polyethylene glycol 3350 17 gram 17 g PO DAILY #30 ea 02/28/24 03/14/24 Rx oral powder packet (Miralax) sennosides 8.6 mg tablet (Senokot) 17.2 mg (2 x 8.6 mg) PO HS #14 tabs 02/28/24 03/14/24 Rx sodium chloride 1,000 mg soluble 1,000 mg PO BID #14 tabs 02/28/24 03/14/24 Rx tablet famotidine 20 mg tablet (Pepcid) 20 mg PO DAILY #30 tabs 03/12/24 03/14/24 Rx hydrocodone 10 mg-acetaminophen 0.5 tab PO .q3hrs PRN PAIN SCALE 03/13/24 03/14/24 History 325 mg tablet 4-10 fluticasone fur. 200 mcg-umeclid 1 inh inhalation DAILY 03/14/24 03/14/24 History 62.5 mcg-vilant 25 mcg inhalat.powder (Trelegy Ellipta) rosuvastatin 5 mg tablet 5 mg PO DAILY 03/14/24 03/14/24 History Past Med/Surg History Problem List (Updated 03/15/24 @ 01:31 by Rocky Booker MD) Chronic hyponatremia Hypotensive episode Abdominal pain, LUQ (Acute) Acute hyponatremia (Acute) Abnormal chest CT Encounter for pre-operative examination Family history of reaction to anesthesia MOTHER HAD "A HARD TIME COMING OUT OF IT" Chest wall contusion (Acute) Closed fracture distal radius and ulna (Acute 02/25/24) from a fall. Orthopedic surgery 02/26/24-Closed reduction of left wrist, distal radius and ulna Fall (Acute) Acute hyponatremia (Acute) HTN (hypertension) Chronic obstructive pulmonary disease Closed fracture of left wrist (02/25/24) Distal radial and ulnar fractures from a fall. Orthopedic surgery 02/26/24- Closed reduction of left wrist, distal radius and ulna Balance disorder Lower extremity weakness History of radius fracture (11/11/21) nondisplaced intra-articular distal radial fracture Hyponatremia Rotator cuff arthropathy of right shoulder Redness and swelling of lower leg Pain of left calf Left ankle pain Left leg injury Osteoarthritis of right hip Ankle swelling Tendinitis of right rotator cuff Greater trochanteric bursitis of left hip Acute metabolic encephalopathy Fall Bruising Greater trochanteric bursitis of right hip Vertigo Allergic rhinitis with postnasal drip Pulmonary nodule DDD (degenerative disc disease), cervical Tendinitis of both rotator cuffs Multiple pulmonary nodules determined by computed tomography of lung PAD (peripheral artery disease) (Chronic) Buerger disease Retinal vein occlusion (Acute) Osteoporosis (Acute) Hypercholesterolemia (Acute) Esophageal reflux (Acute) COPD exacerbation (Acute) Medical History (Updated 03/15/24 @ 01:31 by Rocky Booker MD) Anemia, mild Hypokalemia Scalp hematoma Acute head trauma Acute hyponatremia Fall Lower extremity edema Current smoker Acute bronchitis Osteoarthritis GERD (gastroesophageal reflux disease) Family history of diabetes mellitus MATERNAL GRANDMOTHER Deviated nasal septum 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 Hyperlipidemia Hypertension Chronic obstructive pulmonary disease Surgical History S/p bilateral blepharoplasty History of hysterectomy R OOPHERECTOMY History of section History of open reduction and internal fixation (ORIF) procedure L ANKLE/TIBIA History of appendectomy History of esophagogastroduodenoscopy (EGD) History of colonoscopy History of tonsillectomy History of tooth extraction WISDOM TEETH History of cataract surgery RT/LT Family History Mother Coronary heart disease Hypertension Father Coronary heart disease Hypertension Myocardial infarction Grandmother Diabetes Breast cancer Grandmother (Maternal) Stroke Other Family history of reaction to anesthesia Denies family history of Ovarian cancer Prostate cancer Lung cancer Colorectal cancer Social History Smoking Status: Current every day smoker Tobacco Type: Cigarettes Cigarettes Per Day: 1 PPD; Second Hand Exposure: Yes; Do You Dip or Chew Tobacco: No; Hx Alcohol Use: No Hx Substance Use: No Preferred Language: Pashto Communication Ability: Effective Visual Impairment: Limited Hearing Ability: Normal Insurance Agency Owner Required: No Beliefs That Will Affect Care: None marital status: Current Living Situation: Spouse Current Living Situation Comment: At home with spouse who is currently at [facility] current occupational status: retired How many Children do You have: 3 Feels Safe at Home: Yes Childhood Exposure to Second-Hand Smoke: Yes caffeine: Yes Dental Care, Regularly: Yes Physical Activity Frequency: Daily Seatbelt Use: always Sunscreen Use: No Assistive Devices: Cane and Walker Review of Systems Review of Systems: The patient is somewhat lethargic, is able to answer some questions but very slowly, therefore her daughter who is in attendance, provides most of the HPI and ROS Physical Exam Physical Exam: The patient is lethargic but slowly responsive, appears dehydrated, normocephalic and atraumatic, lying in bed and in no acute distress. HEENT--PERRL, EOMI, mucous membranes and oropharynx moderately dry. Neck--supple. No JVD. No bruits. Thyroid normal, trachea midline, no adenopathy. Heart--normal S1 and S2. No murmurs, rubs or gallops. Lungs--clear bilaterally, no respiratory distress, no accessory muscle use. Abdomen--normal bowel sounds and soft. Nontender. Nondistended, no hernias or masses, no organomegaly. Extremities--No edema. Dermatologic--normal skin turgor, normal color, no abnormal lymph nodes, no rash. Neurologic--cranial nerves II through XII grossly intact. Rheumatologic--limited exam due to lethargy Psychiatric--lethargic but slowly responsive Results & Data Results & Data Vital Signs (Past 12 Hours) Vital Signs Temp Pulse Pulse Resp BP BP Pulse Ox 03/15/24 01:00 72 16 101/67 98 03/14/24 23:44 77 16 107/63 92 03/14/24 21:49 78 16 141/110 H 95 03/14/24 21:08 71 03/14/24 20:22 03/14/24 20:05 36.8 C 77 16 99/67 L 95 O2 Del Method 03/15/24 01:00 Room Air 03/14/24 23:44 Room Air 03/14/24 21:49 Room Air 03/14/24 21:08 03/14/24 20:22 Room Air 03/14/24 20:05 Room Air Laboratory Results Laboratory Results WBC 10.13 K/ul (4.8-10.8) 03/14/24 20: RBC 4.11 M/uL (4.20-5.40) L 03/14/24 20:23 Hgb 11.9 g/dl (12.0-16.0) L 03/14/24 20: Hct 34.3 % (37.0-47.0) L 03/14/24 20: MCV 83.5 fL (80.0-100.0) 03/14/24 20: MCH 29.0 pg (25.0-34.0) 03/14/24 20: MCHC 34.7 g/dL (32.0-36.0) 03/14/24: RDW Std Deviation 37.6 fL (36.4-46.3) 03/14/24: RDW Coeff of Edwin 12.3 % (11.5-14.5) 03/14/24: Plt Count 538 K/uL (130-400) H 03/14/24 20: MPV 9.0 fL (9.4-12.4) L 03/14/24 20: Immature Gran % (Auto) 0.9 % 03/14/24: Neut % (Auto) 74.3 % 03/14/24: Lymph % (Auto) 12.6 % 03/14/24 20: [place] % (Auto) 10.2 % 03/14/24 20: Eos % (Auto) 1.3 % 03/14/24 20: Baso % (Auto) 0.7 % 03/14/24: Neut # (Auto) 7.53 K/uL (1.40-6.50) H 03/14/24 20: Lymph # (Auto) 1.28 K/uL (1.20-3.40) 03/14/24 20: [place] # (Auto) 1.03 K/uL (0.11-0.59) H 03/14/24 20:23 Eos # (Auto) 0.13 K/uL (0.00-0.50) 03/14/24 20:23 Baso # (Auto) 0.07 K/uL (0.00-0.20) 03/14/24 20:23 Immature Gran # (Auto) 0.09 K/uL (0.01-0.20) 03/14/24 20:23 PT 11.1 Seconds (9.0-12.0) 03/14/24 20:23 INR 1.0 (0.9-1.1) 03/14/24 20:23 Sodium 116 mmol/L (136-145) L* 03/14/24 20:23 Potassium 4.1 mmol/L (3.5-5.1) 03/14/24 20:23 Chloride 84 mmol/L (98-107) L 03/14/24 20:23 Carbon Dioxide 24 mmol/L (21-32) 03/14/24 20:23 Anion Gap 8 (3-11) 03/14/24 20:23 BUN 9 mg/dl (6-23) 03/14/24 20:23 Creatinine 0.47 mg/dl (0.6-1.2) L 03/14/24 20:23 Est Cr Clr Drug Dosing 72.7 ml/min 03/14/24 20:23 Est GFR ( Amer) 107.4 ml/min 03/14/24 20:23 Est GFR (Non-Af Amer) 92.6 ml/min 03/14/24 20:23 BUN/Creatinine Ratio 19.1 (10-20) 03/14/24 20:23 Glucose 82 mg/dl (70-99(Fasting)) 03/14/24 20:23 Osmolality 241 mOsm/kg (280-300) L 03/15/24 Unknown Lactate 1.0 mmol/L (0.4-2.0) 03/14/24 21:20 Calcium 8.9 mg/dl (8.6-10.3) 03/14/24 20:23 Magnesium 1.8 mg/dl (1.7-2.4) 03/14/24 20:23 Total Bilirubin 0.9 mg/dl (0.2-1.0) 03/14/24 20:23 AST 20 U/L (13-39) 03/14/24 20:23 ALT 11 U/L (7-52) 03/14/24 20:23 Alkaline Phosphatase 70 U/L (34-104) 03/14/24 20:23 Troponin I High Sens 8.9 pg/ml (0-14) 03/14/24 20: B-Natriuretic Peptide 115 pg/ml (0-100) H 03/14/24 20:23 Total Protein 6.7 gm/dl (6.0-8.3) 03/14/24 20: Albumin 3.9 gm/dl (3.4-5.0) 03/14/24 20: Globulin 2.8 gm/dl (2.5-4.0) 03/14/24 20: Albumin/Globulin Ratio 1.4 (0.9-2) 03/14/24 20: Lipase 23 U/L (11-82) 03/14/24 20: Urine Color Yellow 03/14/24 21:00 Urine Appearance Clear (Clear) 03/14/24 21:00 Urine pH 6.5 (4.5-7.5) 03/14/24 21:00 Ur Specific [place] 1.015 (1.000-1.030) 03/14/24 21:00 Urine Protein Negative (Negative) 03/14/24 21:00 Urine Glucose (UA) Negative (Negative) 03/14/24 21:00 Urine Ketones 2+ (Negative) H 03/14/24 21:00 Urine Blood Negative (Negative) 03/14/24 21:00 Urine Nitrite Negative (Negative) 03/14/24 21:00 Urine Bilirubin Negative (Negative) 03/14/24 21:00 Urine Urobilinogen Negative (Negative) 03/14/24 21:00 Ur Leukocyte Esterase 2+ (Negative) H 03/14/24 21:00 Urine WBC (Auto) 21-50 /hpf (0-5) H 03/14/24 21:00 Urine RBC (Auto) 0-2 /hpf (0-2) 03/14/24 21:00 U Hyaline Cast (Auto) 0-2 /lpf (0-2) 03/14/24 21:00 U Epithel Cells (Auto) 6-10 /hpf (0-2) H 03/14/24 21:00 Urine Bacteria (Auto) None Seen (None Seen) 03/14/24 21:00 Adenovirus (PCR) Not Detected (NotDetected) 03/14/24 21:00 B. pertussis DNA (PCR) Not Detected (NotDetected) 03/14/24 21:00 B.parapertussis DNA PCR Not Detected (NotDetected) 03/14/24 21:00 C. pneumoniae DNA (PCR) Not Detected (NotDetected) 03/14/24 21:00 Coronavirus OC43 (PCR) Not Detected (NotDetected) 03/14/24 21:00 Coronavirus HKU1 (PCR) Not Detected (NotDetected) 03/14/24 21:00 Coronavirus 229E (PCR) Not Detected (NotDetected) 03/14/24 21:00 SARS-CoV-2 (PCR) Not Detected (NotDetected) 03/14/24 21:00 Coronavirus NL63 (PCR) Not Detected (NotDetected) 03/14/24 21:00 Human Metapneumovir PCR Not Detected (NotDetected) 03/14/24 21:00 Influenza Type A (PCR) Not Detected (NotDetected) 03/14/24 21:00 Influenza Type B (PCR) Not Detected (NotDetected) 03/14/24 21:00 M. pneumoniae (PCR) Not Detected (NotDetected) 03/14/24 21:00 Parainfluenza 1 (PCR) Not Detected (NotDetected) 03/14/24 21:00 Parainfluenza 2 (PCR) Not Detected (NotDetected) 03/14/24 21:00 Parainfluenza 3 (PCR) Not Detected (NotDetected) 03/14/24 21:00 Parainfluenza 4 (PCR) Not Detected (NotDetected) 03/14/24 21:00 RSV (PCR) Not Detected (NotDetected) 03/14/24 21:00 Entero/Rhino (PCR) Not Detected (NotDetected) 03/14/24 21:00 Code Status & VTE Plan Code Status Full code VTE Prophylaxis Plan VTE Prophylaxis will be ordered: Yes PG Care Time/CCT Total # of Minutes Spent Total Time Spent with Patient: Total time spent is greater than 50% in coordination of care (as documented) at patient's floor/unit and/or counseling patient: Coding Level of Care Code 42929 INT INP/OBS CARE 3/75MIN Diagnoses Acute hyponatremia E87.1 Chronic hyponatremia E87.1 Hypotensive episode I95.9 Acute metabolic encephalopathy G93.41 Abdominal pain, LUQ R10.12 Closed fracture distal radius and ulna S52.502A; S52.602A Encounter type: initial encounter Laterality: left HTN (hypertension) I10 Chronic obstructive pulmonary disease J44.9 Buerger disease I73.1 PAD (peripheral artery disease) I73.9 Esophageal reflux K21.9 (6) Closed fracture distal radius and ulna Encounter type: initial encounter Laterality: left Qualified Code(s): S52.502A - Unspecified fracture of the lower end of left radius, initial encounter for closed fracture; S52.602A - Unspecified fracture of lower end of left ulna, initial encounter for closed fracture
[2024-03-15] MEDS: SODIUM CHLORIDE 0.9% 1,000 ML IV ONE (01:19)
[2024-03-15] MEDS: MAGNESIUM SULFATE / D5W 1 GM/100 ML BAG IV ONE (01:19)
[2024-03-15] MEDS ORDERED: ALBUT/IPRATROP 3MG/0.5MG NEB 3 ML VIAL NEB PRN (01:37)
[2024-03-15] MEDS ORDERED: ACETAMINOPHEN 1000 MG/100 ML IV IV PRN (02:00)
[2024-03-15] MEDS ORDERED: ONDANSETRON INJ 2 MG/ML 2 ML VIAL IV PRN (02:00)
--- NOTE | 2024-03-15 02:17 | CT Scan Report ---
Exam(s): CT ABDOMEN + PELVIS With Contrast IV Amt: 93 ml opti 320 EXAM: CT Abdomen and Pelvis With Intravenous Contrast CLINICAL HISTORY: Reason for exam: vomiting; abdominal pain. TECHNIQUE: Axial computed tomography images of the abdomen and pelvis with intravenous contrast. CTDI is 11.17 mGy and DLP is 508.03 mGy-cm. Automated exposure control was utilized for the study. A dose lowering technique was utilized adhering to the principles of ALARA. CONTRAST: Patient received 93 ml opti 320 of IV contrast COMPARISON: No relevant prior studies available. FINDINGS: Lung bases: Unremarkable. No mass. No consolidation. ABDOMEN: Liver: Hepatic steatosis. Gallbladder and bile ducts: Unremarkable. No calcified stones. No ductal dilation. Pancreas: Unremarkable. No mass. No ductal dilation. Spleen: Unremarkable. No splenomegaly. Adrenals: Unremarkable. No mass. Kidneys and ureters: Unremarkable. No solid mass. No hydronephrosis. Stomach and bowel: RIGHT inguinal hernia containing a small loop of colon. No obstruction. Diverticulosis, without acute diverticulitis. No small bowel obstruction. No free intraperitoneal air. PELVIS: Appendix: No findings to suggest acute appendicitis. Bladder: Unremarkable. No mass. Reproductive: Hysterectomy. ABDOMEN and PELVIS: Intraperitoneal space: Unremarkable. No free air. No significant fluid collection. Bones/joints: Degenerative changes of the spine. No acute fracture. No dislocation. Soft tissues: See above. Vasculature: Atherosclerotic changes of the aorta. No abdominal aortic aneurysm. Lymph nodes: Unremarkable. No enlarged lymph nodes. IMPRESSION: 1. RIGHT inguinal hernia containing a small loop of colon. No obstruction. 2. Hepatic steatosis. 3. Hysterectomy. 4. Diverticulosis, without acute diverticulitis. No small bowel obstruction. No free intraperitoneal air. Electronically signed by: Jaren Borden MD 03/15/24 02:16 AM
[2024-03-15] MEDS: NSS + 20MEQ KCL 20 MEQ/1,000 ML BAG IV SCH (02:26)
[2024-03-15 04:25] LABS: Appearance Urine Clear (Clear); Bilirubin Urine Negative (Negative); Blood Urine Negative (Negative); Color Urine Yellow; Glucose Urine UA Negative (Negative); Ketones Urine 1+ (Negative); Leukocyte Esterase Urine Negative (Negative); Nitrite Urine Negative (Negative); Protein Urine Negative (Negative); Specific Gravity Urine 1.017 (1.000-1.030); Urobilinogen Urine Negative (Negative); pH Urine 6.5 (4.5-7.5)
--- NOTE | 2024-03-15 07:25 | XRay Report ---
XR chest 1V portable HISTORY: 79 years-old Female weakness acute weakness COMPARISON: Chest CT 02/25/2024 TECHNIQUE: AP view of the chest FINDINGS: Cardiomediastinal and hilar silhouettes are within normal limits. Atherosclerosis of the aorta. Emphy sema with chronic interstitial coarsening. No pneumothorax, pleural effusion, airspace consolidation or pulmonary edema. Bones appear grossly intact. IMPRESSION: Emphysema without acute process. ACT 112: Negative or not required by law. The above report was generated using voice recognition software. It may contain grammatical, syntax o r spelling errors. Electronically signed by: Aj Melgar M.D. 03/15/2024 7:23 AM
[2024-03-15 08:58] LABS: Basophils # (auto) 0.06 K/uL (0.00-0.20); Basophils % (auto) 0.7 %; Eosinophils # (auto) 0.14 K/uL (0.00-0.50); Eosinophils % (auto) 1.5 %; Hematocrit (blood only) 39.3 % (37.0-47.0); Hemoglobin 13.1 g/dl (12.0-16.0); Immature Granulocytes # (auto) 0.07 K/uL (0.01-0.20); Immature Granulocytes % (auto) 0.8 %; Lymphocytes # (auto) 1.29 K/uL (1.20-3.40); Lymphocytes % (auto) 14.2 %; Mean Corpuscular Hemoglobin 28.5 pg (25.0-34.0); Mean Corpuscular Hgb Conc 33.3 g/dL (32.0-36.0); Mean Corpuscular Volume 85.4 fL (80.0-100.0); Monocytes # (auto) 1.42 K/uL (0.11-0.59); Monocytes % (auto) 15.6 %; Neutrophils # (auto) 6.13 K/uL (1.40-6.50); Neutrophils % (auto) 67.2 %; Platelet Count 426 K/uL (130-400); RDW Coefficient of Variation 12.5 % (11.5-14.5); RDW Standard Deviation 38.8 fL (36.4-46.3); White Blood Count 9.11 K/ul (4.8-10.8)
[2024-03-15] MEDS: METOPROLOL SUCC 50MG EXT REL TAB PO SCH (10:06)
[2024-03-15] MEDS: PANTOprazole 40 MG TAB PO SCH (10:07)
[2024-03-15] MEDS: HEPARIN SOD 5,000 UNIT/0.5 ML VIAL SQ SCH (10:10)
[2024-03-15] MEDS ORDERED: PANTOprazole 40 MG in SYRINGE 0 ML IV SCH (11:00)
--- NOTE | 2024-03-15 12:38 | Hospitalist Progress Note ---
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 Serum osmolarity is quite low at 241. She is now on fluid restriction. IV fluids have been discontinued. Losartan may be contributing to hyponatremia and has been discontinued. Serial labs ordered. (2) Hypotensive episode: Plan: Present on admission. Resolved with IV fluids (3) Acute metabolic encephalopathy: Plan: Present on admission. Now resolved (4) Abdominal pain, LUQ: Plan: Present on admission. Now resolved (5) Closed fracture distal radius and ulna: Plan: Recent fracture of the left wrist suffered in a fall at home. Supportive care (6) HTN (hypertension): Plan: Continue Toprol-XL. Losartan has been discontinued (7) Chronic obstructive pulmonary disease: Plan: Stable. Continue current medical management Plan Fluid restriction and serial labs. Losartan discontinued. OT and PT assessments requested. She may need short-term SNF placement. Admission and Anticipated Discharge Date Admission Date: March 15, 2024 Subjective Alert and seems to be oriented. Metabolic encephalopathy present on admission appears to have improved. Sodium 116 on admission. Repeat sodium level is pending. Serum osmolarity was quite low at 241. 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 Losartan may be contributing and has been discontinued. She remains on Toprol- XL 50 mg daily. Diet has been advanced. Will discontinue IV fluids and maintain fluid restriction. OT and PT assessments requested Review of Systems 2 Review of Systems: Constitutional-no fever or chills ENT-no blurred vision, no double vision, no epistaxis, no sore throat Respiratory-no cough, no wheezing, no shortness of breath Cardiac-no palpitations, no chest pain, no syncope GI-no nausea, vomiting, diarrhea, melena, hematochezia -no urinary retention, no urinary incontinence, no dysuria, no hematuria Musculoskeletal-no joint pain, no muscle tenderness Skin-no bruising, no rashes, no pruritus Neuro-generalized weakness Psych-no depression, no anxiety Physical Exam 2 Physical Exam: General-alert and oriented x3, no fever, no chills HEENT-head atraumatic and normocephalic, pupils equal and reactive to light, extraocular muscles intact Neck-no lymphadenopathy or thyromegaly, trachea midline Chest-clear to auscultation. No rales, wheezing or rhonchi Cardiac-regular rate and rhythm, normal S1 and S2 Abdomen-normal bowel sounds, no hepatosplenomegaly Extremities-no cyanosis, clubbing, or edema Neuro-cranial nerves II through XII intact, motor and sensory function within normal limits, strength symmetrical with generalized weakness, no focal deficits Psych-normal affect, normal mood Results & Data Results & Data Vital Signs (Past 12 Hours) Vital Signs Temp Pulse Pulse Resp BP Pulse Ox O2 Del Method 03/15/24 11:29 36.5 C 69 18 139/77 95 Room Air 03/15/24 07:37 73 03/15/24 07:22 36.4 C L 72 18 143/82 H 94 Room Air 03/15/24 02:42 Room Air 03/15/24 02:17 36.8 C 94 H 18 133/78 94 Room Air 03/15/24 02:00 88 03/15/24 01:20 79 16 140/75 98 Room Air 03/15/24 01:09 82 03/15/24 01:00 72 16 101/67 98 Room Air Laboratory Results 03/15/24 08:27 03/14/24 20:23 PG Care Time/CCT Total # of Minutes Spent Total Time Spent with Patient: Total time spent is greater than 50% in coordination of care (as documented) at patient's floor/unit and/or counseling patient: Coding Level of Care Code 01856 SUB INP/OBS CARE 3/50MIN Diagnoses Acute hyponatremia E87.1 Hypotensive episode I95.9 Acute metabolic encephalopathy G93.41 Abdominal pain, LUQ R10.12 Closed fracture distal radius and ulna S52.502A; S52.602A Encounter type: initial encounter Laterality: left HTN (hypertension) I10 Chronic obstructive pulmonary disease J44.9 (5) Closed fracture distal radius and ulna Encounter type: initial encounter Laterality: left Qualified Code(s): S 52.502A - Unspecified fracture of the lower end of left radius, initial encounter for closed fracture; S52.602A - Unspecified fracture of lower end of left ulna, initial encounter for closed fracture
[2024-03-15 13:13] LABS: BUN Creatinine Ratio 11.9 (10-20); Calcium 8.2 mg/dl (8.6-10.3); Creatinine Clr Calc Pharmacy 71.6 ml/min; Est GFR (African American) 111.4 ml/min; Est GFR (Non-African American) 96.1 ml/min; Potassium 3.9 mmol/L (3.5-5.1)
--- NOTE | 2024-03-15 13:32 | Electrocardiogram Report ---
Test Reason : Blood Pressure : / mmHG Vent. Rate : 069 BPM Atrial Rate : 069 BPM P-R Int : 158 ms QRS Dur : 080 ms QT Int : 466 ms P-R-T Axes : 078 012 022 degrees QTc Int : 499 ms Normal sinus rhythm Prolonged QT Abnormal ECG When compared with ECG of 25-FEB-2024 04:35, No significant change was found Confirmed by Alfred Iglesias ([id number] on 03/15/2024 1:32:27 PM Referred By: REFERRED SELF Confirmed By:Kunal Iglesias
--- OUTSIDE RECORDS SUMMARY | 2024-03-15 18:12 | External Medical Summary | Continuity of Care Document ---
Author Name Unknown Organization [facility] [id number] Address [address] [place] [phone] Care Team Providers [employer] Officer Name Role Phone TemoIvan W Primary Care Physician [phone] [id number] Date(s): 03/06/24 - 03/06/24 [facility] [address] [place] [id number] [facility] [address] [place] [id number] Encounter Diagnosis S/P orthopedic surgery, follow-up exam(Discharge Diagnosis) - 03/06/24 Discharge Disposition: Home or Self Care Attending Physician: MD Lucy, Preston A Allergies, Adverse Reactions, Alerts Substance Criticality Severity Reaction Reaction Severity Status penicillins Rash Active sulfa drugs Unable to assess criticality Severe Swelling Active Assessment and Plan Extracted from: Title:Left wrist fracture Author:MD Lucy, Preston A Date:03/06/24 OUTPATIENT NOTE Name: NELLIE DOE Patient Number:1 [id number] : 1945 Date of Service: 03/06/2024 CHIEF COMPLAINT: Left wrist fracture. HISTORY OF PRESENT ILLNESS: Nellie is a pleasant 79-year-old female, who underwent closed reduction of her left wrist fracture while in the hospital February 26, 2024. She has been at [facility]. She currently rates her pain a 5/10. She has been using pain medicine. She denies any systemic symptoms of fevers or chills. ROS: Noted in the HPI. PHYSICAL EXAM: Focusing on the patient's left upper extremity: BCR <2 seconds. Sensation light touch is intact distally Motor to: median, radial, ulnar nerves are intact. + Bruising over the proximal phalanx of the middle finger, the skin tear is well-healed, no evidence of infection + Swelling of the hand and digits. RADIOGRAPHS: I personally performed interpretation of the 3 views of the left wrist in plaster, which show maintained alignment of her comminuted intra-articular, distal radius and ulna fractures, in acceptable alignment with overlying plaster. IMPRESSION: 9 days status post closed reduction left wrist fracture, maintained alignment Goal: Decrease pain, improved motion. PLAN: RICE. Short course of anti-inflammatories, alternating with Tylenol as needed for pain. Sling for when she is ambulating. Continue PT with generalized strengthening, could use a platform walker. Continue pain control. Follow-up 1 week with x-rays in plaster with my PA as I will be out of town; additionally follow-up in 2 weeks with me again with x-rays OOP. The patient understood all my instructions and explanation; all their questions were satisfactorily addressed. This chart was completed utilizing [employer] voice recognition software. Grammatical errors, random word insertions, pronoun errors, and incomplete sentences are an occasional consequence of the system. Any questions or concerns about the content, text, or information contained within the body of this dictation should be addressed directly to the author for clarification. _ Medications acetaminophen-hydrocodone 325 mg-2.5 mg oral tablet Start: 03/06/24 3:28:00 PM EDT, Refills: 0 Start Date: 03/06/24 Status: Ordered ascorbic acid 500 mg oral capsule Start: 03/06/24 3:21:00 PM EDT Start Date: 03/06/24 Status: Ordered atorvastatin 10 mg oral tablet Start: 03/06/24 3:24:00 PM EDT Start Date: 03/06/24 Status: Ordered bisacodyl (PEG base) 10 mg supp Start: 03/06/24 3:25:00 PM EDT Start Date: 03/06/24 Status: Ordered Breo Ellipta Start: 03/06/24 3:26:00 PM EDT Start Date: 03/06/24 Status: Ordered dextrose Start: 03/06/24 3:26:00 PM EDT Start Date: 03/06/24 Status: Ordered docusate Start: 03/06/24 3:25:00 PM EDT Start Date: 03/06/24 Status: Ordered enoxaparin 40 mg/0.4 mL injectable solution Start: 03/06/24 3:23:00 PM EDT, 0.4 mL, subQ, Daily Start Date: 03/06/24 Status: Ordered Flexeril 10 mg oral tablet Start: 04/26/12 2:37:00 PM EDT, 1 tab, PO, PRN: as needed for spasm Start Date: 04/26/12 Status: Ordered folic acid Start: 03/06/24 3:25:00 PM EDT Start Date: 03/06/24 Status: Ordered Incruse Ellipta Start: 03/06/24 3:26:00 PM EDT Start Date: 03/06/24 Status: Ordered latanoprost 0.005% ophthalmic emulsion Start: 03/06/24 3:23:00 PM EDT Start Date: 03/06/24 Status: Ordered Lidoderm 5% topical patch Start: 03/06/24 3:27:00 PM EDT Start Date: 03/06/24 Status: Ordered losartan 100 mg oral tablet Start: 03/06/24 3:21:00 PM EDT Start Date: 03/06/24 Status: Ordered meclizine 12.5 mg oral tablet Start: 03/06/24 3:23:00 PM EDT, 1 tab, PO, tid, PRN: as needed for dizziness Start Date: 03/06/24 Status: Ordered metoprolol succinate 50 mg oral capsule, extended release Start: 03/06/24 3:22:00 PM EDT Start Date: 03/06/24 Status: Ordered MiraLax Start: 03/06/24 3:24:00 PM EDT Start Date: 03/06/24 Status: Ordered multivitamin Start: 04/26/12 2:39:00 PM EDT, PO, Daily, tab Start Date: 04/26/12 Status: Ordered ondansetron Start: 03/06/24 3:25:00 PM EDT Start Date: 03/06/24 Status: Ordered Protonix Start: 03/06/24 3:27:00 PM EDT Start Date: 03/06/24 Status: Ordered Proventil 0.083% for nebulization Start: 03/06/24 3:24:00 PM EDT Start Date: 03/06/24 Status: Ordered sodium chloride Start: 03/06/24 3:27:00 PM EDT Start Date: 03/06/24 Status: Ordered Tylenol Arthritis Caplet 650 mg oral tablet, extended release Start: 04/26/12 2:41:00 PM EDT, See Instructions, prn Start Date: 04/26/12 Status: Ordered Vitamin D3 2000 intl units oral tablet Start: 04/26/12 2:35:00 PM EDT, 1 tab, PO, Daily Start Date: 04/26/12 Status: Ordered Mental Status 03/06/24 Barriers to Learning one year None evide nt Mandatory Health Literacy Documentation Yes Health Literacy Communication Barriers N ever Primary Language Slovenian Problem List Condition Confirmation Course Effective Dates Status Health St atus Informant S/P orthopedic surgery, follow-up exam Confirmed Active Tobacco abuse Confirmed Active Diagnosis Diagnosis Type Effective Dates Health Status Clinical Service Informant S/P orthopedic surgery, follow-up exam Discharge Diagnosis 03/06/24 Procedures Procedure Date Related Diagnosis Body Site Status Upper GI endoscopy 1, 2 07/14/16 C ompleted 1Pathology results: Stomach, cardia, biopsy: 1) Nonspecific chronic gastritis. 2) No significant activity (acute inflammation) identified. 3) Reactivie cellular changes present, no dysplasia identified. 4) immunostain for H. pylori--negative. 2Normal esophagus Medium-sized hiatus hernia Congested mucosa in the cardia. Biopsied. Normal examined duodenum Social History Social History Type Response Smoking Status Never smoked cigaret valeriy Sex Female Outpatient Note * MD Lucy, Preston A: PERFORM Event Display: .Outpt Note Authored Date: [id number] OUTPATIENT NOTE Name: NLELIE DOE Patient Number:1 [id number] : 1945 Date of Service: 03/06/2024 CHIEF COMPLAINT: Left wrist fracture. HISTORY OF PRESENT ILLNESS: Nellie is a pleasant 79-year-old female, who underwent closed reduction of her left wrist fracture while in the hospital February 26, 2024. She has been at [facility]. She currently rates her pain a 5/10. She has been using pain medicine. She denies any systemic symptoms of fevers or chills. ROS: Noted in the HPI. PHYSICAL EXAM: Focusing on the patient's left upper extremity: BCR <2 seconds. Sensation light touch is intact distally Motor to: median, radial, ulnar nerves are intact. + Bruising over the proximal phalanx of the middle finger, the skin tear is well-healed, no evidence of infection + Swelling of the hand and digits. RADIOGRAPHS: I personally performed interpretation of the 3 views of the left wrist in plaster, which show maintained alignment of her comminuted intra- articular, distal radius and ulna fractures, inacceptable alignment with overlying plaster. IMPRESSION: 9 days status post closed reduction left wrist fracture, maintained alignment Goal: Decrease pain, improved motion. PLAN: RICE. Short course of anti-inflammatories, alternating with Tylenol as needed for pain. Sling for when she is ambulating. Continue PT with generalized strengthening, could use a platform walker. Continue pain control. Follow-up 1 week with x-rays in plaster with my PA as I will be out of town; additionally follow-upin 2 weeks with me again with x-rays OOP. The patient understood all my instructions and explanation; all their questions were satisfactorilyaddressed. This chart was completed utilizing [employer] voice recognition software. Grammatical errors,random word insertions, pronoun errors, and incomplete sentences are an occasional consequence of the system. Any questions or concerns about the content, text, or information contained within the body of this dictation should be addressed directly to the author for clarification. _ Electronic Signature on File Electronically Reviewed/Signed by: Preston Ayala MD Author Signature Dt/Tm:03/06/2024 04:18 PM [facility] Human Machine Interface Engineer Department of Orthopaedics and Rehabilitation [facility] [address], [place] [address] DAB Patient Care team information Care Team Personnel Name: MD Castro Jeffrey W Position: Referring DIRECT Member Role: Primary Care Provider Address: Address: [facility] [address] [facility] [address] [place] [address] Care Team Related Persons Name: PAOLA DOE Address: home [address] [place] [phone]
[2024-03-15] MEDS: SODIUM CHLORIDE 1 GM TABLET PO SCH (20:59)
[2024-03-15] MEDS: LATANOPROST 0.005% OP SOLN 2.5 ML BTL OPB SCH (20:59)
[2024-03-15] MEDS: ACETAMINOPHEN 1,000 MG/100 ML VIAL IV PRN (21:13)
[2024-03-16 07:22] LABS: Basophils # (auto) 0.06 K/uL (0.00-0.20); Basophils % (auto) 0.9 %; Eosinophils # (auto) 0.24 K/uL (0.00-0.50); Eosinophils % (auto) 3.7 %; Hematocrit (blood only) 34.6 % (37.0-47.0); Hemoglobin 11.9 g/dl (12.0-16.0); Immature Granulocytes # (auto) 0.03 K/uL (0.01-0.20); Immature Granulocytes % (auto) 0.5 %; Lymphocytes # (auto) 1.39 K/uL (1.20-3.40); Lymphocytes % (auto) 21.2 %; Mean Corpuscular Hgb Conc 34.4 g/dL (32.0-36.0); Mean Corpuscular Volume 84.4 fL (80.0-100.0); Monocytes # (auto) 0.95 K/uL (0.11-0.59); Monocytes % (auto) 14.5 %; Neutrophils # (auto) 3.88 K/uL (1.40-6.50); Neutrophils % (auto) 59.2 %; Platelet Count 480 K/uL (130-400); RDW Coefficient of Variation 12.7 % (11.5-14.5); White Blood Count 6.55 K/ul (4.8-10.8)
[2024-03-16 07:35] LABS: Calcium 8.2 mg/dl (8.6-10.3); Magnesium 1.9 mg/dl (1.7-2.4); Potassium 3.7 mmol/L (3.5-5.1)
[2024-03-16 07:41] LABS: BUN Creatinine Ratio 11.1 (10-20); Creatinine Clr Calc Pharmacy 66.9 ml/min; Est GFR (African American) 108.9 ml/min
[2024-03-16] MEDS: amLODIPine BESYLATE 5 MG TAB PO SCH (10:39)
--- NOTE | 2024-03-16 11:50 | Hospitalist Progress Note ---
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 Serum osmolarity was quite low on admission at 241. Sodium is improving with fluid restriction and IV fluids have been discontinued. Losartan may be contributing to hyponatremia and has been discontinued. Serial labs ordered. (2) Hypotensive episode: Plan: Present on admission. Resolved with IV fluids (3) Acute metabolic encephalopathy: Plan: Present on admission. Now resolved (4) Abdominal pain, LUQ: Plan: Present on admission. Now resolved (5) Closed fracture distal radius and ulna: Plan: Recent fracture of the left wrist suffered in a fall at home. Supportive care (6) HTN (hypertension): Plan: Continue Toprol-XL. Losartan has been discontinued. Amlodipine added today, March 16 (7) Chronic obstructive pulmonary disease: Plan: Stable. Continue current medical management (8) Left knee pain: Plan: This has been going on for several weeks. She may have hurt her knee when she recently fell. Will obtain x-rays and orthopedic consultation. Advil as needed Plan Hopeful return to [facility] within the next day or 2 Admission and Anticipated Discharge Date Admission Date: March 15, 2024 Subjective Complaining of left knee pain that she states has been present for several weeks. She is not certain if she hurt it when she recently fell. Will obtain x-rays and consult orthopedics to evaluate. Will use Advil as needed left knee pain. Sodium has improved to 130. Amlodipine added for better blood pressure control which replaces losartan. Continue metoprolol. Hopefully she can return to [facility] within the next day or 2 Review of Systems 2 Review of Systems: Constitutional-no fever or chills ENT-no blurred vision, no double vision, no epistaxis, no sore throat Respiratory-no cough, no wheezing, no shortness of breath Cardiac-no palpitations, no chest pain, no syncope GI-no nausea, vomiting, diarrhea, melena, hematochezia -no urinary retention, no urinary incontinence, no dysuria, no hematuria Musculoskeletal-left knee discomfort, no muscle tenderness Skin-no bruising, no rashes, no pruritus Neuro-generalized weakness Psych-no depression, no anxiety Physical Exam 2 Physical Exam: General-alert and oriented x3, no fever, no chills HEENT-head atraumatic and normocephalic, pupils equal and reactive to light, extraocular muscles intact Neck-no lymphadenopathy or thyromegaly, trachea midline Chest-clear to auscultation. No rales, wheezing or rhonchi Cardiac-regular rate and rhythm, normal S1 and S2 Abdomen-normal bowel sounds, no hepatosplenomegaly Extremities-no cyanosis, clubbing, or edema. Left knee similar in appearance to right knee without effusion or erythema Neuro-cranial nerves II through XII intact, motor and sensory function within normal limits, strength symmetrical with generalized weakness, no focal deficits Psych-normal affect, normal mood Results & Data Results & Data Vital Signs (Past 12 Hours) Vital Signs Temp Pulse Pulse Resp BP Pulse Ox O2 Del Method 03/16/24 11:04 36.4 C L 69 19 149/75 H 95 Room Air 03/16/24 07:49 67 03/16/24 07:08 36.5 C 65 19 166/71 H 94 Room Air 03/16/24 02:30 36.7 C 60 18 138/71 95 Room Air Laboratory Results 03/16/24 06:55 03/16/24 06:55 PG Care Time/CCT Total # of Minutes Spent Total Time Spent with Patient: Total time spent is greater than 50% in coordination of care (as documented) at patient's floor/unit and/or counseling patient: Coding Level of Care Code 17501 SUB INP/OBS CARE 3/50MIN Diagnoses Acute hyponatremia E87.1 Hypotensive episode I95.9 Acute metabolic encephalopathy G93.41 Abdominal pain, LUQ R10.12 Closed fracture distal radius and ulna S52.502A; S52.602A Encounter type: initial encounter Laterality: left HTN (hypertension) I10 Chronic obstructive pulmonary disease J44.9 Left knee pain M25.562 (5) Closed fracture distal radius and ulna Encounter type: initial encounter Laterality: left Qualified Code(s): S 52.502A - Unspecified fracture of the lower end of left radius, initial encounter for closed fracture; S52.602A - Unspecified fracture of lower end of left ulna, initial encounter for closed fracture
--- NOTE | 2024-03-16 13:58 | XRay Report ---
XR knee LT 3V CLINICAL HISTORY: Left knee pain. COMPARISON STUDY: Left knee 12/30/2021. FINDINGS: No acute fracture or dislocation within the left knee. Prior internal fixation of an old, h ealed proximal tibial fracture with cortical plates and screws. The hardware appears intact. No abnor mal periprosthetic lucency. There is an old proximal fibular fracture again noted. Chronic deformity at the lateral tibial plateau, unchanged. Trace knee effusion. IMPRESSION: 1. No acute fracture or dislocation within the left knee. 2. Stable postoperative changes within the proximal tibia. ACT 112: Negative or not required by law. Electronically signed by: Robi Burns M.D. 03/16/2024 1:57 PM
[2024-03-16] MEDS ORDERED: TRIAMCINOLONE ACET 40 MG/ML VIAL IA ONE ×2 (15:46→16:00)
--- NOTE | 2024-03-16 15:50 | Orthopedic Consultation ---
Date of Service March 16, 2024 Assessment & Plan (1) Osteoarthritis of left knee: admits to recent orthopedic office visit. She still dealing with a lot of right shoulder and left knee pain. She was requesting an injection. I think that is reasonable. A Kenalog injection for the right shoulder and the left knee was ordered up to the room. I will plan to give the injections tomorrow. (2) Rotator cuff arthropathy of right shoulder: History of Present Illness Reason for Consultation: Right shoulder left knee pain. Requesting Physician: . Attending Physician: Herman Chacon MD Nellie is a pleasant 79-year-old female who is well-known to me. I have diagnosed her with cuff tear arthropathy of her right shoulder and advanced arthritis of her left knee. She has a history of an ORIF of the left tibial plateau fracture. I have given her injections in the past which have helped. Unfortunately she is currently hospitalized. She is complaining of right shoulder and left knee pain. Orthopedics was consulted to evaluate and treat.. Allergies Allergy/AdvReac Type Severity Reaction Status Date / Time Penicillins Allergy Unknown Hives Verified 03/14/24 21:43 Sulfa (Sulfonamide Allergy Unknown SWELLING Verified 03/14/24 21:43 Antibiotics) ciprofloxacin [From Cipro] AdvReac Severe Dizziness Verified 03/14/24 21:43 Home Medications Medication Instructions Recorded Confirmed Type folic acid 1 mg tablet 1 mg PO DAILY #1 tab 04/17/19 03/14/24 History acetaminophen 650 mg 650 mg PO Q12H PRN Pain 08/14/19 03/14/24 History tablet,extended release cholecalciferol (vitamin D3) 125 5,000 unit PO .COMPLEX ##0 09/10/20 03/14/24 History mcg (5,000 unit) tablet (Vitamin D3) cyclobenzaprine 5 mg tablet 5 mg PO HS PRN muscle spasm #30 05/29/21 03/14/24 Rx tabs latanoprost 0.005 % eye drops 1 drp OPB HS 02/06/23 03/14/24 History losartan 100 mg tablet (Cozaar) 100 mg PO QAM #90 tabs 09/30/23 03/14/24 Rx albuterol sulfate 90 mcg/actuation 2 puff inhalation Q4H PRN 11/21/23 03/14/24 Rx aerosol inhaler (Ventolin HFA) shortness of breath or wheezing #18 grams metoprolol succinate 25 mg 50 mg (2 x 25 mg) PO DAILY #180 01/18/24 03/14/24 Rx tablet,extended release 24 hr tabs meclizine 12.5 mg tablet 12.5 mg PO Q8H PRN dizziness #20 01/27/24 03/14/24 Rx tabs ascorbic acid (vitamin C) 500 mg 500 mg PO BIDM #30 tabs 02/28/24 03/14/24 Rx tablet (Vitamin C) docusate sodium 100 mg capsule 100 mg PO BID #30 caps 02/28/24 03/14/24 Rx lidocaine 5 % topical patch 1 patch transdermal QAM #15 ea 02/28/24 03/14/24 Rx multivitamin with folic acid 400 1 tab PO QAM #30 tabs 02/28/24 03/14/24 Rx mcg tablet (Daily-Johnny (with folic acid)) polyethylene glycol 3350 17 gram 17 g PO DAILY #30 ea 02/28/24 03/14/24 Rx oral powder packet (Miralax) sennosides 8.6 mg tablet (Senokot) 17.2 mg (2 x 8.6 mg) PO HS #14 tabs 02/28/24 03/14/24 Rx sodium chloride 1,000 mg soluble 1,000 mg PO BID #14 tabs 02/28/24 03/14/24 Rx tablet famotidine 20 mg tablet (Pepcid) 20 mg PO DAILY #30 tabs 03/12/24 03/14/24 Rx hydrocodone 10 mg-acetaminophen 0.5 tab PO .q3hrs PRN PAIN SCALE 03/13/24 03/14/24 History 325 mg tablet 4-10 fluticasone fur. 200 mcg-umeclid 1 inh inhalation DAILY 03/14/24 03/14/24 History 62.5 mcg-vilant 25 mcg inhalat.powder (Trelegy Ellipta) rosuvastatin 5 mg tablet 5 mg PO DAILY 03/14/24 03/14/24 History Past Med/Surg History Problem List (Updated 03/16/24 @ 15:49 by Ryan Colin DO) Osteoarthritis of left knee Left knee pain Chronic hyponatremia Hypotensive episode Abdominal pain, LUQ (Acute) Acute hyponatremia (Acute) Abnormal chest CT Encounter for pre-operative examination Family history of reaction to anesthesia MOTHER HAD "A HARD TIME COMING OUT OF IT" Chest wall contusion (Acute) Closed fracture distal radius and ulna (Acute 02/25/24) from a fall. Orthopedic surgery 02/26/24-Closed reduction of left wrist, distal radius and ulna Fall (Acute) Acute hyponatremia (Acute) HTN (hypertension) Chronic obstructive pulmonary disease Closed fracture of left wrist (02/25/24) Distal radial and ulnar fractures from a fall. Orthopedic surgery 02/26/24- Closed reduction of left wrist, distal radius and ulna Balance disorder Lower extremity weakness History of radius fracture (11/11/21) nondisplaced intra-articular distal radial fracture Hyponatremia Rotator cuff arthropathy of right shoulder Redness and swelling of lower leg Pain of left calf Left ankle pain Left leg injury Osteoarthritis of right hip Ankle swelling Tendinitis of right rotator cuff Greater trochanteric bursitis of left hip Acute metabolic encephalopathy Fall Bruising Greater trochanteric bursitis of right hip Vertigo Allergic rhinitis with postnasal drip Pulmonary nodule DDD (degenerative disc disease), cervical Tendinitis of both rotator cuffs Multiple pulmonary nodules determined by computed tomography of lung PAD (peripheral artery disease) (Chronic) Buerger disease Retinal vein occlusion (Acute) Osteoporosis (Acute) Hypercholesterolemia (Acute) Esophageal reflux (Acute) COPD exacerbation (Acute) Medical History Anemia, mild Hypokalemia Scalp hematoma Acute head trauma Acute hyponatremia Fall Lower extremity edema Current smoker Acute bronchitis Osteoarthritis GERD (gastroesophageal reflux disease) Family history of diabetes mellitus MATERNAL GRANDMOTHER Deviated nasal septum 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 Hyperlipidemia Hypertension Chronic obstructive pulmonary disease Surgical History S/p bilateral blepharoplasty History of hysterectomy R OOPHERECTOMY History of section History of open reduction and internal fixation (ORIF) procedure L ANKLE/TIBIA History of appendectomy History of esophagogastroduodenoscopy (EGD) History of colonoscopy History of tonsillectomy History of tooth extraction WISDOM TEETH History of cataract surgery RT/LT Family History Mother Coronary heart disease Hypertension Father Coronary heart disease Hypertension Myocardial infarction Grandmother Diabetes Breast cancer Grandmother (Maternal) Stroke Other Family history of reaction to anesthesia Denies family history of Ovarian cancer Prostate cancer Lung cancer Colorectal cancer Social History Smoking Status: Current every day smoker Tobacco Type: Cigarettes Cigarettes Per Day: 7-10; Second Hand Exposure: Yes; Do You Dip or Chew Tobacco: No; Hx Alcohol Use: No Hx Substance Use: No Preferred Language: Prydeinig Communication Ability: Effective Visual Impairment: Limited Hearing Ability: Normal Log Handling Equipment Operator Required: No Beliefs That Will Affect Care: None marital status: Current Living Situation: Rehab Current Living Situation Comment: Currently residing at [facility] for rehab current occupational status: retired How many Children do You have: 3 Feels Safe at Home: Yes Childhood Exposure to Second-Hand Smoke: Yes caffeine: Yes Dental Care, Regularly: Yes Physical Activity Frequency: Daily Seatbelt Use: always Sunscreen Use: No Assistive Devices: Cane and Walker Review of Systems All systems reviewed & are unremarkable except as noted in HPI & below. Physical Exam On physical examination of the left knee, she has full range of motion and no effusion. She has pain of the distal femoral condyles and in the patellofemoral joint Physical examination of the right shoulder shows decreased range of motion weakness throughout. She has pain of the glenohumeral joint line.. Constitutional WD/WN, vitals as above Eyes PERRL, conjunctivae normal, anicteric sclerae ENMT external ear and nose normal, oropharynx normal Neck trachea midline, no thyromegaly Respiratory normal respiratory effort Cardiovascular RRR, no murmur, no edema Gastrointestinal (Abdomen) normal bowel sounds, soft, nontender, no hepatosplenomegaly Psychiatric A+Ox3, euthymic affect Results & Data Results & Data Laboratory Results . Diagnostic Findings X-rays of the left knee were reviewed and demonstrate a prior ORIF of the tibial plateau with advanced knee arthritis.. PG Care Time/CCT Total # of Minutes Spent Total Time Spent with Patient: Total time spent is greater than 50% in coordination of care (as documented) at patient's floor/unit and/or counseling patient: Coding Level of Care Code 55016 IN/OBS CONSULT LVL 4,60M Diagnoses Osteoarthritis of left knee M17.12 Rotator cuff arthropathy of right shoulder M12.811
[2024-03-16] MEDS ORDERED: BUPIVACAINE/EPINEPHRINE 0.25% 1:200,000 30 ML VIAL INFIL ONE (16:00)
[2024-03-16] MEDS ORDERED: Nursing to Pharmacy Communication SCH (19:45)
[2024-03-17 08:02] LABS: BUN Creatinine Ratio 13.5 (10-20); Calcium 8.5 mg/dl (8.6-10.3); Creatinine Clr Calc Pharmacy 81.3 ml/min; Est GFR (African American) 116.2 ml/min; Est GFR (Non-African American) 100.2 ml/min; Potassium 3.7 mmol/L (3.5-5.1)
--- NOTE | 2024-03-17 08:33 | Orthopedic Progress Note ---
Date of Service March 17, 2024 Assessment & Plan (1) Osteoarthritis of left knee: I gave her an injection in her left knee and her right shoulder at bedside. Hopefully will help out with some of her symptoms. I do not see any surgical indications at this time. She is orthopedically stable for discharge when medically ready. Please call me if you have any further questions or concerns. My personal cell phone is [phone]. The left knee was injected with 80 mg of Kenalog and 3 cc of Marcaine. The caballero rgical site was cleaned with alcohol swabs and then injection was administered. A Band-Aid was placed. She tolerated the procedure well. The right shoulder was injected with 80 mg of Kenalog and 3 cc of Marcaine. The surgical site was cleaned with alcohol swabs and then injection was administered. A Band-Aid was placed. She tolerated the procedure well. Kate Ballard was seen and examined at bedside this morning. She is still having some pain in her left knee and her right shoulder. The medications for the injections have been brought up to the room.. Review of Systems All systems reviewed & are unremarkable except as noted in HPI & below. Physical Exam Physical examination is unchanged from yesterday.. Results & Data Results & Data Laboratory Results . Diagnostic Findings . PG Care Time/CCT Total # of Minutes Spent Total Time Spent with Patient: Total time spent is greater than 50% in coordination of care (as documented) at patient's floor/unit and/or counseling patient: Coding Level of Care Code 08894 Post Operative Follow-Up Diagnoses Osteoarthritis of left knee M17.12
[2024-03-17] MEDS: BUPIVACAINE/EPINEPHRINE 0.25% 1:200,000 30 ML VIAL INFIL ONE (08:34)
[2024-03-17] MEDS: TRIAMCINOLONE ACET 40 MG/ML VIAL IA ONE ×2 (08:38)
--- NOTE | 2024-03-17 11:27 | Discharge Summary ---
Date of Service March 17, 2024 Admission HPI Per Admitting Provider The patient is an 79-year-old female with a past medical history including chronic hyponatremia, acute on chronic hyponatremia, COPD, GERD, hypercholesterolemia, Buerger's disease, PVD, acute metabolic encephalopathy, ri ght shoulder rotator cuff arthropathy and hypertension. She was admitted to [facility] from 02/24-02/28/2024 for left wrist fracture repair, and acute on chronic hyponatremia. She was then discharged to [facility], and from there she has been at [facility] due to slowly recovering strength and conditioning. Due to symptoms of nausea and persistent progressive fatigue, she is brought to the emergency department for evaluation this evening. She was found to have a sodium of 116, and a blood pressure at its lowest 83/60, and referred for evaluation for admission Principal Diagnosis SIADH with hyponatremia, transient hypotension, hypovolemia, left knee pain due to degenerative arthritis Discharge Exam General-alert and oriented x3, no fever, no chills HEENT-head atraumatic and normocephalic, pupils equal and reactive to light, extraocular muscles intact Neck-no lymphadenopathy or thyromegaly, trachea midline Chest-clear to auscultation. No rales, wheezing or rhonchi Cardiac-regular rate and rhythm, normal S1 and S2 Abdomen-normal bowel sounds, no hepatosplenomegaly Extremities-no cyanosis, clubbing, or edema. Left knee similar in appearance to right knee without effusion or erythema Neuro-cranial nerves II through XII intact, motor and sensory function within normal limits, strength symmetrical with generalized weakness, no focal deficits Psych-normal affect, normal mood Discharge Data Allergies Allergy/AdvReac Type Severity Reaction Status Date / Time Penicillins Allergy Unknown Hives Verified 03/14/24 21:43 Sulfa (Sulfonamide Allergy Unknown SWELLING Verified 03/14/24 21:43 Antibiotics) ciprofloxacin [From Cipro] AdvReac Severe Dizziness Verified 03/14/24 21:43 Consultations 03/15/24 00:41 ED Decision to Admit Stat 03/16/24 11:44 Consult Orthopedic Surgery Routine Ordered Studies 03/14/24 20:23 CT Abd and Pelvis [CT abd pelvis IV con only] Stat Hospital Course (1) Acute hyponatremia: She appears to have SIADH with recurrent episodes of hyponatremia. Serum osmola rity was quite low on admission at 241. Sodium is improving with fluid restriction and IV fluids have been discontinued. Losartan may be contributing to hyponatremia and has been discontinued. Serial labs ordered. Improved (2) Hypotensive episode: Present on admission. Resolved with IV fluids (3) Acute metabolic encephalopathy: Present on admission. Now resolved (4) Abdominal pain, LUQ: Present on admission. Now resolved (5) Closed fracture distal radius and ulna: Recent fracture of the left wrist suffered in a fall at home. Supportive care (6) HTN (hypertension): Continue Toprol-XL. Losartan has been discontinued. Amlodipine added on March 16 (7) Chronic obstructive pulmonary disease: Stable. Continue current medical management (8) Left knee pain: Due to arthritis. Orthopedic consultation appreciated. She had the left knee injected today, March 17. Continue Advil as needed Plan [facility]charge to [facility] living todayMarch 17 Total Time Total Time Spent Total Time Spent (In Minutes): 50 minutes Discharge Plan Discharge Items Patient Disposition: Home - Self-Care Reason For Visit: HYPONATREMIA, FATIGUE Discharge Diagnosis: Acute on chronic hyponatremia due to SIADH, transient hypotension, hypovolemia, left knee pain due to underlying degenerative arthritis Activity: Resume your previous activity Non-emergency contact: Primary Care Provider Call non-emergency contact if: you have any medication questions and your symptoms worsen Follow-up/Referrals: Pro,Ivan Carlos MD [Primary Care Provider] - Diet: Regular and Heart Healthy Addtl Attending Provider Instructions: Losartan has been discontinued. Amlodipine is new for blood pressure. Take Advil (ibuprofen) 400 mg every 6 hours as needed for arthritis pain Pending Studies at Discharge: No Stand-Alone Forms: My [facility], Smoking Cessation Medications and DC Order Prescriptions: New amlodipine [Norvasc] 5 mg Tablet 5 mg PO QAM Qty: 30 0RF ibuprofen 200 mg Tablet 400 mg PO Q6H PRNQty: 0 0RF Continued cholecalciferol (vitamin D3) [Vitamin D3] 125 mcg (5,000 unit) tablet 5,000 unit PO .COMPLEX Qty: 0 Rx Instructions: 5,000 units PO Tuesday thru ; cyclobenzaprine 5 mg tablet 5 mg PO HS PRN (Reason: muscle spasm) Qty: 30 0RF metoprolol succinate 25 mg tablet extended release 24 hr 50 mg PO DAILY Qty: 180 1RF meclizine 12.5 mg tablet 12.5 mg PO Q8H PRN (Reason: dizziness) Qty: 20 0RF famotidine [Pepcid] 20 mg tablet 20 mg PO DAILY Qty: 30 2RF acetaminophen 650 mg tablet extended release 650 mg PO Q12H PRN (Reason: Pain) albuterol sulfate [Ventolin HFA] 90 mcg/actuation HFA aerosol inhaler 2 puff inhalation Q4H PRN (Reason: shortness of breath or wheezing) Qty: 18 5RF folic acid 1 mg tablet 1 mg PO DAILY Qty: 1 hydrocodone-acetaminophen 10-325 mg tablet 0.5 tab PO .q3hrs PRN (Reason: PAIN SCALE 4-10) latanoprost 0.005 % drops 1 drp OPB HS sennosides [Senokot] 8.6 mg Tablet 17.2 mg PO HS Qty: 14 0RF polyethylene glycol 3350 [Miralax] 17 gram Powder In Packet 17 g PO DAILY Qty: 30 0RF docusate sodium 100 mg Capsule 100 mg PO BID Qty: 30 0RF lidocaine 5 % Adhesive Patch,Medicated 1 patch transdermal QAM Qty: 15 0RF sodium chloride 1,000 mg Tablet,Soluble 1,000 mg PO BID Qty: 14 0RF ascorbic acid (vitamin C) [Vitamin C] 500 mg Tablet 500 mg PO BIDM Qty: 30 0RF multivitamin with folic acid [Daily-Johnny (with folic acid)] 400 mcg Tablet 1 tab PO QAM Qty: 30 0RF Trelegy Ellipta 200-62.5-25 mcg blister with device 1 inh INHALATION DAILY rosuvastatin 5 mg tablet 5 mg PO DAILY Discontinued losartan [Cozaar] 100 mg tablet 100 mg PO QAM Qty: 90 3RF Discharge Orders: Discharge Order (Routine); Ordered 03/17/24 Ordered By: Herman Chacon Admission Data Admit Date/Time: 03/15/24 01:16 Attending Provider: Herman Chacon Admit Provider: Rocky Booker Primary Care Provider: Ivan Castro Other Providers: Rocky Booker; Dieter Crow; Yasmin Pena; Renetta Boyle; Kenya Ott; Zack Davila; Josefa Mata; Héctor Andrade; Rachel Posey; Eric Phelan; Ryan Ramos; Guerline Obrien; Ryan Colin; Aj Metzger Coding Level of Care Code 36595 INP/OBS DISCH >30 MIN Diagnoses Acute hyponatremia E87.1 Hypotensive episode I95.9 Acute metabolic encephalopathy G93.41 Abdominal pain, LUQ R10.12 Closed fracture distal radius and ulna S52.502A; S52.602A Encounter type: initial encounter Laterality: left HTN (hypertension) I10 Chronic obstructive pulmonary disease J44.9 Left knee pain M25.562
[2024-03-17] MEDS: IBUPROFEN 200 MG TAB PO PRN (13:28)
== END 2024-03-17 15:21 | disposition home or self-care (01) | DRG 643 ==
LOC: ED 20:03 → SUATTDRO 03-15 01:16 → 2S 03-15 01:16

== ENCOUNTER 2025-01-14 12:01 | Inpatient (IN) ==
[2025-01-14] MEDS: OPTIRAY 320 125ml IV ONE (12:15)
--- NOTE | 2025-01-14 12:25 | CT Scan Report ---
CT head/brain wo con CLINICAL HISTORY: neuro deficit, acute stroke suspected. TECHNIQUE: Multiple axial CT images of the head were obtained without contrast. A dose lowering tech nique was utilized adhering to the principles of ALARA. COMPARISON: 02/06/2023 FINDINGS: Stable globus pallidus calcification, unremarkable in this age group. No intracranial hemor rhage seen. No mass effect, midline shift, or hydrocephalus. Stable mild chronic small vessel ischemi c changes. No skull fracture. Visualized paranasal sinuses and mastoid air cells are clear. IMPRESSION: No acute findings. ACT 112: Negative or not required by law. The above report was generated using voice recognition software. It may contain grammatical, syntax o r spelling errors. Electronically signed by: Yo Bingham M.D. 01/14/2025 12:24 PM
--- NOTE | 2025-01-14 12:30 | CT Scan Report ---
CT angio head w con CLINICAL HISTORY: neuro deficit, acute stroke suspected. COMPARISON STUDY: CT scan earlier today TECHNIQUE: Unenhanced axial CT scan of the brain is performed. Subsequently, following the IV adminis tration of 112 cc of Optiray, CT angiogram of the brain was performed from the skull base to the vert ex. Images are reviewed in the axial, sagittal, and coronal planes. 3-D MIPS images are created and a ssessed. IV contrast was administered without complication. All measurements were obtained according to NASCET criteria. A dose lowering technique was utilized adhering to the principles of ALARA. CT DOSE: 1212.39 mGy.cm FINDINGS: There is short segment severe focal narrowing or occlusion distally at the right vertebral artery. The right vertebral artery is dominant and the left vertebral artery is very diminutive, ambika omic variant. Bilateral distal internal carotid arteries show no significant narrowing. Basilar arter y is widely patent. The anterior, middle, and posterior cerebral arteries are patent bilaterally. The re is a 5 mm basilar tip aneurysm. No other intracranial aneurysm seen. Cerebral venous sinuses opaci fy normally. IMPRESSION: 1. Severe narrowing/short segment occlusion distally at the right vertebral artery. 2. Otherwise no significant narrowing or occlusion seen on CTA of the brain. 3. 5 mm aneurysm at the basilar tip. ACT 112: Negative or not required by law. The above report was generated using voice recognition software. It may contain grammatical, syntax o r spelling errors. Electronically signed by: Yo Bingham M.D. 01/14/2025 12:29 PM
[2025-01-14 12:32] LABS: iSTAT Creatinine 0.6 mg/dl (0.6-1.3); iSTAT Hemoglobin 11.2 g/dl (12.0-16.0); iSTAT Ionized Calcium 1.13 mmol/l (1.12-1.32); iSTAT Potassium 3.7 mmol/L (3.3-5.0)
[2025-01-14 12:36] LABS: Basophils # (auto) 0.07 K/uL (0.00-0.20); Basophils % (auto) 0.8 %; Eosinophils % (auto) 1.2 %; Hematocrit (blood only) 31.8 % (37.0-47.0); Hemoglobin 10.7 g/dl (12.0-16.0); Immature Granulocytes # (auto) 0.06 K/uL (0.01-0.20); Immature Granulocytes % (auto) 0.7 %; Lymphocytes # (auto) 1.18 K/uL (1.20-3.40); Lymphocytes % (auto) 14.2 %; Mean Corpuscular Hemoglobin 28.8 pg (25.0-34.0); Mean Corpuscular Hgb Conc 33.6 g/dL (32.0-36.0); Mean Corpuscular Volume 85.7 fL (80.0-100.0); Monocytes # (auto) 0.79 K/uL (0.11-0.59); Monocytes % (auto) 9.5 %; Neutrophils # (auto) 6.09 K/uL (1.40-6.50); Neutrophils % (auto) 73.6 %; Platelet Count 272 K/uL (130-400); RDW Coefficient of Variation 13.4 % (11.5-14.5); RDW Standard Deviation 42.2 fL (36.4-46.3); Red Blood Count 3.71 M/uL (4.20-5.40); White Blood Count 8.29 K/ul (4.8-10.8)
--- NOTE | 2025-01-14 12:36 | CT Scan Report ---
CT angio neck with con CLINICAL HISTORY: 79 years-old Female with neuro deficit, acute stroke suspected. Acute stroke lik e symptoms COMPARISON STUDY: Head CT and CTA head of same day TECHNIQUE: Following the IV administration of 112 of Optiray, CT angiogram of the neck was performed from the aortic arch to the skull base. Images are reviewed in the axial, sagittal, and coronal plane s. 3-D MIPS images are created and assessed. IV contrast was administered without complication. All m easurements were calculated based on NASCET criteria. A dose lowering technique was utilized adherin g to the principles of ALARA. FINDINGS: Involutional changes with chronic microvascular ischemic disease. An CT dictated separately. Atherosc lerotic plaque at the origin of left subclavian artery was also an approximately 50% stenosis. There is high-grade stenosis of at least 80% involving the origin of the right subclavian artery. There is moderate atherosclerosis of the common carotid arteries. Additional atherosclerotic plaque of the lef t carotid bulb and proximal left ICA causes less than 50% stenosis. Prominent calcified plaque within the right carotid bulb and origin of the right ICA causes high-grade stenosis of greater than 80%. T here is also high-grade stenosis at the origin of the right external carotid artery. Calcified plaque within the cavernous, clinoid and supraclinoid segments causes up to approximately 50% stenosis bila terally. Multifocal [id number] stenosis within the right vertebral artery secondary to calcified plaque. There is high-grade stenosis within the proximal to mid aspects of the right V4 segment secondary to atherosclerosis, image 320 series 7 for example. Fusiform dilation of the basilar tip measures 4 x 4 millimeters. Developmentally diminutive left vertebral artery demonstrates multifocal high-grade jose juan noses throughout all the segments. Emphysema. Biapical opacities favor pleural parenchymal scarring. Unremarkable soft tissues. Degenera tive changes of the spine. IMPRESSION: 1. High-grade stenosis of the right carotid bulb and proximal cervical segment right ICA secondary to prominent atherosclerosis. 2. Multifocal high-grade stenoses of the left vertebral artery. 3. High-grade stenosis at the origin of the right subclavian artery (proximal to the vertebral artery origin and may contribute to subclavian steal). 4. High-grade stenosis of the V4 segment right vertebral artery. 5. 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 ACT 112: Negative or not required by law. The above report was generated using voice recognition software. It may contain grammatical, syntax o r spelling errors. Electronically signed by: Aj Melgar M.D. 01/14/2025 12:35 PM
[2025-01-14 12:51] LABS: Albumin Globulin Ratio 1.8 (0.9-2); Albumin Level 3.5 gm/dl (3.4-5.0); BUN Creatinine Ratio 26.1 (10-20); Bilirubin,Total 0.8 mg/dl (0.2-1.0); Calcium 8.1 mg/dl (8.6-10.3); Creatinine Clr Calc Pharmacy 71.7 ml/min; Magnesium 1.7 mg/dl (1.7-2.4); Potassium 3.7 mmol/L (3.5-5.1); Total Protein 5.5 gm/dl (6.0-8.3)
[2025-01-14 12:58] LABS: Troponin I High Sensitivity 7.4 pg/ml (0-14)
[2025-01-14 13:12] LABS: Partial Thromboplastin Ratio 1.3; Partial Thromboplastin Time 34 Seconds (21-31); Prothrombin Time 11.3 Seconds (9.0-12.0)
--- NOTE | 2025-01-14 13:23 | Emergency Department Note ---
Impression & Plan TIA (transient ischemic attack), Occlusion of vertebral artery, Carotid artery stenosis ED Provider Note NAME: SAM DOE AGE: 79 SEX: F : 1945 ARRIVES VIA: Ambulance INFORMANT: Patient, ED PROVIDER(S): Ryley Medina MD CHIEF COMPLAINT: Aphasia HPI: This is a 79-year-old female presenting for aphasia/left facial droop. Patient is a stroke alert on arrival. This report apparently happened at home with her daughter. She had left-sided facial droop and aphasia. Could not think of words. Upon having here, patient have resolved. Patient on her blood thinners. Last known normal at 11 AM. No fevers, chills, nausea or vomiting. No current headache. ROS: See above HPI for pertinent positives & negatives. A total of 10 systems reviewed and were otherwise negative. PAST MEDICAL HISTORY: See Below PAST SURGICAL HISTORY: See Below FAMILY HISTORY: See Below SOCIAL HISTORY: See Below HOME MEDICATIONS: See Below ALLERGIES: See Below VITALS: See Below PHYSICAL EXAMINATION: General: resting comfortably in no acute distress Head: Normocephalic and atraumatic Eyes: Normal inspection, extraocular muscles intact Ear, nose, throat: Normal external exam Neck: Normal range of motion Respiratory: lungs clear to auscultation bilaterally Cardiovascular: Regular rate/rhythm, no murmur GI: soft, nontender, no guarding or rebound Extremities: nontender, moves all extremities Neuro: The patient awake and alert, appropriately conversive, no focal deficits, symmetric faces, NIH 0, no dysmetria Skin: Warm, dry, and intact MEDICAL DECISION MAKING: This is a 79-year-old female presenting for aphasia/left facial droop. Patient's symptoms have resolved, she has no residual left facial droop or aphasia. She has no neurologic deficits on my exam, full strength, full sensation, no facial droop and able to come with hours on NIH stroke scale. - Blood work is reviewed showing a hyponatremia to 121, this could contribute to her symptoms. - CT imaging returns with high-grade stenosis in multiple areas. Currently still awaiting stroke neurology. - Discussed care with stroke neurology, Dr. Coppola. Based on patient's symptoms, resolution of symptoms and CT imaging findings, would not recommend TNK. Does recommend dual antiplatet with aspirin load,, plavix 300, rovustatin. - Care discussed with family and need for admission. - Patient require admission at this time for stroke/TIA workup. Case discussed with Dr. Burgos for admission Differential diagnosis: Stroke, TIA, delirium, dissection Independent History obtained from: Daughter and granddaughter Diagnostics interpreted by me: ECG: ECG independently interpreted by me with normal sinus rhythm, rate of 76, normal WI, normal QRS, normal QTc, no ST segment elevations consistent with STEMI criteria Cardiac Monitoring: An order was placed for continuous cardiac monitoring. The monitor shows a rate of 69 with sinus rhythm. Critical Care Note: I have personally spent 32 minutes of critical care time in the direct management of this patient. This includes bedside care, interpretation of diagnostic studies, and testing, discussion with consultants, patient, and family members, and other required patient management activities. This 32 minutes is in excess of all separately billable procedures. Past Med/Surg History Problem List (Updated 01/14/25 @ 15:23 by Ryley Medina MD) Carotid artery stenosis (Acute) Occlusion of vertebral artery (Acute) TIA (transient ischemic attack) (Acute) Stroke-like symptoms Rotator cuff arthropathy of left shoulder Osteoarthritis of left knee Chronic hyponatremia Hypotensive episode Abdominal pain, LUQ (Acute) Abnormal chest CT Family history of reaction to anesthesia MOTHER HAD "A HARD TIME COMING OUT OF IT" Chest wall contusion (Acute) Fall (Acute) Acute hyponatremia (Acute) Closed fracture of left wrist (02/25/24) Distal radial and ulnar fractures from a fall. Orthopedic surgery 02/26/24- Closed reduction of left wrist, distal radius and ulna Balance disorder Lower extremity weakness History of radius fracture (11/11/21) nondisplaced intra-articular distal radial fracture Hyponatremia Redness and swelling of lower leg Pain of left calf Left ankle pain Left leg injury Osteoarthritis of right hip Ankle swelling Tendinitis of right rotator cuff Greater trochanteric bursitis of left hip Acute metabolic encephalopathy Fall Bruising Greater trochanteric bursitis of right hip Vertigo Allergic rhinitis with postnasal drip Pulmonary nodule DDD (degenerative disc disease), cervical Tendinitis of both rotator cuffs Multiple pulmonary nodules determined by computed tomography of lung Retinal vein occlusion (Acute) Osteoporosis (Acute) Hypercholesterolemia (Acute) COPD exacerbation (Acute) Medical History Closed fracture distal radius and ulna (02/25/24) Rotator cuff arthropathy of right shoulder PAD (peripheral artery disease) Buerger disease HTN (hypertension) Esophageal reflux Chronic obstructive pulmonary disease Anemia, mild Hypokalemia Scalp hematoma Acute head trauma Acute hyponatremia Fall Lower extremity edema Current smoker Acute bronchitis Osteoarthritis GERD (gastroesophageal reflux disease) Family history of diabetes mellitus Deviated nasal septum 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 Hyperlipidemia Hypertension Chronic obstructive pulmonary disease Surgical History S/p bilateral blepharoplasty History of hysterectomy History of section History of open reduction and internal fixation (ORIF) procedure History of appendectomy History of esophagogastroduodenoscopy (EGD) History of colonoscopy History of tonsillectomy History of tooth extraction History of cataract surgery Family History Mother Coronary heart disease Hypertension Father Coronary heart disease Hypertension Myocardial infarction Grandmother Diabetes Breast cancer Grandmother (Maternal) Stroke Other Family history of reaction to anesthesia Denies family history of Ovarian cancer Prostate cancer Lung cancer Colorectal cancer Social History Smoking Status: Former smoker Tobacco Type: Cigarettes Age Started Using Tobacco: 18; packs per day: 0.5; Cigarettes Per Day: 7-10; Second Hand Exposure: Yes; Do You Dip or Chew Tobacco: No; Hx Alcohol Use: No Hx Substance Use: No Preferred Language: [place] Communication Ability: Effective Visual Impairment: Limited Hearing Ability: Normal Cogeneration Operator Required: No Beliefs That Will Affect Care: None marital status: Current Living Situation: Rehab Current Living Situation Comment: Currently residing at [facility] for rehab current occupational status: retired How many Children do You have: 3 Feels Safe at Home: Yes Childhood Exposure to Second-Hand Smoke: Yes caffeine: Yes Dental Care, Regularly: Yes Physical Activity Frequency: Daily Seatbelt Use: always Sunscreen Use: No Assistive Devices: Cane and Walker Allergies Allergies Allergy/AdvReac Type Severity Reaction Status Date / Time Penicillins Allergy Unknown Hives Verified 01/09/25 15:11 Sulfa (Sulfonamide Allergy Unknown SWELLING Verified 01/09/25 15:11 Antibiotics) ciprofloxacin [From Cipro] AdvReac Severe Dizziness Verified 01/09/25 15:11 Home Meds Home Medications Medication Instructions Recorded Confirmed folic acid 1 mg tablet 1 mg PO UD #1 tab 04/17/19 01/14/25 cholecalciferol (vitamin D3) 125 5,000 unit PO UD ##0 09/10/20 01/14/25 mcg (5,000 unit) tablet (Vitamin D3) hydrocodone 10 mg-acetaminophen 0.5 tab PO .q3hrs PRN PAIN SCALE 03/13/24 01/14/25 325 mg tablet 4-10 cyclobenzaprine 5 mg tablet 5 mg PO UD PRN muscle spasm 01/14/25 01/14/25 famotidine 20 mg tablet (Pepcid) 20 mg PO UD 01/14/25 01/14/25 meloxicam 7.5 mg tablet 7.5 mg PO UD 01/14/25 01/14/25 rosuvastatin 5 mg tablet 5 mg PO DAILY 01/14/25 01/14/25 sodium chloride 1,000 mg soluble 1,000 mg PO UD 01/14/25 01/14/25 tablet Previous Rx's Medication Instructions Recorded albuterol sulfate 90 mcg/actuation 2 puff inhalation Q4H PRN 11/21/23 aerosol inhaler (Ventolin HFA) shortness of breath or wheezing #18 grams meclizine 12.5 mg tablet 12.5 mg PO Q8H PRN dizziness #20 01/27/24 tabs metoprolol succinate 25 mg 50 mg (2 x 25 mg) PO DAILY #180 11/23/24 tablet,extended release 24 hr tabs fluticasone fur. 200 mcg-umeclid 1 inh inhalation DAILY #60 ea 11/26/24 62.5 mcg-vilant 25 mcg inhalat.powder (Trelegy Ellipta) acetaminophen 650 mg 650 mg PO Q8H #90 tabs 01/09/25 tablet,extended release (Pain Relief (acetaminophen)) hydralazine 10 mg tablet 10 mg PO TID #90 tabs 01/09/25 Results & Data (ED) Vital Signs Vital Signs - 24 hr 01/14/25 12:20 01/14/25 12:23 01/14/25 12:27 Temperature 36.5 C Temperature Source Oral Pulse Rate 77 80 Pulse Rate [Apical] Respiratory Rate 16 Respiratory Effort / Characteristics Non-Labored Spontaneous Respiratory Depth Normal Respiratory Pattern Regular Blood Pressure 169/100 H Blood Pressure [Right Arm] Blood Pressure Mean 123 Blood Pressure Mean [Right Arm] Pulse Oximetry 96 Oxygen Delivery Method Room Air Room Air Sepsis Recent Fever Within 48 Hours No Sepsis New/Unexplained Change in Mental Status No Sepsis Action Taken by Nursing No Action Required 01/14/25 12:31 01/14/25 13:01 01/14/25 14:16 Temperature Temperature Source Pulse Rate 71 69 Pulse Rate [Apical] 73 Respiratory Rate 16 16 16 Respiratory Effort / Characteristics Non-Labored Spontaneous Respiratory Depth Normal Respiratory Pattern Regular Blood Pressure 127/61 Blood Pressure [Right Arm] 153/89 H Blood Pressure Mean 86 Blood Pressure Mean [Right Arm] 110 Pulse Oximetry 99 96 96 Oxygen Delivery Method Room Air Room Air Sepsis Recent Fever Within 48 Hours Sepsis New/Unexplained Change in Mental Status Sepsis Action Taken by Nursing 01/14/25 14:16 Temperature Temperature Source Pulse Rate Pulse Rate [Apical] 69 Respiratory Rate 16 Respiratory Effort / Characteristics Non-Labored Spontaneous Respiratory Depth Respiratory Pattern Blood Pressure Blood Pressure [Right Arm] 182/78 H Blood Pressure Mean Blood Pressure Mean [Right Arm] 112 Pulse Oximetry 95 Oxygen Delivery Method Room Air Sepsis Recent Fever Within 48 Hours Sepsis New/Unexplained Change in Mental Status Sepsis Action Taken by Nursing Laboratory Data 01/14/25 12:13 01/14/25 12:13 Lab Results 01/14/25 01/14/25 01/14/25 Range/Units 12:13 12:18 12:20 WBC 8.29 (4.8-10.8) K/ul RBC 3.71 L (4.20-5.40) M/uL Hgb 10.7 L (12.0-16.0) g/dl POC Hgb 11.2 L (12.0-16.0) g/dl Hct 31.8 L (37.0-47.0) % POC Hct 33 L (37-47) % MCV 85.7 (80.0-100.0) fL MCH 28.8 (25.0-34.0) pg MCHC 33.6 (32.0-36.0) g/dL RDW Std Deviation 42.2 (36.4-46.3) fL RDW Coeff of Edwin 13.4 (11.5-14.5) % Plt Count 272 (130-400) K/uL MPV 9.0 L (9.4-12.4) fL Immature Gran % (Auto) 0.7 % Neut % (Auto) 73.6 % Lymph % (Auto) 14.2 % [place] % (Auto) 9.5 % Eos % (Auto) 1.2 % Baso % (Auto) 0.8 % Neut # (Auto) 6.09 (1.40-6.50) K/uL Lymph # (Auto) 1.18 L (1.20-3.40) K/uL [place] # (Auto) 0.79 H (0.11-0.59) K/uL Eos # (Auto) 0.10 (0.00-0.50) K/uL Baso # (Auto) 0.07 (0.00-0.20) K/uL Immature Gran # (Auto) 0.06 (0.01-0.20) K/uL PT 11.3 (9.0-12.0) Seconds INR 1.0 (0.9-1.1) APTT 34 H (21-31) Seconds PTT Ratio 1.3 POC Sodium 121 L (135-144) mmol/L Sodium 121 L (136-145) mmol/L POC Potassium 3.7 (3.3-5.0) mmol/L Potassium 3.7 (3.5-5.1) mmol/L POC Chloride 83 L (101-112) mmol/L Chloride 88 L (98-107) mmol/L Carbon Dioxide 31 (21-32) mmol/L POC Total CO2 25 (24-31) mmol/L Anion Gap 2 L (3-11) POC Anion Gap 17.0 (16-25) mmol/L POC BUN 11 (7-18) mg/dl BUN 12 (6-23) mg/dl Creatinine 0.46 L (0.6-1.2) mg/dl POC Creatinine 0.6 (0.6-1.3) mg/dl Est Cr Clr Drug Dosing 71.7 ml/min eGFR 96.08 BUN/Creatinine Ratio 26.1 H (10-20) Glucose 119 H (70-99(Fasting)) mg/dl POC Glucose 139 H (70-99) mg/dl POC Glucose (other) 118 H (70-99) mg/dl Calcium 8.1 L (8.6-10.3) mg/dl POC Ioniz Calcium Alesia 1.13 (1.12-1.32) mmol/l Magnesium 1.7 (1.7-2.4) mg/dl Total Bilirubin 0.8 (0.2-1.0) mg/dl AST 19 (13-39) U/L ALT 19 (7-52) U/L Alkaline Phosphatase 38 (34-104) U/L Troponin I High Sens 7.4 (0-14) pg/ml Total Protein 5.5 L (6.0-8.3) gm/dl Albumin 3.5 (3.4-5.0) gm/dl Globulin 2.0 L (2.5-4.0) gm/dl Albumin/Globulin Ratio 1.8 (0.9-2) Blood Type B Positive Antibody Screen NEGATIVE Administered Medications Discontinued Medications Aspirin (Aspirin Chew 324 Mg) 324 mg PO NOW STA Stop: 01/14/25 13:38 Last Admin: 01/14/25 13:44 Dose: 324 mg Documented By: DAVE Clopidogrel Bisulfate (Clopidogrel Bisulfate 300 Mg Tab) 300 mg PO NOW STA Stop: 01/14/25 13:38 Last Admin: 01/14/25 13:44 Dose: 300 mg Documented By: DAVE Ioversol (Optiray 320 125ml) 112 ml IV ONCE ONE Stop: 01/14/25 12:16 Last Admin: 01/14/25 12:15 Dose: 112 ml Documented By: LORRAINE Imaging Data Radiologist's Impression: Head CT 01/14/25 12:05 CT head/brain wo con CLINICAL HISTORY: neuro deficit, acute stroke suspected. TECHNIQUE: Multiple axial CT images of the head were obtained without contrast. A dose lowering technique was utilized adhering to the principles of ALARA. COMPARISON: 02/06/2023 FINDINGS: Stable globus pallidus calcification, unremarkable in this age group. No intracranial hemorrhage seen. No mass effect, midline shift, or hydrocephalus. Stable mild chronic small vessel ischemic changes. No skull fracture. Visualized paranasal sinuses and mastoid air cells are clear. IMPRESSION: No acute findings. ACT 112: Negative or not required by law. The above report was generated using voice recognition software. It may contain grammatical, syntax or spelling errors. Electronically signed by: Yo Bingham M.D. 01/14/2025 12:24 PM Head CTA 01/14/25 12:05 CT angio head w con CLINICAL HISTORY: neuro deficit, acute stroke suspected. COMPARISON STUDY: CT scan earlier today TECHNIQUE: Unenhanced axial CT scan of the brain is performed. Subsequently, following the IV administration of 112 cc of Optiray, CT angiogram of the brain was performed from the skull base to the vertex. Images are reviewed in the axial, sagittal, and coronal planes. 3-D MIPS images are created and assessed. IV contrast was administered without complication. All measurements were obtained according to NASCET criteria. A dose lowering technique was utilized adhering to the principles of ALARA. CT DOSE: 1212.39 mGy.cm FINDINGS: There is short segment severe focal narrowing or occlusion distally at the right vertebral artery. The right vertebral artery is dominant and the left vertebral artery is very diminutive, anatomic variant. Bilateral distal internal carotid arteries show no significant narrowing. Basilar artery is widely patent. The anterior, middle, and posterior cerebral arteries are patent bilaterally. 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 No other intracranial aneurysm seen. Cerebral venous sinuses opacify normally. IMPRESSION: 1. Severe narrowing/short segment occlusion distally at the right vertebral artery. 2. Otherwise no significant narrowing or occlusion seen on CTA of the brain. 3. 5 mm aneurysm at the basilar tip. ACT 112: Negative or not required by law. The above report was generated using voice recognition software. It may contain grammatical, syntax or spelling errors. Electronically signed by: Yo Bingham M.D. 01/14/2025 12:29 PM Neck CTA 01/14/25 12:05 CT angio neck with con CLINICAL HISTORY: 79 years-old Female with neuro deficit, acute stroke suspected. Acute stroke like symptoms COMPARISON STUDY: Head CT and CTA head of same day TECHNIQUE: Following the IV administration of 112 of Optiray, CT angiogram of the neck was performed from the aortic arch to the skull base. Images are reviewed in the axial, sagittal, and coronal planes. 3-D MIPS images are created and assessed. IV contrast was administered without complication. All measurements were calculated based on NASCET criteria. A dose lowering technique was utilized adhering to the principles of ALARA. FINDINGS: Involutional changes with chronic microvascular ischemic disease. An CT dictated separately. Atherosclerotic plaque at the origin of left subclavian artery was also an approximately 50% stenosis. There is high-grade stenosis of at least 80% involving the origin of the right subclavian artery. There is moderate atherosclerosis of the common carotid arteries. Additional atherosclerotic plaque of the left carotid bulb and proximal left ICA causes less than 50% stenosis. Prominent calcified plaque within the right carotid bulb and origin of the right ICA causes high-grade stenosis of greater than 80%. There is also high-grade stenosis at the origin of the right external carotid artery. Calcified plaque within the cavernous, clinoid and supraclinoid segments causes up to approximately 50% stenosis bilaterally. Multifocal [id number] stenosis within the right vertebral artery secondary to calcified plaque. There is high-grade stenosis within the proximal to mid aspects of the right V4 segment secondary to atherosclerosis, image 320 series 7 for example. Fusiform dilation of the basilar tip measures 4 x 4 millimeters. Developmentally diminutive left vertebral artery demonstrates multifocal high- grade stenoses throughout all the segments. Emphysema. Biapical opacities favor pleural parenchymal scarring. Unremarkable soft tissues. Degenerative changes of the spine. IMPRESSION: 1. High-grade stenosis of the right carotid bulb and proximal cervical segment right ICA secondary to prominent atherosclerosis. 2. Multifocal high-grade stenoses of the left vertebral artery. 3. High-grade stenosis at the origin of the right subclavian artery (proximal to the vertebral artery origin and may contribute to subclavian steal). 4. High-grade stenosis of the V4 segment right vertebral artery. 5. 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 ACT 112: Negative or not required by law. The above report was generated using voice recognition software. It may contain grammatical, syntax or spelling errors. Electronically signed by: Aj Melgar M.D. 01/14/2025 12:35 PM Discharge Plan Visit Data Chief Complaint: Stroke Alert Stated Complaint: STROKE ALERT ED Provider: Ryley Medina Discharge Problem: TIA (transient ischemic attack), Occlusion of vertebral artery, Carotid artery stenosis Patient Disposition: Admitted As Inpatient Condition: Fair Forms Stand Alone Forms: My Apruve Prescriptions Prescriptions: No Action cholecalciferol (vitamin D3) [Vitamin D3] 125 mcg (5,000 unit) tablet 5,000 unit PO UD Qty: 0 Rx Instructions: original: 5,000 units PO Tuesday thru ; 01/14-otc unable to verify meclizine 12.5 mg tablet 12.5 mg PO Q8H PRN (Reason: dizziness) Qty: 20 0RF Rx Instructions: last filled 01/27/24 7 day supply metoprolol succinate 25 mg tablet extended release 24 hr 50 mg PO DAILY Qty: 180 1RF Trelegy Ellipta 200-62.5-25 mcg blister with device 1 inh INHALATION DAILY Qty: 60 3RF hydralazine 10 mg tablet 10 mg PO TID Qty: 90 2RF acetaminophen [Pain Relief (acetaminophen)] 650 mg tablet extended release 650 mg PO Q8H Qty: 90 0RF Rx Instructions: otc unable to verify albuterol sulfate [Ventolin HFA] 90 mcg/actuation HFA aerosol inhaler 2 puff inhalation Q4H PRN (Reason: shortness of breath or wheezing) Qty: 18 5RF folic acid 1 mg tablet 1 mg PO UD Qty: 1 Rx Instructions: 1 mg po daily. otc unable to verify hydrocodone-acetaminophen 10-325 mg tablet 0.5 tab PO .q3hrs PRN (Reason: PAIN SCALE 4-10) Rx Instructions: Last filled 03/09/24 4 day supply rosuvastatin 5 mg tablet 5 mg PO DAILY Rx Instructions: filled 01/10 90 day supply meloxicam 7.5 mg tablet 7.5 mg PO UD Rx Instructions: original:7.5 mg orally EVERY OTHER DAY; last filled 01/10 as 7.5 mg po daily. famotidine [Pepcid] 20 mg tablet 20 mg PO UD Rx Instructions: 20 mg po daily. otc unable to verify cyclobenzaprine 5 mg tablet 5 mg PO UD PRN (Reason: muscle spasm) Rx Instructions: 5 mg po hs prn. No fill history available unable to verify sodium chloride 1,000 mg tablet,soluble 1,000 mg PO UD Rx Instructions: 1000 mg po bid. last filled 07/18/24 90 day supply Referrals Referrals: Ivan Castro MD [Primary Care Provider] -
[2025-01-14] MEDS: CLOPIDOGREL BISULFATE 300 MG TAB PO STA (13:44)
[2025-01-14] MEDS: ASPIRIN CHEW 324 MG PO STA (13:44)
--- NOTE | 2025-01-14 14:38 | History & Physical Report ---
Date of Service January 14, 2025 Assessment & Plan (1) TIA (transient ischemic attack): (2) Hyponatremia: (3) Chronic obstructive pulmonary disease: (4) HTN (hypertension): Plan This is an 79-year-old female with past medical history of chronic hyponatremia, COPD, tobacco use who presented to the emergency department on 01/14/2025 with a chief complaint of aphasia and left-sided facial droop. While in the emergency department she did undergo imaging in which her head CT was negative. Head CTA did show severe narrowing/lower segment occlusion distally of the right vertebral artery. 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 CBC with hemoglobin of 10.7. BMP did reveal acute on chronic hyponatremia of 121. Renal function stable. [place] telestroke was consulted. She was given a loading dose of Plavix and aspirin in the ED. #Stroke-Like symptoms/TIA - with ~ 40 minutes of aphasia and left sided facial droop CAN CRIMPER. Now since resolved. EKG showing normal sinus rhythm Head CT negative Head CTA w/ severe narrowing/short segment occlusion distally @ R vertebral artery Neck CTA w/ high grade stenosis of right carotid bulb & proximal cervical segment right ICA secondary to prominent atherosclerosis. Multifocal high grade stenoses of L vertebral artery. 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 CBC w/ slight drop in hgb to 10.7, recheck in AM Brain MRI pending; Echo with bubble study pending AM A1c & Lipid panel Continue Metoprolol but hold hydralazine --> allow for permissive HTN for 24-48 hours She will require close follow up w/ vascular surgery --> Discussed w/ Dr. Barraza Loading dose of ASA/Plavix given in ED --> continue DAPT upon admission Neurology consulted, appreciate recommendations PT/OT consulted, appreciate recommendations. #Hyponatremia Acute on chronic Na 121 on admission. Baseline appears ~130s Continue 1000mg salt tabs BID Urine osmol/Urine Na pending Nephrology referral has been placed outpatient by PCP recently. AM BMP #GERD: Pepcid #COPD: home inhalers #HLD: statin DVT prophylaxis: SCD's Disposition-admit to [facility] with telemetry case was discussed w/ Dr. Burgos at time of admission Updated family at bedside 01/14. History of Present Illness Chief Complaint: Difficulty with speech Primary Care Provider: Ivan Castro MD This is an 79-year-old female with past medical history of chronic hyponatremia, COPD, tobacco use who presented to the emergency department on 01/14/2025 with a chief complaint of aphasia and possible left-sided facial droop. Patient was seen and examined this afternoon with her daughter and granddaughter present. She reports that this morning she could not get her words out. Was also reported that she had a left-sided facial droop by EMS. She states that the symptoms lasted for about 40 minutes at most. She denied any vision or hearing changes. Denied any numbness or weakness in her extremities. She states that she has smoked cigarettes for 60 years and most recently quit 1 to 2 months ago. She states that she has had a few slip ups as she is quitting cold turkey. She denies any chest pain. She does have shortness of breath at baseline given her history of COPD but states it is not worse than usual. She does wear compression stockings for lower extremity edema. She denies any nausea, vomiting, abdominal pain, changes in bowel habits. She denies any urinary urgency, frequency, hematuria. She was recently seen by her PCP and has a referral to a customs compliance manager for her hyponatremia. While in the emergency department she did undergo imaging in which her head CT was negative. Head CTA did show severe narrowing/lower segment occlusion distally of the right vertebral artery. 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 CBC with hemoglobin of 10.7. BMP did reveal acute on chronic hyponatremia of 121. Renal function stable. [place] telestroke was consulted. She was given a loading dose of Plavix and aspirin in the ED. Code discussion to take place with the patient and she does confirm that she is a full code. Allergies Allergy/AdvReac Type Severity Reaction Status Date / Time Penicillins Allergy Unknown Hives Verified 01/09/25 15:11 Sulfa (Sulfonamide Allergy Unknown SWELLING Verified 01/09/25 15:11 Antibiotics) ciprofloxacin [From Cipro] AdvReac Severe Dizziness Verified 01/09/25 15:11 Home Medications Medication Instructions Recorded Confirmed Type folic acid 1 mg tablet 1 mg PO UD #1 tab 04/17/19 01/14/25 History cholecalciferol (vitamin D3) 125 5,000 unit PO UD ##0 09/10/20 01/14/25 History mcg (5,000 unit) tablet (Vitamin D3) albuterol sulfate 90 mcg/actuation 2 puff inhalation Q4H PRN 11/21/23 01/14/25 Rx aerosol inhaler (Ventolin HFA) shortness of breath or wheezing #18 grams meclizine 12.5 mg tablet 12.5 mg PO Q8H PRN dizziness #20 01/27/24 01/14/25 Rx tabs hydrocodone 10 mg-acetaminophen 0.5 tab PO .q3hrs PRN PAIN SCALE 03/13/24 01/14/25 History 325 mg tablet 4-10 metoprolol succinate 25 mg 50 mg (2 x 25 mg) PO DAILY #180 11/23/24 01/14/25 Rx tablet,extended release 24 hr tabs fluticasone fur. 200 mcg-umeclid 1 inh inhalation DAILY #60 ea 11/26/24 01/14/25 Rx 62.5 mcg-vilant 25 mcg inhalat.powder (Trelegy Ellipta) acetaminophen 650 mg 650 mg PO Q8H #90 tabs 01/09/25 01/14/25 Rx tablet,extended release (Pain Relief (acetaminophen)) hydralazine 10 mg tablet 10 mg PO TID #90 tabs 01/09/25 01/14/25 Rx cyclobenzaprine 5 mg tablet 5 mg PO UD PRN muscle spasm 01/14/25 01/14/25 History famotidine 20 mg tablet (Pepcid) 20 mg PO UD 01/14/25 01/14/25 History meloxicam 7.5 mg tablet 7.5 mg PO UD 01/14/25 01/14/25 History rosuvastatin 5 mg tablet 5 mg PO DAILY 01/14/25 01/14/25 History sodium chloride 1,000 mg soluble 1,000 mg PO UD 01/14/25 01/14/25 History tablet Past Med/Surg History Problem List (Updated 01/14/25 @ 15:23 by Ryley Medina MD) Carotid artery stenosis (Acute) Occlusion of vertebral artery (Acute) TIA (transient ischemic attack) (Acute) Stroke-like symptoms Rotator cuff arthropathy of left shoulder Osteoarthritis of left knee Chronic hyponatremia Hypotensive episode Abdominal pain, LUQ (Acute) Abnormal chest CT Family history of reaction to anesthesia MOTHER HAD "A HARD TIME COMING OUT OF IT" Chest wall contusion (Acute) Fall (Acute) Acute hyponatremia (Acute) Closed fracture of left wrist (02/25/24) Distal radial and ulnar fractures from a fall. Orthopedic surgery 02/26/24- Closed reduction of left wrist, distal radius and ulna Balance disorder Lower extremity weakness History of radius fracture (11/11/21) nondisplaced intra-articular distal radial fracture Hyponatremia Redness and swelling of lower leg Pain of left calf Left ankle pain Left leg injury Osteoarthritis of right hip Ankle swelling Tendinitis of right rotator cuff Greater trochanteric bursitis of left hip Acute metabolic encephalopathy Fall Bruising Greater trochanteric bursitis of right hip Vertigo Allergic rhinitis with postnasal drip Pulmonary nodule DDD (degenerative disc disease), cervical Tendinitis of both rotator cuffs Multiple pulmonary nodules determined by computed tomography of lung Retinal vein occlusion (Acute) Osteoporosis (Acute) Hypercholesterolemia (Acute) COPD exacerbation (Acute) Medical History Closed fracture distal radius and ulna (02/25/24) Rotator cuff arthropathy of right shoulder PAD (peripheral artery disease) Buerger disease HTN (hypertension) Esophageal reflux Chronic obstructive pulmonary disease Anemia, mild Hypokalemia Scalp hematoma Acute head trauma Acute hyponatremia Fall Lower extremity edema Current smoker Acute bronchitis Osteoarthritis GERD (gastroesophageal reflux disease) Family history of diabetes mellitus Deviated nasal septum 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 Hyperlipidemia Hypertension Chronic obstructive pulmonary disease Surgical History S/p bilateral blepharoplasty History of hysterectomy History of section History of open reduction and internal fixation (ORIF) procedure History of appendectomy History of esophagogastroduodenoscopy (EGD) History of colonoscopy History of tonsillectomy History of tooth extraction History of cataract surgery Family History Mother Coronary heart disease Hypertension Father Coronary heart disease Hypertension Myocardial infarction Grandmother Diabetes Breast cancer Grandmother (Maternal) Stroke Other Family history of reaction to anesthesia Denies family history of Ovarian cancer Prostate cancer Lung cancer Colorectal cancer Social History Smoking Status: Former smoker Tobacco Type: Cigarettes Age Started Using Tobacco: 18; packs per day: 0.5; Cigarettes Per Day: 7-10; Second Hand Exposure: Yes; Do You Dip or Chew Tobacco: No; Hx Alcohol Use: No Hx Substance Use: No Preferred Language: Singaporean Communication Ability: Effective Visual Impairment: Limited Hearing Ability: Normal Human Resources Operations Director Required: No Beliefs That Will Affect Care: None marital status: Current Living Situation: Rehab Current Living Situation Comment: Currently residing at [facility] for rehab current occupational status: retired How many Children do You have: 3 Feels Safe at Home: Yes Childhood Exposure to Second-Hand Smoke: Yes caffeine: Yes Dental Care, Regularly: Yes Physical Activity Frequency: Daily Seatbelt Use: always Sunscreen Use: No Assistive Devices: Cane and Walker Physical Exam Physical Exam: General: no acute distress; non-toxic appearing; well-nourished; cooperative Skin: warm, dry without signs of tenting; no cyanosis; no rashes, bruising, lesions, or erythema noted CV: RRR; S1/S2 normal; no murmurs/rubs/gallops Lungs: no acute respiratory distress; symmetrical chest wall expansion; clear breath sounds across all lung lopez w/o adventitious sounds; no wheezing ABD: Soft, NTP; BS present; no rebound/guarding; no distention MSK: no tics or fasciculations; no edema noted in the LEs b/l, nonerythematous Neuro: A&Ox3; normal mood and affect; fluent speech; no focal deficits; sensation grossly intact in the LEs b/l Results & Data Results & Data Vital Signs (Past 12 Hours) Vital Signs Temp Pulse Pulse Resp BP BP Pulse Ox 01/14/25 13:01 71 16 127/61 96 01/14/25 12:31 73 16 153/89 H 99 01/14/25 12:27 01/14/25 12:23 80 01/14/25 12:20 36.5 C 77 16 169/100 H 96 O2 Del Method 01/14/25 13:01 01/14/25 12:31 Room Air 01/14/25 12:27 Room Air 01/14/25 12:23 01/14/25 12:20 Room Air ECG Additional Comments: ECG on 01/14/2025 at 1223 with normal sinus rhythm, rate 76, prolonged QT C at 513, no ischemic changes Code Status & VTE Plan Code Status Full code VTE Prophylaxis Plan VTE Prophylaxis will be ordered: Yes Supervising Physician Co-Signing Physician Notes PA Supervision Note: I personally saw and examined the patient. I verified all pimentel points and agree with BEHZAD Dumont with the following exceptions and/or additions: S-this patient is an 79-year-old female with a history of hyponatremia, COPD, smoking, GERD, HTN, HLD who presents with approximately 10 minutes of expressive aphasia, poor coordination with her right upper extremity to feed herself serial as well as possible left-sided facial droop noted by video game designer. Symptoms resolved by the time she arrived in the ER. CT angiograms of the head and neck showed multiple cerebrovascular stenoses, with 80% R ICA stenosis. CT head Noncon no bleeding. Sodium notably low at 121. O- Vitals reviewed Gen: AAOx3, NAD HEENT: Anicteric sclerae, EOMI CV: RRR 2/6 systolic murmur at the apex nl S1S2 Pulm: CTAB no wcr Abd: +BS soft NT ND no masses or hernias Ext: No edema, 2+ DP pulses Skin: No rashes, warm/dry Neuro: Full strength throughout, negative pronator drift in the extremities, cranial nerves II through XII intact A/[id number]-02-[id number]-old female with likely TIA. With notable expressive aphasia, possible left facial droop but also some poor coordination with the right upper extremity, difficult to localize where her TIA would be. With 80% R ICA stenosis most likely has symptomatic carotid artery stenosis and needs close outpatient follow-up with vascular surgery to be arranged. Started dual antiplatelet therapy, high intensity statin Screening for lipids and diabetes Permissive hypertension for now but if MRI negative for stroke, resume home hy dralazine Discontinue NSAIDs as outpatient For hyponatremia, check urine sodium and urine osmolality, continue salt tablets PG Care Time/CCT Total # of Minutes Spent Total Time Spent with Patient: Total time spent is greater than 50% in coordination of care (as documented) at patient's floor/unit and/or counseling patient: Coding Level of Care Code 19998 INT INP/OBS CARE 375MIN Diagnoses TIA (transient ischemic attack) G45.9 Hyponatremia E87.1 Chronic obstructive pulmonary disease J44.9 HTN (hypertension) I10
--- NOTE | 2025-01-14 17:41 | Magnetic Resonance Report ---
MRI of the brain performed without IV contrast History: Aphasia Comparison: November 12, 2021 Technique: Sagittal T1-weighted and axial T2-weighted, T2/FLAIR and diffusion-weighted with ADC map images of the brain were obtained without IV contrast. Findings: No evidence for intracranial mass lesion, mass-effect, midline shift, or abnormal extra-axial fluid collection. Marked generalized cerebral atrophy. No hydrocephalus. Mild to moderate high signal intensity abnormality in the white matter on T2/FLAIR is most consistent with chronic small vessel ischemic disease. No abnormally reduced diffusion or evidence for acute infarct. Normal intravascular flow voids. Impression: Age-related changes without acute intracranial pathology Electronically signed by Alfred Vincent 01-14-2025 5:38 PM
[2025-01-14] MEDS ORDERED: ALBUTEROL HFA 8 GM INHALER INH PRN (17:43)
--- NOTE | 2025-01-14 17:59 | XCELERA ---
[id number]
[2025-01-14] MEDS: HYDROcodone/ACETAMINOPHEN 10/325 TAB PO PRN (18:28)
[2025-01-14] MEDS: ROSUVASTATIN CALCIUM 20 MG TAB PO SCH (18:29)
--- NOTE | 2025-01-14 18:33 | Electrocardiogram Report ---
Test Reason : Blood Pressure : */* mmHG Vent. Rate : 76 BPM Atrial Rate : 76 BPM P-R Int : 170 ms QRS Dur : 82 ms QT Int : 456 ms P-R-T Axes : 65 15 55 degrees QTcB Int : 513 ms Normal sinus rhythm Prolonged QT Abnormal ECG When compared with ECG of 14-Mar-2024 20:48, Nonspecific T wave abnormality no longer evident in Inferior leads Confirmed by Alfred Iglesias ([id number]) on 01/14/2025 6:33:38 PM Referred By: REFERRED SELF Confirmed By: Alfred Iglesias
[2025-01-14] MEDS: SODIUM CHLORIDE 1 GM TABLET PO SCH (20:16)
[2025-01-14] MEDS: ACETAMINOPHEN 325 MG TAB PO SCH (20:16)
[2025-01-14] MEDS: hydrALAZINE 10 MG TAB PO SCH (20:36)
[2025-01-15 06:52] LABS: Hematocrit (blood only) 31.5 % (37.0-47.0); Hemoglobin 11.1 g/dl (12.0-16.0); Mean Corpuscular Hemoglobin 29.8 pg (25.0-34.0); Mean Corpuscular Hgb Conc 35.2 g/dL (32.0-36.0); Mean Corpuscular Volume 84.5 fL (80.0-100.0); Mean Platelet Volume 8.9 fL (9.4-12.4); Platelet Count 295 K/uL (130-400); RDW Coefficient of Variation 13.3 % (11.5-14.5); RDW Standard Deviation 41.1 fL (36.4-46.3); Red Blood Count 3.73 M/uL (4.20-5.40); White Blood Count 7.01 K/ul (4.8-10.8)
[2025-01-15 07:14] LABS: Calcium 8.6 mg/dl (8.6-10.3); Creatinine Clr Calc Pharmacy 73.4 ml/min; Potassium 3.8 mmol/L (3.5-5.1)
[2025-01-15] MEDS: ASPIRIN 81 MG ECTAB PO SCH (07:39)
[2025-01-15] MEDS: CLOPIDOGREL BISULFATE 75 MG TAB PO SCH (07:39)
[2025-01-15] MEDS: UMECLIDINIUM/VILANTEROL 62.5/25MCG 7 PUFFS/INHALER INH SCH (07:39)
[2025-01-15] MEDS: METOPROLOL SUCC 50MG EXT REL TAB PO SCH (07:39)
[2025-01-15] MEDS: FLUTICASONE FUROATE 200MCG 14 PUFFS/INHALER INH SCH (07:40)
[2025-01-15 08:00] LABS: Estimated Average Glucose 108 mg/dl; Hemoglobin A1C 5.4 % (4.5-5.6)
[2025-01-15] MEDS ORDERED: NON-FORMULARY MEDICATION (Fluticasone-Umeclidin-Vilanter [Trelegy Ellipta] 200-62.5-25 mcg INH SCH (09:00)
[2025-01-15] MEDS: FAMOTIDINE 20 MG TAB PO SCH (09:11)
[2025-01-15] MEDS: FUROSEMIDE 20 MG TAB PO SCH (10:22)
[2025-01-15 16:04] LABS: BUN Creatinine Ratio 24.4 (10-20); Calcium 8.6 mg/dl (8.6-10.3); Creatinine Clr Calc Pharmacy 66.9 ml/min; Potassium 3.8 mmol/L (3.5-5.1)
--- NOTE | 2025-01-15 16:47 | Nephrology Consultation ---
Date of Consultation January 15, 2025 Assessment & Plan (1) Acute hyponatremia: (2) Chronic hyponatremia: (3) TIA (transient ischemic attack): Plan 79 y o female with history of chronic hyponatremia, admitted to the hospital with strokelike symptoms and TIA with word finding difficulty and facial droop. Symptom resolved by the time she came to ER. CT brain was unremarkable but CTA head neck showed significant peripheral vascular disease including vertebral artery, internal carotid artery and subclavian artery. Received loading dose of Plavix and aspirin. Admission lab was notable for acute hyponatremia, serum sodium 121 with history of chronic hyponatremia, for years sodium stays around 130-132. Sodium improved slightly to 124 but again dropped to 121 this afternoon. Urine osmolality elevated at 370. --Check serum sodium now, if serum sodium dropped further we will give 3% saline otherwise increased her salt tablet to 2 grams twice a day --Start on mild fluid restriction at less than 1500 mL/day --liberalize salt in diet --Check TSH --Considering long history of smoking and prior CT chest in February 2024 showing lung nodule, recommend repeating CT chest Thank you for allowing me to participate in your patient's care. It was a pleasure to see Nellie. History of Present Illness Reason for Consultation: Hyponatremia Attending Physician: Kristen Burgos MD History of Present Illness Ms. Nellie Mercedes is a 79-year-old female past medical history significant for chronic hyponatremia, hypertension, hypercholesterolemia, history of smoking, peripheral vascular disease admitted to the hospital with strokelike symptoms. Nephrology consult requested for management of acute hyponatremia with history of chronic hyponatremia. EMR records are reviewed in detail during patient's visit. Family was at bedside. Nellie was brought to the hospital yesterday with aphasia and left facial droop. Went by the time patient came to the ER her symptoms resolved. She was given loading dose of Plavix and aspirin in ER. Imaging study including MRI brain was unremarkable. CTA of head neck showed severe narrowing of the right vertebral artery, high-grade stenosis of the right carotid bulb and proximal cervical segment right ICA, high-grade stenosis of left vertebral artery, high- grade stenosis of origin of the right subclavian artery. CBC with hemoglobin of 10.7. BMP showed acute hyponatremia with serum sodium 121. Record review shows she had history of chronic hyponatremia for years, sodium generally stays around 130-132. Recently she was started on oral salt tablet as an outpatient. Urine osmolality was 370. Kidney function normal, baseline creatinine 0.5, potassium 3.8. Prior CT abdomen pelvis in March [address] chest in February 2024 showed 1.2 cm spiculated right lung nodule. Blood pressure staying slightly elevated, on hydralazine and Lasix. Sodium slightly improved to 124 and then again dropped to 121 this afternoon. She was started on Lasix 20 mg daily and continue on salt tablet 1 g twice daily. Has decent urine output. Appetite and p.o. intake has been ok. She reports feeling more sleepy and tired which she generally feels when her sodium drops. Denies any confusion, significant headache or memory impairment Allergies Allergy/AdvReac Type Severity Reaction Status Date / Time Penicillins Allergy Unknown Hives Verified 01/09/25 15:11 Sulfa (Sulfonamide Allergy Unknown SWELLING Verified 01/09/25 15:11 Antibiotics) ciprofloxacin [From Cipro] AdvReac Severe Dizziness Verified 01/09/25 15:11 Home Medications Medication Instructions Recorded Confirmed Type folic acid 1 mg tablet 1 mg PO UD #1 tab 04/17/19 01/14/25 History cholecalciferol (vitamin D3) 125 5,000 unit PO UD ##0 09/10/20 01/14/25 History mcg (5,000 unit) tablet (Vitamin D3) albuterol sulfate 90 mcg/actuation 2 puff inhalation Q4H PRN 11/21/23 01/14/25 Rx aerosol inhaler (Ventolin HFA) shortness of breath or wheezing #18 grams meclizine 12.5 mg tablet 12.5 mg PO Q8H PRN dizziness #20 01/27/24 01/14/25 Rx tabs hydrocodone 10 mg-acetaminophen 0.5 tab PO .q3hrs PRN PAIN SCALE 03/13/24 01/14/25 History 325 mg tablet 4-10 metoprolol succinate 25 mg 50 mg (2 x 25 mg) PO DAILY #180 11/23/24 01/14/25 Rx tablet,extended release 24 hr tabs fluticasone fur. 200 mcg-umeclid 1 inh inhalation DAILY #60 ea 11/26/24 01/14/25 Rx 62.5 mcg-vilant 25 mcg inhalat.powder (Trelegy Ellipta) acetaminophen 650 mg 650 mg PO Q8H #90 tabs 01/09/25 01/14/25 Rx tablet,extended release (Pain Relief (acetaminophen)) hydralazine 10 mg tablet 10 mg PO TID #90 tabs 01/09/25 01/14/25 Rx cyclobenzaprine 5 mg tablet 5 mg PO UD PRN muscle spasm 01/14/25 01/14/25 Hist ory famotidine 20 mg tablet (Pepcid) 20 mg PO UD 01/14/25 01/14/25 History meloxicam 7.5 mg tablet 7.5 mg PO UD 01/14/25 01/14/25 History rosuvastatin 5 mg tablet 5 mg PO DAILY 01/14/25 01/14/25 History sodium chloride 1,000 mg soluble 1,000 mg PO UD 01/14/25 01/14/25 History tablet Patient History Medical History Closed fracture distal radius and ulna (02/25/24) Rotator cuff arthropathy of right shoulder PAD (peripheral artery disease) Buerger disease HTN (hypertension) Esophageal reflux Chronic obstructive pulmonary disease Anemia, mild Hypokalemia Scalp hematoma Acute head trauma Acute hyponatremia Fall Lower extremity edema Current smoker Acute bronchitis Osteoarthritis GERD (gastroesophageal reflux disease) Family history of diabetes mellitus Deviated nasal septum 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 Hyperlipidemia Hypertension Chronic obstructive pulmonary disease Surgical History S/p bilateral blepharoplasty History of hysterectomy History of section History of open reduction and internal fixation (ORIF) procedure History of appendectomy History of esophagogastroduodenoscopy (EGD) History of colonoscopy History of tonsillectomy History of tooth extraction History of cataract surgery Family History Mother Coronary heart disease Hypertension Father Coronary heart disease Hypertension Myocardial infarction Grandmother Diabetes Breast cancer Grandmother (Maternal) Stroke Other Family history of reaction to anesthesia Denies family history of Ovarian cancer Prostate cancer Lung cancer Colorectal cancer Social History Smoking Status: Current every day smoker Tobacco Type: Cigarettes Age Started Using Tobacco: 18; packs per day: 0.5; Cigarettes Per Day: 2; Second Hand Exposure: Yes; Do You Dip or Chew Tobacco: No; Hx Alcohol Use: No Hx Substance Use: No Preferred Language: Chinese Communication Ability: Effective Visual Impairment: Limited Hearing Ability: Normal Gis Mapping Technician Required: No Beliefs That Will Affect Care: None marital status: Current Living Situation: Alone Current Living Situation Comment: Currently residing at [facility] for rehab current occupational status: retired How many Children do You have: 3 Other Information That Helps Us Care for You: No Feels Safe at Home: Yes Safety Concerns: Feels Safe At This Time Childhood Exposure to Second-Hand Smoke: Yes caffeine: Yes Dental Care, Regularly: Yes Physical Activity Frequency: Daily Seatbelt Use: always Sunscreen Use: No Assistive Devices: Cane, Walker and Wheelchair Review of Systems Review of Systems: Detailed review of system was done and pertinent positives and negatives are mentioned above. Physical Exam Constitutional: WD/WN, vitals as above no acute distress Eyes: + anicteric sclerae Neck: normal visual inspection Respiratory: no respiratory distress Auscultation: + diminished lung sounds Cardiovascular: Rate/Rhythm: regular rate and regular rhythm Heart Sounds: normal S1 and normal S2 Extremities: + edema (Trace bilateral lower extremity edema) Gastrointestinal (Abdomen): Inspection/Auscultation: abdomen normal to inspection Percussion/Palpation: abdomen soft; abdomen nontender Musculoskeletal: Extremities: extremities normal to inspection Neurologic: no focal motor deficits and not confused Psychiatric: Orientation: alert and oriented x 3 Affect: euthymic affect Results & Data Vital Signs (Past 12 Hours) Vital Signs Temp Pulse Pulse Resp BP BP Pulse Ox 01/15/25 16:34 36.3 C L 65 20 165/74 H 93 01/15/25 15:00 66 01/15/25 11:52 36.7 C 66 18 143/66 H 95 01/15/25 08:18 36.5 C 72 20 161/84 H 94 01/15/25 07:40 01/15/25 07:00 61 O2 Del Method 01/15/25 16:34 Room Air 01/15/25 15:00 01/15/25 11:52 Room Air 01/15/25 08:18 Room Air 01/15/25 07:40 Room Air 01/15/25 07:00 PG Care Time/CCT Total # of Minutes Spent Total Time Spent with Patient: Total time spent is greater than 50% in coordination of care (as documented) at patient's floor/unit and/or counseling patient: Coding Level of Care Code 46087 INT INP/OBS CARE 3/75MIN Diagnoses Acute hyponatremia E87.1 Chronic hyponatremia E87.1 TIA (transient ischemic attack) G45.9
[2025-01-15] MEDS: FAMOTIDINE 20 MG TAB PO ONE (17:19)
--- NOTE | 2025-01-15 17:19 | Hospitalist Progress Note ---
Date of Service January 15, 2025 Assessment & Plan (1) TIA (transient ischemic attack): (2) Hyponatremia: (3) Chronic obstructive pulmonary disease: (4) HTN (hypertension): (5) Carotid artery stenosis: (6) Mitral regurgitation: Plan This is an 79-year-old female with past medical history of chronic hyponatremia, COPD, tobacco use who presented to the emergency department on 01/14/2025 with a chief complaint of aphasia and left-sided facial droop. 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 Now since resolved. EKG showing normal sinus rhythm Head CT negative Head CTA w/ severe narrowing/short segment occlusion distally @ R vertebral artery; Neck CTA w/ high grade stenosis of right carotid bulb & proximal cervical segment right ICA secondary to prominent atherosclerosis. Multifocal high grade stenoses of L vertebral artery. 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 Brain MRI negative for acute stroke Echocardiogram 01/14: EF 50 to 55%. Moderate to severe mitral regurgitation. Mild to moderate aortic regurgitation. Neurology consulted, appreciate recommendations Continue aspirin, Plavix Metoprolol, hydralazine resumed Will require close follow-up with vascular surgery PT, OT consulted todayrecommending rehab, will discuss with case management #Hyponatremia Acute on chronic Na 121 on admission. Baseline appears ~130s Salt tablets decreased to 1000 mg daily Urine osmolality 370, urine sodium 34 Improvement to 124 this morning but recheck was decreased to 121 Nephrology consulted, appreciate recommendations AM CBC, BMP #Mitral regurgitation Moderate to severe on echocardiogram Continue metoprolol and hydralazine Added Lasix 20 mg once daily on 01/15 Will require cardiology referral upon discharge #GERD: Pepcid #COPD: home inhalers #HLD: statin DVT prophylaxis: SCD's Disposition-admit to [facility] with telemetry Updated family via phone 01/15. Admission and Anticipated Discharge Date Admission Date: January 14, 2025 Supervising Physician Co-Signing Physician Notes PA Supervision Note: I did not personally see or examine the patient today, but I verified all pimentel points of BEHZAD Dumont's assessment and plan with the following exceptions/additions: None Kate Ballard seen and examined this morning. She reports that she is feeling okay today. She is still struggling occasionally to get her thoughts out but denies any additional complaints. Results & Data Results & Data Vital Signs (Past 12 Hours) Vital Signs Temp Pulse Pulse Resp BP BP Pulse Ox 01/15/25 16:34 36.3 C L 65 20 165/74 H 93 01/15/25 15:00 66 01/15/25 11:52 36.7 C 66 18 143/66 H 95 01/15/25 08:18 36.5 C 72 20 161/84 H 94 01/15/25 07:40 01/15/25 07:00 61 O2 Del Method 01/15/25 16:34 Room Air 01/15/25 15:00 01/15/25 11:52 Room Air 01/15/25 08:18 Room Air 01/15/25 07:40 Room Air 01/15/25 07:00 PG Care Time/CCT Total # of Minutes Spent Total Time Spent with Patient: Total time spent is greater than 50% in coordination of care (as documented) at patient's floor/unit and/or counseling patient: Coding Level of Care Code 69915 SUB INP/OBS CARE 3/50MIN Diagnoses TIA (transient ischemic attack) G45.9 Hyponatremia E87.1 Chronic obstructive pulmonary disease J44.9 HTN (hypertension) I10 Carotid artery stenosis I65.29 Mitral regurgitation I34.0
--- NOTE | 2025-01-15 18:09 | Neurology Consultation ---
Date of Consultation January 15, 2025 Assessment & Plan (1) TIA (transient ischemic attack): (2) Carotid artery stenosis: (3) Basilar artery aneurysm: Plan 79-year-old female with a probable TIA characterized by transient aphasia and clumsiness with the right hand. No evidence of acute stroke on MRI. She does have a high-grade stenosis at the right carotid bulb and proximal right ICA which would not seem to be clinically significant in the context of her presentation. She has bilateral vertebral artery stenoses as well which are also not likely clinically significant. There is a 4 mm basilar tip aneurysm, nonruptured, which will require some imaging surveillance going forward. She also has a high-grade stenosis at the origin of the right subclavian artery of doubtful clinical significance. I agree with increasing her dosage of rosuvastatin to 20 mg/day. Goal LDL 70 or less. I agree with dual antiplatelet therapy, Plavix 75 mg/day, aspirin 81 mg/day for 3 weeks, followed by clopidogrel 75 mg/day monotherapy. Would obtain a consultation with vascular surgery regarding the right carotid stenosis. However, this lesion is likely asymptomatic. Surgical treatment is not indicated for the vertebral artery stenoses or the right subclavian stenosis. Would recommend 30-day mobile cardiac outpatient telemetry. Consider obtaining a nonurgent outpatient neurosurgical assessment regarding the basilar tip aneurysm. Again, this finding will need imaging monitoring going forward. Blood pressure management per stroke protocol. Patient may follow-up with myself or one of our LIZZETTE's in neurology clinic in 2 to 3 weeks after discharge. Please call with any questions. History of Present Illness Reason for Consultation: TIA Requesting Physician: Julia Attending Physician: Kristen Burgos MD History of Present Illness The patient is an 79-year-old female with a history of chronic hyponatremia who presented to the emergency department with an episode of transient word finding difficulty, confusion, nonsense word substitutions, and fumbling for objects with her right hand. The symptoms were of rather sudden onset, observed by family, and resolved by the time she was evaluated in the emergency department. She has a history of hypercholesterolemia and takes a low-dose of Crestor. No known prior history of stroke or TIA. A CT of the head was negative for hemorrhage or acute process. CTA of the neck revealed a high-grade stenosis of the right carotid bulb and proximal cervical segment right internal carotid artery, multifocal high-grade stenoses of the left vertebral artery, high-grade stenosis of the right V4 segment of the vertebral artery, and a high-grade stenosis at the origin of the right subclavian artery, proximal to the vertebral artery. There was also a 4 x 4 mm saccular basilar tip aneurysm. A brain MRI revealed generalized atrophy and chronic small vessel ischemic disease, no acute process. I independently reviewed these images. An echocardiogram revealed low normal left ventricular systolic function, no interatrial shunt, normal left atrial size. An electrocardiogram revealed normal sinus rhythm, 76 bpm. Allergies Allergy/AdvReac Type Severity Reaction Status Date / Time Penicillins Allergy Unknown Hives Verified 01/09/25 15:11 Sulfa (Sulfonamide Allergy Unknown SWELLING Verified 01/09/25 15:11 Antibiotics) ciprofloxacin [From Cipro] AdvReac Severe Dizziness Verified 01/09/25 15:11 Home Medications Medication Instructions Recorded Confirmed Type folic acid 1 mg tablet 1 mg PO UD #1 tab 04/17/19 01/14/25 History cholecalciferol (vitamin D3) 125 5,000 unit PO UD ##0 09/10/20 01/14/25 History mcg (5,000 unit) tablet (Vitamin D3) albuterol sulfate 90 mcg/actuation 2 puff inhalation Q4H PRN 11/21/23 01/14/25 Rx aerosol inhaler (Ventolin HFA) shortness of breath or wheezing #18 grams meclizine 12.5 mg tablet 12.5 mg PO Q8H PRN dizziness #20 01/27/24 01/14/25 Rx tabs hydrocodone 10 mg-acetaminophen 0.5 tab PO .q3hrs PRN PAIN SCALE 03/13/24 01/14/25 History 325 mg tablet 4-10 metoprolol succinate 25 mg 50 mg (2 x 25 mg) PO DAILY #180 11/23/24 01/14/25 Rx tablet,extended release 24 hr tabs fluticasone fur. 200 mcg-umeclid 1 inh inhalation DAILY #60 ea 11/26/24 01/14/25 Rx 62.5 mcg-vilant 25 mcg inhalat.powder (Trelegy Ellipta) acetaminophen 650 mg 650 mg PO Q8H #90 tabs 01/09/25 01/14/25 Rx tablet,extended release (Pain Relief (acetaminophen)) hydralazine 10 mg tablet 10 mg PO TID #90 tabs 01/09/25 01/14/25 Rx cyclobenzaprine 5 mg tablet 5 mg PO UD PRN muscle spasm 01/14/25 01/14/25 History famotidine 20 mg tablet (Pepcid) 20 mg PO UD 01/14/25 01/14/25 History meloxicam 7.5 mg tablet 7.5 mg PO UD 01/14/25 01/14/25 History rosuvastatin 5 mg tablet 5 mg PO DAILY 01/14/25 01/14/25 History sodium chloride 1,000 mg soluble 1,000 mg PO UD 01/14/25 01/14/25 History tablet Patient History Medical History Closed fracture distal radius and ulna (02/25/24) Rotator cuff arthropathy of right shoulder PAD (peripheral artery disease) Buerger disease HTN (hypertension) Esophageal reflux Chronic obstructive pulmonary disease Anemia, mild Hypokalemia Scalp hematoma Acute head trauma Acute hyponatremia Fall Lower extremity edema Current smoker Acute bronchitis Osteoarthritis GERD (gastroesophageal reflux disease) Family history of diabetes mellitus Deviated nasal septum 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 Hyperlipidemia Hypertension Chronic obstructive pulmonary disease Surgical History S/p bilateral blepharoplasty History of hysterectomy History of section History of open reduction and internal fixation (ORIF) procedure History of appendectomy History of esophagogastroduodenoscopy (EGD) History of colonoscopy History of tonsillectomy History of tooth extraction History of cataract surgery Family History Mother Coronary heart disease Hypertension Father Coronary heart disease Hypertension Myocardial infarction Grandmother Diabetes Breast cancer Grandmother (Maternal) Stroke Other Family history of reaction to anesthesia Denies family history of Ovarian cancer Prostate cancer Lung cancer Colorectal cancer Social History Smoking Status: Current every day smoker Tobacco Type: Cigarettes Age Started Using Tobacco: 18; packs per day: 0.5; Cigarettes Per Day: 2; Second Hand Exposure: Yes; Do You Dip or Chew Tobacco: No; Hx Alcohol Use: No Hx Substance Use: No Preferred Language: Cook Islander Communication Ability: Effective Visual Impairment: Limited Hearing Ability: Normal Category Consultant Required: No Beliefs That Will Affect Care: None marital status: Current Living Situation: Alone Current Living Situation Comment: Currently residing at [facility] for rehab current occupational status: retired How many Children do You have: 3 Other Information That Helps Us Care for You: No Feels Safe at Home: Yes Safety Concerns: Feels Safe At This Time Childhood Exposure to Second-Hand Smoke: Yes caffeine: Yes Dental Care, Regularly: Yes Physical Activity Frequency: Daily Seatbelt Use: always Sunscreen Use: No Assistive Devices: Cane, Walker and Wheelchair Review of Systems Constitutional: no fever Eyes: no blind spots and no diplopia Ear, Nose, Mouth, Throat: no hearing loss Respiratory: no cough and no dyspnea Cardiovascular: no chest pain and no palpitations Gastrointestinal: no nausea and no vomiting Genitourinary: no dysuria Musculoskeletal: no myalgia Integumentary: no rash and no lesions Neurologic: as per Subjective / HPI Psychiatric: no depression and no anxiety Hematologic / Lymphatic: no easy bleeding and no easy bruising Exam (Neuro) Constitutional: well developed; no acute distress Eyes: normal visual lopez by confrontation, PERRL and EOM intact bilaterally; no nystagmus Neurologic: Oriented to:: Person, Place and Time Memory: Short Term Intact and Remote Intact Attention: Span Intact and Concentration Intact Speech Fluency: negative Dysarthria or Dysfluency Speech Aphasia: negative Aphasia Fund of Knowledge: Current Events, Past History and Vocabulary Cranial Nerves: Normal II, III, IV, , V, VII, VIII, IX, X, XI and XII Motor Strength: Normal Lower Extremities and Normal Upper Extremities Motor Tone: Normal Lower Extremities and Normal Upper Extremities Muscle Bulk/Involuntary Movements: No Involuntary Movements; negative Muscle Atrophy Sensation: Light Touch Intact, Pain/Temperature Intact and Proprioception Intact Coordination: negative Dysdiadochokinesia, Finger-Nose Abnormal or Heel-Muro Abnormal Deep Tendon Reflexes: Rt Triceps: 2+, Lt Triceps: 2+, Rt Biceps: 2+, Lt Biceps: 2+, Rt Brachioradialis: 2+, Lt Brachioradialis: 2+, Rt Patellar: 2+, Lt Patellar: 2+, Rt Ankle: 1+ and Lt Ankle: 1+ Details: Gait not tested Results & Data Vital Signs (Past 12 Hours) Vital Signs Temp Pulse Pulse Resp BP BP Pulse Ox 01/15/25 16:34 36.3 C L 65 20 165/74 H 93 01/15/25 15:00 66 01/15/25 11:52 36.7 C 66 18 143/66 H 95 01/15/25 08:18 36.5 C 72 20 161/84 H 94 01/15/25 07:40 01/15/25 07:00 61 O2 Del Method 01/15/25 16:34 Room Air 01/15/25 15:00 01/15/25 11:52 Room Air 01/15/25 08:18 Room Air 01/15/25 07:40 Room Air 01/15/25 07:00 Laboratory Results Labs reviewed. WBC 7.01, hemoglobin 11.1, hematocrit 31.5, platelet count 295, sodium 121, potassium 3.8, BUN 11, creatinine 0.45, glucose 94, hemoglobin A1c 5.4, calcium 8.6, magnesium 1.7, AST 19, ALT 19, triglycerides 58, cholesterol 165, LDL 72, HDL 81 Coding Level of Care Code 61297 INT INP/OBS CARE 75MIN Diagnoses TIA (transient ischemic attack) G45.9 Carotid artery stenosis I65.29 Basilar artery aneurysm I72.5 Time Spent (min) 80 Comment Total time includes patient contact, chart review, counseling, note preparation
[2025-01-15 19:43] LABS: Thyroid Stimulating Hormone 1.194 uIu/ml (0.300-4.500)
[2025-01-15] MEDS ORDERED: FAMOTIDINE 20 MG TAB PO SCH (21:00)
[2025-01-15] MEDS: SODIUM CHLORIDE 1 GM TABLET PO SCH (21:11)
[2025-01-15] MEDS: hydrALAZINE HCL 25 MG TAB PO SCH (21:16)
[2025-01-16 07:44] LABS: Hematocrit (blood only) 35.8 % (37.0-47.0); Hemoglobin 12.5 g/dl (12.0-16.0); Mean Corpuscular Hemoglobin 29.3 pg (25.0-34.0); Mean Corpuscular Hgb Conc 34.9 g/dL (32.0-36.0); Mean Corpuscular Volume 83.8 fL (80.0-100.0); Mean Platelet Volume 8.9 fL (9.4-12.4); Platelet Count 339 K/uL (130-400); RDW Coefficient of Variation 12.9 % (11.5-14.5); RDW Standard Deviation 39.4 fL (36.4-46.3); Red Blood Count 4.27 M/uL (4.20-5.40)
[2025-01-16 08:01] LABS: BUN Creatinine Ratio 17.5 (10-20); Calcium 8.9 mg/dl (8.6-10.3); Creatinine Clr Calc Pharmacy 75.2 ml/min; Potassium 3.8 mmol/L (3.5-5.1)
--- NOTE | 2025-01-16 08:29 | CT Scan Report ---
CT chest diagnostic wo con CT DOSE: 382.46 mGy.cm CLINICAL HISTORY: 79 years-old Female with lung nodule on 11/2023, re-eval. Follow-up study in a [place] ent with history of pulmonary nodules TECHNIQUE: Multiaxial CT images of the chest were performed without contrast. A dose lowering techni que was utilized adhering to the principles of ALARA. COMPARISON: CT chest 02/25/2024 FINDINGS: No thyroid nodule identified. A few mediastinal lymph nodes measuring up limits of normal i n size, likely reactive. The heart is mildly enlarged. No pericardial effusion. Extensive coronary ar chencho calcifications. Atherosclerosis of the aorta and proximal great vessels again noted without aneu rysm. Trace pleural effusions. Intralobular septal thickening. Biapical pleural parenchymal scarring withou t pneumothorax. There are few stable low suspicion solid nodules in the right upper lobe measuring up to 3-4 mm. There are additional tiny fissural nodules measuring up to 4 mm suggestive of benign lymp h nodes. 8 mm nodular focus within the lingula on image 136 series 4 is new from prior and favors ate lectasis versus scarring. Mild bibasilar mucous plugging. 4 mm left apical nodule on image 35 series 4 appears to be new from 02/25/2024. No acute upper abdominal abnormality. There is mild wall thickening of the distal esophagus. 4 mm urbano cifications. The right kidney. Cortical scarring of the right kidney. No acute fracture. IMPRESSION: 1. Cardiomegaly with mild interstitial pulmonary edema, trace pleural effusions with dependent bibasi lar atelectasis. 2. 4 mm left apical pulmonary nodule is new from 02/25/2024. Additional scattered low suspicion solid pulmonary nodules measuring up to 4 mm are stable. Follow-up guidelines below. 3. 8 mm linear nodular density within the lingula favors atelectasis or scarring and is also new from prior. Please refer to below summary of Fleischner criteria recommendations for follow-up of incidental CT n odules (Yony Gonzalez, Guidelines for management of small pulmonary nodules detected on CT scans: A sta tement from the Fleischner Society, Radiology 237: [phone].) SOLID NODULES Multiple nodules size: <6 mm * Low risk patients: no routine follow-up * high risk patients: optional CT at 12 months Multiple nodules size: 6-8 mm * Low risk patients: follow-up at 3-6 months, then consider further follow-up at 18-24 months * high risk patients: follow-up at 3-6 months, then at 18-24 months if no change Multiple nodules size: >8 mm * Low risk patients: follow-up at 3-6 months, then consider further follow-up at 18-24 months * high risk patients: follow-up at 3-6 months, then at 18-24 months if no change Note: newly detected indeterminate nodule in persons 35 years of age or older. * Low risk patients: minimal or absent history of smoking and/or other known risk factors * high risk patients: history of smoking or of other known risk factors (e.g. first degree relative with lung cancer, or exposure to asbestos, radon, uranium) * if a nodule up to 8 mm is partly solid or is ground glass further follow-up is required after 24 m onths to exclude possible slow growing adenocarcinoma (THOMAS) ACT 112: Negative or not required by law. Electronically signed by: Aj Melgar M.D. 01/16/2025 8:27 AM
[2025-01-16] MEDS ORDERED: SODIUM CHLORIDE 1 GM TABLET PO SCH ×2 (09:00)
[2025-01-16] MEDS: COSYNTROPIN 1 MCG in SYRINGE 0 ML IV ONE (09:35)
--- NOTE | 2025-01-16 09:53 | Nephrology Progress Note ---
Date of Service January 16, 2025 Assessment & Plan (1) Acute hyponatremia: (2) Chronic hyponatremia: (3) TIA (transient ischemic attack): Plan 79 y o female with history of chronic hyponatremia, admitted to the hospital with strokelike symptoms and TIA with word finding difficulty and facial droop. Symptom resolved by the time she came to ER. CT brain was unremarkable but CTA head neck showed significant peripheral vascular disease including vertebral artery, internal carotid artery and subclavian artery. Received loading dose of Plavix and aspirin. Admission lab was notable for acute hyponatremia, serum sodium 121 with history of chronic hyponatremia, for years sodium stays around 130-132. Sodium improved slightly to 124 but again dropped to 121 this afternoon. Urine osmolality elevated at 370. Sodium improved to 125 this morning, other electrolyte acceptable. Blood pressure elevated but hydralazine dose was just increased yesterday. --Repeat serum sodium this afternoon, if sodium improved further, will consider decreasing salt tab back to 1 g twice a day --Continue on fluid restriction at less than 1500 mL/day --liberalize salt in diet --If blood pressure remains elevated, will increase hydralazine to 50 mg 3 times daily Admission and Anticipated Discharge Date Admission Date: January 15, 2025 Kate Ballard was seen and evaluated this morning. She reports feeling slightly better but continues to feel tired and wobbly but denies any confusion, mental fogginess. P.o. intake decent. Blood pressure remain elevated. Sodium improved to 125 this morning. Review of Systems Review of Systems: Detailed review of system was done and pertinent positives and negatives are mentioned above. Physical Exam Constitutional: WD/WN, vitals as above no acute distress Eyes: + anicteric sclerae Respiratory: no respiratory distress Auscultation: + diminished lung sounds Cardiovascular: Rate/Rhythm: regular rate and regular rhythm Heart Sounds: normal S1 and normal S2 Extremities: + edema (Trace bilateral lower extremity edema) Neurologic: no focal motor deficits and not confused Psychiatric: Orientation: alert and oriented x 3 Affect: euthymic affect Results & Data Vital Signs (Past 12 Hours) Vital Signs Temp Pulse Pulse Resp BP Pulse Ox O2 Del Method 01/16/25 07:38 36.3 C L 66 12 172/85 H 96 Room Air 01/16/25 06:42 64 01/16/25 04:06 36.4 C L 75 18 177/83 H 93 Room Air 05/13/25 23:28 36.3 C L 71 18 153/87 H 93 Room Air PG Care Time/CCT Total # of Minutes Spent Total Time Spent with Patient: Total time spent is greater than 50% in coordination of care (as documented) at patient's floor/unit and/or counseling patient: Coding Level of Care Code 66285 SUB INP/OBS CARE 2/35MIN Diagnoses Acute hyponatremia E87.1 Chronic hyponatremia E87.1 TIA (transient ischemic attack) G45.9
[2025-01-16] MEDS: OPTIRAY 320 100ml IV ONE (11:44)
[2025-01-16 12:14] VITALS: O2SAT 94
[2025-01-16] MEDS: FAMOTIDINE 20 MG TAB PO SCH (12:22)
--- NOTE | 2025-01-16 13:04 | CT Scan Report ---
ABDOMEN AND PELVIS CT WITH IV CONTRAST CT DOSE: 535.4 mGy.cm HISTORY: please eval adrenal glands TECHNIQUE: Multiaxial CT images of the abdomen and pelvis were performed following the IV administrat ion of 90 cc of Optiray, A dose lowering technique was utilized adhering to the principles of ALARA. COMPARISON STUDY: 05/02/2024 and 03/14/2024 FINDINGS: ABDOMEN: Liver, gallbladder, spleen, pancreas, and adrenal glands are unremarkable. Stable cortical s carring at the right upper kidney. There is no hydronephrosis bilaterally. No renal calculi seen. The re are scattered atherosclerotic calcifications. No abdominal aortic aneurysm. Pelvis: Uterus is absent. Stable 2.5 cm cyst lateral right pelvis, likely the right ovary. Left ovary is not visualized.. Urinary bladder is mildly distended. There is sigmoid diverticulosis. No acute d iverticulitis. There is moderate retained stool. There is stable small right inguinal hernia containi ng a nonobstructed small bowel loop. No bowel inflammation or obstruction. No free fluid or free air. No enlarged adenopathy. Osseous structures: There is diffuse lumbar degenerative disc disease. There are moderate degenerativ e changes at the hips. IMPRESSION: 1. No acute findings. 2. Unremarkable adrenal glands. 3. Otherwise as described. ACT 112: Negative or not required by law. The above report was generated using voice recognition software. It may contain grammatical, syntax o r spelling errors. Electronically signed by: Yo Bingham M.D. 01/16/2025 1:03 PM
[2025-01-16 13:59] LABS: BUN Creatinine Ratio 14.5 (10-20); Calcium 8.9 mg/dl (8.6-10.3); Creatinine Clr Calc Pharmacy 48.5 ml/min; Potassium 3.9 mmol/L (3.5-5.1)
[2025-01-16] MEDS ORDERED: HYDROCORTISONE 10 MG TAB PO SCH ×2 (14:00→15:00)
[2025-01-16] MEDS: HYDROCORTISONE 10 MG TAB PO ONE (14:23)
--- NOTE | 2025-01-16 14:48 | Discharge Summary ---
Discharge Summary Date of Service January 16, 2025 Principal Dx & Hospital Course #1 = Principal Diagnosis (1) TIA (transient ischemic attack): (2) Hyponatremia: (3) Chronic obstructive pulmonary disease: (4) HTN (hypertension): (5) Carotid artery stenosis: (6) Mitral regurgitation: (7) Adrenal insufficiency: Plan This is an 79-year-old female with past medical history of chronic hyponatremia, COPD, tobacco use who presented to the emergency department on 01/14/2025 with a chief complaint of aphasia and left-sided facial droop. #Stroke-Like symptoms/TIA - with ~ 40 minutes of aphasia and left sided facial droop RECLAMATION KETTLE TENDER. Now since resolved. EKG showing normal sinus rhythm Head CT negative Head CTA w/ severe narrowing/short segment occlusion distally @ R vertebral artery; Neck CTA w/ high grade stenosis of right carotid bulb & proximal cervical segment right ICA secondary to prominent atherosclerosis. Multifocal high grade stenoses of L vertebral artery. 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 Brain MRI negative for acute stroke Echocardiogram 01/14: EF 50 to 55%. Moderate to severe mitral regurgitation. Mild to moderate aortic regurgitation. Neurology consulted --> recommending DAPT x 21 days then monotherapy w/ Plavix after. referral to neurosurgery for saccular basilar tip aneurysm. Follow up in outpatient office. Will need to be seen by vascular surgery. Will need 30 day cardiac monitoring Continue aspirin, Plavix Metoprolol, hydralazine resumed PT, OT consulted todayrecommending rehab --> to go to [facility] 01/16 #Hyponatremia Acute on chronic Na 121 on admission. Baseline appears ~130s Urine osmolality 370, urine sodium 34 NaCl tabs increased to 2000mg po bid with improvement to 125 Nephrology consulted- Fluid restriction less than 1500 mL/day, liberalize salt in diet. Salt tabs increased to 2 g twice daily. Chest CT Repeat BMP this afternoonsodium stable at 125. Continue salt tabs 2 g twice dailyreassess sodium levels in a.m. at [facility] 01/17. Will likely have to adjust dose once sodium stabilizes A.m. cortisol levels lowcosyntropin testing performed 01/16 indicating adrenal insufficiency ACTH pending Reached out to endocrinologystart hydrocortisone 20 mg once daily in the morning and 10 mg in the afternoon.To follow-up outpatient Chest CT w/ benign lung nodules --> patient is high risk will require follow up CT scan in 3-6 months. Is established with Dr. Joshi @ Pulmonology. Recommended she follow up with a scan there. #Mitral regurgitation Moderate to severe on echocardiogram Continue metoprolol and hydralazine Added Lasix 20 mg once daily on 01/15 Hydralazine was increased to 25mg TID on 01/15 however after an episode of dizziness this was decreased back to 10mg TID. --> Afternoon & PM dose on 01/16 will likely need to be held. Check BP at [facility] closely. Will require cardiology referral upon discharge #GERD: Pepcid #COPD: home inhalers #HLD: statin (dose increased) Upon discharge from [facility] patient should be referred to nephrology, endocrinology, pulmonology, cardiology, neurosurgery, neurology, vascular surgery. She will also require a 30-day event monitor as well. Updated daughter at bedside extensively 01/16. Admission HPI Per Admitting Provider This is an 79-year-old female with past medical history of chronic hyponatremia, COPD, tobacco use who presented to the emergency department on 01/14/2025 with a chief complaint of aphasia and possible left-sided facial droop. Patient was seen and examined this afternoon with her daughter and granddaughter present. She reports that this morning she could not get her words out. Was also reported that she had a left-sided facial droop by EMS. She states that the symptoms lasted for about 40 minutes at most. She denied any vision or hearing changes. Denied any numbness or weakness in her extremities. She states that she has smoked cigarettes for 60 years and most recently quit 1 to 2 months ago. She states that she has had a few slip ups as she is quitting cold turkey. She denies any chest pain. She does have shortness of breath at baseline given her history of COPD but states it is not worse than usual. She does wear compression stockings for lower extremity edema. She denies any nausea, vomiting, abdominal pain, changes in bowel habits. She denies any urinary urgency, frequency, hematuria. She was recently seen by her PCP and has a referral to a motor bike mechanic for her hyponatremia. While in the emergency department she did undergo imaging in which her head CT was negative. Head CTA did show severe narrowing/lower segment occlusion distally of the right vertebral artery. 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 CBC with hemoglobin of 10.7. BMP did reveal acute on chronic hyponatremia of 121. Renal function stable. [place] telestroke was consulted. She was given a loading dose of Plavix and aspirin in the ED. Code discussion to take place with the patient and she does confirm that she is a full code. Discharge Exam General: no acute distress; non-toxic appearing; well-nourished; cooperative HEENT: normocephalic, atraumatic; no scleral icterus; PERRLA w/ EOMs intact; vision and hearing grossly intact Skin: warm, dry without signs of tenting; no cyanosis; no rashes, bruising, lesions, or erythema noted Lungs: no acute respiratory distress; symmetrical chest wall expansion MSK:no edema noted in the LEs b/l, nonerythematous Neuro: A&Ox3; normal mood and affect; fluent speech; no focal deficits Discharge Plan Discharge Items Patient Disposition: Transfer Inpatient Rehab Fac Reason For Visit: STROKE LIKE SYSTEM SYMPTOMS Discharge Diagnosis: TIA, Adrenal insuffiency Condition on Discharge: Fair Activity: Resume your previous activity Non-emergency contact: Primary Care Provider Call non-emergency contact if: you have any medication questions and your symptoms worsen Follow-up/Referrals: Ivan Castro MD [Primary Care Provider] - Pete Cortes MD [Physician] - Nelsy Barboza MD [Physician] - Alfred Iglesias MD [Physician] - Gayatri Joshi MD, [facility] [Physician] - Joe Barraza MD [Physician] - Rancho Carter MD [Physician] - Diet: Heart Healthy Addtl Attending Provider Instructions: Ms. Mercedes, [place] were recently hospitalized for stroke like symptoms. You were found to have a TIA, low sodium, and adrenal insufficiency. You were treated appropriately. For your TIA - we recommend Plavix and Aspirin for 21 days. Following this time period, you may continue on Plavix only. Please follow up with neurology outpatient. Neurology has recommended you see vascular surgery outpatient for your carotid artery stenosis on the right. They have also recommended you see neurosurgery outpatient for a basilar tip aneurysm that will require monitoring. Both of these were incidental findings the imaging of your head and neck. We have increased your Rosuvastatin to 20mg once daily. You will also require a 30 day event monitor upon discharge from [facility]. You had an echocardiogram that revealed moderate to severe mitral regurgitation. This results in a heart murmur. Please continue on the Metoprolol daily and Hydralazine (10mg three times daily). At [facility], please keep a close eye on blood pressure. The Hydralazine dose for 5/14 PM may need to be held dependent upon BP. We have added Lasix 20mg once daily. Please continue this medication until seen by your PCP. We have also referred you to a manager advanced on discharge. For the low sodium - you underwent a workup that did reveal you have adrenal insufficiency. This is what is likely causing the low sodium. Your salt tablets have been increased to 2gm twice daily. [facility] will likely have to adjust this regimen prior to your discharge from there. You have been started on Hydrocortisone 20mg in the morning and 10mg at 3pm daily. You have also been referred to an gui developer for a further workup on discharge. It is recommended that you have your sodium levels checked frequently while at [facility]. You had a CT scan of your chest that did reveal pulmonary nodules - you will require a repeat scan in 3-6 months to ensure stability. Please follow up with either your medical chief technician or PCP for a repeat scan. Please continue Pepcid for GERD and your inhalers for your COPD. [facility] will help arrange appointments with specialists upon discharge but they include: Neurology, Nephrology, Vascular Surgery, Neuro surgery, Endocrinology, and Pulmonology. [facility] [place]! Asya Dumont PA-C Pending Studies at Discharge: Yes Studies:: ACTH levels Stand-Alone Forms: [facility] [facility]{img} Skilled Items Patient informed of condition?: Yes DNR: No Discharge Level of Care: Acute rehab Communicable Disease: No Discharge Prognosis: Stable Lines: None Urinary Catheter: No Medications and DC Order Prescriptions: New clopidogrel 75 mg Tablet 75 mg PO QAM Qty: 30 0RF aspirin 81 mg Tablet,Delayed Release (Dr/Ec) 81 mg PO DAILY Qty: 30 0RF famotidine 20 mg Tablet 20 mg PO DAILY@1130,1630 Qty: 60 0RF furosemide 20 mg Tablet 20 mg PO QAM Qty: 30 0RF hydrocortisone [Cortef] 10 mg Tablet 10 mg PO 1500 Qty: 30 0RF hydrocortisone [Cortef] 10 mg Tablet 20 mg PO QAM Qty: 30 0RF rosuvastatin 20 mg Tablet 20 mg PO QAM Qty: 30 0RF sodium chloride 1,000 mg Tablet,Soluble 2,000 mg PO BID Qty: 20 0RF Continued cholecalciferol (vitamin D3) [Vitamin D3] 125 mcg (5,000 unit) tablet 5,000 unit PO UD Qty: 0 Rx Instructions: original: 5,000 units PO Tuesday thru ; 01/14-otc unable to verify meclizine 12.5 mg tablet 12.5 mg PO Q8H PRN (Reason: dizziness) Qty: 20 0RF Rx Instructions: last filled 01/27/24 7 day supply metoprolol succinate 25 mg tablet extended release 24 hr 50 mg PO DAILY Qty: 180 1RF Trelegy Ellipta 200-62.5-25 mcg blister with device 1 inh INHALATION DAILY Qty: 60 3RF hydralazine 10 mg tablet 10 mg PO TID Qty: 90 2RF acetaminophen [Pain Relief (acetaminophen)] 650 mg tablet extended release 650 mg PO Q8H Qty: 90 0RF Rx Instructions: otc unable to verify albuterol sulfate [Ventolin HFA] 90 mcg/actuation HFA aerosol inhaler 2 puff inhalation Q4H PRN (Reason: shortness of breath or wheezing) Qty: 18 5RF folic acid 1 mg tablet 1 mg PO UD Qty: 1 Rx Instructions: 1 mg po daily. otc unable to verify hydrocodone-acetaminophen 10-325 mg tablet 0.5 tab PO .q3hrs PRN (Reason: PAIN SCALE 4-10) Rx Instructions: Last filled 03/09/24 4 day supply cyclobenzaprine 5 mg tablet 5 mg PO UD PRN (Reason: muscle spasm) Rx Instructions: 5 mg po hs prn. No fill history available unable to verify Held meloxicam 7.5 mg tablet 7.5 mg PO UD Hold Instructions: Resume on 02/02/25. until seen by PCP Rx Instructions: original:7.5 mg orally EVERY OTHER DAY; last filled 01/10 as 7.5 mg po daily. Discontinued rosuvastatin 5 mg tablet 5 mg PO DAILY Rx Instructions: filled 01/10 90 day supply famotidine [Pepcid] 20 mg tablet 20 mg PO UD Rx Instructions: 20 mg po daily. otc unable to verify sodium chloride 1,000 mg tablet,soluble 1,000 mg PO UD Rx Instructions: 1000 mg po bid. last filled 07/18/24 90 day supply Discharge Orders: Discharge Order (Routine); Ordered 01/16/25 Ordered By: Asya Dumont Admission Data Admit Date/Time: 01/15/25 17:35 Attending Provider: Kristen Burgos Admit Provider: Kristen Burgos Primary Care Provider: Ivan Castro Other Providers: Kristen Burgos; Rancho Carter; [facility]; Joey Cid; Nelsy Barboza; Dieter Rapp; Netta Hatfield Other Interventions: Discharge Summary Assessment (RN) Last Done: 01/16/25 14:52 Hospital Stay Data Consultations 01/14/25 14:02 ED Decision to Admit Stat 01/14/25 14:04 Consult Neurology Routine 01/15/25 16:23 Consult Nephrology Routine Diagnostic Imagining Performed 01/14/25 12:05 CT angio head w con Stat CT angio neck with con Stat CT head/brain wo con Stat 01/14/25 14:01 MRI Brain [MR brain wo con] Urgent 01/16/25 08:00 CT chest diagnostic wo con Routine 01/16/25 09:36 CT abd pelvis IV con only Routine Pending Results Patient Have Any Pending Studies at Discharge: Yes Discharge Instructions Given to Patient (Per Discharging Provider) Ms. Mercedes, You were recently hospitalized for stroke like symptoms. You were found to have a TIA, low sodium, and adrenal insufficiency. You were treated appropriately. For your TIA - we recommend Plavix and Aspirin for 21 days. Following this time period, you may continue on Plavix only. Please follow up with neurology outpatient. Neurology has recommended you see vascular surgery outpatient for your carotid artery stenosis on the right. They have also recommended you see neurosurgery outpatient for a basilar tip aneurysm that will require monitoring. Both of these were incidental findings the imaging of your head and neck. We have increased your Rosuvastatin to 20mg once daily. You will also require a 30 day event monitor upon discharge from [facility]. You had an echocardiogram that revealed moderate to severe mitral regurgitation. This results in a heart murmur. Please continue on the Metoprolol daily and Hydralazine (10mg three times daily). At [facility], please keep a close eye on blood pressure. The Hydralazine dose for 5 PM may need to be held dependent upon BP. We have added Lasix 20mg once daily. Please continue this medication until seen by your PCP. We have also referred you to a manager advanced on discharge. For the low sodium - you underwent a workup that did reveal you have adrenal insufficiency. This is what is likely causing the low sodium. Your salt tablets have been increased to 2gm twice daily. [facility] will likely have to adjust this regimen prior to your discharge from there. You have been started on Hydrocortisone 20mg in the morning and 10mg at 3pm daily. You have also been referred to an gui developer for a further workup on discharge. It is recommended that you have your sodium levels checked frequently while at [facility]. You had a CT scan of your chest that did reveal pulmonary nodules - you will require a repeat scan in 3-6 months to ensure stability. Please follow up with either your medical chief technician or PCP for a repeat scan. Please continue Pepcid for GERD and your inhalers for your COPD. [facility] will help arrange appointments with specialists upon discharge but they include: Neurology, Nephrology, Vascular Surgery, Neuro surgery, Endocrinology, and Pulmonology. [facility] [place]! Asya Dumont PA-C Supervising Physician Co-Signing Physician Notes PA Supervision Note: I did not personally see or examine the patient today, but I verified all pimentel points of BEHZAD Dumont's assessment and plan with the following exceptions/additions: None Total Time Total Time Spent Total Time Spent (In Minutes): 60 Total Time Includes: Examination of the Patient, Discharge Planning, Medication Reconciliation and Communication With Other Providers Coding Level of Care Code 40238 INP/OBS DISCH >30 MIN Diagnoses TIA (transient ischemic attack) G45.9 Hyponatremia E87.1 Chronic obstructive pulmonary disease J44.9 HTN (hypertension) I10 Carotid artery stenosis I65.29 Mitral regurgitation I34.0 Adrenal insufficiency E27.40
[2025-01-16 15:21] VITALS: BP 107/61; RESP 20; TEMP 97.7
[2025-01-16 15:53] VITALS: PULSE 65
[2025-01-17] MEDS ORDERED: HYDROCORTISONE 10 MG TAB PO SCH ×2 (09:00→15:00)
== END 2025-01-16 20:27 | DRG 69 ==
LOC: 2N 12:01 → ED 12:01 → 2N 16:03

== ENCOUNTER 2025-02-21 21:49 | Inpatient (IN) ==
[2025-02-21] MEDS: ALBUT/IPRATROP 3MG/0.5MG NEB 3 ML VIAL INH STA (22:04)
[2025-02-21] MEDS: MAGNESIUM SULFATE / D5W 1 GM/100 ML BAG IV STA (22:04)
[2025-02-21 22:05] LABS: Base Excess VBG 0.2 mEq/L; HCO3 VBG 30 mmol/L; Oxygen Saturation VBG 99.8 %; PCO2 VBG 71 mmHg (38-50); PO2 VBG 159 mmHg; pH VBG 7.23 (7.36-7.41)
[2025-02-21 22:11] LABS: iSTAT Hemoglobin 13.3 g/dl (12.0-16.0); iSTAT Ionized Calcium 1.17 mmol/l (1.12-1.32)
[2025-02-21 22:12] LABS: Basophils # (auto) 0.02 K/uL (0.00-0.20); Basophils % (auto) 0.1 %; Hematocrit (blood only) 38.2 % (37.0-47.0); Immature Granulocytes # (auto) 0.22 K/uL (0.01-0.20); Immature Granulocytes % (auto) 1.5 %; Lymphocytes # (auto) 2.13 K/uL (1.20-3.40); Lymphocytes % (auto) 14.6 %; Mean Corpuscular Hemoglobin 29.3 pg (25.0-34.0); Mean Corpuscular Hgb Conc 31.4 g/dL (32.0-36.0); Mean Corpuscular Volume 93.4 fL (80.0-100.0); Mean Platelet Volume 9.9 fL (9.4-12.4); Monocytes % (auto) 8.9 %; Neutrophils # (auto) 10.87 K/uL (1.40-6.50); Neutrophils % (auto) 74.9 %; Platelet Count 334 K/uL (130-400); RDW Coefficient of Variation 13.7 % (11.5-14.5); RDW Standard Deviation 46.8 fL (36.4-46.3); Red Blood Count 4.09 M/uL (4.20-5.40); White Blood Count 14.54 K/ul (4.8-10.8)
[2025-02-21] MEDS: SODIUM CHLORIDE 0.9% 1,000 ML IV SCH (22:12)
[2025-02-21] MEDS: KETAMINE HCL 10MG/ML SYR IV STA (22:33)
[2025-02-21] MEDS: TERBUTALINE SULFATE 1 MG/ML VIAL SQ ONE (22:33)
[2025-02-21 22:35] LABS: Albumin Globulin Ratio 1.4 (0.9-2); Albumin Level 4.1 gm/dl (3.4-5.0); BUN Creatinine Ratio 30.9 (10-20); Bilirubin,Total 0.6 mg/dl (0.2-1.0); Calcium 8.8 mg/dl (8.6-10.3); Creatinine Clr Calc Pharmacy 39.1 ml/min; Magnesium 2.4 mg/dl (1.7-2.4); Potassium 4.2 mmol/L (3.5-5.1); Total Protein 7.1 gm/dl (6.0-8.3); Troponin I High Sensitivity 28.1 pg/ml (0-14)
[2025-02-21] MEDS: FUROSEMIDE 40 MG/4 ML VIAL IV ONE (22:44)
[2025-02-21] MEDS: NITROGLYCERIN 2% OINTMENT 30GM TUBE EXT STA (22:44)
--- NOTE | 2025-02-21 22:49 | Emergency Department Note ---
Impression & Plan Acute on chronic respiratory failure with hypoxia and hypercapnia, Congestive heart failure, Hypertension, Transaminitis, Hyperglycemia ED Provider Note ED Provider Note NAME: SAM DOE AGE:79 SEX: Female : 1945 ARRIVES VIA: EMS INFORMANT: Patient ED PROVIDER(s): Dora Mobley DO CHIEF COMPLAINT: Shortness of breath HPI: This is an 79-year-old female who presents emergency room via EMS with shortness of breath. EMS reports patient found to have increased work of breathing and was hypoxic in the 70s. She was started on nebulizer and supplemental oxygen and quickly transition to CPAP with an additional nebulizer and Solu-Medrol 125 mg. She continued to have increased work of breathing and route despite improved oxygenation. Patient here with significant dyspnea and work of breathing and unable to provide additional history. PAST MEDICAL HISTORY:See Below PAST SURGICAL HISTORY:See Below FAMILY HISTORY:See Below SOCIAL HISTORY:See Below HOME MEDICATIONS:See Below ALLERGIES:See Below VITALS:See Below PHYSICAL EXAMINATION: GENERAL: alert, unwell appearing, well nourished, severe distress, non-toxic EYE EXAM: normal conjunctiva, PERRL and EOM's grossly intact OROPHARYNX: no exudate, no erythema, lips, buccal mucosa, and tongue normal and mucous membranes are moist NECK: supple, no nuchal rigidity, no adenopathy, non-tender LUNGS: Decreased breath sounds bilaterally, increased work of breathing, tachypnea, appearance of air hunger, prolonged expiration HEART: no murmurs, S1 normal and S2 normal ABDOMEN: abdomen soft, non-tender, normo-active bowel sounds, no masses, no rebound or guarding. SKIN: no rashes, petechiae, orbruising UPPER EXTREMITIES: upper extremities are grossly normal. FROM, nml pulses b/l. LOWER EXTREMITIES: No pitting edema. FROM, nml pulses b/l. NEURO EXAM: Normal sensorium, cranial nerves II-XII grossly intact, normal speech, no facial droop,nogross weakness of arms, no gross weakness of legs. Gross sensation intact. No ataxia. Vital Signs: reviewed and remarkable Differential Diagnosis: pneumonia, bronchitis, COPD/Asthma exacerbation, pneumothorax, pulmonary embolism, congestive heart failure, acute coronary syndrome, as well as others were considered MEDICAL DECISION MAKING: This is an 79-year-old female who presents emergency department with significant distress on CPAP and having received nebulizers and Solu-Medrol by EMS prior to arrival. Patient with markedly increased work of breathing however still awake and mentating appropriately and able to nod and shake her head to answer questions. Patient was tachycardic, hypertensive, and reported no improvement following prehospital interventions. Labs drawn and sent, IV established, EKG and chest ray performed at bedside interpreted by me and patient monitored on telemetry. Respiratory therapy had been contacted prior to arrival and was present in the room to be able to transition her over to our BiPAP machine. Continuous nebulizers were started and line through this as well. Patient started on gentle IV fluid hydration initially and given IV magnesium. VBG showed acute appearing hypercapnia. Patient rechecked multiple times, RT continued to try and adjust BiPAP settings, patient continued to be ill- appearing and reporting no improvement. Patient continued to decline intubation as she was asked several times in the presence of nursing staff and RT. I did speak with the patient's daughter and son regarding her tenuous condition. IV ketamine and subcu terbutaline were also given. Further BiPAP setting adjustments were made and patient slowly began to appear improved with a decreased rate of breathing and decreased work of breathing. Patient's initial exam had a quiet chest with minimal air movement, as she opened wheezing was then evident bilaterally. Chest x-ray did not initially reveal any obvious pulmonary edema or focal consolidation, however as labs returned she was noted to have a markedly elevated BNP. After seeing this, Nitropaste and IV Lasix were added. Patient's elevated blood pressure which had been uptrending, began to improve following these medications. Patient rechecked multiple times. Case discussed with the hospitalist team for additional evaluation and management. Consultation(s): 2319: Discussed with Dr. Burgos, [facility] hospitalist team, for additional evaluation and management. ER Treatment Provided: See below 2156: Discussed with daughter, Olga. She confirms patient's wishes to not be on a breathing tube although states when they had previously spoken about it she did not want to "be kept alive on machines". We discussed the severity of her condition. She believes she does have an advanced directive but does not know exactly what it says or where it is. She states on Tuesday her mother had complained of feeling short of breath and did call her automobile service station manager and was started on prednisone as well as an antibiotic. She states she had spoken with her mom earlier in the evening and she sounded improved compared to the day before. 2241: Discussed with José, son. He was updated on patient condition and expressed his concern. Diagnostics Interpreted By Me: -ECG: sinus tachycardia 108, nml axis, nml intervals, no acute ST/T wave changes, baseline artifact noted -Cardiac Monitoring: An order was placed for continuous cardiac monitoring. The monitor shows a rate of 106 with sinus tachycardia rhythm. -Laboratory studies: As stated above and show below. -Imaging studies: cxr: No cardiomegaly, no pneumothorax, no wide mediastinum, no focal consolidation, no pleural effusion Triage Nursing Note Reviewed Prior/Outside Records Reviewed Critical Care: Critical care of 62 min performed to assess and manage high likelihood of life-threatening acute hypoxic respiratory failure, involving labs and imaging performed with assessment to evaluate dyspnea and hypoxia diagnosis with frequent reassessment. This time includes bedside time, treatment discussions with patient/family/consultants, documentation time and excludes procedure time. Past Med/Surg History Problem List (Updated 02/22/25 @ 23:53 by Dora Mobley, ) Hyperglycemia (Acute) Transaminitis (Acute) Hypertension (Acute) Congestive heart failure (Acute) (HFpEF) heart failure with preserved ejection fraction Acute on chronic respiratory failure with hypoxia and hypercapnia (Acute) Adrenal insufficiency Basilar artery aneurysm Mitral regurgitation Carotid artery stenosis (Acute) Occlusion of vertebral artery (Acute) TIA (transient ischemic attack) (Acute) Stroke-like symptoms Rotator cuff arthropathy of left shoulder Osteoarthritis of left knee Chronic hyponatremia Hypotensive episode Abdominal pain, LUQ (Acute) Abnormal chest CT Family history of reaction to anesthesia MOTHER HAD "A HARD TIME COMING OUT OF IT" Chest wall contusion (Acute) Fall (Acute) Acute hyponatremia (Acute) Closed fracture of left wrist (02/25/24) Distal radial and ulnar fractures from a fall. Orthopedic surgery 02/26/24- Closed reduction of left wrist, distal radius and ulna Balance disorder Lower extremity weakness History of radius fracture (11/11/21) nondisplaced intra-articular distal radial fracture Hyponatremia Redness and swelling of lower leg Pain of left calf Left ankle pain Left leg injury Osteoarthritis of right hip Ankle swelling Tendinitis of right rotator cuff Greater trochanteric bursitis of left hip Acute metabolic encephalopathy Fall Bruising Greater trochanteric bursitis of right hip Vertigo Allergic rhinitis with postnasal drip Pulmonary nodule DDD (degenerative disc disease), cervical Tendinitis of both rotator cuffs Multiple pulmonary nodules determined by computed tomography of lung Retinal vein occlusion (Acute) Osteoporosis (Acute) Hypercholesterolemia (Acute) COPD exacerbation (Acute) Medical History Closed fracture distal radius and ulna (02/25/24) Rotator cuff arthropathy of right shoulder PAD (peripheral artery disease) Buerger disease HTN (hypertension) Esophageal reflux Chronic obstructive pulmonary disease Anemia, mild Hypokalemia Scalp hematoma Acute head trauma Acute hyponatremia Fall Lower extremity edema Current smoker Acute bronchitis Osteoarthritis GERD (gastroesophageal reflux disease) Family history of diabetes mellitus Deviated nasal septum 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 Hyperlipidemia Hypertension Chronic obstructive pulmonary disease Surgical History S/p bilateral blepharoplasty History of hysterectomy History of section History of open reduction and internal fixation (ORIF) procedure History of appendectomy History of esophagogastroduodenoscopy (EGD) History of colonoscopy History of tonsillectomy History of tooth extraction History of cataract surgery Family History Mother Coronary heart disease Hypertension Father Coronary heart disease Hypertension Myocardial infarction Grandmother Diabetes Breast cancer Grandmother (Maternal) Stroke Other Family history of reaction to anesthesia Denies family history of Ovarian cancer Prostate cancer Lung cancer Colorectal cancer Social History (Updated 02/21/25 @ 23:57 by Kristen Burgos MD) Smoking Status: Current every day smoker Tobacco Type: Cigarettes Age Started Using Tobacco: 18; packs per day: 0.5; Cigarettes Per Day: 2; Second Hand Exposure: Yes; Do You Dip or Chew Tobacco: No; Hx Alcohol Use: No Hx Substance Use: No Preferred Language: Slovak Communication Ability: Effective Visual Impairment: Limited Hearing Ability: Normal 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 Beliefs That Will Affect Care: None marital status: Current Living Situation: Alone Current Living Situation Comment: Currently residing at [facility] for rehab current occupational status: retired How many Children do You have: 3 Other Information That Helps Us Care for You: No (personal care daily from 4pm- 8pm and PT/OT making home visits) Feels Safe at Home: Yes Safety Concerns: Feels Safe At This Time Childhood Exposure to Second-Hand Smoke: Yes caffeine: Yes Dental Care, Regularly: Yes Physical Activity Frequency: Daily Seatbelt Use: always Sunscreen Use: No Sexual Activity: has been sexually active, but not for at least 12 months Assistive Devices: Cane, Walker and Wheelchair Allergies Allergies Allergy/AdvReac Type Severity Reaction Status Date / Time Penicillins Allergy Unknown Hives Verified 02/11/25 10:21 Sulfa (Sulfonamide Allergy Unknown SWELLING Verified 02/11/25 10:21 Antibiotics) ciprofloxacin [From Cipro] AdvReac Severe Dizziness Verified 02/11/25 10:21 Home Meds Home Medications Medication Instructions Recorded Confirmed folic acid 1 mg tablet 1 mg PO DAILY #1 tab 04/17/19 02/21/25 cholecalciferol (vitamin D3) 125 5,000 unit PO UD ##0 09/10/20 02/21/25 mcg (5,000 unit) tablet (Vitamin D3) cyclobenzaprine 5 mg tablet 5 mg PO UD PRN muscle spasm 01/14/25 02/21/25 famotidine 20 mg tablet 20 mg PO BID 02/11/25 02/21/25 sennosides 8.6 mg tablet (senna) 17 mg PO DAILY PRN NO BM IN 2 DAYS 02/21/25 02/21/25 Previous Rx's Medication Instructions Recorded albuterol sulfate 90 mcg/actuation 2 puff inhalation Q4H PRN 11/21/23 aerosol inhaler (Ventolin HFA) shortness of breath or wheezing #18 grams fluticasone fur. 200 mcg-umeclid 1 inh inhalation DAILY #60 ea 11/26/24 62.5 mcg-vilant 25 mcg inhalat.powder (Trelegy Ellipta) acetaminophen 650 mg 650 mg PO Q8H #90 tabs 01/09/25 tablet,extended release (Pain Relief (acetaminophen)) hydralazine 10 mg tablet 10 mg PO TID #90 tabs 01/09/25 hydrocortisone 10 mg tablet 10 mg PO 1500 #30 tabs 01/16/25 (Cortef) clopidogrel 75 mg tablet 75 mg PO QAM #30 tabs 02/08/25 hydrocortisone 10 mg tablet See Rx Instructions PO .COMPLEX 02/08/25 (Cortef) #90 tabs metoprolol succinate 50 mg 50 mg PO DAILY #90 tabs 02/08/25 tablet,extended release 24 hr rosuvastatin 20 mg tablet 20 mg PO QAM #30 tabs 02/08/25 furosemide 20 mg tablet 20 mg PO DAILY #30 tabs 02/11/25 sodium chloride 1,000 mg soluble 1,000 mg PO DAILY #30 tabs 02/11/25 tablet azithromycin 250 mg tablet See Rx Instructions PO .COMPLEX #6 02/20/25 tabs prednisone 20 mg tablet 20 mg PO .COMPLEX #16 tabs 02/20/25 Results & Data (ED) Vital Signs Vital Signs - 24 hr 02/21/25 23:49 02/22/25 00:00 02/22/25 00:00 Temperature 36.8 C 36.8 C Temperature Source Goodman Cath ( Temp Sensing) Goodman Cath ( Temp Sensing) Pulse Rate 83 Pulse Rate [Apical] 82 81 Respiratory Rate 16 16 15 Blood Pressure 133/66 Blood Pressure [Left Arm] 133/66 Blood Pressure Mean 83 Blood Pressure Mean [Left Arm] 88 Pulse Oximetry 100 100 100 Oxygen Delivery Method BiPAP BiPAP Laboratory Data 02/22/25 05:06 02/22/25 05:06 Lab Results 02/21/25 02/21/25 02/21/25 Range/Units 21:54 21:58 22:01 WBC 14.54 H (4.8-10.8) K/ul RBC 4.09 L (4.20-5.40) M/uL Hgb 12.0 (12.0-16.0) g/dl POC Hgb 13.3 (12.0-16.0) g/dl Hct 38.2 (37.0-47.0) % POC Hct 39 (37-47) % MCV 93.4 (80.0-100.0) fL MCH 29.3 (25.0-34.0) pg MCHC 31.4 L (32.0-36.0) g/dL RDW Std Deviation 46.8 H (36.4-46.3) fL RDW Coeff of Edwin 13.7 (11.5-14.5) % Plt Count 334 (130-400) K/uL MPV 9.9 (9.4-12.4) fL Immature Gran % (Auto) 1.5 % Neut % (Auto) 74.9 % Lymph % (Auto) 14.6 % [place] % (Auto) 8.9 % Eos % (Auto) 0.0 % Baso % (Auto) 0.1 % Neut # (Auto) 10.87 H (1.40-6.50) K/uL Lymph # (Auto) 2.13 (1.20-3.40) K/uL [place] # (Auto) 1.30 H (0.11-0.59) K/uL Eos # (Auto) 0.00 (0.00-0.50) K/uL Baso # (Auto) 0.02 (0.00-0.20) K/uL Immature Gran # (Auto) 0.22 H (0.01-0.20) K/uL VBG pH 7.23 L (7.36-7.41) VBG pCO2 71 H (38-50) mmHg VBG pO2 159 mmHg VBG HCO3 30 mmol/L VBG O2 Saturation 99.8 % VBG Base Excess 0.2 mEq/L POC Sodium 140 (135-144) mmol/L Sodium 141 (136-145) mmol/L POC Potassium 4.0 (3.3-5.0) mmol/L Potassium 4.2 (3.5-5.1) mmol/L POC Chloride 102 (101-112) mmol/L Chloride 103 (98-107) mmol/L Carbon Dioxide 27 (21-32) mmol/L POC Total CO2 29 (24-31) mmol/L Anion Gap 11 (3-11) POC Anion Gap 14.0 L (16-25) mmol/L POC BUN 26 H (7-18) mg/dl BUN 25 H (6-23) mg/dl Creatinine 0.81 (0.6-1.2) mg/dl POC Creatinine 1.0 (0.6-1.3) mg/dl Est Cr Clr Drug Dosing 39.1 ml/min eGFR 72.88 BUN/Creatinine Ratio 30.9 H (10-20) Glucose 306 H* (70-99(Fasting)) mg/dl POC Glucose 295 H (70-99) mg/dl POC Glucose (other) 314 H (70-99) mg/dl Calcium 8.8 (8.6-10.3) mg/dl POC Ioniz Calcium [place] 1.17 (1.12-1.32) mmol/l Magnesium 2.4 (1.7-2.4) mg/dl Total Bilirubin 0.6 (0.2-1.0) mg/dl AST 304 H (13-39) U/L ALT 357 H (7-52) U/L Alkaline Phosphatase 74 (34-104) U/L Troponin I High Sens 28.1 H (0-14) pg/ml B-Natriuretic Peptide 2585 H (0-100) pg/ml Total Protein 7.1 (6.0-8.3) gm/dl Albumin 4.1 (3.4-5.0) gm/dl Globulin 3.0 (2.5-4.0) gm/dl Albumin/Globulin Ratio 1.4 (0.9-2) Urine Color Urine Appearance (Clear) Urine pH (4.5-7.5) Ur Specific [place] (1.000-1.030) Urine Protein (Negative) Urine Glucose (UA) (Negative) Urine Ketones (Negative) Urine Blood (Negative) Urine Nitrite (Negative) Urine Bilirubin (Negative) Urine Urobilinogen (Negative) Ur Leukocyte Esterase (Negative) Urine WBC (Auto) (0-5) /hpf Urine RBC (Auto) (0-2) /hpf U Hyaline Cast (Auto) (0-2) /lpf U Epithel Cells (Auto) (0-2) /hpf Urine Bacteria (Auto) (None Seen) Urine Comment Adenovirus (PCR) (NotDetected) B. pertussis DNA (PCR) (NotDetected) B.parapertussis DNA PCR (NotDetected) C. pneumoniae DNA (PCR) (NotDetected) Coronavirus OC43 (PCR) (NotDetected) Coronavirus HKU1 (PCR) (NotDetected) Coronavirus 229E (PCR) (NotDetected) SARS-CoV-2 (PCR) (NotDetected) Coronavirus NL63 (PCR) (NotDetected) Human Metapneumovir PCR (NotDetected) Influenza Type A (PCR) (NotDetected) Influenza Type B (PCR) (NotDetected) M. pneumoniae (PCR) (NotDetected) Parainfluenza 1 (PCR) (NotDetected) Parainfluenza 2 (PCR) (NotDetected) Parainfluenza 3 (PCR) (NotDetected) Parainfluenza 4 (PCR) (NotDetected) RSV (PCR) (NotDetected) Entero/Rhino (PCR) (NotDetected) 02/21/25 02/21/25 Range/Units 23:10 Unknown WBC (4.8-10.8) K/ul RBC (4.20-5.40) M/uL Hgb (12.0-16.0) g/dl POC Hgb (12.0-16.0) g/dl Hct (37.0-47.0) % POC Hct (37-47) % MCV (80.0-100.0) fL MCH (25.0-34.0) pg MCHC (32.0-36.0) g/dL RDW Std Deviation (36.4-46.3) fL RDW Coeff of Edwin (11.5-14.5) % Plt Count (130-400) K/uL MPV (9.4-12.4) fL Immature Gran % (Auto) % Neut % (Auto) % Lymph % (Auto) % [place] % (Auto) % Eos % (Auto) % Baso % (Auto) % Neut # (Auto) (1.40-6.50) K/uL Lymph # (Auto) (1.20-3.40) K/uL [place] # (Auto) (0.11-0.59) K/uL Eos # (Auto) (0.00-0.50) K/uL Baso # (Auto) (0.00-0.20) K/uL Immature Gran # (Auto) (0.01-0.20) K/uL VBG pH (7.36-7.41) VBG pCO2 (38-50) mmHg VBG pO2 mmHg VBG HCO3 mmol/L VBG O2 Saturation % VBG Base Excess mEq/L POC Sodium (135-144) mmol/L Sodium (136-145) mmol/L POC Potassium (3.3-5.0) mmol/L Potassium (3.5-5.1) mmol/L POC Chloride (101-112) mmol/L Chloride (98-107) mmol/L Carbon Dioxide (21-32) mmol/L POC Total CO2 (24-31) mmol/L Anion Gap (3-11) POC Anion Gap (16-25) mmol/L POC BUN (7-18) mg/dl BUN (6-23) mg/dl Creatinine (0.6-1.2) mg/dl POC Creatinine (0.6-1.3) mg/dl Est Cr Clr Drug Dosing ml/min eGFR BUN/Creatinine Ratio (10-20) Glucose (70-99(Fasting)) mg/dl POC Glucose (70-99) mg/dl POC Glucose (other) (70-99) mg/dl Calcium (8.6-10.3) mg/dl POC Ioniz Calcium [place] (1.12-1.32) mmol/l Magnesium (1.7-2.4) mg/dl Total Bilirubin (0.2-1.0) mg/dl AST (13-39) U/L ALT (7-52) U/L Alkaline Phosphatase (34-104) U/L Troponin I High Sens (0-14) pg/ml B-Natriuretic Peptide (0-100) pg/ml Total Protein (6.0-8.3) gm/dl Albumin (3.4-5.0) gm/dl Globulin (2.5-4.0) gm/dl Albumin/Globulin Ratio (0.9-2) Urine Color Yellow Urine Appearance Clear (Clear) Urine pH 6.0 (4.5-7.5) Ur Specific [place] 1.015 (1.000-1.030) Urine Protein 2+ H (Negative) Urine Glucose (UA) 2+ H (Negative) Urine Ketones Negative (Negative) Urine Blood Negative (Negative) Urine Nitrite Negative (Negative) Urine Bilirubin Negative (Negative) Urine Urobilinogen Negative (Negative) Ur Leukocyte Esterase Negative (Negative) Urine WBC (Auto) 0-5 (0-5) /hpf Urine RBC (Auto) 0-2 (0-2) /hpf U Hyaline Cast (Auto) 3-5 H (0-2) /lpf U Epithel Cells (Auto) 0-2 (0-2) /hpf Urine Bacteria (Auto) None Seen (None Seen) Urine Comment Adenovirus (PCR) Not Detected (NotDetected) B. pertussis DNA (PCR) Not Detected (NotDetected) B.parapertussis DNA PCR Not Detected (NotDetected) C. pneumoniae DNA (PCR) Not Detected (NotDetected) Coronavirus OC43 (PCR) Not Detected (NotDetected) Coronavirus HKU1 (PCR) Not Detected (NotDetected) Coronavirus 229E (PCR) Not Detected (NotDetected) SARS-CoV-2 (PCR) Not Detected (NotDetected) Coronavirus NL63 (PCR) Not Detected (NotDetected) Human Metapneumovir PCR Not Detected (NotDetected) Influenza Type A (PCR) Not Detected (NotDetected) Influenza Type B (PCR) Not Detected (NotDetected) M. pneumoniae (PCR) Not Detected (NotDetected) Parainfluenza 1 (PCR) Not Detected (NotDetected) Parainfluenza 2 (PCR) Not Detected (NotDetected) Parainfluenza 3 (PCR) Not Detected (NotDetected) Parainfluenza 4 (PCR) Not Detected (NotDetected) RSV (PCR) Not Detected (NotDetected) Entero/Rhino (PCR) Not Detected (NotDetected) Administered Medications Acetaminophen (Acetaminophen 325 Mg Tab) 650 mg PO Q4H PRN PRN Reason: Pain or Fever Stop: 03/24/25 03:48 Last Admin: 02/22/25 07:13 Dose: 650 mg Documented By: C Albuterol (Albut/Ipratrop 3mg/0.5mg Neb 3 Ml Vial) 3 ml NEB QIDR [facility]; Protocol Stop: 03/24/25 06:59 Last Admin: 02/22/25 19:34 Dose: 3 ml Documented By: Admin: 02/22/25 14:44 Dose: 3 ml Documented By: [id number] Admin: 02/22/25 10:46 Dose: 3 ml Documented By: [id number] Admin: 02/22/25 06:59 Dose: 3 ml Documented By: [id number] Clopidogrel Bisulfate (Clopidogrel Bisulfate 75 Mg Tab) 75 mg PO QAM [facility] Stop: 03/24/25 08:59 Last Admin: 02/22/25 09:08 Dose: 75 mg Documented By: CRW Diclofenac Sodium (Diclofenac Sod 1% Gel 100 Gm Tube) 4 gm EXT BID [facility]; Protocol Stop: 03/24/25 08:59 Last Admin: 02/22/25 20:23 Dose: 4 gm Documented By: Admin: 02/22/25 07:14 Dose: 4 gm Documented By: JAYDA Enoxaparin Sodium (Enoxaparin Inj 40 Mg/0.4 Ml Syr) 40 mg SQ Q24H NAVA Stop: 03/24/25 03:48 Last Admin: 02/22/25 07:15 Dose: 40 mg Documented By: JAYDA Famotidine (Famotidine 20 Mg Tab) 20 mg PO BID NAVA Stop: 03/24/25 08:59 Last Admin: 02/22/25 20:27 Dose: 20 mg Documented By: Admin: 02/22/25 09:18 Dose: 20 mg Documented By: ELIER Fluticasone Furoate (Fluticasone Furoate 200mcg 14 Puffs/Inhaler) 1 puffs INH DAILY NAVA Stop: 03/24/25 08:59 Last Admin: 02/22/25 09:09 Dose: 1 puffs Documented By: ELIER Folic Acid (Folic Acid 1 Mg Tab) 1 mg PO DAILY NAVA Stop: 03/24/25 08:59 Last Admin: 02/22/25 09:08 Dose: 1 mg Documented By: ELIER Furosemide (Furosemide 40 Mg/4 Ml Vial) 40 mg IV [id number] NAVA Stop: 03/24/25 08:59 Last Admin: 02/22/25 16:46 Dose: 40 mg Documented By: Admin: 02/22/25 09:09 Dose: 40 mg Documented By: ELIER Hydralazine HCl (Hydralazine 10 Mg Tab) 10 mg PO TID NAVA Stop: 03/24/25 08:59 Last Admin: 02/22/25 20:25 Dose: 10 mg Documented By: Admin: 02/22/25 13:53 Dose: 10 mg Documented By: Admin: 02/22/25 09:08 Dose: 10 mg Documented By: ELIER Methylprednisolone 60 mg/ (Syringe) 0.96 mls @ 1.5 mls/min IV Q12H NAVA Stop: 03/24/25 08:59 Last Admin: 02/22/25 20:24 Dose: 1.5 mls/min Documented By: Admin: 02/22/25 09:09 Dose: 1.5 mls/min Documented By: ELIER Ceftriaxone Sodium (Rocephin) 2,000 mg in 50 mls @ 100 mls/hr IV Q24H NAVA Stop: 02/24/25 12:29 Last Infusion: 02/22/25 12:29 Dose: Infused Documented By: Admin: 02/22/25 11:58 Dose: 100 mls/hr Documented By: CINDI Insulin Aspart (Insulin Aspart Per Unit Charge) 0 units SC ACHS NAVA Stop: 03/24/25 11:29 Last Admin: 02/22/25 20:02 Dose: Not Given Documented By: Admin: 02/22/25 16:16 Dose: Not Given Documented By: Admin: 02/22/25 12:27 Dose: Not Given Documented By: CINDI Lidocaine (Lidocaine 5% 1 Patch) 1 patch TD QAM NAVA Stop: 03/24/25 08:59 Last Admin: 02/22/25 07:13 Dose: 1 patch Documented By: JAYDA Metoprolol Succinate (Metoprolol Succ 50mg Ext Rel Tab) 50 mg PO DAILY NAVA Stop: 03/24/25 08:59 Last Admin: 02/22/25 09:08 Dose: 50 mg Documented By: ELIER Miscellaneous (Remove Lidoderm Patch) 1 each N/A DAILY@2100 NAVA Stop: 03/24/25 20:59 Last Admin: 02/22/25 20:24 Dose: 1 each Documented By: CIRILO Rosuvastatin Calcium (Rosuvastatin Calcium 20 Mg Tab) 20 mg PO QAM [facility] Stop: 03/24/25 08:59 Last Admin: 02/22/25 09:08 Dose: 20 mg Documented By: ELIER Umeclidinium/Vilanterol (Umeclidinium/Vilanterol 62.5/25mcg 7 Puffs/Inhaler) 1 puffs INH DAILY NAVA Stop: 03/24/25 08:59 Last Admin: 02/22/25 09:09 Dose: 1 puffs Documented By: ELIER Discontinued Medications Albuterol (Albut/Ipratrop 3mg/0.5mg Neb 3 Ml Vial) 12 ml INH ONE STA Stop: 02/21/25 21:55 Last Admin: 02/21/25 22:04 Dose: 12 ml Documented By: QGV Furosemide (Furosemide 40 Mg/4 Ml Vial) 40 mg IV ONE ONE Stop: 02/21/25 22:41 Last Admin: 02/21/25 22:44 Dose: 40 mg Documented By: QGV Sodium Chloride (Nss) 1,000 mls @ 125 mls/hr IV .Q8H NAVA Stop: 02/22/25 00:01 Last Infusion: 02/22/25 00:45 Dose: Infused Documented By: Admin: 02/21/25 22:12 Dose: 125 mls/hr Documented By: QGV Magnesium Sulfate/Dextrose (Magnesium Sulfate / D5w) 1 gm in 100 mls @ 100 mls/hr IV NOW STA Stop: 02/21/25 22:55 Last Infusion: 02/21/25 23:09 Dose: Infused Documented By: Admin: 02/21/25 22:04 Dose: 100 mls/hr Documented By: QGV Doxycycline Hyclate 100 mg/ (Dextrose) 100 mls @ 50 mls/hr IV Q12H NAVA Stop: 02/27/25 03:48 Last Infusion: 02/22/25 18:46 Dose: Infused Documented By: Admin: 02/22/25 16:46 Dose: 50 mls/hr Documented By: Infusion: 02/22/25 08:07 Dose: Infused Documented By: Admin: 02/22/25 05:56 Dose: 50 mls/hr Documented By: HDC Potassium Chloride (K Dominick / Wtr) 10 meq in 100 mls @ 100 mls/hr IV Q1H NAVA Stop: 02/22/25 10:59 Last Infusion: 02/22/25 12:23 Dose: Infused Documented By: Admin: 02/22/25 11:19 Dose: 100 mls/hr Documented By: Infusion: 02/22/25 10:59 Dose: Infused Documented By: Admin: 02/22/25 09:59 Dose: 100 mls/hr Documented By: Infusion: 02/22/25 09:54 Dose: Infused Documented By: Admin: 02/22/25 08:54 Dose: 100 mls/hr Documented By: Infusion: 02/22/25 08:31 Dose: Infused Documented By: Admin: 02/22/25 07:31 Dose: 100 mls/hr Documented By: ELIER Insulin Aspart (Insulin Aspart Per Unit Charge) 0 units SC Q6 NAVA Stop: 03/24/25 05:59 Last Admin: 02/22/25 06:51 Dose: Not Given Documented By: HDC Ketamine HCl (Ketamine Hcl 10mg/Ml Syr) 5 mg IV NOW STA Stop: 02/21/25 22:20 Last Admin: 02/21/25 22:33 Dose: 5 mg Documented By: QGV Methylprednisolone (Methylprednisolone 125 Mg/2 Ml Vial) 60 mg IV NOW STA Stop: 02/21/25 23:04 Last Admin: 02/21/25 23:11 Dose: 60 mg Documented By: QGV Nitroglycerin (Nitroglycerin 2% Ointment 30gm Tube) 1 inch EXT NOW STA Stop: 02/21/25 22:41 Last Admin: 02/21/25 22:44 Dose: 1 inch Documented By: QGV Terbutaline Sulfate (Terbutaline Sulfate 1 Mg/Ml Vial) 0.25 mg SQ NOW ONE Stop: 02/21/25 22:25 Last Admin: 02/21/25 22:33 Dose: 0.25 mg Documented By: QGV Imaging Data Radiologist's Impression: Chest X-Ray 02/21/25 21:54 Exam(s): XR CXR 1 VIEW EXAM: XR Chest, 1 View CLINICAL HISTORY: Reason for exam: Dyspnea. TECHNIQUE: Frontal view of the chest. COMPARISON: No relevant prior studies available. FINDINGS: Lungs: Lungs are hyperinflated with coarse interstitial markings throughout both lungs consistent with emphysema. No acute appearing focal infiltrate or consolidation is seen. Some component of acute pneumonitis can not be excluded without comparisons. Pleural space: Unremarkable. No pneumothorax. Heart: Mild cardiomegaly. Mediastinum: Unremarkable. Normal mediastinal contour. Bones/joints: Moderate degenerative changes in the right shoulder. Mild diffuse osteopenia. No acute fracture. Upper abdomen: Unremarkable as visualized. No pneumoperitoneum under the diaphragm. IMPRESSION: 1. Lungs are hyperinflated with coarse interstitial markings throughout both lungs consistent with emphysema. No acute appearing focal infiltrate or consolidation is seen. Some component of acute pneumonitis can not be excluded without comparisons. 2. Mild cardiomegaly. Electronically signed by: Jairo Andrade MD 02/21/25 23:47 PM Discharge Plan Visit Data Chief Complaint: Respiratory Problems Stated Complaint: Respiratory Problems, SOB ED Provider: Dora Mobley Discharge Problem: Acute on chronic respiratory failure with hypoxia and hypercapnia, Congestive heart failure, Hypertension, Transaminitis, Hyperglycemia Patient Disposition: Admitted As Inpatient Condition: Critical Discharge Instructions Interventions: ED Discharge Assessment Last Done: 02/22/25 02:02
[2025-02-21 22:59] LABS: Adenovirus PCR Not Detected (NotDetected); Bordetella parapertussis PCR Not Detected (NotDetected); Bordetella pertussis PCR Not Detected (NotDetected); Chlamydia pneumoniae PCR Not Detected (NotDetected); Coronavirus 229E PCR Not Detected (NotDetected); Coronavirus CoV-2 (COVID19)PCR Not Detected (NotDetected); Coronavirus HKU1 PCR Not Detected (NotDetected); Coronavirus NL63 PCR Not Detected (NotDetected); Coronavirus OC43PCR Not Detected (NotDetected); Human Metapneumovirus PCR Not Detected (NotDetected); Influenza A PCR Not Detected (NotDetected); Influenza B PCR Not Detected (NotDetected); Mycoplasma pneumoniae PCR Not Detected (NotDetected); Parainfluenza Virus 1 PCR Not Detected (NotDetected); Parainfluenza Virus 2 PCR Not Detected (NotDetected); Parainfluenza Virus 3 PCR Not Detected (NotDetected); Parainfluenza Virus 4 PCR Not Detected (NotDetected); Respiratory Syncytial VirusPCR Not Detected (NotDetected); Rhinovirus/Enterovirus PCR Not Detected (NotDetected)
[2025-02-21] MEDS: methylPREDNISolone 125 MG/2 ML VIAL IV STA (23:11)
--- NOTE | 2025-02-21 23:20 | History & Physical Report ---
Date of Service February 21, 2025 Assessment & Plan (1) Acute on chronic respiratory failure with hypoxia and hypercapnia: (2) COPD exacerbation: (3) (HFpEF) heart failure with preserved ejection fraction: (4) Adrenal insufficiency: Plan This patient is an 79-year-old female with a history of COPD, HTN, HLD, right ICA stenosis and right subclavian artery high-grade stenosis, adrenal insufficiency, hyponatremia, HFpEF, moderate-severe MR, TIA, saccular basilar tip aneurysm, GERD, who presents to the ED with acute onset of shortness of breath, pulse ox found to be 72% on room air by EMS. She was given nebs, O2, placed on CPAP and given steroids prior to arrival. In the ED, she was in severe respiratory distress, had minimal air movement and was gasping and tachypneic, tachycardic. She was placed on BiPAP, had a VBG of 7.23/71, and was given IV steroids, IV magnesium, low-dose of IV ketamine, and terbutaline. Her CXR showed chronic changes consistent with emphysema but no pneumonia although official radiology report not available yet. Her BNP was elevated, troponin el evated, and blood pressures became elevated-she was given IV Lasix, Nitropaste. Adjustments were made to the BiPAP settings and she had improvement in her air movement. When I saw her, she was very uncomfortable with how tight the BiPAP mask was on her face and she was moaning with her mouth agape. She was asking for the mask to be removed. She adamantly stated that she did not want to be resuscitated or intubated. She will be admitted for acute on chronic HFpEF, respiratory failure with hypoxemia and hypercapnia, and acute COPD exacerbation. #Acute respiratory failure with hypoxemia and hypercapnia/acute COPD exacerbation/acute on chronic HFpEF/moderate-severe MR-with leukocytosis from recent prednisone taper-no evidence of infection but does have severe COPD. She presented with poor air movement throughout and improved with bronchodilators, smooth muscle relaxers, IV magnesium as well as treatment for CHF with IV Lasix and Nitropaste. Improving on BiPAP. Most recent echo on 01/14/2025 with low normal EF 50-55%, mild to moderate AI, moderate-severe MR. She is on Lasix 20 mg p.o. daily at home but also on salt tablets for previous hyponatremia and recently on prednisone burst for COPD which could contribute to fluid retention - Admit to PCU-patient does not want to be intubated and is a DNR/DNI - Continue BiPAP, repeat VBG now and wean off BiPAP as able - Continue with IV steroids with Solu-Medrol 60 Mg IV twice daily-hold home hydrocortisone - Continue DuoNebs 4 times daily, maintenance inhalers once off BiPAP - Continue Lasix 40 Mg IV twice daily - Strict I's and O's, daily weights, keep n.p.o. for now but eventually low- sodium diet, and Goodman catheter placed in ED for severe respiratory distress and for monitoring of I's and O's - Follow BMP, magnesium in the morning #Elevated transaminases-AST and ALT elevated in the 300s which is changed from previous. No history of being down on the ground for extended period of time. Total bilirubin and alkaline phosphatase are normal. Could be hepatic congestion from heart failure although would expect bilirubin to also be elevated potentially. Liver appeared normal on CT abdomen/pelvis on 01/16/2025. - Check CK - Follow LFTs in the morning - Check liver imaging if not improving #HTN/HLD/PAD/History of TIA-with right subclavian artery, right carotid bulb and proximal cervical segment carotid artery stenosis, vertebral artery stenoses, and saccular basilar tip aneurysm. Blood pressures elevated here associated with acute on chronic HFpEF - Diuresing with IV Lasix - Continue p.o. hydralazine, metoprolol for blood pressure control - Continue Plavix, statin - Has upcoming outpatient referral to vascular surgery but ICA stenosis considered asymptomatic at last admission for TIA as it was on the opposite side of her stroke symptoms #Adrenal insufficiency/hyponatremia-last admission and a workup for hyponatremia, she was found to have low cortisol level, an abnormal cosyntropin stim test, and eventually an undetectable ACTH indicating secondary adrenal insufficiency. She has not yet been seen by endocrinology but was started on hydrocortisone 20/10 mg since that time. She is certainly not in adrenal crisis here and her sodium levels have been normal - Discontinue sodium chloride tablets as they are contributing to fluid retention and CHF and her sodium levels have normalized with hydrocortisone - Holding home p.o. hydrocortisone while on IV Solu-Medrol but this will need to be resumed when IV steroids are stopped - Follow-up with endocrinology after discharge #GERD-no acute issues - Continue famotidine DVT prophylaxis-SQ Lovenox, SCDs Disposition-admit to PCU. Daughter was contacted and extensively updated by the ER physician just prior to admission. She plans on coming to the area to visit her mother on Tuesday. History of Present Illness Chief Complaint: Shortness of breath Primary Care Provider: Ivan Castro MD This patient is an 79-year-old female with a history of COPD, HTN, HLD, right ICA stenosis and right subclavian artery high-grade stenosis, adrenal insufficiency, hyponatremia, HFpEF, moderate-severe MR, TIA, saccular basilar tip aneurysm, GERD, who presents to the ED with acute onset of shortness of breath, pulse ox found to be 72% on room air by EMS. She was given nebs, O2, placed on CPAP and given steroids prior to arrival. In the ED, she was in severe respiratory distress, had minimal air movement and was gasping and tachypneic, tachycardic. She was placed on BiPAP, had a VBG of 7.23/71, and was given IV steroids, IV magnesium, low-dose of IV ketamine, and terbutaline. Her CXR showed chronic changes consistent with emphysema but no pneumonia although official radiology report not available yet. Her BNP was elevated, troponin elevated, and blood pressures became elevated-she was given IV Lasix, Nitropaste. Adjustments were made to the BiPAP settings and she had improvement in her air movement. When I saw her, she was very uncomfortable with how tight the BiPAP mask was on her face and she was moaning with her mouth agape. She was asking for the mask to be removed. She adamantly stated that she did not want to be resuscitated or intubated. She will be admitted for acute on chronic HFpEF, respiratory failure with hypoxemia and hypercapnia, and acute COPD exacerbation. Allergies Allergy/AdvReac Type Severity Reaction Status Date / Time Penicillins Allergy Unknown Hives Verified 02/11/25 10:21 Sulfa (Sulfonamide Allergy Unknown SWELLING Verified 02/11/25 10:21 Antibiotics) ciprofloxacin [From Cipro] AdvReac Severe Dizziness Verified 02/11/25 10:21 Home Medications Medication Instructions Recorded Confirmed Type folic acid 1 mg tablet 1 mg PO DAILY #1 tab 04/17/19 02/21/25 History cholecalciferol (vitamin D3) 125 5,000 unit PO UD ##0 09/10/20 02/21/25 History mcg (5,000 unit) tablet (Vitamin D3) albuterol sulfate 90 mcg/actuation 2 puff inhalation Q4H PRN 11/21/23 02/21/25 Rx aerosol inhaler (Ventolin HFA) shortness of breath or wheezing #18 grams fluticasone fur. 200 mcg-umeclid 1 inh inhalation DAILY #60 ea 11/26/24 02/21/25 Rx 62.5 mcg-vilant 25 mcg inhalat.powder (Trelegy Ellipta) acetaminophen 650 mg 650 mg PO Q8H #90 tabs 01/09/25 02/21/25 Rx tablet,extended release (Pain Relief (acetaminophen)) hydralazine 10 mg tablet 10 mg PO TID #90 tabs 01/09/25 02/21/25 Rx cyclobenzaprine 5 mg tablet 5 mg PO UD PRN muscle spasm 01/14/25 02/21/25 History hydrocortisone 10 mg tablet 10 mg PO 1500 #30 tabs 01/16/25 02/21/25 Rx (Cortef) clopidogrel 75 mg tablet 75 mg PO QAM #30 tabs 02/08/25 02/21/25 Rx hydrocortisone 10 mg tablet See Rx Instructions PO .COMPLEX 02/08/25 02/21/25 Rx (Cortef) #90 tabs metoprolol succinate 50 mg 50 mg PO DAILY #90 tabs 02/08/25 02/21/25 Rx tablet,extended release 24 hr rosuvastatin 20 mg tablet 20 mg PO QAM #30 tabs 02/08/25 02/21/25 Rx famotidine 20 mg tablet 20 mg PO BID 02/11/25 02/21/25 History furosemide 20 mg tablet 20 mg PO DAILY #30 tabs 02/11/25 02/21/25 Rx sodium chloride 1,000 mg soluble 1,000 mg PO DAILY #30 tabs 02/11/25 02/21/25 Rx tablet azithromycin 250 mg tablet See Rx Instructions PO .COMPLEX #6 02/20/25 02/21/25 Rx tabs prednisone 20 mg tablet 20 mg PO .COMPLEX #16 tabs 02/20/25 02/21/25 Rx sennosides 8.6 mg tablet (senna) 17 mg PO DAILY PRN NO BM IN 2 DAYS 02/21/25 02/21/25 History Past Med/Surg History Problem List (Updated 02/21/25 @ 23:56 by Kristen Burgos MD) (HFpEF) heart failure with preserved ejection fraction Acute on chronic respiratory failure with hypoxia and hypercapnia (Acute) Adrenal insufficiency Basilar artery aneurysm Mitral regurgitation Carotid artery stenosis (Acute) Occlusion of vertebral artery (Acute) TIA (transient ischemic attack) (Acute) Stroke-like symptoms Rotator cuff arthropathy of left shoulder Osteoarthritis of left knee Chronic hyponatremia Hypotensive episode Abdominal pain, LUQ (Acute) Abnormal chest CT Family history of reaction to anesthesia MOTHER HAD "A HARD TIME COMING OUT OF IT" Chest wall contusion (Acute) Fall (Acute) Acute hyponatremia (Acute) Closed fracture of left wrist (02/25/24) Distal radial and ulnar fractures from a fall. Orthopedic surgery 02/26/24- Closed reduction of left wrist, distal radius and ulna Balance disorder Lower extremity weakness History of radius fracture (11/11/21) nondisplaced intra-articular distal radial fracture Hyponatremia Redness and swelling of lower leg Pain of left calf Left ankle pain Left leg injury Osteoarthritis of right hip Ankle swelling Tendinitis of right rotator cuff Greater trochanteric bursitis of left hip Acute metabolic encephalopathy Fall Bruising Greater trochanteric bursitis of right hip Vertigo Allergic rhinitis with postnasal drip Pulmonary nodule DDD (degenerative disc disease), cervical Tendinitis of both rotator cuffs Multiple pulmonary nodules determined by computed tomography of lung Retinal vein occlusion (Acute) Osteoporosis (Acute) Hypercholesterolemia (Acute) COPD exacerbation (Acute) Medical History Closed fracture distal radius and ulna (02/25/24) Rotator cuff arthropathy of right shoulder PAD (peripheral artery disease) Buerger disease HTN (hypertension) Esophageal reflux Chronic obstructive pulmonary disease Anemia, mild Hypokalemia Scalp hematoma Acute head trauma Acute hyponatremia Fall Lower extremity edema Current smoker Acute bronchitis Osteoarthritis GERD (gastroesophageal reflux disease) Family history of diabetes mellitus Deviated nasal septum 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 Hyperlipidemia Hypertension Chronic obstructive pulmonary disease Surgical History S/p bilateral blepharoplasty History of hysterectomy History of section History of open reduction and internal fixation (ORIF) procedure History of appendectomy History of esophagogastroduodenoscopy (EGD) History of colonoscopy History of tonsillectomy History of tooth extraction History of cataract surgery Family History Mother Coronary heart disease Hypertension Father Coronary heart disease Hypertension Myocardial infarction Grandmother Diabetes Breast cancer Grandmother (Maternal) Stroke Other Family history of reaction to anesthesia Denies family history of Ovarian cancer Prostate cancer Lung cancer Colorectal cancer Social History (Updated 02/21/25 @ 23:57 by Kristen Burgos MD) Smoking Status: Current every day smoker Tobacco Type: Cigarettes Age Started Using Tobacco: 18; packs per day: 0.5; Cigarettes Per Day: 2; Second Hand Exposure: Yes; Do You Dip or Chew Tobacco: No; Hx Alcohol Use: No Hx Substance Use: No Preferred Language: Malagasy Communication Ability: Effective Visual Impairment: Limited Hearing Ability: Normal [employer] Required: No Beliefs That Will Affect Care: None marital status: Current Living Situation: Alone Current Living Situation Comment: Currently residing at [facility] for rehab current occupational status: retired How many Children do You have: 3 Feels Safe at Home: Yes Childhood Exposure to Second-Hand Smoke: Yes caffeine: Yes Dental Care, Regularly: Yes Physical Activity Frequency: Daily Seatbelt Use: always Sunscreen Use: No Sexual Activity: has been sexually active, but not for at least 12 months Assistive Devices: Cane, Walker and Wheelchair Review of Systems Review of Systems: All systems reviewed & are unremarkable except as noted in HPI & below Physical Exam Constitutional: WD/WN, vitals as above + acute distress Eyes: PERRL, conjunctivae normal, anicteric sclerae ENMT: external ear and nose normal, oropharynx normal BiPAP facemask in place Neck: trachea midline, no thyromegaly Respiratory: + respiratory distress and + tachypneic Auscultation: + diminished lung sounds (Throughout); no crackles, no rhonchi and no wheezes Cardiovascular: RRR, no murmur, no edema Chest (Breasts): Chest: normal inspection of chest Gastrointestinal (Abdomen): normal bowel sounds, soft, nontender, no hepatosplenomegaly Musculoskeletal: Extremities: extremities normal to inspection; no cyanosis and no clubbing Skin: no rashes, warm and dry Neurologic: moves all extremities and awake; no focal motor deficits Lymphatic: no lymphedema Results & Data Results & Data Vital Signs (Past 12 Hours) Vital Signs Temp Pulse Pulse Resp BP Pulse Ox O2 Del Method 02/21/25 23:04 96 H 99 H 96 BiPAP 02/21/25 23:00 36.8 C 93 H 22 156/89 H 100 BiPAP 02/21/25 23:00 99 H 27 H 96 02/21/25 22:59 101 H 02/21/25 22:39 108 H 24 100 BiPAP 02/21/25 22:34 107 H 26 H 241/127 H 95 BiPAP 02/21/25 22:01 99 BiPAP 02/21/25 22:01 180/110 H 02/21/25 21:53 113 H 02/21/25 21:52 116 H 44 H 99 BiPAP FiO2 02/21/25 23:04 30 02/21/25 23:00 02/21/25 23:00 30 02/21/25 22:59 02/21/25 22:39 02/21/25 22:34 02/21/25 22:01 02/21/25 22:01 02/21/25 21:53 02/21/25 21:52 Laboratory Results CBC, VBG, BMP, ionized calcium, magnesium, LFTs, troponin, BNP, UA, respiratory bio fire reviewed Diagnostic Findings Chest x-ray reviewed ECG Additional Comments: ECG on 02/21/2025 at 2208 with sinus tachycardia, rate 108, no acute ischemic changes although some artifact limits interpretation Code Status & VTE Plan Code Status DNR/DNI VTE Prophylaxis Plan VTE Prophylaxis will be ordered: Yes PG Care Time/CCT Total # of Minutes Spent Total Time Spent with Patient: Total time spent is greater than 50% in coordination of care (as documented) at patient's floor/unit and/or counseling patient: Coding Level of Care Code 05663 INT INP/OBS CARE 3/75MIN Diagnoses Acute on chronic respiratory failure with hypoxia and hypercapnia J96.21; J96.22 COPD exacerbation J44.1 (HFpEF) heart failure with preserved ejection fraction I50.30 Adrenal insufficiency E27.40
[2025-02-21 23:31] LABS: Appearance Urine Clear (Clear); Bacteria Urine Automated None Seen (None Seen); Bilirubin Urine Negative (Negative); Blood Urine Negative (Negative); Color Urine Yellow; Epithelial Cell Urine Auto 0-2 /hpf (0-2); Glucose Urine UA 2+ (Negative); Ketones Urine Negative (Negative); Leukocyte Esterase Urine Negative (Negative); Nitrite Urine Negative (Negative); Protein Urine 2+ (Negative); RBC Urine Automated 0-2 /hpf (0-2); Specific Gravity Urine 1.015 (1.000-1.030); Urobilinogen Urine Negative (Negative); WBC Urine Automated 0-5 /hpf (0-5)
--- NOTE | 2025-02-21 23:49 | XRay Report ---
Exam(s): XR CXR 1 VIEW EXAM: XR Chest, 1 View CLINICAL HISTORY: Reason for exam: Dyspnea. TECHNIQUE: Frontal view of the chest. COMPARISON: No relevant prior studies available. FINDINGS: Lungs: Lungs are hyperinflated with coarse interstitial markings throughout both lungs consistent with emphysema. No acute appearing focal infiltrate or consolidation is seen. Some component of acute pneumonitis can not be excluded without comparisons. Pleural space: Unremarkable. No pneumothorax. Heart: Mild cardiomegaly. Mediastinum: Unremarkable. Normal mediastinal contour. Bones/joints: Moderate degenerative changes in the right shoulder. Mild diffuse osteopenia. No acute fracture. Upper abdomen: Unremarkable as visualized. No pneumoperitoneum under the diaphragm. IMPRESSION: 1. Lungs are hyperinflated with coarse interstitial markings throughout both lungs consistent with emphysema. No acute appearing focal infiltrate or consolidation is seen. Some component of acute pneumonitis can not be excluded without comparisons. 2. Mild cardiomegaly. Electronically signed by: Jairo Andrade MD 02/21/25 23:47 PM
[2025-02-22 00:28] LABS: Base Excess VBG 4.5 mEq/L; HCO3 VBG 33 mmol/L; Oxygen Saturation VBG 76.6 %; PCO2 VBG 63 mmHg (38-50); PO2 VBG 46 mmHg; pH VBG 7.32 (7.36-7.41)
[2025-02-22] MEDS ORDERED: GLUCOSE 10 TAB/TUBE PO PRN (03:49)
[2025-02-22] MEDS ORDERED: ONDANSETRON INJ 2 MG/ML 2 ML VIAL IV PRN (03:49)
[2025-02-22] MEDS ORDERED: DEXTROSE 50% 50 ML SYRINGE IV PRN (03:49)
[2025-02-22] MEDS ORDERED: GLUCAGON FOR INJ 1 MG VIAL SQ PRN (03:49)
[2025-02-22] MEDS ORDERED: SENNA 8.6 MG TAB PO PRN (03:49)
[2025-02-22] MEDS ORDERED: GLUCOSE 40% GEL 15 GM TUBE PO PRN (03:49)
[2025-02-22] MEDS ORDERED: CARBOHYDRATES FOR HYPOGLYCEMIA PO PRN (03:49)
[2025-02-22 05:43] LABS: Hematocrit (blood only) 35.1 % (37.0-47.0); Mean Corpuscular Hemoglobin 28.7 pg (25.0-34.0); Mean Corpuscular Hgb Conc 31.3 g/dL (32.0-36.0); Mean Corpuscular Volume 91.6 fL (80.0-100.0); Mean Platelet Volume 9.6 fL (9.4-12.4); Platelet Count 256 K/uL (130-400); RDW Coefficient of Variation 13.8 % (11.5-14.5); RDW Standard Deviation 46.5 fL (36.4-46.3); Red Blood Count 3.83 M/uL (4.20-5.40); White Blood Count 16.69 K/ul (4.8-10.8)
[2025-02-22] MEDS: DOXYCYCLINE HYCLATE 100 MG in DEXTROSE 5% MINI-B 100 ML IV SCH (05:56)
[2025-02-22 06:06] LABS: Albumin Globulin Ratio 1.7 (0.9-2); BUN Creatinine Ratio 35.9 (10-20); Bilirubin,Total 0.6 mg/dl (0.2-1.0); Calcium 8.5 mg/dl (8.6-10.3); Creatinine Clr Calc Pharmacy 49.5 ml/min; Globulin 2.3 gm/dl (2.5-4.0); Magnesium 2.4 mg/dl (1.7-2.4); Potassium 2.9 mmol/L (3.5-5.1); Total Protein 6.3 gm/dl (6.0-8.3)
[2025-02-22 06:08] LABS: Basophils # (auto) 0.01 K/uL (0.00-0.20); Basophils % (auto) 0.1 %; Immature Granulocytes % (auto) 0.6 %; Lymphocytes # (auto) 0.47 K/uL (1.20-3.40); Lymphocytes % (auto) 2.8 %; Monocytes # (auto) 0.36 K/uL (0.11-0.59); Monocytes % (auto) 2.2 %; Neutrophils # (auto) 15.75 K/uL (1.40-6.50); Neutrophils % (auto) 94.3 %
[2025-02-22] MEDS: INSULIN ASPART PER UNIT CHARGE SC SCH ×2 (06:51→12:27)
[2025-02-22] MEDS: ALBUT/IPRATROP 3MG/0.5MG NEB 3 ML VIAL NEB SCH (06:59)
[2025-02-22] MEDS: LIDOCAINE 5% 1 PATCH TD SCH (07:13)
[2025-02-22] MEDS: ACETAMINOPHEN 325 MG TAB PO PRN (07:13)
[2025-02-22] MEDS: DICLOFENAC SOD 1% GEL 100 GM TUBE EXT SCH (07:14)
[2025-02-22] MEDS: ENOXAPARIN INJ 40 MG/0.4 ML SYR SQ SCH (07:15)
[2025-02-22] MEDS: POTASSIUM CHLORIDE / WTR 10 MEQ/100 ML PLCT IV SCH (07:31)
[2025-02-22] MEDS ORDERED: methylPREDNISolone 10 mg/mL (For Ped Dose < 7mg) IV SCH (09:00)
[2025-02-22] MEDS: ROSUVASTATIN CALCIUM 20 MG TAB PO SCH (09:08)
[2025-02-22] MEDS: FOLIC ACID 1 MG TAB PO SCH (09:08)
[2025-02-22] MEDS: METOPROLOL SUCC 50MG EXT REL TAB PO SCH (09:08)
[2025-02-22] MEDS: CLOPIDOGREL BISULFATE 75 MG TAB PO SCH (09:08)
[2025-02-22] MEDS: hydrALAZINE 10 MG TAB PO SCH (09:08)
[2025-02-22] MEDS: FUROSEMIDE 40 MG/4 ML VIAL IV SCH (09:09)
[2025-02-22] MEDS: FLUTICASONE FUROATE 200MCG 14 PUFFS/INHALER INH SCH (09:09)
[2025-02-22] MEDS: methylPREDNISolone 60 MG in SYRINGE 0 ML IV SCH (09:09)
[2025-02-22] MEDS: UMECLIDINIUM/VILANTEROL 62.5/25MCG 7 PUFFS/INHALER INH SCH (09:09)
[2025-02-22] MEDS: FAMOTIDINE 20 MG TAB PO SCH (09:18)
[2025-02-22] MEDS: cefTRIAXone SODIUM 2,000 MG/50 ML BAG IV SCH (11:58)
--- NOTE | 2025-02-22 13:25 | Electrocardiogram Report ---
Test Reason : Blood Pressure : */* mmHG Vent. Rate : 108 BPM Atrial Rate : 108 BPM P-R Int : 130 ms QRS Dur : 68 ms QT Int : 336 ms P-R-T Axes : 73 26 90 degrees QTcB Int : 450 ms Sinus tachycardia Nonspecific ST and T wave abnormality Abnormal ECG When compared with ECG of 14-Jan-2025 12:23, ST now depressed in Lateral leads Inverted T waves have replaced nonspecific T wave abnormality in Lateral leads QT has shortened Confirmed by Ivan Fernandes ([id number]) on 02/22/2025 1:24:39 PM Referred By: REFERRED SELF Confirmed By: Ivan Fernandes
[2025-02-23 08:58] LABS: Hemoglobin 12.1 g/dl (12.0-16.0); Mean Corpuscular Hemoglobin 29.2 pg (25.0-34.0); Mean Corpuscular Hgb Conc 31.8 g/dL (32.0-36.0); Mean Corpuscular Volume 91.8 fL (80.0-100.0); Mean Platelet Volume 9.8 fL (9.4-12.4); Platelet Count 275 K/uL (130-400); RDW Coefficient of Variation 13.5 % (11.5-14.5); RDW Standard Deviation 45.1 fL (36.4-46.3); Red Blood Count 4.14 M/uL (4.20-5.40); White Blood Count 13.45 K/ul (4.8-10.8)
[2025-02-23 09:31] LABS: Calcium 9.1 mg/dl (8.6-10.3); Potassium 3.2 mmol/L (3.5-5.1)
[2025-02-23 09:39] LABS: BUN Creatinine Ratio 25.5 (10-20); Creatinine Clr Calc Pharmacy 33.7 ml/min
[2025-02-23 09:55] LABS: Basophils # (auto) 0.01 K/uL (0.00-0.20); Basophils % (auto) 0.1 %; Hypersegmented Neutrophils 2+; Immature Granulocytes % (auto) 0.7 %; Lymphocytes # (auto) 0.64 K/uL (1.20-3.40); Lymphocytes % (auto) 4.8 %; Monocytes # (auto) 0.48 K/uL (0.11-0.59); Monocytes % (auto) 3.6 %; Neutrophils # (auto) 12.22 K/uL (1.40-6.50); Neutrophils % (auto) 90.8 %; Ovalocytes 1+
[2025-02-23 12:14] LABS: Albumin Level 4.1 gm/dl (3.4-5.0); Bilirubin Direct 0.1 mg/dl (0-0.2); Bilirubin,Total 0.7 mg/dl (0.2-1.0); Total Protein 6.9 gm/dl (6.0-8.3)
--- NOTE | 2025-02-23 18:37 | Hospitalist Progress Note ---
Date of Service February 23, 2025 Assessment & Plan (1) Acute on chronic respiratory failure with hypoxia and hypercapnia: (2) COPD exacerbation: (3) (HFpEF) heart failure with preserved ejection fraction: (4) Adrenal insufficiency: Plan This patient is an 79-year-old female with a history of COPD, HTN, HLD, right ICA stenosis and right subclavian artery high-grade stenosis, adrenal insufficiency, hyponatremia, HFpEF, moderate-severe MR, TIA, saccular basilar tip aneurysm, GERD, who presents to the ED with acute onset of shortness of breath, pulse ox found to be 72% on room air by EMS. She was given nebs, O2, placed on CPAP and given steroids prior to arrival. In the ED, she was in severe respiratory distress, had minimal air movement and was gasping and tachypneic, tachycardic. She was placed on BiPAP, had a VBG of 7.23/71, and was given IV steroids, IV magnesium, low-dose of IV ketamine, and terbutaline. Her CXR showed chronic changes consistent with emphysema but no pneumonia although official radiology report not available yet. Her BNP was elevated, troponin el evated, and blood pressures became elevated-she was given IV Lasix, Nitropaste. Adjustments were made to the BiPAP settings and she had improvement in her air movement. When I saw her, she was very uncomfortable with how tight the BiPAP mask was on her face and she was moaning with her mouth agape. She was asking for the mask to be removed. She adamantly stated that she did not want to be resuscitated or intubated. She will be admitted for acute on chronic HFpEF, respiratory failure with hypoxemia and hypercapnia, and acute COPD exacerbation. #Acute respiratory failure with hypoxemia and hypercapnia/acute COPD exacerbation/acute on chronic HFpEF/moderate-severe MR-with leukocytosis from recent prednisone taper-no evidence of infection but does have severe COPD. She presented with poor air movement throughout and improved with bronchodilators, smooth muscle relaxers, IV magnesium as well as treatment for CHF with IV Lasix and Nitropaste. Improving on BiPAP. Most recent echo on 01/14/2025 with low normal EF 50-55%, mild to moderate AI, moderate-severe MR. She is on Lasix 20 mg p.o. daily at home but also on salt tablets for previous hyponatremia and recently on prednisone burst for COPD which could contribute to fluid retention - Admit to PCU-patient does not want to be intubated and is a DNR/DNI - Continue BiPAP, repeat VBG now and wean off BiPAP as able - Continue with IV steroids with Solu-Medrol 60 Mg IV twice daily-hold home hydrocortisone - Continue DuoNebs 4 times daily, maintenance inhalers once off BiPAP - Continue Lasix 40 Mg IV twice daily - Strict I's and O's, daily weights, keep n.p.o. for now but eventually low- sodium diet, and Goodman catheter placed in ED for severe respiratory distress and for monitoring of I's and O's - Follow BMP, magnesium in the morning #Elevated transaminases-AST and ALT elevated in the 300s which is changed from previous. No history of being down on the ground for extended period of time. Total bilirubin and alkaline phosphatase are normal. Could be hepatic congestion from heart failure although would expect bilirubin to also be elevated potentially. Liver appeared normal on CT abdomen/pelvis on 01/16/2025. - Check CK - Follow LFTs in the morning - Check liver imaging if not improving #HTN/HLD/PAD/History of TIA-with right subclavian artery, right carotid bulb and proximal cervical segment carotid artery stenosis, vertebral artery stenoses, and saccular basilar tip aneurysm. Blood pressures elevated here associated with acute on chronic HFpEF - Diuresing with IV Lasix - Continue p.o. hydralazine, metoprolol for blood pressure control - Continue Plavix, statin - Has upcoming outpatient referral to vascular surgery but ICA stenosis considered asymptomatic at last admission for TIA as it was on the opposite side of her stroke symptoms #Adrenal insufficiency/hyponatremia-last admission and a workup for hyponatremia, she was found to have low cortisol level, an abnormal cosyntropin stim test, and eventually an undetectable ACTH indicating secondary adrenal insufficiency. She has not yet been seen by endocrinology but was started on hydrocortisone 20/10 mg since that time. She is certainly not in adrenal crisis here and her sodium levels have been normal - Discontinue sodium chloride tablets as they are contributing to fluid retention and CHF and her sodium levels have normalized with hydrocortisone - Holding home p.o. hydrocortisone while on IV Solu-Medrol but this will need to be resumed when IV steroids are stopped - Follow-up with endocrinology after discharge #GERD-no acute issues - Continue famotidine DVT prophylaxis-SQ Lovenox, SCDs Disposition-admit to PCU. Daughter was contacted and extensively updated by the ER physician just prior to admission. She plans on coming to the area to visit her mother on Tuesday. Admission and Anticipated Discharge Date Admission Date: February 22, 2025 Review of Systems Review of Systems: All systems were reviewed and unremarkable except for noted in HPI Physical Exam Physical Exam: Patient has mild distress patient has mild distress Pupil equal round reactive to light anicteric sclera Hearing is normal Trachea is midline no thyromegaly Respiratory positive respiratory distress diminishing lung sounds no crackles or rhonchi or wheezes noted Cardiovascular rapid regular rate and rhythm no murmur no edema Abdomen is soft nontender extremities normal to inspection no cyanosis no clubbing Skin no rash warm and dry Neurologically moves all extremities and awake no focal motor deficit identified No lymphedema Results & Data Results & Data Vital Signs (Past 12 Hours) Vital Signs Temp Pulse Pulse Resp BP Pulse Ox O2 Del Method 02/23/25 16:34 36.8 C 82 18 131/56 L 91 Room Air 02/23/25 16:00 88 02/23/25 14:53 74 18 91 Room Air 02/23/25 11:58 36.8 C 79 20 124/67 94 Room Air 02/23/25 10:12 79 18 91 Room Air 02/23/25 08:00 76 02/23/25 08:00 Room Air 02/23/25 07:35 36.9 C 79 18 162/69 H 91 Room Air 02/23/25 07:02 78 18 96 Nasal Cannula O2 Flow Rate 02/23/25 16:34 02/23/25 16:00 02/23/25 14:53 02/23/25 11:58 02/23/25 10:12 02/23/25 08:00 02/23/25 08:00 02/23/25 07:35 02/23/25 07:02 1 PG Care Time/CCT Total # of Minutes Spent Total Time Spent with Patient: Total time spent is greater than 50% in coordination of care (as documented) at patient's floor/unit and/or counseling patient: Coding Level of Care Code 58906 SUB INP/OBS CARE 2/35MIN Diagnoses Acute on chronic respiratory failure with hypoxia and hypercapnia J96.21; J96.22 COPD exacerbation J44.1 (HFpEF) heart failure with preserved ejection fraction I50.30 Adrenal insufficiency E27.40 Time Spent (min) 35
[2025-02-24 08:28] VITALS: RESP 20; TEMP 98.2
[2025-02-24 12:20] VITALS: BP 109/60; O2SAT 93
[2025-02-24 14:25] LABS: Hematocrit (blood only) 38.9 % (37.0-47.0); Hemoglobin 12.4 g/dl (12.0-16.0); Mean Corpuscular Hemoglobin 28.8 pg (25.0-34.0); Mean Corpuscular Hgb Conc 31.9 g/dL (32.0-36.0); Mean Corpuscular Volume 90.5 fL (80.0-100.0); Platelet Count 292 K/uL (130-400); RDW Coefficient of Variation 13.4 % (11.5-14.5); RDW Standard Deviation 44.2 fL (36.4-46.3); White Blood Count 13.76 K/ul (4.8-10.8)
[2025-02-24 14:52] VITALS: PULSE 81
[2025-02-24 15:05] LABS: Basophils # (auto) 0.01 K/uL (0.00-0.20); Basophils % (auto) 0.1 %; Immature Granulocytes # (auto) 0.17 K/uL (0.01-0.20); Immature Granulocytes % (auto) 1.2 %; Lymphocytes # (auto) 0.36 K/uL (1.20-3.40); Lymphocytes % (auto) 2.6 %; Monocytes # (auto) 0.58 K/uL (0.11-0.59); Monocytes % (auto) 4.2 %; Neutrophils # (auto) 12.64 K/uL (1.40-6.50); Neutrophils % (auto) 91.9 %
--- NOTE | 2025-02-24 17:51 | Discharge Summary ---
Date of Service February 24, 2025 Admission HPI Per Admitting Provider This patient is an 79-year-old female with a history of COPD, HTN, HLD, right ICA stenosis and right subclavian artery high-grade stenosis, adrenal insufficiency, hyponatremia, HFpEF, moderate-severe MR, TIA, saccular basilar tip aneurysm, GERD, who presents to the ED with acute onset of shortness of breath, pulse ox found to be 72% on room air by EMS. She was given nebs, O2, placed on CPAP and given steroids prior to arrival. In the ED, she was in severe respiratory distress, had minimal air movement and was gasping and tachypneic, tachycardic. She was placed on BiPAP, had a VBG of 7.23/71, and was given IV steroids, IV magnesium, low-dose of IV ketamine, and terbutaline. Her CXR showed chronic changes consistent with emphysema but no pneumonia although official radiology report not available yet. Her BNP was elevated, troponin elevated, and blood pressures became elevated-she was given IV Lasix, Nitropaste. Adjustments were made to the BiPAP settings and she had improvement in her air movement. When I saw her, she was very uncomfortable with how tight the BiPAP mask was on her face and she was moaning with her mouth agape. She was asking for the mask to be removed. She adamantly stated that she did not want to be resuscitated or intubated. She will be admitted for acute on chronic HFpEF, respiratory failure with hypoxemia and hypercapnia, and acute COPD exacerbation. Admission Exam (Per Admitting) Constitutional Constitutional: no fever and no chills Respiratory: no cough and no chest congestion Cardiovascular: + palpitations and + lightheadedness; no chest pain and no calf pain Gastrointestinal: + abdominal pain (mild diffuse AP); no n ausea and no vomiting Genitourinary: no dysuria, no urinary frequency, no urinary urgency and no hematuria (no janelle hematuria) Neurologic: + tremor(s) (baseline hand and chin trem or) Hematologic / Lymphatic: + easy bruising (pt on aspirin, 81 mg, d aily) Physical Exam Constitutional: WD/WN, vitals as above Respiratory: normal respiratory effort, lungs clear to auscultation Cardiovascular: RRR,no edema patient has a holosystolic murmur of mitral regurg Gastrointestinal (Abdomen): Inspection/Auscultation: abdomen normal to inspec tion and normal bowel sounds; abdomen not distended Percussion/Palpation: + abdomen tender (diffuse tenderness) pt thinks last colonoscopy done 2 yrs ago (no polyps found) Skin: + ecchymosis Psychiatric: A+Ox3, euthymic affect Orientation: cooperative Eye Contact: good eye contact Affect: + anxious affect Mood: + anxious mood Discharge Data Consultations 02/21/25 23:19 ED Decision to Admit Stat Hospital Course (1) Acute on chronic respiratory failure with hypoxia and hypercapnia: (2) COPD exacerbation: (3) (HFpEF) heart failure with preserved ejection fraction: (4) Adrenal insufficiency: Plan This patient is an 79-year-old female with a history of COPD, HTN, HLD, right ICA stenosis and right subclavian artery high-grade stenosis, adrenal insuffici ency, hyponatremia, HFpEF, moderate-severe MR, TIA, saccular basilar tip aneurysm, GERD, who presents to the ED with acute onset of shortness of breath, pulse ox found to be 72% on room air by EMS. She was given nebs, O2, placed on CPAP and given steroids prior to arrival. In the ED, she was in severe respiratory distress, had minimal air movement and was gasping and tachypneic, tachycardic. She was placed on BiPAP, had a VBG of 7.23/71, and was given IV steroids, IV magnesium, low-dose of IV ketamine, and terbutaline. Her CXR showed chronic changes consistent with emphysema but no pneumonia although official radiology report not available yet. Her BNP was elevated, troponin elevated, and blood pressures became elevated-she was given IV Lasix, Nitropaste. Adjustments were made to the BiPAP settings and she had improvement in her air movement. When I saw her, she was very uncomfortable with how tight the BiPAP mask was on her face and she was moaning with her mouth agape. She wa s asking for the mask to be removed. She adamantly stated that she did not want to be resuscitated or intubated. She will be admitted for acute on chronic HFpEF, respiratory failure with hypoxemia and hypercapnia, and acute COPD exacerbation. #Acute respiratory failure with hypoxemia and hypercapnia/acute COPD exacerbation/acute on chronic HFpEF/moderate-severe MR-with leukocytosis from recent prednisone taper-no evidence of infection but does have severe COPD. She presented with poor air movement throughout and improved with bronchodilators, smooth muscle relaxers, IV magnesium as well as treatment for CHF with IV Lasix and Nitropaste. Improving on BiPAP. Most recent echo on 01/14/2025 with low normal EF 50-55%, mild to moderate AI, moderate-severe MR. She is on Lasix 20 mg p.o. 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 No history of being down on the ground for extended period of time. Total bilirubin and alkaline phosphatase are normal. Could be hepatic congestion from heart failure although would expect bilirubin to also be elevated potentially. Liver appeared normal on CT abdomen/pelvis on 01/16/2025. - #HTN/HLD/PAD/History of TIA-with right subclavian artery, right carotid bulb and proximal cervical segment carotid artery stenosis, vertebral artery stenoses, and saccular basilar tip aneurysm. Blood pressures elevated here associated with acute on chronic HFpEF - Diuresing with IV Lasix - Continue p.o. hydralazine, metoprolol for blood pressure control - Continue Plavix, statin - Has upcoming outpatient referral to vascular surgery but ICA stenosis considered asymptomatic at last admission for TIA as it was on the opposite side of her stroke symptoms #Adrenal insufficiency/hyponatremia-last admission and a workup for hyponatremia, she was found to have low cortisol level, an abnormal cosyntropin stim test, and eventually an undetectable ACTH indicating secondary adrenal insufficiency. She has not yet been seen by endocrinology but was started on hydrocortisone 20/10 mg since that time. She is certainly not in adrenal crisis here and her sodium levels have been normal - Discontinue sodium chloride tablets as they are contributing to fluid retention and CHF and her sodium levels have normalized with hydrocortisone - Asked patient to resume her salt tablets and Solu-Cortef check blood pressures and titrated accordingly #GERD-no acute issues - Continue famotidine DVT prophylaxis-SQ Lovenox, SCDs Disposition-patient is being discharged home with family Coding Level of Care Code 55015 INP/OBS DISCH >30 MIN Diagnoses Acute on chronic respiratory failure with hypoxia and hypercapnia J96.21; J96.22 COPD exacerbation J44.1 (HFpEF) heart failure with preserved ejection fraction I50.30 Adrenal insufficiency E27.40 Time Spent (min) 35 Comment Patient denies any chest pain and she feels much better than when she came on admission
== END 2025-02-24 15:28 | disposition home or self-care (01) | DRG 291 ==
LOC: SUATTDRO → ED 21:49 → 4W 02-22 00:16 → SUATTDRO 02-22 00:16 → 4W 02-22 02:02

== ENCOUNTER 2025-03-21 07:45 | Inpatient (IN) ==
[2025-03-21] MEDS: FUROSEMIDE 40 MG/4 ML VIAL IV ONE ×2 (07:48→07:49)
[2025-03-21] MEDS: NITROGLYCERIN 2% OINTMENT 30GM TUBE EXT ONE ×2 (07:49)
[2025-03-21] MEDS: KETAMINE HCL 10MG/ML SYR ONE (07:50)
[2025-03-21 07:56] LABS: Base Excess VBG -9.6 mEq/L; HCO3 VBG 23 mmol/L; Oxygen Saturation VBG 93.6 %; PCO2 VBG 86 mmHg (38-50); PO2 VBG 79 mmHg; pH VBG 7.03 (7.36-7.41)
[2025-03-21] MEDS: ALBUT/IPRATROP 3MG/0.5MG NEB 3 ML VIAL ONE (07:57)
[2025-03-21] MEDS: ALBUT/IPRATROP 3MG/0.5MG NEB 3 ML VIAL NEB ONE (07:57)
[2025-03-21 07:59] LABS: Hematocrit (blood only) 40.0 % (37.0-47.0); Hemoglobin 12.1 g/dl (12.0-16.0); Mean Corpuscular Hemoglobin 29.2 pg (25.0-34.0); Mean Corpuscular Volume 96.4 fL (80.0-100.0); Platelet Count 300 K/uL (130-400); RDW Standard Deviation 49.3 fL (36.4-46.3); Red Blood Count 4.15 M/uL (4.20-5.40); White Blood Count 12.32 K/ul (4.8-10.8)
--- NOTE | 2025-03-21 08:00 | Emergency Department Note ---
Impression & Plan Acute respiratory failure with hypoxia and hypercarbia, (HFpEF) heart failure with preserved ejection fraction, Acute exacerbation of chronic obstructive pulmonary disease, Hypertensive emergency ED Provider Note Provider: Jairo Ingram MD CHIEF COMPLAINT: Shortness of breath HISTORY OF PRESENT ILLNESS: Patient is a 80-year-old female past medical history of COPD, heart failure, hypertension, hyperlipidemia, adrenal insufficiency, mitral regurg, TIA, GERD presenting via ambulance for respiratory distress of breathing difficulty today. Patient all her life alert that around 6:30 AM she woke and was in severe difficulty breathing. Ambulance states she was in the 70s upon their arrival on room air. Was significantly to given to her work of breathing and they gave her 4 DuoNebs, 125 mg of Solu-Medrol, and started on CPAP. She was given 2 sprays of nitroglycerin for severe hypertension blood pressure over 200 systolic via medical command order. Patient was admitted for COPD and heart failure exacerbation middle to end of February year. Patient denies any pain to me. She is however unable to give me a good history due to her respiratory distress. Is somewhat anxious and does somewhat try to pull at the mask at times requiring redirection. She does acknowledge to me that she would not want to be intubated. PAST MEDICAL HISTORY: As noted above MEDICATIONS: Reviewed home medication list SOCIAL HISTORY: Lives alone PHYSICAL EXAM: GENERAL: alert CPAP mask in place in respiratory distress on stretcher upon arrival seated upright Head: normocephalic and atraumatic EYES: No injection, discharge or icterus. EOMI. NECK: Trachea midline. ENT: Mucous membranes pink and moist. LUNGS: Airway patent. Retractions with increased work of breathing and tachypnea breath sounds generally diminished HEART: Regular rate and rhythm. No chest wall tenderness ABDOMEN: Soft and non-tender, without guarding or rebound. SKIN: Acyanotic, warm, dry, without rashes EXTREMITIES: Without swelling, tenderness or deformity NEUROLOGICAL: Withdraws to pain in all 4 extremities. No obvious facial droop. Quite tachypneic difficult to get a good verbal history from her or assess for aphasia/slurred speech. EK bpm sinus tachycardia with PVC. No clear acute ST segment elevation but a significant respiratory artifact is noted. QTc. 397 ms. CONTINUOUS CARDIAC MONITORING: was ordered and showed a heart rate of 100s bpm in sinus tachycardia frequent PVCs normal sinus rhythm rare PVC in the 80s/90s. Patient's laboratory studies and imaging reviewed. Differential includes Reactive airway disease, pneumonia, pneumothorax, COPD, CHF, infections, cardiac ischemia, pulmonary embolism, musculoskeletal, gastrointestinal, as well as other pathologies. IMPRESSION/MEDICAL DECISION MAKING: Patient transition to BiPAP on arrival with respiratory distress. Appears anxious. Did review prior notes and records including last hospitalization and CODE STATUS. She confirms to me she would not want intubated. Oxygenating but still with work of breathing. Chest x-ray obtained and do question signs of fluid overload but no obvious focal infiltrate. The sudden onset hypertension questions more of a pulmonary edema/fluid overload state. Has received DuoNebs and will continue additional DuoNebs here given her mixed COPD CHF history. She has received IV steroids for EMS. Culture and lactate are sent given her severe respiratory distress and hypoxic respiratory failure. VBG sent. Lactate somewhat elevated. Given IV Lasix as well as nitro placed paste. Given some efforts to try to remove the mask to help with her anxiety given a small low- dose of ketamine here. VBG does return with significant hypercarbia pH of 7.03 and a CO2 of 86. Again patient on BiPAP and declines intubation. Will try to maximize respiratory support. Covered empirically with cefepime given the elevated lactate and white blood cell count and her respiratory distress. No significant renal dysfunction. Given IV labetalol blood pressure improved significantly and was able to remove nitroglycerin paste. Daughter Tawnya updated via phone. Patient more calm although did require second low-dose ketamine for anxiety. Will bring in for further care. Patient is improving here and with less respiratory distress and oxygenating better. Blood gas is beginning to improve. Hospitalist team was contacted for admission. DIAGNOSIS: Acute hypoxic and hypercapnic respiratory failure, COPD exacerbation, hypertensive emergency, CHF exacerbation DISPOSITION: Hospitalist will evaluate Patient was agreeable with this plan. Critical Care I have personally spent 65 minutes of critical care time in the direct management of this patient. This includes bedside care, interpretation of diagnostic studies, and testing, discussion with consultants, patient, and family members, and other required patient management activities. These 65 minutes is in excess of all separately billable procedures. Past Med/Surg History Problem List (Updated 03/21/25 @ 10:44 by Robi Armas PA-C) Leukocytosis Adrenal insufficiency Acute heart failure with preserved ejection fraction (HFpEF) Hypertensive emergency (Acute) Acute exacerbation of chronic obstructive pulmonary disease (Acute) Acute respiratory failure with hypoxia and hypercarbia (Acute) Rotator cuff arthropathy of right shoulder Chronic obstructive pulmonary disease History of wrist fracture (~2023) Distal radial and ulnar fractures from a fall. Orthopedic surgery 02/26/24- Closed reduction of left wrist, distal radius and ulna History of TIA (transient ischemic attack) Secondary adrenal insufficiency Transaminitis (Acute) Hypertension (Acute) (HFpEF) heart failure with preserved ejection fraction (Acute) Basilar artery aneurysm Mitral regurgitation Carotid artery stenosis (Acute) Occlusion of vertebral artery (Acute) History of radius fracture (11/11/21) nondisplaced intra-articular distal radial fracture Multiple pulmonary nodules determined by computed tomography of lung Retinal vein occlusion (Acute) Osteoporosis (Acute) Hypercholesterolemia (Acute) Medical History History of smoking for more than 10 years Tendinitis of both rotator cuffs DDD (degenerative disc disease), cervical Vertigo Greater trochanteric bursitis of right hip Greater trochanteric bursitis of left hip History of hyperglycemia History of pituitary tumor PAD (peripheral artery disease) Buerger disease Esophageal reflux Anemia, mild Osteoarthritis GERD (gastroesophageal reflux disease) Family history of diabetes mellitus Deviated nasal septum Surgical History History of pituitary surgery S/p bilateral blepharoplasty History of hysterectomy History of section History of open reduction and internal fixation (ORIF) procedure History of appendectomy History of esophagogastroduodenoscopy (EGD) History of colonoscopy History of tonsillectomy History of tooth extraction History of cataract surgery Family History Mother Coronary heart disease Hypertension Father Coronary heart disease Hypertension Myocardial infarction Grandmother Diabetes Breast cancer Grandmother (Maternal) Stroke Other Family history of reaction to anesthesia Denies family history of Ovarian cancer Prostate cancer Lung cancer Colorectal cancer Social History Smoking Status: Current every day smoker Tobacco Type: Cigarettes Age Started Using Tobacco: 18; packs per day: 0.5; Cigarettes Per Day: 2; Second Hand Exposure: Yes; Do You Dip or Chew Tobacco: No; Tobacco Cessation Education Requested by Patient: No Hx Alcohol Use: No Hx Substance Use: No Preferred Language: Moroccan Communication Ability: Effective Visual Impairment: Limited Hearing Ability: Normal [place] Opener Required: No Beliefs That Will Affect Care: None marital status: Current Living Situation: Alone Current Living Situation Comment: Currently residing at [facility] for rehab current occupational status: retired How many Children do You have: 3 Other Information That Helps Us Care for You: No Feels Safe at Home: Yes Safety Concerns: Feels Safe At This Time Childhood Exposure to Second-Hand Smoke: Yes caffeine: Yes Dental Care, Regularly: Yes Physical Activity Frequency: Daily Seatbelt Use: always Sunscreen Use: No Sexual Activity: has been sexually active, but not for at least 12 months Assistive Devices: Cane, Walker and Wheelchair Allergies Allergies Allergy/AdvReac Type Severity Reaction Status Date / Time Penicillins Allergy Unknown Hives Verified 02/28/25 13:27 Sulfa (Sulfonamide Allergy Unknown SWELLING Verified 02/28/25 13:27 Antibiotics) ciprofloxacin [From Cipro] AdvReac Severe Dizziness Verified 02/28/25 13:27 Home Meds Home Medications Medication Instructions Recorded Confirmed cholecalciferol (vitamin D3) 125 5,000 unit PO UD ##0 09/10/20 03/21/25 mcg (5,000 unit) tablet (Vitamin D3) sennosides 8.6 mg tablet (senna) 17 mg PO DAILY PRN NO BM IN 2 DAYS 02/21/25 03/21/25 acetaminophen 325 mg capsule 650 mg PO QID PRN Pain 02/28/25 03/21/25 folic acid 400 mcg tablet 0.4 mg PO DAILY 02/28/25 03/21/25 hydrocortisone 10 mg tablet 10 - 20 mg PO UD 03/21/25 03/21/25 (Cortef) Previous Rx's Medication Instructions Recorded fluticasone fur. 200 mcg-umeclid 1 inh inhalation DAILY #60 ea 11/26/24 62.5 mcg-vilant 25 mcg inhalat.powder (Trelegy Ellipta) hydralazine 10 mg tablet 10 mg PO TID #90 tabs 01/09/25 clopidogrel 75 mg tablet 75 mg PO QAM #30 tabs 02/08/25 metoprolol succinate 50 mg 50 mg PO DAILY #90 tabs 02/08/25 tablet,extended release 24 hr rosuvastatin 20 mg tablet 20 mg PO QAM #30 tabs 02/08/25 sodium chloride 1,000 mg soluble 1,000 mg PO DAILY #30 tabs 02/11/25 tablet hydrocortisone 5 mg tablet 5 mg PO .COMPLEX #500 tabs 02/28/25 famotidine 20 mg tablet 20 mg PO BID #60 tabs 03/12/25 furosemide 20 mg tablet 20 mg PO .QOD #15 tabs 03/12/25 albuterol sulfate 90 mcg/actuation 2 puff inhalation Q4H PRN 03/20/25 aerosol inhaler (Ventolin HFA) shortness of breath or wheezing #18 grams Results & Data (ED) Vital Signs Vital Signs - 24 hr 03/21/25 07:38 03/21/25 07:46 03/21/25 07:47 Pulse Rate 106 H 102 H Pulse Rate [Right Finger] 105 H Pulse Rhythm [Right Finger] Pulse Strength [Right Finger] Respiratory Rate 28 H 29 H 27 H Respiratory Effort / Characteristics Respiratory Depth Respiratory Pattern Blood Pressure Blood Pressure [Left Arm] 205/102 H Blood Pressure Mean [Left Arm] 136 Blood Pressure Position [Left Arm] Pulse Oximetry 95 98 96 Oxygen Delivery Method CPAP BiPAP BiPAP Fraction of Inspired Oxygen 40 SaO2/FiO2 Ratio 245 Sepsis Recent Fever Within 48 Hours No Sepsis New/Unexplained Change in Mental Status N/A Sepsis Action Taken by Nursing No Action Required 03/21/25 07:50 03/21/25 07:56 03/21/25 07:57 Pulse Rate Pulse Rate [Right Finger] 99 H 102 H 104 H Pulse Rhythm [Right Finger] Pulse Strength [Right Finger] Respiratory Rate 28 H 29 H 30 H Respiratory Effort / Characteristics Spontaneous Short of Breath Respiratory Depth Respiratory Pattern Blood Pressure Blood Pressure [Left Arm] 182/140 H 184/107 H Blood Pressure Mean [Left Arm] 154 132 Blood Pressure Position [Left Arm] Pulse Oximetry 95 95 96 Oxygen Delivery Method BiPAP BiPAP BiPAP Fraction of Inspired Oxygen 40 40 40 SaO2/FiO2 Ratio 237 237 Sepsis Recent Fever Within 48 Hours Sepsis New/Unexplained Change in Mental Status Sepsis Action Taken by Nursing 03/21/25 07:57 03/21/25 08:05 03/21/25 08:11 Pulse Rate 104 H Pulse Rate [Right Finger] 96 H 102 H Pulse Rhythm [Right Finger] Pulse Strength [Right Finger] Respiratory Rate 30 H 36 H 30 H Respiratory Effort / Characteristics Non-Labored Spontaneous Spontaneous Non-Labored Respiratory Depth Normal Respiratory Pattern Blood Pressure Blood Pressure [Left Arm] 174/103 H 187/104 H Blood Pressure Mean [Left Arm] 126 131 Blood Pressure Position [Left Arm] Pulse Oximetry 96 94 95 Oxygen Delivery Method BiPAP BiPAP Fraction of Inspired Oxygen 40 40 40 SaO2/FiO2 Ratio 235 237 Sepsis Recent Fever Within 48 Hours Sepsis New/Unexplained Change in Mental Status Sepsis Action Taken by Nursing 03/21/25 08:13 03/21/25 08:15 03/21/25 08:22 Pulse Rate 103 H Pulse Rate [Right Finger] 104 H Pulse Rhythm [Right Finger] Pulse Strength [Right Finger] Respiratory Rate 26 H Respiratory Effort / Characteristics Non-Labored Respiratory Depth Normal Respiratory Pattern Regular Blood Pressure Blood Pressure [Left Arm] 209/92 H Blood Pressure Mean [Left Arm] 131 Blood Pressure Position [Left Arm] Pulse Oximetry 95 Oxygen Delivery Method BiPAP BiPAP Fraction of Inspired Oxygen 40 SaO2/FiO2 Ratio 237 Sepsis Recent Fever Within 48 Hours Sepsis New/Unexplained Change in Mental Status Sepsis Action Taken by Nursing 03/21/25 08:25 03/21/25 08:30 03/21/25 08:45 Pulse Rate Pulse Rate [Right Finger] 96 H 113 H 116 H Pulse Rhythm [Right Finger] Pulse Strength [Right Finger] Respiratory Rate 32 H 32 H 28 H Respiratory Effort / Characteristics Non-Labored Non-Labored Respiratory Depth Normal Respiratory Pattern Blood Pressure Blood Pressure [Left Arm] 202/99 H 173/113 H 197/118 H Blood Pressure Mean [Left Arm] 133 133 144 Blood Pressure Position [Left Arm] Pulse Oximetry 96 96 Oxygen Delivery Method BiPAP BiPAP BiPAP Fraction of Inspired Oxygen 40 40 40 SaO2/FiO2 Ratio 240 240 Sepsis Recent Fever Within 48 Hours Sepsis New/Unexplained Change in Mental Status Sepsis Action Taken by Nursing 03/21/25 08:50 03/21/25 08:53 03/21/25 08:55 Pulse Rate 114 H Pulse Rate [Right Finger] 114 H 112 H Pulse Rhythm [Right Finger] Pulse Strength [Right Finger] Respiratory Rate 28 H 29 H Respiratory Effort / Characteristics Non-Labored Respiratory Depth Normal Respiratory Pattern Blood Pressure 176/104 H Blood Pressure [Left Arm] 176/104 H 166/103 H Blood Pressure Mean [Left Arm] 128 124 Blood Pressure Position [Left Arm] Pulse Oximetry 97 96 Oxygen Delivery Method BiPAP BiPAP Fraction of Inspired Oxygen 40 SaO2/FiO2 Ratio 242 Sepsis Recent Fever Within 48 Hours Sepsis New/Unexplained Change in Mental Status Sepsis Action Taken by Nursing 03/21/25 09:00 03/21/25 09:05 03/21/25 09:10 Pulse Rate Pulse Rate [Right Finger] 82 84 86 Pulse Rhythm [Right Finger] Pulse Strength [Right Finger] Respiratory Rate 32 H 32 H 30 H Respiratory Effort / Characteristics Moaning Respiratory Depth Respiratory Pattern Blood Pressure Blood Pressure [Left Arm] 130/67 130/67 115/75 Blood Pressure Mean [Left Arm] 88 88 88 Blood Pressure Position [Left Arm] Pulse Oximetry 97 96 97 Oxygen Delivery Method BiPAP BiPAP BiPAP Fraction of Inspired Oxygen 40 40 SaO2/FiO2 Ratio 242 242 Sepsis Recent Fever Within 48 Hours Sepsis New/Unexplained Change in Mental Status Sepsis Action Taken by Nursing 03/21/25 09:15 03/21/25 09:25 03/21/25 09:29 Pulse Rate 92 H Pulse Rate [Right Finger] 91 H 92 H Pulse Rhythm [Right Finger] Regular Pulse Strength [Right Finger] Normal Respiratory Rate 28 H 30 H Respiratory Effort / Characteristics Non-Labored Spontaneous Respiratory Depth Normal Respiratory Pattern Regular Blood Pressure 110/55 L Blood Pressure [Left Arm] 116/80 Blood Pressure Mean [Left Arm] 92 Blood Pressure Position [Left Arm] Sitting Pulse Oximetry 97 96 Oxygen Delivery Method BiPAP BiPAP Fraction of Inspired Oxygen 40 SaO2/FiO2 Ratio 242 Sepsis Recent Fever Within 48 Hours Sepsis New/Unexplained Change in Mental Status Sepsis Action Taken by Nursing 03/21/25 09:35 Pulse Rate Pulse Rate [Right Finger] 94 H Pulse Rhythm [Right Finger] Regular Pulse Strength [Right Finger] Normal Respiratory Rate 32 H Respiratory Effort / Characteristics Respiratory Depth Respiratory Pattern Blood Pressure Blood Pressure [Left Arm] 107/76 Blood Pressure Mean [Left Arm] 86 Blood Pressure Position [Left Arm] Sitting Pulse Oximetry 96 Oxygen Delivery Method BiPAP Fraction of Inspired Oxygen SaO2/FiO2 Ratio Sepsis Recent Fever Within 48 Hours Sepsis New/Unexplained Change in Mental Status Sepsis Action Taken by Nursing Laboratory Data 03/21/25 07:48 03/21/25 07:48 Lab Results 03/21/25 03/21/25 03/21/25 Range/Units 07:48 07:51 07:57 WBC 12.32 H (4.8-10.8) K/ul RBC 4.15 L (4.20-5.40) M/uL Hgb 12.1 (12.0-16.0) g/dl POC Hgb 12.9 (12.0-16.0) g/dl Hct 40.0 (37.0-47.0) % POC Hct 38 (37-47) % MCV 96.4 (80.0-100.0) fL MCH 29.2 (25.0-34.0) pg MCHC 30.3 L (32.0-36.0) g/dL RDW Std Deviation 49.3 H (36.4-46.3) fL RDW Coeff of Edwin 14.0 (11.5-14.5) % Plt Count 300 (130-400) K/uL MPV 9.4 (9.4-12.4) fL Immature Gran % (Auto) 3.9 % Neut % (Auto) 46.9 % Lymph % (Auto) 39.4 % Branch % (Auto) 7.7 % Eos % (Auto) 1.4 % Baso % (Auto) 0.7 % Neut # (Auto) 5.77 (1.40-6.50) K/uL Lymph # (Auto) 4.86 H (1.20-3.40) K/uL Branch # (Auto) 0.95 H (0.11-0.59) K/uL Eos # (Auto) 0.17 (0.00-0.50) K/uL Baso # (Auto) 0.09 (0.00-0.20) K/uL Immature Gran # (Auto) 0.48 H (0.01-0.20) K/uL Polychromasia 1+ Ovalocytes 1+ PT 10.4 (9.0-12.0) Seconds INR 1.0 (0.9-1.1) APTT 23 (21-31) Seconds PTT Ratio 0.9 POC pH (7.35-7.45) POC pCO2 (35-46) mmHg POC pO2 (80-95) mmHg POC HCO3 (19-24) lula/L POC Base Excess (-9-1.8) lula/L POC ABG O2 Sat (90-95) % VBG pH 7.03 L (7.36-7.41) VBG pCO2 86 H (38-50) mmHg VBG pO2 79 mmHg VBG HCO3 23 mmol/L VBG O2 Saturation 93.6 % VBG Base Excess -9.6 mEq/L POC Sodium 139 (135-144) mmol/L Sodium 140 (136-145) mmol/L POC Potassium 4.2 (3.3-5.0) mmol/L Potassium 4.2 (3.5-5.1) mmol/L POC Chloride 105 (101-112) mmol/L Chloride 106 (98-107) mmol/L Carbon Dioxide 26 (21-32) mmol/L POC Total CO2 23 L (24-31) mmol/L Anion Gap 8 (3-11) POC Anion Gap 15.0 L (16-25) mmol/L POC BUN 19 H (7-18) mg/dl BUN 19 (6-23) mg/dl Creatinine 0.95 (0.6-1.2) mg/dl POC Creatinine 1.0 (0.6-1.3) mg/dl Est Cr Clr Drug Dosing Not Reportable eGFR 59.82 BUN/Creatinine Ratio 20.0 (10-20) Glucose 375 H* (70-99(Fasting)) mg/dl POC Glucose (other) 364 H* (70-99) mg/dl Lactate 3.2 H* (0.4-2.0) mmol/L Calcium 7.9 L (8.6-10.3) mg/dl POC Ioniz Calcium Alesia 1.18 (1.12-1.32) mmol/l Magnesium 2.3 (1.7-2.4) mg/dl Total Bilirubin 0.5 (0.2-1.0) mg/dl AST 62 H (13-39) U/L ALT 49 (7-52) U/L Alkaline Phosphatase 68 (34-104) U/L Troponin I High Sens 45.2 H (0-14) pg/ml B-Natriuretic Peptide 1061 H (0-100) pg/ml Total Protein 6.2 (6.0-8.3) gm/dl Albumin 3.7 (3.4-5.0) gm/dl Globulin 2.5 (2.5-4.0) gm/dl Albumin/Globulin Ratio 1.5 (0.9-2) Procalcitonin 0.02 (0-0.5) ng/ml Adenovirus (PCR) Not Detected (NotDetected) B. pertussis DNA (PCR) Not Detected (NotDetected) B.parapertussis DNA PCR Not Detected (NotDetected) C. pneumoniae DNA (PCR) Not Detected (NotDetected) Coronavirus OC43 (PCR) Not Detected (NotDetected) Coronavirus HKU1 (PCR) Not Detected (NotDetected) Coronavirus 229E (PCR) Not Detected (NotDetected) SARS-CoV-2 (PCR) Not Detected (NotDetected) Coronavirus NL63 (PCR) Not Detected (NotDetected) Human Metapneumovir PCR Not Detected (NotDetected) Influenza Type A (PCR) Not Detected (NotDetected) Influenza Type B (PCR) Not Detected (NotDetected) M. pneumoniae (PCR) Not Detected (NotDetected) Parainfluenza 1 (PCR) Not Detected (NotDetected) Parainfluenza 2 (PCR) Not Detected (NotDetected) Parainfluenza 3 (PCR) Not Detected (NotDetected) Parainfluenza 4 (PCR) Not Detected (NotDetected) RSV (PCR) Not Detected (NotDetected) Entero/Rhino (PCR) Not Detected (NotDetected) 03/21/25 Range/Units 09:15 WBC (4.8-10.8) K/ul RBC (4.20-5.40) M/uL Hgb (12.0-16.0) g/dl POC Hgb 12.6 (12.0-16.0) g/dl Hct (37.0-47.0) % POC Hct 37 (37-47) % MCV (80.0-100.0) fL MCH (25.0-34.0) pg MCHC (32.0-36.0) g/dL RDW Std Deviation (36.4-46.3) fL RDW Coeff of Edwin (11.5-14.5) % Plt Count (130-400) K/uL MPV (9.4-12.4) fL Immature Gran % (Auto) % Neut % (Auto) % Lymph % (Auto) % Branch % (Auto) % Eos % (Auto) % Baso % (Auto) % Neut # (Auto) (1.40-6.50) K/uL Lymph # (Auto) (1.20-3.40) K/uL Branch # (Auto) (0.11-0.59) K/uL Eos # (Auto) (0.00-0.50) K/uL Baso # (Auto) (0.00-0.20) K/uL Immature Gran # (Auto) (0.01-0.20) K/uL Polychromasia Ovalocytes PT (9.0-12.0) Seconds INR (0.9-1.1) APTT (21-31) Seconds PTT Ratio POC pH 7.16 L* (7.35-7.45) POC pCO2 71 H (35-46) mmHg POC pO2 146 H (80-95) mmHg POC HCO3 25 H (19-24) lula/L POC Base Excess -3.0 (-9-1.8) lula/L POC ABG O2 Sat 98.0 H (90-95) % VBG pH (7.36-7.41) VBG pCO2 (38-50) mmHg VBG pO2 mmHg VBG HCO3 mmol/L VBG O2 Saturation % VBG Base Excess mEq/L POC Sodium 138 (135-144) mmol/L Sodium (136-145) mmol/L POC Potassium 3.8 (3.3-5.0) mmol/L Potassium (3.5-5.1) mmol/L POC Chloride (101-112) mmol/L Chloride (98-107) mmol/L Carbon Dioxide (21-32) mmol/L POC Total CO2 28 (24-31) mmol/L Anion Gap (3-11) POC Anion Gap (16-25) mmol/L POC BUN (7-18) mg/dl BUN (6-23) mg/dl Creatinine (0.6-1.2) mg/dl POC Creatinine (0.6-1.3) mg/dl Est Cr Clr Drug Dosing eGFR BUN/Creatinine Ratio (10-20) Glucose (70-99(Fasting)) mg/dl POC Glucose (other) (70-99) mg/dl Lactate (0.4-2.0) mmol/L Calcium (8.6-10.3) mg/dl POC Ioniz Calcium Alesia (1.12-1.32) mmol/l Magnesium (1.7-2.4) mg/dl Total Bilirubin (0.2-1.0) mg/dl AST (13-39) U/L ALT (7-52) U/L Alkaline Phosphatase (34-104) U/L Troponin I High Sens (0-14) pg/ml B-Natriuretic Peptide (0-100) pg/ml Total Protein (6.0-8.3) gm/dl Albumin (3.4-5.0) gm/dl Globulin (2.5-4.0) gm/dl Albumin/Globulin Ratio (0.9-2) Procalcitonin (0-0.5) ng/ml Adenovirus (PCR) (NotDetected) B. pertussis DNA (PCR) (NotDetected) B.parapertussis DNA PCR (NotDetected) C. pneumoniae DNA (PCR) (NotDetected) Coronavirus OC43 (PCR) (NotDetected) Coronavirus HKU1 (PCR) (NotDetected) Coronavirus 229E (PCR) (NotDetected) SARS-CoV-2 (PCR) (NotDetected) Coronavirus NL63 (PCR) (NotDetected) Human Metapneumovir PCR (NotDetected) Influenza Type A (PCR) (NotDetected) Influenza Type B (PCR) (NotDetected) M. pneumoniae (PCR) (NotDetected) Parainfluenza 1 (PCR) (NotDetected) Parainfluenza 2 (PCR) (NotDetected) Parainfluenza 3 (PCR) (NotDetected) Parainfluenza 4 (PCR) (NotDetected) RSV (PCR) (NotDetected) Entero/Rhino (PCR) (NotDetected) Administered Medications Discontinued Medications Albuterol (Albut/Ipratrop 3mg/0.5mg Neb 3 Ml Vial) Confirm Administered Dose 12 ml .ROUTE .STK-MED ONE Stop: 03/21/25 07:46 Last Admin: 03/21/25 07:57 Dose: 12 ml Documented By: KEMAL Albuterol (Albut/Ipratrop 3mg/0.5mg Neb 3 Ml Vial) 12 ml NEB ONE ONE; Protocol Stop: 03/21/25 07:47 Last Admin: 03/21/25 07:57 Dose: Not Given Documented By: KEMAL Furosemide (Furosemide 40 Mg/4 Ml Vial) Confirm Administered Dose 40 mg IV .STK- MED ONE Stop: 03/21/25 07:46 Last Admin: 03/21/25 07:48 Dose: 40 mg Documented By: AMINAH Furosemide (Furosemide 40 Mg/4 Ml Vial) 40 mg IV ONE ONE Stop: 03/21/25 07:47 Last Admin: 03/21/25 07:49 Dose: Not Given Documented By: NRStella Cefepime HCl (Maxipime 2000mg) 2,000 mg in 20 mls @ 5 mls/min IV NOW STA; Protocol Stop: 03/21/25 08:08 Last Admin: 03/21/25 08:20 Dose: 5 mls/min Documented By: AMINAH Azithromycin (Zithromax) 500 mg in 255 mls @ 127.5 mls/hr IV NOW ONE Stop: 03/21/25 12:31 Last Admin: 03/21/25 12:46 Dose: 127.5 mls/hr Documented By: ADRIEN Ketamine HCl (Ketamine Hcl 10mg/Ml Syr) Confirm Administered Dose 50 mg .ROUTE .STK-MED ONE Stop: 03/21/25 07:50 Last Increment: 03/21/25 07:50 Dose: 5 mg Documented By: AMINAH Ketamine HCl (Ketamine Hcl 10mg/Ml Syr) 5 mg IV NOW STA Stop: 03/21/25 07:51 Last Admin: 03/21/25 09:29 Dose: Not Given Documented By: NADINE Ketamine HCl (Ketamine Hcl 10mg/Ml Syr) 5 mg IV NOW STA Stop: 03/21/25 08:42 Last Admin: 03/21/25 08:44 Dose: 5 mg Documented By: AMINAH Labetalol HCl (Labetalol Hcl Iv 5 Mg/Ml 20ml) 10 mg IV NOW STA Stop: 03/21/25 08:37 Last Admin: 03/21/25 08:53 Dose: 10 mg Documented By: AMINAH Methylprednisolone (Methylprednisolone 125 Mg/2 Ml Vial) 60 mg IV NOW STA Stop: 03/21/25 10:16 Last Admin: 03/21/25 10:19 Dose: Not Given Documented By: NADINE Miscellaneous (Rapid Sequence Induction Bag) Confirm Administered Dose 1 each N/A .STK-MED ONE Stop: 03/21/25 07:36 Last Admin: 03/21/25 09:29 Dose: Not Given Documented By: NADINE Nitroglycerin (Nitroglycerin 2% Ointment 30gm Tube) 0.5 inch EXT NOW ONE Stop: 03/21/25 07:47 Last Admin: 03/21/25 07:49 Dose: 0.5 inch Documented By: NRB Nitroglycerin (Nitroglycerin 2% Ointment 30gm Tube) Confirm Administered Dose 18 inch EXT .STK-MED ONE Stop: 03/21/25 07:47 Last Admin: 03/21/25 07:49 Dose: Not Given Documented By: NRB Imaging Data Radiologist's Impression: Chest X-Ray 03/21/25 07:31 EXAM: XR chest 1V portable CLINICAL HISTORY: Dyspnea TECHNIQUE: An X-ray image of the chest is obtained in AP projection. COMPARISON: 02/21/2025. FINDINGS: Pulmonary Parenchyma: Prominent interstitial markings (unchanged) with reticular shadowing. No evidence of lobar consolidation, collapse, or focal opacities. No evidence of pleural effusion or pleural thickening. Heart and Mediastinum: Heart size and shape are normal. No mediastinal widening or masses. No hilar or mediastinal lymphadenopathy. Bony Thorax: Bony thorax appears intact without fractures or deformities. Soft Tissues: Soft tissues overlying the chest wall are unremarkable. IMPRESSION: 1. Prominent interstitial markings (unchanged). 2. No acute cardiopulmonary abnormalities are identified. Electronically signed by Du Olivera 03-21-2025 08:29 AM Discharge Plan Visit Data Chief Complaint: Respiratory Distress Stated Complaint: RESP, DISTRESS ED Provider: Jairo Ingram Discharge Problem: Acute respiratory failure with hypoxia and hypercarbia, (HFpEF) heart failure with preserved ejection fraction, Acute exacerbation of chronic obstructive pulmonary disease, Hypertensive emergency Patient Disposition: Admitted As Inpatient Condition: Serious Discharge Instructions Interventions: ED Discharge Assessment Last Done: 03/21/25 10:29 Discharge Problem: (HFpEF) heart failure with preserved ejection fraction Qualifiers: Heart failure chronicity: acute on chronic Qualified Code(s): I50.33 - Acute on chronic diastolic (congestive) heart failure
[2025-03-21] MEDS: CEFEPIME 2000MG 2,000 MG/20 ML SYR IV STA (08:20)
[2025-03-21 08:21] LABS: Immature Granulocytes # (auto) 0.48 K/uL (0.01-0.20); Immature Granulocytes % (auto) 3.9 %; Ovalocytes 1+; Polychromasia 1+
--- NOTE | 2025-03-21 08:29 | XRay Report ---
EXAM: XR chest 1V portable CLINICAL HISTORY: Dyspnea TECHNIQUE: An X-ray image of the chest is obtained in AP projection. COMPARISON: 02/21/2025. FINDINGS: Pulmonary Parenchyma: Prominent interstitial markings (unchanged) with reticular shadowing. No evidence of lobar consolidation, collapse, or focal opacities. No evidence of pleural effusion or pleural thickening. Heart and Mediastinum: Heart size and shape are normal. No mediastinal widening or masses. No hilar or mediastinal lymphadenopathy. Bony Thorax: Bony thorax appears intact without fractures or deformities. Soft Tissues: Soft tissues overlying the chest wall are unremarkable. IMPRESSION: 1. Prominent interstitial markings (unchanged). 2. No acute cardiopulmonary abnormalities are identified. Electronically signed by Du Olivera 03-21-2025 08:29 AM
[2025-03-21 08:32] LABS: Alanine Aminotransferase 49 U/L (7-52); Albumin Globulin Ratio 1.5 (0.9-2); Alkaline Phosphatase 68 U/L (34-104); Anion Gap 8 (3-11); Bilirubin,Total 0.5 mg/dl (0.2-1.0); Blood Urea Nitrogen 19 mg/dl (6-23); Calcium 7.9 mg/dl (8.6-10.3); Carbon Dioxide 26 mmol/L (21-32); Chloride 106 mmol/L (98-107); Globulin 2.5 gm/dl (2.5-4.0); Glucose 375 mg/dl (70-99(Fasting)); Magnesium 2.3 mg/dl (1.7-2.4); Potassium 4.2 mmol/L (3.5-5.1); Sodium 140 mmol/L (136-145); Total Protein 6.2 gm/dl (6.0-8.3)
[2025-03-21 08:34] LABS: INR 1.0 (0.9-1.1); Partial Thromboplastin Time 23 Seconds (21-31); Prothrombin Time 10.4 Seconds (9.0-12.0)
[2025-03-21] MEDS: KETAMINE HCL 10MG/ML SYR IV STA ×2 (08:44→09:29)
[2025-03-21] MEDS: LABETALOL HCL IV 5 MG/ML 20ML IV STA (08:53)
[2025-03-21 08:56] LABS: Chlamydia pneumoniae PCR Not Detected (NotDetected); Coronavirus 229E PCR Not Detected (NotDetected); Coronavirus CoV-2 (COVID19)PCR Not Detected (NotDetected); Coronavirus HKU1 PCR Not Detected (NotDetected); Coronavirus NL63 PCR Not Detected (NotDetected); Coronavirus OC43PCR Not Detected (NotDetected); Human Metapneumovirus PCR Not Detected (NotDetected); Parainfluenza Virus 1 PCR Not Detected (NotDetected); Parainfluenza Virus 2 PCR Not Detected (NotDetected); Parainfluenza Virus 3 PCR Not Detected (NotDetected); Parainfluenza Virus 4 PCR Not Detected (NotDetected); Respiratory Syncytial VirusPCR Not Detected (NotDetected); Rhinovirus/Enterovirus PCR Not Detected (NotDetected)
--- NOTE | 2025-03-21 09:07 | History & Physical Report ---
"Date of Service March 21, 2025 Assessment & Plan (1) Acute respiratory failure with hypoxia and hypercarbia: (2) Acute heart failure with preserved ejection fraction (HFpEF): (3) Acute exacerbation of chronic obstructive pulmonary disease: (4) Adrenal insufficiency: (5) Leukocytosis: Plan This patient is an 80-year-old female with PMH of adrenal insufficiency, COPD, and HFpEF who presented for respiratory distress on the morning of 03/21 shortly after waking. #Acute respiratory failure with hypoxia and hypercapnia Suspect component of flash pulmonary edema Placed on BiPAP en route VBG at 0745: 7.03/86/79/23 ABG at 0915: 7.16/71/146/25 Trend VBG q4h while on BiPAP IV Lasix, Nitropaste, and ketamine given in the ED Biofire negative CXR revealed prominent interstitial markings; lungs were hyperinflated consistent with emphysema When compared to prior CXR, there does appear to be interval progression of pulmonary edema Repeat CXR ordered for the morning of 03/22 Patient does not want to be intubated and is a DNR/DNI Patient received IV ketamine in the ED; close monitoring Continuous BiPAP for now and will attempt to ween off as tolerated Continuous pulse oximetry #Acute HFpEF | Elevated troponin Last echocardiogram on 01/14/2025 revealed LVEF at 50 to 55%; moderate to severe mitral regurgitation Given troponin elevation in 45 -> 184, repeat echocardiogram has been ordered Trend troponin q6h to peak Patient normally takes Lasix 20 mg p.o. every other day Initiate Lasix 40 mg IV BID17 Initiate potassium chloride 10 mEq p.o. BID17 Daily weights Strict I&O monitoring Patient is currently n.p.o. on BiPAP, however will advance to a low-sodium/heart healthy diet Hold sodium tablets #Acute COPD exacerbation Continue home inhalers DuoNeb QID Treatment (as above) #Secondary adrenal insufficiency Patient is normally on hydrocortisone twice daily; hold home dose Patient received Solu-Medrol 125 mg IV en route Initiate Solu-Medrol 60 mg IV BID #Leukocytosis | ?CAP WBC count 12.32 in the setting of chronic steroid use Cefepime 2000mg IV x 1 given in the ED No PNA seen on CXR; patient clinically denies fever, cough, and infectious s ymptoms PCT WNL Blood Cx drawn While suspect patient's respiratory symptoms at largely CHF/COPD related, patient reports she did recently have PNA two weeks ago and is concerned about residual symptoms Will cover empirically with abx given patient's degree of illness / vitals on presentation Azithromycin 250mg IV daily; QTc 397 Ceftriaxone 2000mg IV q24h Patient has listed PCN allergy, but has tolerated ceftriaxone in the past #HTN Hypertensive at 205/102 on arrival; however patient did not take her regular morning medicine Lopressor 10 mg IV x 1 Continue home dose of hydralazine, metoprolol #Current everyday tobacco cigarette smoker Patient reports she currently smokes 0.5 PPD Encourage cessation Nicotine patch daily #PAD | history of TIA Continue Plavix #HLD Continue rosuvastatin Disposition: Admit to PCU telemetry VTE PPx: Lovenox 40 mg SQ q24h; TEDs Attempted to call patient's daughter (Tawnya) x 2. Left brief voicemail requesting callback. Attempted to call patient's son (José), but was unable to reach. History of Present Illness Chief Complaint: Respiratory distress Primary Care Provider: Ivan Castro MD Mrs. Mercedes is an 80-year-old female with PMH of COPD, HFpEF, TIA, osteoporosis, and retinal vein occlusion. She presented via EMS on 03/21 for acute respiratory distress. Patient reports that she began to have mild SOB last night, and then it acutely worsened this morning. She woke up around 6 AM, and felt okay, then her breathing suddenly got worse. Labored breathing both at rest and with exertion. She denies orthopnea. She did not take Lasix this morning, and normally takes it every other day. She reports no missed doses. The only medication she took this morning was Zyrtec. Patient reports she recently had pneumonia 2 weeks ago; history of recent hospitalization 02/21 for acute hypoxic respiratory failure and hypercapnia in the setting of acute CHF and COPD. Patient denies any fevers overnight. No coughing. No vomiting or aspiration events. She does not use supplemental oxygen at baseline or CPAP at night. No history of DVT/PE. She is a current everyday tobacco cigarette smoker; 0.5 PPD. She also reports that she did have a beer last night, but normally does not drink. Patient is currently tachypneic at 32 RPM, and SpO2 is 97% on BiPAP at time of admission. ED course: Lasix 40 mg IV Ketamine 5 mg IV x 2 Labetalol 10 mg IV Cefepime 2000 mg IV Nitroglycerin 2% 0.5 inch Albuterol 12 mL neb ROS: Patient endorses SOB both at rest and with exertion. Patient denies fever, chills, night sweats, dizziness/lightheadedness when walking at baseline, chest pain, chest palpitations, pleuritic CP, cough, hemoptysis, abdominal pain, N/V/D, or changes in urinary or bowel habits. Allergies Allergy/AdvReac Type Severity Reaction Status Date / Time Penicillins Allergy Unknown Hives Verified 02/28/25 13:27 Sulfa (Sulfonamide Allergy Unknown SWELLING Verified 02/28/25 13:27 Antibiotics) ciprofloxacin [From Cipro] AdvReac Severe Dizziness Verified 02/28/25 13:27 Home Medications Medication Instructions Recorded Confirmed Type cholecalciferol (vitamin D3) 125 5,000 unit PO UD ##0 09/10/20 03/21/25 History mcg (5,000 unit) tablet (Vitamin D3) fluticasone fur. 200 mcg-umeclid 1 inh inhalation DAILY #60 ea 11/26/24 03/21/25 Rx 62.5 mcg-vilant 25 mcg inhalat.powder (Trelegy Ellipta) hydralazine 10 mg tablet 10 mg PO TID #90 tabs 01/09/25 03/21/25 Rx clopidogrel 75 mg tablet 75 mg PO QAM #30 tabs 02/08/25 03/21/25 Rx metoprolol succinate 50 mg 50 mg PO DAILY #90 tabs 02/08/25 03/21/25 Rx tablet,extended release 24 hr rosuvastatin 20 mg tablet 20 mg PO QAM #30 tabs 02/08/25 03/21/25 Rx sodium chloride 1,000 mg soluble 1,000 mg PO DAILY #30 tabs 02/11/25 03/21/25 Rx tablet sennosides 8.6 mg tablet (senna) 17 mg PO DAILY PRN NO BM IN 2 DAYS 02/21/25 03/21/25 History acetaminophen 325 mg capsule 650 mg PO QID PRN Pain 02/28/25 03/21/25 History folic acid 400 mcg tablet 0.4 mg PO DAILY 02/28/25 03/21/25 History hydrocortisone 5 mg tablet 5 mg PO .COMPLEX #500 tabs 02/28/25 03/21/25 Rx famotidine 20 mg tablet 20 mg PO BID #60 tabs 03/12/25 03/21/25 Rx furosemide 20 mg tablet 20 mg PO .QOD #15 tabs 03/12/25 03/21/25 Rx albuterol sulfate 90 mcg/actuation 2 puff inhalation Q4H PRN 03/20/25 03/21/25 Rx aerosol inhaler (Ventolin HFA) shortness of breath or wheezing #18 grams hydrocortisone 10 mg tablet 10 - 20 mg PO UD 03/21/25 03/21/25 History (Cortef) Past Med/Surg History Problem List (Updated 03/21/25 @ 10:44 by Robi Armas PA-C) Leukocytosis Adrenal insufficiency Acute heart failure with preserved ejection fraction (HFpEF) Hypertensive emergency (Acute) Acute exacerbation of chronic obstructive pulmonary disease (Acute) Acute respiratory failure with hypoxia and hypercarbia (Acute) Rotator cuff arthropathy of right shoulder Chronic obstructive pulmonary disease History of wrist fracture (~2023) Distal radial and ulnar fractures from a fall. Orthopedic surgery 02/26/24- Closed reduction of left wrist, distal radius and ulna History of TIA (transient ischemic attack) Secondary adrenal insufficiency Transaminitis (Acute) Hypertension (Acute) (HFpEF) heart failure with preserved ejection fraction (Acute) Basilar artery aneurysm Mitral regurgitation Carotid artery stenosis (Acute) Occlusion of vertebral artery (Acute) History of radius fracture (11/11/21) nondisplaced intra-articular distal radial fracture Multiple pulmonary nodules determined by computed tomography of lung Retinal vein occlusion (Acute) Osteoporosis (Acute) Hypercholesterolemia (Acute) Medical History History of smoking for more than 10 years Tendinitis of both rotator cuffs DDD (degenerative disc disease), cervical Vertigo Greater trochanteric bursitis of right hip Greater trochanteric bursitis of left hip History of hyperglycemia History of pituitary tumor PAD (peripheral artery disease) Buerger disease Esophageal reflux Anemia, mild Osteoarthritis GERD (gastroesophageal reflux disease) Family history of diabetes mellitus Deviated nasal septum Surgical History History of pituitary surgery S/p bilateral blepharoplasty History of hysterectomy History of section History of open reduction and internal fixation (ORIF) procedure History of appendectomy History of esophagogastroduodenoscopy (EGD) History of colonoscopy History of tonsillectomy History of tooth extraction History of cataract surgery Family History Mother Coronary heart disease Hypertension Father Coronary heart disease Hypertension Myocardial infarction Grandmother Diabetes Breast cancer Grandmother (Maternal) Stroke Other Family history of reaction to anesthesia Denies family history of Ovarian cancer Prostate cancer Lung cancer Colorectal cancer Social History Smoking Status: Current every day smoker Tobacco Type: Cigarettes Age Started Using Tobacco: 18; packs per day: 0.5; Cigarettes Per Day: 2; Second Hand Exposure: Yes; Do You Dip or Chew Tobacco: No; Tobacco Cessation Education Requested by Patient: No Hx Alcohol Use: No Hx Substance Use: No Preferred Language: Iraqi Communication Ability: Effective Visual Impairment: Limited Hearing Ability: Normal Inseamer Required: No Beliefs That Will Affect Care: None marital status: Current Living Situation: Alone Current Living Situation Comment: Currently residing at [facility] for rehab current occupational status: retired How many Children do You have: 3 Other Information That Helps Us Care for You: No Feels Safe at Home: Yes Safety Concerns: Feels Safe At This Time Childhood Exposure to Second-Hand Smoke: Yes caffeine: Yes Dental Care, Regularly: Yes Physical Activity Frequency: Daily Seatbelt Use: always Sunscreen Use: No Sexual Activity: has been sexually active, but not for at least 12 months Assistive Devices: Cane, Walker and Wheelchair Review of Systems Review of Systems: See HPI above Physical Exam Physical Exam: General: Acute respiratory distress; labored breathing on BiPAP; anxious; non- toxic appearing; frail appearing; cooperative; SpO2 97% on BiPAP FiO2 ratio 40 HEENT: normocephalic, atraumatic; no scleral icterus; PERRLA; vision and hearing intact Neck: supple; trachea midline Skin: warm, dry without signs of tenting; no cyanosis; no rashes, bruising, lesions, or erythema noted CV: chest wall NTP; RRR around 94 bpm; S1/S2 normal; no murmurs/rubs/gallops; pulses intact and symmetric at radial, DP, and PT Lungs: acute respiratory distress; tachypneic around 32 RPM; symmetrical chest wall expansion; mild expiratory wheeze in the lower lung lopez bilaterally ABD: Soft, NTP; BS present; no rebound/guarding; no distention MSK: no tics or fasciculations; nonpitting edema noted in the LEs b/l, nonerythematous Neuro: A&Ox3; patient demonstrates ability to follow commands such as wiggle toes and lift legs off the bed; normal mood and affect; fluent speech, however labored on BiPAP; no focal deficits appreciated; sensation intact and symmetric in lower extremity bilaterally Results & Data Results & Data Vital Signs (Past 12 Hours) Vital Signs Pulse Pulse Resp BP BP Pulse Ox O2 Del Method 03/21/25 09:00 82 32 H 130/67 97 BiPAP 03/21/25 08:55 112 H 29 H 166/103 H 96 BiPAP 03/21/25 08:53 114 H 176/104 H 03/21/25 08:50 114 H 28 H 176/104 H 97 BiPAP 03/21/25 08:45 116 H 28 H 197/118 H 96 BiPAP 03/21/25 08:30 113 H 32 H 173/113 H BiPAP 03/21/25 08:25 96 H 32 H 202/99 H 96 BiPAP 03/21/25 08:22 BiPAP 03/21/25 08:15 104 H 26 H 209/92 H 95 BiPAP 03/21/25 08:13 103 H 03/21/25 08:11 102 H 30 H 187/104 H 95 BiPAP 03/21/25 08:05 96 H 36 H 174/103 H 94 BiPAP 03/21/25 07:57 104 H 30 H 96 03/21/25 07:57 104 H 30 H 96 BiPAP 03/21/25 07:56 102 H 29 H 184/107 H 95 BiPAP 03/21/25 07:50 99 H 28 H 182/140 H 95 BiPAP 03/21/25 07:47 102 H 27 H 96 BiPAP 03/21/25 07:46 105 H 29 H 205/102 H 98 BiPAP 03/21/25 07:38 106 H 28 H 95 CPAP FiO2 03/21/25 09:00 40 03/21/25 08:55 03/21/25 08:53 03/21/25 08:50 40 07/17/25 08:45 40 03/21/25 08:30 40 03/21/25 08:25 40 03/21/25 08:22 03/21/25 08:15 40 03/21/25 08:13 03/21/25 08:11 40 03/21/25 08:05 40 03/21/25 07:57 40 03/21/25 07:57 40 03/21/25 07:56 40 03/21/25 07:50 40 03/21/25 07:47 03/21/25 07:46 40 03/21/25 07:38 Laboratory Results Abnormal lab results 03/21/25 03/21/25 Range/Units 07:48 07:51 WBC 12.32 H (4.8-10.8) K/ul RBC 4.15 L (4.20-5.40) M/uL MCHC 30.3 L (32.0-36.0) g/dL RDW Std Deviation 49.3 H (36.4-46.3) fL Lymph # (Auto) 4.86 H (1.20-3.40) K/uL Edgar # (Auto) 0.95 H (0.11-0.59) K/uL Immature Gran # (Auto) 0.48 H (0.01-0.20) K/uL VBG pH 7.03 L (7.36-7.41) VBG pCO2 86 H (38-50) mmHg POC Total CO2 23 L (24-31) mmol/L POC Anion Gap 15.0 L (16-25) mmol/L POC BUN 19 H (7-18) mg/dl Glucose 375 H* (70-99(Fasting)) mg/dl POC Glucose (other) 364 H* (70-99) mg/dl Lactate 3.2 H* (0.4-2.0) mmol/L Calcium 7.9 L (8.6-10.3) mg/dl AST 62 H (13-39) U/L Troponin I High Sens 45.2 H (0-14) pg/ml B-Natriuretic Peptide 1061 H (0-100) pg/ml Diagnostic Findings Chest X-Ray 03/21/25 07:31 EXAM: XR chest 1V portable CLINICAL HISTORY: Dyspnea TECHNIQUE: An X-ray image of the chest is obtained in AP projection. COMPARISON: 02/21/2025. FINDINGS: Pulmonary Parenchyma: Prominent interstitial markings (unchanged) with reticular shadowing. No evidence of lobar consolidation, collapse, or focal opacities. No evidence of pleural effusion or pleural thickening. Heart and Mediastinum: Heart size and shape are normal. No mediastinal widening or masses. No hilar or mediastinal lymphadenopathy. Bony Thorax: Bony thorax appears intact without fractures or deformities. Soft Tissues: Soft tissues overlying the chest wall are unremarkable. IMPRESSION: 1. Prominent interstitial markings (unchanged). 2. No acute cardiopulmonary abnormalities are identified. Electronically signed by Du Olivera 03-21-2025 08:29 AM ECG Additional Comments: ECG revealed sinus tachycardia at 107 bpm; QTc 397 Code Status & VTE Plan Code Status DNR/DNI VTE Prophylaxis Plan VTE Prophylaxis will be ordered: Yes Supervising Physician Co-Signing Physician Notes Attending Attestation & Admit Note: Pt seen/examined, chart reviewed, admit care plan d/w BEHZAD Armas. I agree w/ the pimentel components of his admission documentation. 80yo female with mod-severe COPD, ongoing tobacco dependence, chronic HFpEF, PAD with h/o Buerger's disease, TIA, recent dx of adrenal insufficiency now on BID hydrocortisone. Recent hospitalization in 02/2025 for CHF/COPD. Presents from home with acute onset of severe dyspnea, wheezing, respiratory distress. Upon presentation had significant hypercapnia and distress requiring placement of BIPAP. During my assessment it was hard to communicate because of the BIPAP mask. PMH/PSH/allergies/meds/sochx - reviewed vitals - tachypneic, tachycardic, afebrile gen - BIPAP in place, mild distress, sleepy neck - JVD present heart - tachy, irregular, s1s2, no murmur lungs - diffuse wheezes with crackles abd - soft NT ND BS+ ext - 1+ edema b/l legs, pulses b/l feet 1+ labs reviewed imaging reviewed EKG - sinus tach, PVC, no ST changes A/P: 1. acute hypoxic/hypercapnic resp failure - suspect decompensated CHF is main culprit 2. acute/chronic HFpEF 3. elevated troponin - likely myocardial demand ischemia in setting of #1 4. COPD with exacerbation 5. adrenal insufficiency on BID hydrocortisone -diurese with IV lasix -BIPAP with serial gases; continue until CO2 and pH are corrected -agree w/ IV solumedrol for COPD & stress dose purposes -serial trops -BMP am Leonard Capps MD PG Care Time/CCT Total # of Minutes Spent Total Time Spent with Patient: Total time spent is greater than 50% in coordination of care (as documented) at patient's floor/unit and/or counseling patient: Coding [place] [address] INT INP/OBS CARE 3/75MIN Patient Type Established Medical Decision Making High Complexity Diagnoses Acute respiratory failure with hypoxia and hypercarbia J96.01; J96.02 Acute heart failure with preserved ejection fraction (HFpEF) I50.31 Acute exacerbation of chronic obstructive pulmonary disease J44.1 Adrenal insufficiency E27.40 Leukocytosis D72.829"
[2025-03-21] MEDS: RAPID SEQUENCE INDUCTION BAG ONE (09:29)
[2025-03-21 09:31] LABS: iSTAT Art Bld Gas Base Excess -3.0 meg/L (-9-1.8)
[2025-03-21] MEDS ORDERED: SENNA 8.6 MG TAB PO PRN ×2 (11:13→11:20)
[2025-03-21] MEDS ORDERED: ONDANSETRON INJ 2 MG/ML 2 ML VIAL IV PRN (11:13)
[2025-03-21 12:13] LABS: Base Excess VBG 1.9 mEq/L; HCO3 VBG 30 mmol/L; Oxygen Saturation VBG < 60.0 %; PCO2 VBG 62 mmHg (38-50); PO2 VBG 32 mmHg; pH VBG 7.29 (7.36-7.41)
[2025-03-21] MEDS: AZITHROMYCIN 500 MG/255 ML BAG IV ONE (12:46)
[2025-03-21] MEDS: ALBUT/IPRATROP 3MG/0.5MG NEB 3 ML VIAL INH SCH (13:10)
--- NOTE | 2025-03-21 13:56 | XCELERA ---
[id number]
--- NOTE | 2025-03-21 14:50 | Electrocardiogram Report ---
Test Reason : Blood Pressure : */* mmHG Vent. Rate : 107 BPM Atrial Rate : 107 BPM P-R Int : 128 ms QRS Dur : 70 ms QT Int : 298 ms P-R-T Axes : 69 21 149 degrees QTcB Int : 397 ms Sinus tachycardia with Premature atrial complexes with Aberrant conduction Nonspecific ST and T wave abnormality Abnormal ECG When compared with ECG of 21-Feb-2025 22:08, Aberrant conduction is now Present T wave inversion more evident in Lateral leads QT has shortened Confirmed by Ivan Fernandes ([id number]) on 03/21/2025 2:50:07 PM Referred By: REFERRED SELF Confirmed By: Ivan Fernandes
[2025-03-21] MEDS: cefTRIAXone SODIUM 2,000 MG/50 ML BAG IV SCH (15:23)
[2025-03-21] MEDS: hydrALAZINE 10 MG TAB PO SCH (15:25)
[2025-03-21] MEDS: POTASSIUM CHLORIDE 10 MEQ TABCR PO SCH (16:10)
[2025-03-21] MEDS: FUROSEMIDE 40 MG/4 ML VIAL IV SCH (16:10)
[2025-03-21 16:43] LABS: Base Excess VBG 3.2 mEq/L; HCO3 VBG 30 mmol/L; Oxygen Saturation VBG < 60.0 %; PCO2 VBG 53 mmHg (38-50); PO2 VBG 25 mmHg; pH VBG 7.36 (7.36-7.41)
[2025-03-21] MEDS: ENOXAPARIN INJ 40 MG/0.4 ML SYR SQ SCH (21:43)
[2025-03-21] MEDS: FAMOTIDINE 20 MG TAB PO SCH (22:45)
[2025-03-22 07:25] LABS: Hematocrit (blood only) 35.0 % (37.0-47.0); Hemoglobin 11.3 g/dl (12.0-16.0); Mean Corpuscular Hemoglobin 29.4 pg (25.0-34.0); Mean Corpuscular Volume 90.9 fL (80.0-100.0); Platelet Count 271 K/uL (130-400); RDW Standard Deviation 46.5 fL (36.4-46.3); Red Blood Count 3.85 M/uL (4.20-5.40); White Blood Count 13.38 K/ul (4.8-10.8)
[2025-03-22 07:48] LABS: Alanine Aminotransferase 48.0 U/L (7-52); Albumin Globulin Ratio 1.4 (0.9-2); Alkaline Phosphatase 52.0 U/L (34-104); Anion Gap 9.0 (3-11); Bilirubin,Total 0.5 mg/dl (0.2-1.0); Blood Urea Nitrogen 20.0 mg/dl (6-23); Calcium 8.0 mg/dl (8.6-10.3); Carbon Dioxide 29.0 mmol/L (21-32); Chloride 103.0 mmol/L (98-107); Creatinine Clr Calc Pharmacy 47.2 ml/min; Globulin 2.5 gm/dl (2.5-4.0); Glucose 122.0 mg/dl (70-99(Fasting)); Potassium 3.5 mmol/L (3.5-5.1); Sodium 141.0 mmol/L (136-145); Total Protein 6.1 gm/dl (6.0-8.3)
[2025-03-22 07:50] LABS: Immature Granulocytes # (auto) 0.10 K/uL (0.01-0.20); Immature Granulocytes % (auto) 0.7 %; RBC Morphology Unremarkable
--- NOTE | 2025-03-22 07:55 | XRay Report ---
EXAM: XR chest 1V portable CLINICAL HISTORY: Re-check for pulm edema TECHNIQUE: An X-ray image of the chest is obtained in AP projection. COMPARISON: 03/21/2025 06:40:02 COMMERCIAL AGENT FINDINGS: Pulmonary Parenchyma: Prominent interstitial markings with reticular shadowing -significantly resolved No evidence of lobar consolidation, collapse, or focal opacities. No evidence of pleural effusion or pleural thickening. Heart and Mediastinum: Heart size and shape are normal. No mediastinal widening or masses. No hilar or mediastinal lymphadenopathy. Bony Thorax: Bony thorax appears intact without fractures or deformities. Soft Tissues: Soft tissues overlying the chest wall are unremarkable. IMPRESSION: Prominent interstitial markings with reticular shadowing -significantly resolved No acute cardiopulmonary abnormalities are identified. Electronically signed by Eric Maynard 03-22-2025 07:54 AM
[2025-03-22] MEDS: FOLIC ACID 400 MCG TAB PO SCH (08:07)
[2025-03-22] MEDS: CLOPIDOGREL BISULFATE 75 MG TAB PO SCH (08:07)
[2025-03-22] MEDS: ROSUVASTATIN CALCIUM 20 MG TAB PO SCH (08:07)
[2025-03-22] MEDS: FLUTICASONE FUROATE 200MCG 14 PUFFS/INHALER INH SCH (08:08)
[2025-03-22] MEDS: UMECLIDINIUM/VILANTEROL 62.5/25MCG 7 PUFFS/INHALER INH SCH (08:08)
[2025-03-22] MEDS: NICOTINE 14 MG/24 HR PATCH TD SCH (08:08)
[2025-03-22] MEDS: METOPROLOL SUCC 50MG EXT REL TAB PO SCH (08:09)
[2025-03-22] MEDS ORDERED: NON-FORMULARY MEDICATION (Fluticasone-Umeclidin-Vilanter [Trelegy Ellipta] 200-62.5-25 mcg INH SCH (09:00)
[2025-03-22] MEDS: REMOVE NICODERM PATCH SCH (09:03)
[2025-03-22 10:03] LABS: Appearance Urine Clear (Clear); Glucose Urine UA Trace (Negative)
[2025-03-22] MEDS: AZITHROMYCIN 250 MG in DEXTROSE 5% 250 ML IV SCH (12:13)
--- NOTE | 2025-03-22 16:10 | Hospitalist Progress Note ---
Date of Service March 22, 2025 Assessment & Plan (1) Acute respiratory failure with hypoxia and hypercarbia: (2) Acute heart failure with preserved ejection fraction (HFpEF): (3) Acute exacerbation of chronic obstructive pulmonary disease: (4) Adrenal insufficiency: (5) Demand ischemia of myocardium: (6) Tobacco dependence: Plan 80yo female with recent dx of adrenal insufficiency on BID hydrocortisone, COPD, chronic HFpEF, tobacco dependence, PAD. Presented with respiratory distress on the morning of 03/21 and had evidence of severe hypercapnia at ER presentation necessitating use of BIPAP for most of 03/21. #Acute respiratory failure with hypoxia and hypercapnia - -significant improvement overnight with diuresis -last VBG with compensated resp acidosis and improvement in hypercapnia -suspect main component of her respiratory failure was acute/chronic HFpEF -COPD may have played a secondary role -either way acute resp failure has resolved and she is stable in room air today #Acute on chronic HFpEF - -etiology uncertain -steroid use? salt tablet use for prior hyponatremia? salt/fluid indiscretion at home? uncontrolled HTN? combination of factors? -either way has had COPIOUS diuresis since admission with IV lasix -she appears she is approaching euvolemia -daily standing weights -after tonight's lasix dose place on hold pending AM blood work tomorrow -at discharge she needs lasix daily - either 20mg or 40mg -does follow with Dr Barboza from nephrology who previously made her lasix daily rather than QOD -could consider CHF clinic w/ [facility] -echo findings from this admission noted; preserved EF 50-55% #Acute COPD exacerbation - -improved -wean solumedrol from 60mg BID to 30mg BID -could likely go to PO prednisone tomorrow -hold hydrocortisone while on above steroids -cont bronchodilators & home inhalers -on imaging today I don't see any evidence of pneumonia; will stop all abx #Secondary adrenal insufficiency - -has been evaluated by Dr Cortes from endo -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 PT/OT evals completed today --- safe for d/c to home I think patient would benefit from home health nursing for medication assistance, etc. I believe patient is thinking of her BID hydrocortisone when she talks about "2 bottles of lasix" Pharmacy records show 2 separate fills of her steroid - one in late February and again in March; does were different between both fills Admission and Anticipated Discharge Date Admission Date: March 21, 2025 Subjective tele overnight wnl patient sitting in chair during the visit feeling MUCH better mild cough no dyspnea eating well she reports confusion over her home lasix states she has 2 bottles of lasix - one says to take it daily, another says to t otoniel twice daily?? but she is only taking it in the AM she says that she doesn't want to void all night does admit to ongoing tobacco use Review of Systems Review of Systems: cv - no chest pain or tightness pulm - improved cough/congestion/dyspnea/wheezing GI - no abd pain or N/V Physical Exam Physical Exam: gen - sitting in chair, NAD, thin, pleasant neck - no JVD sitting upright at 90 degrees mouth - MMM, no thrush heart - RRR, s1 s2, 1/6 systolic murmur LLSB lungs - scant rales b/l bases, mild end-exp wheezes b/l, good airation abd - soft NT ND BS+ ext - no edema, pulses b/l feet 1+ psych - awake, alert Results & Data Results & Data Vital Signs (Past 12 Hours) Vital Signs Temp Pulse Pulse Resp BP Pulse Ox Pulse Ox 03/22/25 15:25 36.9 C 84 19 105/66 33 L 03/22/25 13:48 86 03/22/25 12:57 84 17 94 03/22/25 12:06 96 03/22/25 11:06 36.7 C 75 20 116/69 97 03/22/25 08:30 03/22/25 07:40 36.9 C 90 16 132/73 97 03/22/25 07:00 81 03/22/25 07:00 77 18 94 Pulse Ox Pulse Ox O2 Del Method O2 Flow Rate O2 Flow Rate O2 Flow Rate O2 Flow Rate 03/22/25 15:25 Room Air 03/22/25 13:48 03/22/25 12:57 Room Air 03/22/25 12:06 95 84 L 0 0 0 03/22/25 11:06 Room Air 03/22/25 08:30 Room Air 03/22/25 07:40 Nasal Cannula 2 03/22/25 07:00 03/22/25 07:00 Nasal Cannula 2 Laboratory Results Laboratory Results - last 24 hr 03/22/25 03/22/25 05:43 09:35 WBC 13.38 H RBC 3.85 L Hgb 11.3 L Hct 35.0 L MCV 90.9 D MCH 29.4 MCHC 32.3 RDW Std Deviation 46.5 H RDW Coeff of Edwin 13.9 Plt Count 271 MPV 9.8 Immature Gran % (Auto) 0.7 Neut % (Auto) 90.2 Lymph % (Auto) 6.5 Darke % (Auto) 2.5 Eos % (Auto) 0.0 Baso % (Auto) 0.1 Neut # (Auto) 12.07 H Lymph # (Auto) 0.87 L Darke # (Auto) 0.33 Eos # (Auto) 0.00 Baso # (Auto) 0.01 Immature Gran # (Auto) 0.10 RBC Morphology Unremarkable Sodium 141 Potassium 3.5 Chloride 103 Carbon Dioxide 29 Anion Gap 9 BUN 20 Creatinine 0.68 Est Cr Clr Drug Dosing 47.2 eGFR 86.90 BUN/Creatinine Ratio 29.4 H Glucose 122 H Calcium 8.0 L Total Bilirubin 0.5 AST 33 ALT 48 Alkaline Phosphatase 52 Troponin I High Sens 88.0 H* D Total Protein 6.1 Albumin 3.6 Globulin 2.5 Albumin/Globulin Ratio 1.4 Urine Color Yellow Urine Appearance Clear Urine pH 7.0 Ur Specific [place] 1.005 Urine Protein Negative Urine Glucose (UA) Trace H Urine Ketones Negative Urine Blood Negative Urine Nitrite Negative Urine Bilirubin Negative Urine Urobilinogen Negative Ur Leukocyte Esterase Negative Urine Comment Microbiology 03/21/25 07:48 Blood Aerobic Blood Culture - Preliminary No growth in Aerobic bottle after 24 hours. 03/21/25 07:48 Blood Anaerobic Blood Culture - Preliminary No growth in Anaerobic bottle after 24 hours. 03/21/25 07:59 Blood Aerobic Blood Culture - Preliminary No growth in Aerobic bottle after 24 hours. 03/21/25 07:59 Blood Anaerobic Blood Culture - Preliminary No growth in Anaerobic bottle after 24 hours. Diagnostic Findings Chest X-Ray 03/22/25 08:00 EXAM: XR chest 1V portable CLINICAL HISTORY: Re-check for pulm edema TECHNIQUE: An X-ray image of the chest is obtained in AP projection. COMPARISON: 03/21/2025 06:40:02 [facility] [employer] FINDINGS: Pulmonary Parenchyma: Prominent interstitial markings with reticular shadowing -significantly resolved No evidence of lobar consolidation, collapse, or focal opacities. No evidence of pleural effusion or pleural thickening. Heart and Mediastinum: Heart size and shape are normal. No mediastinal widening or masses. No hilar or mediastinal lymphadenopathy. Bony Thorax: Bony thorax appears intact without fractures or deformities. Soft Tissues: Soft tissues overlying the chest wall are unremarkable. IMPRESSION: Prominent interstitial markings with reticular shadowing -significantly resolved No acute cardiopulmonary abnormalities are identified. Electronically signed by Eric Maynard 03-22-2025 07:54 AM PG Care Time/CCT Total # of Minutes Spent Total Time Spent with Patient: Total time spent is greater than 50% in coordination of care (as documented) at patient's floor/unit and/or counseling patient: Coding Level of Care Code 66140 SUB INP/OBS CARE 3/50MIN Diagnoses Acute respiratory failure with hypoxia and hypercarbia J96.01; J96.02 Acute heart failure with preserved ejection fraction (HFpEF) I50.31 Acute exacerbation of chronic obstructive pulmonary disease J44.1 Adrenal insufficiency E27.40 Demand ischemia of myocardium I24.89 Tobacco dependence F17.200
[2025-03-23 06:38] LABS: Anion Gap 8.0 (3-11); Blood Urea Nitrogen 30.0 mg/dl (6-23); Calcium 8.6 mg/dl (8.6-10.3); Carbon Dioxide 32.0 mmol/L (21-32); Chloride 100.0 mmol/L (98-107); Creatinine Clr Calc Pharmacy 37.0 ml/min; Glucose 121.0 mg/dl (70-99(Fasting)); Magnesium 2.2 mg/dl (1.7-2.4); Potassium 3.6 mmol/L (3.5-5.1); Sodium 140.0 mmol/L (136-145)
[2025-03-23] MEDS: FUROSEMIDE 40 MG TAB PO SCH (08:37)
[2025-03-23] MEDS ORDERED: FUROSEMIDE 20 MG TAB PO SCH (09:00)
[2025-03-23] MEDS: ACETAMINOPHEN 325 MG TAB PO PRN (20:36)
--- NOTE | 2025-03-24 05:18 | Hospitalist Progress Note ---
Date of Service March 23, 2025 Assessment & Plan (1) Acute respiratory failure with hypoxia and hypercarbia: (2) Acute heart failure with preserved ejection fraction (HFpEF): (3) Acute exacerbation of chronic obstructive pulmonary disease: (4) Adrenal insufficiency: (5) Demand ischemia of myocardium: (6) Tobacco dependence: Plan 80yo female with recent dx of adrenal insufficiency on BID hydrocortisone, COPD, chronic HFpEF, tobacco dependence, PAD. Presented with respiratory distress on the morning of 03/21 and had evidence of severe hypercapnia at ER presentation necessitating use of BIPAP for most of 03/21. #Acute respiratory failure with hypoxia and hypercapnia - -resolved with BIPAP on hospital day #1 and diuresis -last VBG with compensated resp acidosis and improvement in hypercapnia -suspect main component of her respiratory failure was acute/chronic HFpEF -COPD may have played a secondary role but much less likely -stable in room air again today -plan a 2-step before going home #Acute on chronic HFpEF - -etiology uncertain -steroid use? salt tablet use for prior hyponatremia? salt/fluid indiscretion at home? uncontrolled HTN? underlying, undiagnosed CAD? combination of factors? -either way has had COPIOUS diuresis since admission with IV now PO lasix -appears euvolemic today -daily standing weights -at discharge she needs lasix daily - either 20mg or 40mg -does follow with Dr Barboza from nephrology who previously made her lasix daily rather than QOD a short time ago -could consider CHF clinic w/ [facility]; she actually sees Dr Barajas from [facility] Cardiology on 03/25 -- will reach out to him and see if he wishes to keep that or move it a week or 2 -echo findings from this admission noted; preserved EF 50-55% with normal LV wall motion #Acute COPD exacerbation - -resolved -stop solumedrol IV -give PO prednisone tomorrow - 20mg x 1 -then plan to resume chronic oral hydrocortisone on 03/25 at home -cont bronchodilators & home inhalers -never had definitive evidence of pneumonia process; biofire was negative #Secondary adrenal insufficiency - -has been evaluated by Dr Cortes from [facility] -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 as well as frequent exogenous steroid use (injections & PO) -ultimately return to BID hydrocortisone -in meantime is getting "stress" doses with solumedrol (which is being used for COPD) #HTN - -cont hydralazine, metoprolol #Current everyday tobacco cigarette smoker / tobacco dependence - -Nicotine patch daily -will discuss cessation #PAD | history of TIA - -continue Plavix #Hyperlipidemia - -continue rosuvastatin #DVT proph - -lovenox daily #coronary artery calcifications - -dense/severe, as noted on previous CT chests -will d/w Dr Barajas in light of +troponin this admission #positive troponin - -peak trop was 184, then decreased -most likely myocardial demand ischemia in setting of acute resp failure -see above discussion called & spoke with pt's daughter by phone on 03/22 reviewed plan of care, etc. PT/OT devin completed --- safe for d/c to home I think patient would benefit from home health nursing for medication assistance, etc. anticipate d/c home tomorrow on 03/24 d/c [place] Admission and Anticipated Discharge Date Admission Date: March 21, 2025 Subjective remains stable in room air she feels much better breathing essentially back to normal she walked the hallways today with staff; felt good minimal dyspnea if any was able to walk without any supplemental o2 sats lowest with walking were 89% per nursing staff had bowel movement yesterday eating well Review of Systems Review of Systems: CV - no chest pain or chest tightness pulm - minimal cough GI - no N/V/abd pain Physical Exam Physical Exam: gen - sitting in chair, NAD, thin, pleasant - looks great neck - no JVD mouth - MMM, no thrush heart - RRR, s1 s2, 1/6 systolic murmur LLSB lungs - essentially CTA b/l, no rales, no wheezes abd - soft NT ND BS+ ext - no edema, pulses b/l feet 1+ psych - awake, alert - [place] in place, clear yellow urine present Results & Data Results & Data Vital Signs (Past 12 Hours) Vital Signs Temp Pulse Pulse Resp BP BP Pulse Ox 03/23/25 15:24 36.6 C 78 18 136/67 95 03/23/25 11:20 36.8 C 68 18 135/59 L 95 03/23/25 07:22 36.6 C 77 18 141/66 H 100 Laboratory Results Laboratory Results - last 24 hr 03/23/25 06:03 Sodium 140 Potassium 3.6 Chloride 100 Carbon Dioxide 32 Anion Gap 8 BUN 30 H Creatinine 0.80 Est Cr Clr Drug Dosing 37.0 eGFR 73.52 BUN/Creatinine Ratio 37.5 H Glucose 121 H Calcium 8.6 Magnesium 2.2 Diagnostic Findings Microbiology 03/21/25 07:59 Blood Aerobic Blood Culture - Preliminary No growth in Aerobic bottle after 48 hours. 03/21/25 07:59 Blood Anaerobic Blood Culture - Preliminary No growth in Anaerobic bottle after 48 hours. 03/21/25 07:48 Blood Aerobic Blood Culture - Preliminary No growth in Aerobic bottle after 48 hours. 03/21/25 07:48 Blood Anaerobic Blood Culture - Preliminary No growth in Anaerobic bottle after 48 hours. PG Care Time/CCT Total # of Minutes Spent Total Time Spent with Patient: Total time spent is greater than 50% in coordination of care (as documented) at patient's floor/unit and/or counseling patient: Coding Level of Care Code 72539 SUB INP/OBS CARE 2/35MIN Diagnoses Acute respiratory failure with hypoxia and hypercarbia J96.01; J96.02 Acute heart failure with preserved ejection fraction (HFpEF) I50.31 Acute exacerbation of chronic obstructive pulmonary disease J44.1 Adrenal insufficiency E27.40 Demand ischemia of myocardium I24.89 Tobacco dependence F17.200
[2025-03-24 07:19] VITALS: BP 147/69; TEMP 98.1
[2025-03-24 07:27] VITALS: RESP 16; O2SAT 96
[2025-03-24 07:47] LABS: Creatinine Clr Calc Pharmacy 38.9 ml/min
[2025-03-24 07:48] LABS: Anion Gap 8.0 (3-11); Blood Urea Nitrogen 29.0 mg/dl (6-23); Calcium 9.0 mg/dl (8.6-10.3); Carbon Dioxide 32.0 mmol/L (21-32); Chloride 100.0 mmol/L (98-107); Creatinine Clr Calc Pharmacy 38.9 ml/min; Glucose 108.0 mg/dl (70-99(Fasting)); Potassium 3.9 mmol/L (3.5-5.1); Sodium 140.0 mmol/L (136-145)
[2025-03-24 08:03] LABS: Base Excess VBG 8.3 mEq/L; HCO3 VBG 33 mmol/L; Oxygen Saturation VBG 61.9 %; PCO2 VBG 47 mmHg (38-50); PO2 VBG 39 mmHg; pH VBG 7.46 (7.36-7.41)
[2025-03-24] MEDS: predniSONE 20 MG TAB PO ONE (08:57)
[2025-03-24 10:56] VITALS: PULSE 69
--- NOTE | 2025-03-24 12:16 | Discharge Summary ---
Discharge Summary Date of Service March 24, 2025 Principal Dx & Hospital Course #1 = Principal Diagnosis (1) Acute respiratory failure with hypoxia and hypercarbia: (2) Acute heart failure with preserved ejection fraction (HFpEF): (3) Acute exacerbation of chronic obstructive pulmonary disease: (4) Adrenal insufficiency: (5) Demand ischemia of myocardium: (6) Tobacco dependence: Plan 80yo female with recent dx of adrenal insufficiency on BID hydrocortisone, COPD, chronic HFpEF, tobacco dependence, PAD. Presented with respiratory distress on the morning of 03/21 and had evidence of severe hypercapnia at ER presentation necessitating use of BIPAP for most of 03/21. #Acute respiratory failure with hypoxia and hypercapnia - -resolved with BIPAP on hospital day #1 and diuresis -last VBG with compensated resp acidosis and improvement in hypercapnia -suspect main component of her respiratory failure was acute/chronic HFpEF -COPD may have played a secondary role but much less likely -stable in room air again today -plan a 2-step before going home #Acute on chronic HFpEF - -etiology uncertain -steroid use? salt tablet use for prior hyponatremia? salt/fluid indiscretion at home? uncontrolled HTN? underlying, undiagnosed CAD? combination of factors? -either way has had COPIOUS diuresis since admission with IV now PO lasix -appears euvolemic today -daily standing weights -at discharge she needs lasix daily - either 20mg or 40mg -does follow with Dr Barboza from nephrology who previously made her lasix daily rather than QOD a short time ago -could consider CHF clinic w/ [facility] [place]; she actually sees Dr Barajas from [facility] Cardiology on 03/25 -- will reach out to him and see if he wishes to keep that or move it a week or 2 -echo findings from this admission noted; preserved EF 50-55% with normal LV wall motion #Acute COPD exacerbation - -resolved -stop solumedrol IV -give PO prednisone tomorrow - 20mg x 1 -then plan to resume chronic oral hydrocortisone on 03/25 at home -cont bronchodilators & home inhalers -never had definitive evidence of pneumonia process; biofire was negative #Secondary adrenal insufficiency - -has been evaluated by Dr Cortes from [facility] -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 as well as frequent exogenous steroid use (injections & PO) -ultimately return to BID hydrocortisone -in meantime is getting "stress" doses with solumedrol (which is being used for COPD) #HTN - -cont hydralazine, metoprolol #Current everyday tobacco cigarette smoker / tobacco dependence - -Nicotine patch daily -will discuss cessation #PAD | history of TIA - -continue Plavix #Hyperlipidemia - -continue rosuvastatin #DVT proph - -lovenox daily #coronary artery calcifications - -dense/severe, as noted on previous CT chests -will d/w Dr Barajas in light of +troponin this admission #positive troponin - -peak trop was 184, then decreased -most likely myocardial demand ischemia in setting of acute resp failure -see above discussion called & spoke with pt's daughter by phone on 03/22 reviewed plan of care, etc. PT/OT devin completed --- safe for d/c to home I think patient would benefit from home health nursing for medication assistance, etc. anticipate d/c home tomorrow on 03/24 d/c [place] Admission HPI Per Admitting Provider Mrs. Mercedes is an 80-year-old female with PMH of COPD, HFpEF, TIA, osteoporosis, and retinal vein occlusion. She presented via EMS on 03/21 for acute respiratory distress. Patient reports that she began to have mild SOB last night, and then it acutely worsened this morning. She woke up around 6 AM, and felt okay, then her breathing suddenly got worse. Labored breathing both at rest and with exertion. She denies orthopnea. She did not take Lasix this morning, and normally takes it every other day. She reports no missed doses. The only medication she took this morning was Zyrtec. Patient reports she recently had pneumonia 2 weeks ago; history of recent hospitalization 02/21 for acute hypoxic respiratory failure and hypercapnia in the setting of acute CHF and COPD. Patient denies any fevers overnight. No coughing. No vomiting or aspiration events. She does not use supplemental oxygen at baseline or CPAP at night. No history of DVT/PE. She is a current everyday tobacco cigarette smoker; 0.5 PPD. She also reports that she did have a beer last night, but normally does not drink. Patient is currently tachypneic at 32 RPM, and SpO2 is 97% on BiPAP at time of admission. ED course: Lasix 40 mg IV Ketamine 5 mg IV x 2 Labetalol 10 mg IV Cefepime 2000 mg IV Nitroglycerin 2% 0.5 inch Albuterol 12 mL neb ROS: Patient endorses SOB both at rest and with exertion. Patient denies fever, chills, night sweats, dizziness/lightheadedness when walking at baseline, chest pain, chest palpitations, pleuritic CP, cough, hemoptysis, abdominal pain, N/V/D, or changes in urinary or bowel habits. Discharge Exam gen - sitting in chair, NAD, thin, pleasant - looks great neck - no JVD mouth - MMM, no thrush heart - RRR, s1 s2, 1/6 systolic murmur LLSB lungs - essentially CTA b/l, no rales, no wheezes abd - soft NT ND BS+ ext - no edema, pulses b/l feet 1+ psych - awake, alert - hamilton in place, clear yellow urine present Discharge Plan Discharge Items Patient Disposition: Home - Home Health Services Reason For Visit: ACUTE RESP FAILURE WITH HYPOXIA AND HYPERCAPNIA Discharge Diagnosis: 1. acute respiratory failure due to congestive heart failure - resolved 2. diastolic congestive heart failure 3. COPD 4. tobacco use 5. carotid artery stenosis 6. adrenal insufficiency Activity: Resume your previous activity Non-emergency contact: Primary Care Provider, Specialist and Press Assistant Call non-emergency contact if: you have any medication questions, your symptoms worsen and you have a fever Follow-up/Referrals: Ivan Castro MD [Primary Care Provider] - 04/02/25 3:00 pm (please see Luz Elena Peacock for hospital follow-up) Pete Cortes MD [Physician] - 04/08/25 2:00 pm (endocrinology) Alfred Barajas MD [Physician] - 03/25/25 12:45 pm (cardiology) Joe Barraza MD [Physician] - (we will arrange an appointment for you to see Dr Barraza for the carotid artery disease) Diet: Heart Healthy Fluids: 1500ml (6 cups) Addtl Attending Provider Instructions: Ms Mercedes, You were hospitalized due to a form of congestive heart failure (see handout). Your type of congestive heart failure is called "diastolic" congestive heart failure. With this type of heart failure the heart muscle is "stiff" (the muscle doesn't relax when it should). Due to heart failure water/fluid builds up in the lungs, legs, and other locations. When the lungs fill with fluid it is very difficult to breath. When you arrived your chest x-ray was consistent with fluid build-up in the lungs. You required oxygen and IV diuretics (water pills). With these measures and time your lungs improved and the water build-up resolved. There are numerous things that can contribute to a flare-up of congestive heart failure including but not limited to - -too much salt in the diet -taking certain types of medications that can cause fluid retention -drinking too much fluid -having untreated high blood pressure -severe illness -coronary artery disease (blocked arteries of the heart) -etc. It is possible that the salt tablets you were previously taking, the recently instituted steroids for adrenal insufficiency, uncontrolled high blood pressure, and other factors likely all were to blame. We checked your oxygen levels with walking on day of discharge and you do not need supplemental oxygen at this time. Recommendations - 1. check your weight every morning. Keep a log of your weights in a notebook. If you gain more than 2-3 pounds over a 1-[address] Castro, Dr Barboza, or cardiology for guidance. Rapid weight gain is often a sign of taking on extra water from congestive heart failure. 2. increase your furosemide diuretic to 40mg each morning. Your outpatient doctors/providers will tell you if this will be your dose indefinitely or if it will need to be changed. 3. when you are ready please talk to Dr Castro about methods to quit smoking. 4. please STOP salt tablet supplements (sodium chloride 1 gram tablet). 5. limit total salt intake to no more than 2000mg (2 grams) in a 24-hour period. Avoid fast foods, fried foods, pickled foods, TV dinners, canned soup, chips, etc. 6. limit your total liquid intake over a 24-hour period to about 1500- 1800ml/day. This includes all liquids consumed - juice, water, tea, coffee, etc. 7. resume your hydrocortisone for the adrenal insufficiency on Tuesday AM, 03/25/25. Again your hydrocortisone dose is - -15mg every morning -5mg every afternoon (about 8 hours apart) 8. I will send a message to Dr Barajas about your hospitalization and concern for coronary artery disease. 9. we will set you up with an appointment to see Dr Barraza for the carotid artery disease. Follow-up - see separate section Return to [facility] if - -you have fevers over 100 degrees -you have worsening shortness of breath -you have chest pains -you have concerns about congestive heart failure -you feel dizzy or lightheaded -any other concerns It was our pleasure to care for you! -Leonard Capps, hospitalist Addtl Editor [employer] Provider Instructions: CONGESTIVE HEART FAILURE INSTRUCTIONS: Call 911 and go to the Emergency Room if: * You have tightness or pain in your chest that does not go away with rest * You are very short of breath even with rest Call your doctor if any of the following symptoms or problems start or get worse: * Shortness of breath or difficulty breathing * Wake up at night short of breath * Chest pain * Cough * Swelling of your hands, fee, or legs * More fatigued or tired with your normal activity * Palpitations - sudden fast heart beats WEIGHT * Weigh yourself every morning after using the bathroom. * Use the same scale. * Wear the same amount of clothing. * Write your weight down on your chart. * Call your doctor if you gain more than 2-3 pounds in 1-2 days. This is typically one of the first signs of water/fluid retention from congestive heart failure.* MEDICATIONS * Use this discharge instruction sheet for instructions. * Take your medications at the time your doctor ordered. * Do not skip a dose of your medicines. * If you miss a dose of medicine, take as soon as possible, but DO NOT DOUBLE A DOSE. * Read your medicine information when you get home. * Know all of the side effects of your medicine. * Call your doctor's office if you have any side effects. * Be sure all of your doctors know what medicine and herbs you take (including cold, flu, and herbal medicine). * Pain Medicine: If you do not get relief from your pain, please call your doctor for help. Take the following with you to your follow-up doctor appointments: * Weight Chart * Medication List * List of questions Do not drink excessive alcohol, beer or wine. Pending Studies at Discharge: No Stand-Alone Forms: My [facility] [place] Activation Life, Smoking Cessation Medications and DC Order Prescriptions: Continued Trelegy Ellipta 200-62.5-25 mcg blister with device 1 inh INHALATION DAILY Qty: 60 3RF hydralazine 10 mg tablet 10 mg PO TID Qty: 90 2RF famotidine 20 mg tablet 20 mg PO BID Qty: 60 5RF albuterol sulfate [Ventolin HFA] 90 mcg/actuation HFA aerosol inhaler 2 puff inhalation Q4H PRN (Reason: shortness of breath or wheezing) Qty: 18 5RF rosuvastatin 20 mg tablet 20 mg PO QAM Qty: 30 7RF metoprolol succinate 50 mg tablet extended release 24 hr 50 mg PO DAILY Qty: 90 1RF Patient Comments: 03/21-last filled 02/11 30 day supply #30 clopidogrel 75 mg tablet 75 mg PO QAM Qty: 30 4RF folic acid 400 mcg tablet 0.4 mg PO DAILY Patient Comments: 03/21- otc unable to verify acetaminophen 325 mg capsule 650 mg PO QID PRN (Reason: Pain) Patient Comments: 03/21- otc unable to verify hydrocortisone 5 mg tablet 5 mg PO .COMPLEX Qty: 500 2RF Rx Instructions: 5 mg orally 15 mg in the morning, 5 mg 8 hours later; sennosides [senna] 8.6 mg Tablet 17 mg PO DAILY PRN (Reason: NO BM IN 2 DAYS) Patient Comments: 03/21- otc unable to verify cholecalciferol (vitamin D3) [Vitamin D3] 125 mcg (5,000 unit) tablet 5,000 unit PO UD Qty: 0 0RF Patient Comments: 03/21- otc unable to verify Rx Instructions: take 5,000 units by mouth Tuesday thru . Changed furosemide 20 mg tablet 40 mg PO QAM Qty: 15 6RF Discontinued sodium chloride 1,000 mg tablet,soluble 1,000 mg PO DAILY Qty: 30 6RF Patient Comments: 03/21-last filled 02/11 30 day supply #30 Discharge Orders: Discharge Order (Routine); Ordered 03/24/25 Ordered By: Leonard Estrada/Other Patient Handouts: What Is Heart Failure, ED Low-Salt Diet, Carotid Artery Disease Admission Data Admit Date/Time: 03/21/25 09:37 Attending Provider: Leonard Capps Admit Provider: Leonard Capps Primary Care Provider: Ivan Castro Other Providers: Leonard Capps Hospital Stay Data Consultations 03/21/25 08:56 ED Decision to Admit Stat Pending Results Patient Have Any Pending Studies at Discharge: No Discharge Instructions Given to Patient (Per Discharging Provider) Ms Mercedes, You were hospitalized due to a form of congestive heart failure (see handout). Your type of congestive heart failure is called "diastolic" congestive heart failure. With this type of heart failure the heart muscle is "stiff" (the muscle doesn't relax when it should). Due to heart failure water/fluid builds up in the lungs, legs, and other locations. When the lungs fill with fluid it is very difficult to breath. When you arrived your chest x-ray was consistent with fluid build-up in the lungs. You required oxygen and IV diuretics (water pills). With these measures and time your lungs improved and the water build-up resolved. There are numerous things that can contribute to a flare-up of congestive heart failure including but not limited to - -too much salt in the diet -taking certain types of medications that can cause fluid retention -drinking too much fluid -having untreated high blood pressure -severe illness -coronary artery disease (blocked arteries of the heart) -etc. It is possible that the salt tablets you were previously taking, the recently instituted steroids for adrenal insufficiency, uncontrolled high blood pressure, and other factors likely all were to blame. We checked your oxygen levels with walking on day of discharge and you do not need supplemental oxygen at this time. Recommendations - 1. check your weight every morning. Keep a log of your weights in a notebook. If you gain more than 2-3 pounds over a 1-[address] Castro, Dr Barboza, or cardiology for guidance. Rapid weight gain is often a sign of taking on extra water from congestive heart failure. 2. increase your furosemide diuretic to 40mg each morning. Your outpatient do ctors/providers will tell you if this will be your dose indefinitely or if it will need to be changed. 3. when you are ready please talk to Dr Castro about methods to quit smoking. 4. please STOP salt tablet supplements (sodium chloride 1 gram tablet). 5. limit total salt intake to no more than 2000mg (2 grams) in a 24-hour period. Avoid fast foods, fried foods, pickled foods, TV dinners, canned soup, chips, etc. 6. limit your total liquid intake over a 24-hour period to about 1500- 1800ml/day. This includes all liquids consumed - juice, water, tea, coffee, etc. 7. resume your hydrocortisone for the adrenal insufficiency on Tuesday AM, 03/25/25. Again your hydrocortisone dose is - -15mg every morning -5mg every afternoon (about 8 hours apart) 8. I will send a message to Dr Barajas about your hospitalization and concern for coronary artery disease. 9. we will set you up with an appointment to see Dr Barraza for the carotid artery disease. Follow-up - see separate section Return to [facility] if - -you have fevers over 100 degrees -you have worsening shortness of breath -you have chest pains -you have concerns about congestive heart failure -you feel dizzy or lightheaded -any other concerns It was our pleasure to care for you! -Leonard Capps, hospitalist Coding Diagnoses Acute respiratory failure with hypoxia and hypercarbia J96.01; J96.02 Acute heart failure with preserved ejection fraction (HFpEF) I50.31 Acute exacerbation of chronic obstructive pulmonary disease J44.1 Adrenal insufficiency E27.40 Demand ischemia of myocardium I24.89 Tobacco dependence F17.200
== END 2025-03-24 13:03 | disposition home health service (06) | DRG 291 ==
LOC: ED 07:45 → 2S 09:37